=== PATIENT | male | born 1970 | race Caucasian/White ===

== ENCOUNTER 2020-08-08 10:08 | Outpatient (REF) | payer OTHER, SELFPAY ==
[2020-08-08 11:28] LABS: Alanine Aminotransferase 33 U/L (0-40); Albumin Level 4.8 g/dL (3.5-5.0); Alkaline Phosphatase 94 U/L (39-117); Anion Gap 12 (12-20); Aspartate Amino Transferase 27 U/L (5-37); Bilirubin Total 0.8 mg/dL (0.0-1.0); Blood Urea Nitrogen 17 mg/dL (9-16); Carbon Dioxide 28 mmol/L (22-29); Chloride 105 mmol/L (96-108); Cholesterol 227 mg/dL; Estimated Glomerular Filt Rate 52; Glucose Fasting 92 mg/dL (60-99); HDL Cholesterol 74 mg/dL; LDL Cholesterol Calculated 108 mg/dl; Potassium 4.5 mmol/l (3.3-5.1); Sodium 140 mmol/L (135-145); Total Protein 8.1 g/dL (6.5-8.0); Triglycerides 228 mg/dL
[2020-08-08 11:49] LABS: PSA,Total (Free>4and<10) 1.53 ng/mL (0.00-4.00); TSH reflex Free T4 0.97 mIU/mL (0.32-4.0); Vitamin D 25-OH Total 34.2 ng/mL (>30)
== END 2020-08-08 10:09 | disposition home or self-care (01) ==
LOC: HO.LAB 10:08
PROVIDERS: PCP Nurse Practitioner Family; Visit Provider Nurse Practitioner Family
DX: Z13.1 Encounter for screening for diabetes mellitus (principal); Z13.220 Encounter for screening for lipoid disorders; Z13.21 Encounter for screening for nutritional disorder; Z13.29 Encounter for screening for other suspected endocrine disorder; Z12.5 Encounter for screening for malignant neoplasm of prostate
CPT/HCPCS: 36415; 80053; 80061; 82306; 84153; 84443

== ENCOUNTER → 2020-11-05 16:02 | Outpatient (BNVA) | payer OTHER, SELFPAY | PROVIDERS: PCP Nurse Practitioner Family; Visit Provider Internal Medicine Gastroenterology | DX: Z76.89 Persons encountering health services in other specified circumstances (principal) ==

== ENCOUNTER 2022-02-15 10:03 | Outpatient (REF) | payer OTHER, SELFPAY ==
[2022-02-15 11:38] LABS: Appearance Urine CLEAR; Color Urine YELLOW; Glucose Urine UA NEG (NEG); Leukocyte Esterase Urine NEG (NEG); Nitrite Urine NEG (NEG); Urine Blood NEG (NEG); Urine Ketones NEG (NEG); Urine Protein NEG (NEG-TRACE)
[2022-02-15 12:04] LABS: TSH reflex Free T4 1.72 uIU/mL (0.32-4.0)
[2022-02-15 12:08] LABS: Alanine Aminotransferase 35 U/L (0-40); Albumin Level 4.9 g/dL (3.5-5.0); Alkaline Phosphatase 74 U/L (39-117); Anion Gap 14 (12-20); Aspartate Amino Transferase 29 U/L (5-37); Bilirubin Total 0.6 mg/dL (0.0-1.0); Blood Urea Nitrogen 17 mg/dL (9-16); Calcium 10.5 mg/dL (8.4-10.2); Carbon Dioxide 23 mmol/L (22-29); Chloride 107 mmol/L (96-108); Cholesterol 293 mg/dL; Estimated Glomerular Filt Rate 53; Glucose Fasting 100 mg/dL (60-99); HDL Cholesterol 68 mg/dL; LDL Cholesterol Calculated 152 mg/dl; Potassium 4.9 mmol/L (3.3-5.1); Sodium 139 mmol/L (135-145); Total Protein 8.3 g/dL (6.5-8.0); Triglycerides 367 mg/dL
== END 2022-02-15 10:04 | disposition home or self-care (01) ==
LOC: HO.HMGCLDS 10:03
PROVIDERS: PCP Nurse Practitioner Family; Visit Provider Nurse Practitioner Family
DX: Z00.00 Encounter for general adult medical examination without abnormal findings (principal)
CPT/HCPCS: 36415; 80053; 80061; 81003; 84443

== ENCOUNTER 2022-08-15 09:46 | Outpatient (REF) | payer OTHER, SELFPAY ==
[2022-08-15 11:14] LABS: MANUAL DIFF FLAG NO
[2022-08-15 11:24] LABS: Basophils Absolute Auto 0.1 X10*3/uL (0.0-0.2); Basophils Percent Auto 0.8 % (0-2); Eosinophils Absolute Auto 0.2 X10*3/uL (0.0-0.4); Hematocrit 47.5 % (42.0-52.0); Hemoglobin 15.9 g/dl (14.0-18.0); Imm Gran Abs Auto 0.08 X10*3/uL (0.00-0.03); Lymphocytes Absolute Auto 3.5 X10*3/uL (1.2-4.9); Mean Corpuscular HGB Conc 33.5 g/dl (31.0-36.0); Mean Corpuscular Hemoglobin 30.6 pg (27.0-33.0); Mean Corpuscular Volume 91.3 fL (80.0-98.0); Mean Platelet Volume 10.6 fL (9.4-12.4); Monocytes Absolute Auto 0.8 X10*3/uL (0.1-1.2); Monocytes Percent Auto 9.8 % (2-11); Neutrophils Absolute Auto 3.3 x10*3/uL (2.0-8.3); Neutrophils Percent Auto 42.4 % (45-73); Platelet Count 278 X10*3/uL (160-400); Red Cell Distribution Width 13.2 % (11.0-16.0); White Blood Count 7.8 X10*3/uL (4.8-10.8)
[2022-08-15 11:25] LABS: Appearance Urine Clear; Color Urine Yellow; Glucose Urine UA Negative (Negative); Leukocyte Esterase Urine Negative (Negative); Nitrite Urine Negative (Negative); Urine Blood Negative (Negative); Urine Ketones Negative (Negative); Urine Protein Negative (Neg-Trace)
[2022-08-15 11:50] LABS: Alanine Aminotransferase 52 U/L (0-40); Albumin Level 4.9 g/dL (3.5-5.0); Alkaline Phosphatase 94 U/L (39-117); Anion Gap 16 (12-20); Aspartate Amino Transferase 30 U/L (5-37); Bilirubin Total 0.6 mg/dL (0.0-1.0); Blood Urea Nitrogen 13 mg/dL (9-16); Calcium 9.7 mg/dL (8.4-10.2); Carbon Dioxide 23 mmol/L (22-29); Chloride 107 mmol/L (96-108); Cholesterol 192 mg/dL; Estimated Glomerular Filt Rate 52; Glucose Fasting 100 mg/dL (60-99); HDL Cholesterol 72 mg/dL; LDL Cholesterol Calculated 80 mg/dl; Potassium 4.1 mmol/L (3.3-5.1); Sodium 142 mmol/L (135-145); Total Protein 8.2 g/dL (6.5-8.0); Triglycerides 201 mg/dL
[2022-08-15 11:57] LABS: TSH reflex Free T4 2.28 uIU/mL (0.32-4.0)
[2022-08-16 10:46] LABS: Calcium (PTHI) 9.9 mg/dL (8.6-10.3); PTHI 40 pg/mL (16-77)
[2022-08-18 10:32] LABS: Calcium, Ionized 5.1 mg/dL (4.8-5.6)
== END 2022-08-15 09:47 | disposition home or self-care (01) ==
LOC: HO.HMGCLDS 09:46
PROVIDERS: PCP Nurse Practitioner Family; Visit Provider Nurse Practitioner Family
DX: E83.52 Hypercalcemia (principal); E78.5 Hyperlipidemia, unspecified; I10 Essential (primary) hypertension; R79.89 Other specified abnormal findings of blood chemistry; R74.8 Abnormal levels of other serum enzymes
CPT/HCPCS: 36415; 80053; 80061; 81003; 82330; 83970; 84443; 85025

== ENCOUNTER 2022-09-06 08:52 | Outpatient (REF) | payer OTHER, SELFPAY ==
--- NOTE | ~2022-09-06 | US_ITS ---
EXAMINATION: US ABDOMEN COMPLETE CLINICAL INFORMATION: Abnormal levels of other serum enzymes. COMPARISON: CT abdomen and pelvis without contrast 04/26/2019. Ultrasound retroperitoneal limited (renal only) 02/26/2019. TECHNIQUE: Real-time imaging of the abdominal viscera. Technically limited study secondary to bowel gas and body habitus. FINDINGS: PANCREAS: Normal. ABDOMINAL AORTA: The distal abdominal aorta is normal in caliber. The proximal and mid abdominal aorta are not well visualized. INFERIOR VENA CAVA: Not well visualized. LIVER: Liver echotexture is heterogeneous with overall increased echotexture and large focal hypoechoic areas, probably representing areas of focal fatty sparing. No intrahepatic biliary duct dilatation. The liver appears normal in size and contour. Increased. GALLBLADDER: The gallbladder is normal in size. No gallstones. Ring down artifact suggestive of adenomyosis of the gallbladder wall. Gallbladder wall thickness is normal. COMMON BILE DUCT: Normal in caliber measuring 0.4 cm in diameter. RIGHT KIDNEY: Normal. No hydronephrosis. No renal calculi or focal parenchymal lesions. The kidney measures 11.0 cm in maximum dimension. LEFT KIDNEY: Normal. No hydronephrosis. No renal calculi or focal parenchymal lesions. The kidney measures 11.1 cm in maximum dimension. SPLEEN: Normal. The spleen measures 10.2 cm in maximum dimension. FREE FLUID: None. US/US abdomen complete IMPRESSION: Echogenic liver with large hypoechoic areas probably representing areas of focal fatty sparing. Adenomyosis of the gallbladder wall. Limited visualization of the aorta and IVC.
== END 2022-09-06 08:53 | disposition home or self-care (01) ==
LOC: HO.HMGCX 08:52
PROVIDERS: PCP Nurse Practitioner Family; Visit Provider Nurse Practitioner Family
DX: R74.8 Abnormal levels of other serum enzymes (principal)
CPT/HCPCS: 76700

== ENCOUNTER 2022-10-10 11:00 | Outpatient (REF) | payer OTHER, SELFPAY ==
[2022-10-10 14:58] LABS: Alanine Aminotransferase 50 U/L (0-40); Albumin Level 4.8 g/dL (3.5-5.0); Alkaline Phosphatase 102 U/L (39-117); Anion Gap 14 (12-20); Aspartate Amino Transferase 29 U/L (5-37); Bilirubin Total 0.7 mg/dL (0.0-1.0); Blood Urea Nitrogen 13 mg/dL (9-16); Calcium 9.9 mg/dL (8.4-10.2); Carbon Dioxide 26 mmol/L (22-29); Chloride 105 mmol/L (96-108); Cholesterol 178 mg/dL; Estimated Glomerular Filt Rate 58; Glucose Random 88 mg/dL (60-115); HDL Cholesterol 74 mg/dL; LDL Cholesterol Calculated 63 mg/dl; Potassium 4.4 mmol/L (3.3-5.1); Sodium 141 mmol/L (135-145); Total Protein 8.1 g/dL (6.5-8.0); Triglycerides 205 mg/dL
[2022-10-11 05:21] LABS: HBS Num1 2.23 mIU/mL (0-7.99); HBc Num1 0.09 S/CO (0.00-0.79); HBsAGNum1 0.26 S/CO (0.00-0.99); Hepatitis B Core Antibody Nonreactive (Nonreactive); Hepatitis B Surface Antigen Negative (Negative); ~HepC Num1 0.13 S/CO (0.00-0.79); ~Hepatitis B Surface Antibody NONREACTIVE (Nonreactive); ~Hepatitis C Antibody Nonreactive (Nonreactive)
[2022-10-11 09:48] LABS: PTHI 35 pg/mL (16-77)
[2022-10-12 04:33] LABS: Hepatitis A Antibody IgM 0.23 Index (0-0.79); ~Hepatitis A Antibody IgM Nonreactive (Nonreactive)
[2022-10-12 14:33] LABS: Calcium, Ionized 5.1 mg/dL (4.8-5.6)
== END 2022-10-10 11:01 | disposition home or self-care (01) ==
LOC: HO.HMGCLDS 11:00
PROVIDERS: PCP Nurse Practitioner Family; Visit Provider Nurse Practitioner Family
DX: E83.52 Hypercalcemia (principal); R79.89 Other specified abnormal findings of blood chemistry; R74.8 Abnormal levels of other serum enzymes; E78.5 Hyperlipidemia, unspecified; Z12.5 Encounter for screening for malignant neoplasm of prostate
CPT/HCPCS: 36415; 80053; 80061; 82330; 83970; 86704; 86706; 86709; 86803; 87340

== ENCOUNTER 2022-10-21 10:53 | Outpatient (REF) | payer OTHER, SELFPAY ==
[2022-10-21 15:01] LABS: Prostate Specific Antigen Scr 1.94 ng/mL (<0.05-4.0)
== END 2022-10-21 10:54 | disposition home or self-care (01) ==
LOC: HO.HMGCLDS 10:53
PROVIDERS: PCP Nurse Practitioner Family; Visit Provider Nurse Practitioner Family
DX: Z12.5 Encounter for screening for malignant neoplasm of prostate (principal)
CPT/HCPCS: 36415; 84153

== ENCOUNTER 2023-02-09 10:02 | Outpatient (REF) | payer OTHER, SELFPAY ==
[2023-02-09 11:23] LABS: MANUAL DIFF FLAG NO
[2023-02-09 11:48] LABS: Basophils Absolute Auto 0.1 X10*3/uL (0.0-0.2); Basophils Percent Auto 0.7 % (0-2); Eosinophils Absolute Auto 0.1 X10*3/uL (0.0-0.4); Eosinophils Percent Auto 1.3 % (0-4); Hematocrit 51.4 % (42.0-52.0); Hemoglobin 16.9 g/dl (14.0-18.0); Imm Gran Abs Auto 0.04 X10*3/uL (0.00-0.03); Imm Gran Pct Auto 0.5 % (0.0-0.4); Lymphocytes Absolute Auto 2.8 X10*3/uL (1.2-4.9); Lymphocytes Percent Auto 36.4 % (20-40); Mean Corpuscular HGB Conc 32.9 g/dl (31.0-36.0); Mean Corpuscular Hemoglobin 30.1 pg (27.0-33.0); Mean Corpuscular Volume 91.5 fL (80.0-98.0); Mean Platelet Volume 10.4 fL (9.4-12.4); Monocytes Absolute Auto 0.6 X10*3/uL (0.1-1.2); Monocytes Percent Auto 7.9 % (2-11); Neutrophils Absolute Auto 4.1 x10*3/uL (2.0-8.3); Neutrophils Percent Auto 53.2 % (45-73); Platelet Count 272 X10*3/uL (160-400); Red Blood Count 5.62 X10*6/uL (4.60-5.80); Red Cell Distribution Width 12.4 % (11.0-16.0); White Blood Count 7.6 X10*3/uL (4.8-10.8)
[2023-02-09 11:55] LABS: Appearance Urine Clear; Color Urine Yellow; Glucose Urine UA Negative (Negative); Leukocyte Esterase Urine Negative (Negative); Nitrite Urine Negative (Negative); Specific Gravity - Urine 1.025 (1.005-1.025); Urine Blood Negative (Negative); Urine Ketones Negative (Negative); Urine Protein Trace mg/dL (Neg-Trace)
[2023-02-09 12:07] LABS: Alanine Aminotransferase 62 U/L (0-40); Albumin Level 4.8 g/dL (3.5-5.0); Alkaline Phosphatase 103 U/L (39-117); Anion Gap 13 (12-20); Aspartate Amino Transferase 33 U/L (5-37); Blood Urea Nitrogen 12 mg/dL (9-16); Carbon Dioxide 27 mmol/L (22-29); Chloride 106 mmol/L (96-108); Cholesterol 174 mg/dL; Estimated Glomerular Filt Rate 51; Glucose Fasting 107 mg/dL (60-99); HDL Cholesterol 61 mg/dL; LDL Cholesterol Calculated 62 mg/dl; Potassium 5.1 mmol/L (3.3-5.1); Sodium 141 mmol/L (135-145); Total Protein 8.1 g/dL (6.5-8.0); Triglycerides 258 mg/dL
[2023-02-09 12:26] LABS: TSH reflex Free T4 2.54 uIU/mL (0.32-4.0)
== END 2023-02-09 10:03 | disposition home or self-care (01) ==
LOC: HO.HMGCLDS 10:02
PROVIDERS: PCP Nurse Practitioner Family; Visit Provider Nurse Practitioner Family
DX: E78.5 Hyperlipidemia, unspecified (principal)
CPT/HCPCS: 36415; 80053; 80061; 81003; 84443; 85025

== ENCOUNTER 2023-06-08 10:26 | Outpatient (AMB) | payer OTHER, SELFPAY ==
--- NOTE | 2023-06-08 10:41 | MHC.OFFVIS ---
Intake Vital Signs 06/08/23 11:02 Height 5 ft 8 in Weight 188 lb BMI 28.6 BP 114/78 Blood Pressure Location Lt brachial Position Sitting Pulse 56 Intake Visit Reasons: pre colonoscopy screening Intake Note: Follow up for 2nd pre colonoscopy screening. Patient denies any other GI issues. 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 ?CHRONIC ILLNESSES:?Hypertension, migraine headaches, vitamin D and vitamin B12 deficiency ? LABS IN [facility]:?04/26/19 WBC 12.8, H&H of 15.6 and 46.3, platelet 196, BUN 28, creatinine 1.59, normal LFTs. Elevated anti parietal cell antibody to 34.7 in March 2018 (normal < 20) ?IMAGING STUDIES: 04/26/2019 CT scan showed: ? GASTROINTESTINAL TRACT: There is fatty infiltration in the wall of the ? terminal ileum questionable for changes related to enteritis. In ? particular, inflammatory enteritis. Small and large bowel is otherwise ? unremarkable. The appendix is unremarkable. ? ABDOMINAL WALL: No significant hernia is appreciated. ? LYMPH NODES: Normal. ? VASCULAR: Unremarkable. ? PELVIC VISCERA: Unremarkable. ? OSSEOUS STRUCTURES: Unremarkable. ? IMPRESSION: ? Mild fatty infiltration of the wall of the terminal ileum questionable ? for terminal ileitis. Particular, inflammatory ileitis should be ? considered. Bowel is otherwise unremarkable. The appendix is unremarkable. ? TODAY'S VISIT ? Denies abdominal pain. ? Has normal BM twice a day. ? Denies change in appetite or weight. Pt denies known FH of colon polyps or cancer. Had rotator cuff surgery and is supposed to have a 2nd surgery on the same shoulder. Denies problems with anesthesia Occasional ETOH and denies smoking. ?PAST GI HISTORY BY REVIEW OF MEDICAL RECORDS: ? Pt was last seen on 07/05/19: ? Assessments ? 1. Abnormal abdominal CT scan - R93.5 (Primary) ? 48-year-old male with Hypertension, migraine headaches, vitamin D and vitamin B12 deficiency seen for evaluation of ileitis on abdominal CT scan: ? GASTROINTESTINAL TRACT: There is fatty infiltration in the wall of the ? terminal ileum questionable for changes related to enteritis. In particular, inflammatory enteritis. Small and large bowel is otherwise unremarkable. The appendix is unremarkable. ? The patient denies any symptoms suggestive of Crohn's disease or family history of IBD. Colonoscopy in 10/2018 showed pinpoint areas of the exudate with surrounding erythema in the cecum/periappendiceal region - lymphoid aggregate and biopsy ? Further evaluation with the noninvasive testing with the CRP, sed rate and stool white cells was discussed with the patient. If these are suggestive of IBD, I will schedule colonoscopy with the intubation of the TI for further evaluation. ? Treatment ? 1. Abnormal abdominal CT scan ? LAB: CRP ? LAB: CBC w DIFF ? LAB: SED RATE (ESR) ? LAB: STOOL WBC ? Follow Up ? 3-4 Weeks (Reason: FU of abnormal abdomnal CT?scan [facility] Medical History (Updated 02/15/23 @ 17:44 by Carlos Isaasc, [facility]) Capsulitis of left shoulder Fatty liver High triglycerides Left shoulder pain Screening for colon cancer Surgical History Hx of colonoscopy (~10/2018) Family History Father Bladder cancer Mother Dementia Parkinsons Paternal Grandmother Skin cancer Social History Housing: House Alcohol intake: current Alcohol intake frequency: a few times a month Alcohol type: beer Patient Tobacco Use Status: Never used Tobacco e-Cigarette/Vaping Use: Never Used Second Hand Smoke Exposure: No service: No Current occupational status: employed Current occupation: [employer] Current occupational exposures/hazards: Yes Cognitive needs: No Hearing needs: No Vision needs: No Review of Systems Const All systems reviewed & are unremarkable except as noted in HPI and below Physical Exam Vital Signs: Last Vital Signs Pulse 56 06/08/23 11:02 BP 114/78 06/08/23 11:02 BMI result Body Mass Index 28.6 Const General: healthy appearing and no acute distress Nutritional Appearance: obese Orientation/consciousness: patient oriented x3 Limitations: no limitations HEENT Head: Yes normal to inspection Ears: hearing grossly normal bilaterally Eyes Sclerae: sclerae normal Pupils: Equal, round and reactive pupils present Neck Neck: Yes normal visual inspection Chest Chest palpation & inspection: normal inspection of the chest Resp Effort & Inspection: normal respiratory effort Auscultation: clear to auscultation bilaterally Cardio Palpation: normal PMI Rate: regular rate Rhythm: regular rhythm Heart sounds: S1 normal heart sound present, S2 normal heart sound present and no murmurs GI Palpation (GI): Soft to palpation, nontender and No hepatosplenomegaly present Auscultation: normal bowel sounds Rectal Exam - Male: Yes deferred Skin General skin exam: no rashes or lesions noted Neuro General: patient oriented x3, gait normal and moves all extremities Cranial nerves: Yes Equal, round and reactive pupils present Psych Appearance: grossly normal Mental Status: mental status grossly normal Assessment & Plan Assessment & Plan (1) Abnormal computed tomography of abdomen and pelvis: Code(s): R93.5 - Abnormal findings on diagnostic imaging of other abdominal regions, including retroperitoneum (2) Vitamin B12 deficiency: Code(s): E53.8 - Deficiency of other specified B group vitamins (3) Vitamin D deficiency: Code(s): E55.9 - Vitamin D deficiency, unspecified Plan 52-year-old male with Hypertension, migraine headaches, vitamin D and vitamin B12 deficiency followed in GI ileitis on abdominal CT scan: GASTROINTESTINAL TRACT: There is fatty infiltration in the wall of the terminal ileum questionable for changes related to enteritis. In particular, inflammatory enteritis. Small and large bowel is otherwise unremarkable. The appendix is unremarkable. The patient denies any symptoms suggestive of Crohn's disease or family history of IBD. Colonoscopy in 10/2018 showed pinpoint areas of the exudate with surrounding erythema in the cecum/nila-appendiceal region - lymphoid aggregate on biopsy A diminutive TA was removed. Evaluation with the noninvasive testing with the CRP, sed rate and stool white cells was normal. Pt was advised to monitor his symptoms and contact the GI clinic if he noted abdominal pain, diarrhea or rectal bleeding. Advised repeat colonoscopy in October 2023 for polyp surveillance - Dulcolax and Miralax split prep Same day EGD due to an elevated anti parietal cell antibody to 34.7 in March 2018 (normal < 20) to rule out atrophic gastritis (VItamin B12 was low normal at 226 in 02/2018) Medications: New bisacodyl (Dulcolax (bisacodyl)) Take 2 tablets at 12 pm daily starting 2 days before colonoscopy appointment 10 mg (2 x 5 mg) PO ONCE 2 days 4 tabs 0RF colon prep polyethylene glycol 3350 (Miralax) Mix Miralax with 64 oz(8 cups) of Crystal light. Take 2 tablets of Dulcolax qt 12 pm. Wait to have your 1st bowel movement, then begin drinking Miralax. Drink a glass of Miralax every 10-15 minutes until you are finished. You will drink at least another 4 cups of clear liquid of your choice over the next 2 hours. Please drink as many clear liquids as possible You may have clear liquids up to four hours before your procedure 17 grams PO DAILY 1 day 238 grams 0RF Coding Level of Care Code Est Pt Level 4 (83201) Diagnoses Abnormal computed tomography of abdomen and pelvis R93.5 Vitamin B12 deficiency E53.8 Vitamin D deficiency E55.9 Time Spent (min) 25
[2023-06-08 11:02] VITALS: BP 114/78; PULSE 56; BMI 28.6
== END 2023-06-08 11:59 | disposition home or self-care (01) ==
PROVIDERS: Visit Provider Internal Medicine Gastroenterology
DX: R93.5 Abnormal findings on diagnostic imaging of other abdominal regions, including retroperitoneum (principal); E53.8 Deficiency of other specified B group vitamins; E55.9 Vitamin D deficiency, unspecified
CPT/HCPCS: 99214

== ENCOUNTER → 2023-06-08 10:26 | Outpatient (BNVA) | payer OTHER, SELFPAY | PROVIDERS: Visit Provider Internal Medicine Gastroenterology | DX: R93.5 Abnormal findings on diagnostic imaging of other abdominal regions, including retroperitoneum (principal); E53.8 Deficiency of other specified B group vitamins; E55.9 Vitamin D deficiency, unspecified | CPT/HCPCS: 99212 ==

== ENCOUNTER 2023-08-16 08:48 | Outpatient (AMB) | payer OTHER, SELFPAY ==
[2023-08-16 09:05] VITALS: BP 120/88; PULSE 63; O2SAT 98; BMI 28.8
--- NOTE | 2023-08-16 09:05 | MHC.PC.OV ---
Vital Signs 08/16/23 09:05 Height 5 ft 8 in Weight 189 lb 4 oz BMI 28.8 BP 120/88 Blood Pressure Location Lt brachial Position Sitting Pulse 63 Pulse Source Pulse Oximeter Pulse Oximetry (%) 98 Oxygen Delivery Method Room Air Intake Visit Reasons: Annual PE Allergies No Known Allergies Allergy (Verified 08/16/23 10:07) Medication List - Last Reconciled 08/16/23 by FAREED Saldivar amlodipine 10 mg PO DAILY atorvastatin 20 mg PO BEDTIME 90 days bisacodyl (Dulcolax (bisacodyl)) 10 mg (2 x 5 mg) PO ONCE 2 days cholecalciferol (vitamin D3) 25 mcg PO DAILY 90 days fenofibrate 54 mg PO DAILY metoprolol tartrate 50 mg PO BID polyethylene glycol 3350 (Miralax) 17 grams PO DAILY 1 day Tobacco use date assessed: 08/16/23 Dental Screening Dental Screen Date: 08/16/23 Did you have a dental visit in the last 12 months?: Yes Did you have a dental problem in the last 6 months where you did not have access to dental care?: No Was dental information given to patient?: Patient has dentist HPI Annual PE HPI Details Pt is here for a PE. Will order labs. Colonoscopy is scheduled. PSA is up to date. Pt has a hx of vitamin B12 deficiency, will order labs. [facility] Medical History Screening for colon cancer Capsulitis of left shoulder Left shoulder pain Fatty liver High triglycerides Surgical History Hx of colonoscopy (~10/2018) Family History Father Bladder cancer Mother Dementia Parkinsons Paternal Grandmother Skin cancer Social History Housing: House Alcohol intake: current Alcohol intake frequency: a few times a month Alcohol type: beer Patient Tobacco Use Status: Never used Tobacco e-Cigarette/Vaping Use: Never Used Second Hand Smoke Exposure: No service: No Current occupational status: employed Current occupation: [employer] Current occupational exposures/hazards: Yes Cognitive needs: No Hearing needs: No Vision needs: No Questionnaire Thrive Questionnaire Date Thrive assessed: 02/09/23 ERON-7 AMB Questionnaire ERON-7 Date ERON - 7 assessed: 02/09/23 Source: Developed by Drs. Denver Godoy, Arlyn Olivia, Nilay Pillai and colleagues, with an educational luci from [employer]. Review of Systems Const Denies chills and Denies fever(s) Eyes Denies blurry vision ENT Denies vertigo, Denies dizziness and Denies sore throat Card Denies chest pain at rest, Denies chest pain with activity, Denies diaphoresis, Denies dyspnea and Denies dyspnea on exertion Resp Denies cough, Denies dyspnea, Denies dyspnea on exertion and Denies wheezing GI Denies abdominal pain, Denies melena, Denies hematochezia, Denies constipation, Denies diarrhea and Denies loose stools Denies hematuria Musc Denies numbness and Denies tingling Skin/Breast Denies lesions Neuro Denies vertigo, Denies dizziness, Denies numbness and Denies tingling Psych Denies anxiety, Denies depression, Denies homicidal ideation, Denies suicidal ideation and Denies other (substance abuse) Aller/Immun Denies wheezing Physical exam (Primary Care) Vital Signs: Last Vital Signs Pulse 63 08/16/23 09:05 BP 120/88 08/16/23 09:05 Pulse Ox 98 08/16/23 09:05 Oxygen Delivery Method Room Air 08/16/23 09:05 BMI result Body Mass Index 28.8 Tobacco/Smoking Status: Tobacco use Status Tobacco use date assessed 08/16/23 08/16/23 09:10 Patient Tobacco Use Status Never used Tobacco 08/16/23 09:10 e-Cigarette/Vaping Use Never Used 08/16/23 09:10 Thrive Assessment: Date of Thrive Assessment Date Thrive assessed 02/09/23 08/16/23 09:10 Const General: cooperative Nutritional Appearance: well nourished Orientation/consciousness: patient oriented x3 HENMT Head: Yes normal to inspection, Yes normocephalic and Yes atraumatic Ears: TM's normal bilaterally Eyes General: appearance normal, both eyes and all related structures Alignment and Position: alignment normal and position normal Neck Neck: Yes normal visual inspection and Yes no lymphadenopathy Thyroid: Thyroid normal Resp Effort & Inspection: normal respiratory effort Auscultation: clear to auscultation bilaterally Cardio Rate: regular rate Rhythm: regular rhythm Heart sounds: S1 normal heart sound present, S2 normal heart sound present and no murmurs GI Other: small umbilical hernia noted Palpation (GI): Soft to palpation and nontender Auscultation: normal bowel sounds Male General Exam: Yes normal external exam Penis: normal penis Scrotum: scrotum normal, testes descended bilaterally and no inguinal hernias Testes: no testicular mass Skin Rashes: no rashes Neuro General: patient oriented x3, moves all extremities, no focal motor deficits and deep tendon reflexes 2+ bilaterally Romberg Test: Negative Psych Appearance: grossly normal Mental Status: mental status grossly normal Speech and movement: Normal speech and movement present Affect: normal affect Attitude: cooperative Thought process: Normal thought process present Thought content: Normal thought content present Insight: Good insight present (Psych) Judgement: Good judgement present (Psych) Assessment and Plan Assessment & Plan (1) Physical exam: Code(s): Z00. - Encounter for general adult medical examination without abnormal findings Plan: Labs ordered (2) Vitamin B12 deficiency: Code(s): E53.8 - Deficiency of other specified B group vitamins Plan: Labs ordered Plan The patient agreed to the use of a director of graduate medical education for this encounter. Scribed for FAREED Gerber by Mary Jane Hensley director of graduate medical education, on 08/16/2023 at 09:30 EST Orders: Orders Complete Blood Count Auto Diff Today Z. - Encounter for general adult medical examination without abnormal findings UA CC w/rflx Micro + Cult Today Z00.00 - Encounter for general adult medical examination without abnormal findings Lipid Panel Today Z00.00 - Encounter for general adult medical examination without abnormal findings Vitamin B12 and Folate Today E53.8 - Deficiency of other specified B group vitamins AMB EKG-In Office Today Z. - Encounter for general adult medical examination without abnormal findings Comprehensive [place]. Panel Fast Today Z00.00 - Encounter for general adult medical examination without abnormal findings TSH reflex Free T4 Today Z00.00 - Encounter for general adult medical examination without abnormal findings Coding Level of Care Code Est Pt Prev Care 40-64y(80295) Diagnoses Physical exam Z. Vitamin B12 deficiency E53.8
== END 2023-08-16 09:59 | disposition home or self-care (01) ==
PROVIDERS: Visit Provider Nurse Practitioner Family
DX: Z00.00 Encounter for general adult medical examination without abnormal findings (principal); E53.8 Deficiency of other specified B group vitamins
CPT/HCPCS: 99396

== ENCOUNTER 2023-10-26 09:28 | Outpatient (AMB) | payer OTHER, SELFPAY ==
--- NOTE | 2023-10-26 10:03 | A.OFFVIS_ITS ---
Intake Vital Signs 10/26/23 10:09 Height 5 ft 8 in Weight 188 lb BMI 28.6 BP 112/74 Blood Pressure Location Lt brachial Position Sitting Pulse 56 Intake Visit Reasons: 4 month follow up Intake Note: Patient 4 month follow up Patient denies any GI issues. Direct Response Consultant Required: No Accompanied by: Self / Same As Patient Allergies No Known Allergies Allergy (Verified 10/26/23 10:02) Medication List - Last Reconciled 10/26/23 by Norma Mcintosh MD amlodipine 10 mg PO DAILY atorvastatin 20 mg PO BEDTIME 90 days bisacodyl (Dulcolax (bisacodyl)) 10 mg (2 x 5 mg) PO ONCE 2 days cholecalciferol (vitamin D3) 25 mcg PO DAILY 90 days fenofibrate 54 mg PO DAILY metoprolol tartrate 50 mg PO BID polyethylene glycol 3350 (Miralax) 17 grams PO DAILY 1 day HPI 4 month follow up HPI Details GI CLINIC VISIT FOR THIS 53-YEAR-OLD MALE FOR FOLLOW-UP OF RIGHT LOWER QUADRANT PAIN AND TERMINAL ILEITIS ON ABDOMINAL CT SCAN. ?CHRONIC ILLNESSES:?Hypertension, migraine headaches, vitamin D and vitamin B12 deficiency ? LABS IN [facility]:?04/26/19 WBC 12.8, H&H of 15.6 and 46.3, platelet 196, BUN 28, creatinine 1.59, normal LFTs. Elevated anti parietal cell antibody to 34.7 in March 2018 (normal < 20) ?IMAGING STUDIES: 04/26/2019 CT scan showed: ? GASTROINTESTINAL TRACT: There is fatty infiltration in the wall of the ? terminal ileum questionable for changes related to enteritis. In ? particular, inflammatory enteritis. Small and large bowel is otherwise ? unremarkable. The appendix is unremarkable. ? ABDOMINAL WALL: No significant hernia is appreciated. ? LYMPH NODES: Normal. ? VASCULAR: Unremarkable. ? PELVIC VISCERA: Unremarkable. ? OSSEOUS STRUCTURES: Unremarkable. ? IMPRESSION: ? Mild fatty infiltration of the wall of the terminal ileum questionable ? for terminal ileitis. Particular, inflammatory ileitis should be ? considered. Bowel is otherwise unremarkable. The appendix is unremarkable. ? TODAY'S VISIT He was unable to schedule a Colonoscopy due to left shoulder surgeries in Nov and Jul, 2023 for rotator cuff Still going for PT. He is able to lie on his left side without difficulty Out of work for 2 years due to his shoulder and has gained weight. 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 Denies abdominal pain. ? Has normal BM twice a day. ? Denies change in appetite or weight. Pt denies known FH of colon polyps or cancer. Had rotator cuff surgery and is supposed to have a 2nd surgery on the same shoulder. Denies problems with anesthesia Occasional ETOH and denies smoking. ?PAST GI HISTORY BY REVIEW OF MEDICAL RECORDS: ? Pt was last seen on 07/05/19: ? Assessments ? 1. Abnormal abdominal CT scan - R93.5 (Primary) ? 48-year-old male with Hypertension, migraine headaches, vitamin D and vitamin B12 deficiency seen for evaluation of ileitis on abdominal CT scan: ? GASTROINTESTINAL TRACT: There is fatty infiltration in the wall of the ? terminal ileum questionable for changes related to enteritis. In particular, inflammatory enteritis. Small and large bowel is otherwise unremarkable. The appendix is unremarkable. ? The patient denies any symptoms suggestive of Crohn's disease or family history of IBD. Colonoscopy in 10/2018 showed pinpoint areas of the exudate with surrounding erythema in the cecum/periappendiceal region - lymphoid aggregate and biopsy ? Further evaluation with the noninvasive testing with the CRP, sed rate and stool white cells was discussed with the patient. If these are suggestive of IBD, I will schedule colonoscopy with the intubation of the TI for further evaluation. ? Treatment ? 1. Abnormal abdominal CT scan ? LAB: CRP ? LAB: CBC w DIFF ? LAB: SED RATE (ESR) ? LAB: STOOL WBC ? Follow Up ? 3-4 Weeks (Reason: FU of abnormal abdomnal CT?scan [facility] Medical History Screening for colon cancer Capsulitis of left shoulder Left shoulder pain Fatty liver High triglycerides Surgical History Hx of colonoscopy (~10/2018) Family History Father Bladder cancer Mother Dementia Parkinsons Paternal Grandmother Skin cancer Social History Housing: House Alcohol intake: current Alcohol intake frequency: a few times a month Alcohol type: beer Patient Tobacco Use Status: Never used Tobacco e-Cigarette/Vaping Use: Never Used Second Hand Smoke Exposure: No service: No Current occupational status: employed Current occupation: [employer] Current occupational exposures/hazards: Yes Cognitive needs: No Hearing needs: No Vision needs: No Review of Systems Const All systems reviewed & are unremarkable except as noted in HPI and below Physical Exam Vital Signs: Last Vital Signs Pulse 56 10/26/23 10:09 BP 112/74 10/26/23 10:09 BMI result Body Mass Index 28.6 Const General: healthy appearing and no acute distress Nutritional Appearance: overweight Orientation/consciousness: patient oriented x3 Limitations: no limitations HEENT Head: Yes normal to inspection Ears: hearing grossly normal bilaterally Eyes Sclerae: sclerae normal Pupils: Equal, round and reactive pupils present Neck Neck: Yes normal visual inspection Chest Chest palpation & inspection: normal inspection of the chest Resp Effort & Inspection: normal respiratory effort Auscultation: clear to auscultation bilaterally Cardio Palpation: normal PMI Rate: regular rate Rhythm: regular rhythm Heart sounds: S1 normal heart sound present, S2 normal heart sound present and no murmurs GI Inspection: Yes obesity Palpation (GI): Soft to palpation, nontender and No hepatosplenomegaly present Auscultation: normal bowel sounds Rectal Exam - Male: Yes deferred Skin General skin exam: no rashes or lesions noted Neuro General: patient oriented x3, gait normal and moves all extremities Cranial nerves: Yes Equal, round and reactive pupils present Psych Appearance: grossly normal Mental Status: mental status grossly normal Assessment & Plan Assessment & Plan (1) Elevated liver enzymes: Code(s): R74.8 - Abnormal levels of other serum enzymes (2) Vitamin B12 deficiency: Code(s): E53.8 - Deficiency of other specified B group vitamins (3) Abnormal computed tomography of abdomen and pelvis: Code(s): R93.5 - Abnormal findings on diagnostic imaging of other abdominal regions, including retroperitoneum Plan 53-year-old male with Hypertension, migraine headaches, vitamin D and vitamin B12 deficiency followed in GI ileitis on abdominal CT scan: GASTROINTESTINAL TRACT: There is fatty infiltration in the wall of the terminal ileum questionable for changes related to enteritis. In particular, inflammatory enteritis. Small and large bowel is otherwise unremarkable. The appendix is unremarkable. The patient denies any symptoms suggestive of Crohn's disease or family history of IBD. Colonoscopy in 10/2018 showed pinpoint areas of the exudate with surrounding erythema in the cecum/nila-appendiceal region - lymphoid aggregate on biopsy A diminutive TA was removed. Evaluation with the noninvasive testing with the CRP, sed rate and stool white cells was normal. Pt was advised to monitor his symptoms and contact the GI clinic if he noted abdominal pain, diarrhea or rectal bleeding - he continues to remain asymptomatic 10/26/23 Pt advised to schedule a FU colonoscopy in 2023 for polyp surveillance - Dulcolax and Miralax split prep (unable to schedule this year due to shoulder surgeries Same day EGD due to an elevated anti parietal cell antibody to 34.7 in March 2018 (normal < 20) to rule out atrophic gastritis (VItamin B12 was low normal at 226 in 02/2018) FU in 6 months Orders: Orders Liver Panel Today R74.8 - Abnormal levels of other serum enzymes Ferritin Today R74.8 - Abnormal levels of other serum enzymes IRON PROFILE Today R74.8 - Abnormal levels of other serum enzymes KRISTY Reflex Titer and Pattern Today R74.8 - Abnormal levels of other serum enzymes Smooth Muscle Antibody Today R74.8 - Abnormal levels of other serum enzymes Protein Electrophoresis, Serum Today R74.8 - Abnormal levels of other serum enzymes Coding Level of Care Code Est Pt Level 4 (31280) Diagnoses Elevated liver enzymes R74.8 Vitamin B12 deficiency E53.8 Abnormal computed tomography of abdomen and pelvis R93.5 Time Spent (min) 20
[2023-10-26 10:09] VITALS: BP 112/74; PULSE 56; BMI 28.6
== END 2023-10-26 14:58 | disposition home or self-care (01) ==
PROVIDERS: PCP Nurse Practitioner Family; Visit Provider Internal Medicine Gastroenterology
DX: R74.8 Abnormal levels of other serum enzymes (principal); E53.8 Deficiency of other specified B group vitamins; R93.5 Abnormal findings on diagnostic imaging of other abdominal regions, including retroperitoneum
CPT/HCPCS: 99214

== ENCOUNTER → 2023-10-26 09:28 | Outpatient (BNVA) | payer OTHER, SELFPAY | PROVIDERS: PCP Nurse Practitioner Family; Visit Provider Internal Medicine Gastroenterology | DX: R74.8 Abnormal levels of other serum enzymes (principal); E53.8 Deficiency of other specified B group vitamins; R93.5 Abnormal findings on diagnostic imaging of other abdominal regions, including retroperitoneum | CPT/HCPCS: 99212 ==

== ENCOUNTER 2023-10-27 12:20 | Outpatient (REF) | payer OTHER, SELFPAY ==
--- NOTE | 2023-10-27 | EMG_ITS ---
Chief complaint: History of leftm rotator cuff surgery 2021 and 2022. Continued left anterior neck and shoulder pain. Complaining of numbness on left medial upper arm, down to left 3rd-5th digits. On exam, noted left scapular winging? Reason for referral: Evaluate for brachial plexopathy Referred by: Dr. Jairo Hassan Procedure done: Left upper extremity NCS/EMG Precautions and/or limitations: None The limb temperature was monitored continuously and remained between 32-36 degrees C during the performance of the NCS. Nerve Conduction Studies Anti Sensory Summary Table ?Stim Site NR Onset (ms) Norm Onset (ms) Peak (ms) Norm Peak (ms) O-P Amp (?V) Norm O-P Amp Site1 Site2 Delta-0 (ms) Dist (cm) Nuno (m/s) Norm Nuno (m/s) Left Lat Ante Brach Cutan Anti Sensory (Lat Forearm) Lat Biceps ? 0.5 0.6 16.7 Lat Biceps Lat Forearm 0.5 0.0 Left Med Ante Brach Cutan Anti Sensory (Med Forearm) Elbow NR Elbow Med Forearm 0.0 Left Median Anti Sensory (2nd Digit) Wrist ? 2.3 2.9 <3.6 36.5 >10 Wrist 2nd Digit 2.3 14.0 61 Left Radial Anti Sensory (Thumb) Forearm ? 2.0 2.4 <3.1 15.0 Forearm Thumb 2.0 0.0 Left Ulnar Anti Sensory (5th Digit) Wrist ? 2.5 3.3 <3.7 11.8 >15.0 Wrist 5th Digit 2.5 14.0 56 Motor Summary Table ?Stim Site NR Onset (ms) Norm Onset (ms) O-P Amp (mV) Norm O-P Amp iAmp (mV) Amp (1st) (%) Site1 Site2 Delta-0 (ms) Dist (cm) Nuno (m/s) Norm Nuno (m/s) Left Median Motor (Abd Poll Brev) Wrist ? 3.5 <3.9 5.1 >4.5 6.3 100.0 Elbow Wrist 4.2 22.0 52 >45 Elbow ? 7.7 4.7 5.7 92.2 Left Ulnar Motor (Abd Dig Minimi) Wrist ? 2.7 <3.0 9.6 >5 11.5 100.0 B Elbow Wrist 3.9 20.5 53 >45 B Elbow ? 6.6 9.1 11.0 94.8 A Elbow B Elbow 1.9 10.0 53 >45 A Elbow ? 8.5 8.7 10.6 90.6 EMG ?Side Muscle Nerve Root Ins Act Fibs Psw Amp Dur Poly Recrt Int Pat Comment Left 1stDorInt Ulnar C8-T1 Incr 1+ 1+ Nml Nml 0 Nml Complete Left FlexCarRad Median C6-7 Nml Nml Nml Nml Nml 0 Nml Complete Left Biceps Musculocut C5-6 Nml Nml Nml Nml Nml 0 Nml Complete Left Triceps Radial C6-7-8 Nml Nml Nml Nml Nml 0 Nml Complete Left Deltoid Axillary C5-6 Nml Nml Nml Nml Nml 0 Nml Complete Left BrachioRad Radial C5-6 Incr 1+ 1+ Nml Nml 0 Nml Complete Left ExtIndicis Radial (Post Int) C7-8 Incr 1+ 1+ Nml Nml 0 Nml Complete Paraspinal EMG ?Side Muscle Nerve Root Ins Act Fibs Psw Comment Left Cervical Upper Rami Nml Nml Nml Left Cervical Mid Rami Nml Nml Nml Left Cervical Lower Rami Nml Nml Nml FINDINGS: Left ulnar sensory nerve showed normal peak latency but small amplitude. Left medial antebrachial cutaneous nerve showed no response. All other nerves tested were within normal. Concentric needle EMG was performed in selected muscles of the left upper extremity and cervical paraspinals. Study revealed Signs of electric abnormalities as shown in the table below. Left FDI, extensor indicis and, brachioradialis muscles all showed increased insertional activity, PSWs and fibrillations. IMPRESSION: 1. This is an abnormal study. 2. 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 3. There is no electrodiagnostic evidence for median neuropathy, ulnar neuropathy, or cervical radiculopathy. Thank you for your kind referral. Ericka Jacobson MD, SALMA Board Certified, [place] Board [employer] and Rehabilitation (ABPMR) Board Certified, [place] Board of Electrodiagnostic Medicine (ABEM) [place] [id number] [facility]
== END 2023-10-27 12:21 | disposition home or self-care (01) ==
LOC: HO.NEURO 12:20
PROVIDERS: PCP Nurse Practitioner Family; Visit Provider Orthopaedic Surgery
DX: Z98.890 Other specified postprocedural states (principal)
CPT/HCPCS: 95886; 95910

== ENCOUNTER → 2023-10-27 12:25 | Outpatient (BNV) | payer OTHER, SELFPAY | PROVIDERS: PCP Nurse Practitioner Family; Visit Provider Physical Medicine & Rehabilitation | DX: G54.0 Brachial plexus disorders (principal) | CPT/HCPCS: 95886; 95910 ==

== ENCOUNTER 2024-03-01 12:09 | Day surgery (SDC) | payer OTHER, SELFPAY ==
--- NOTE | 2024-03-01 12:34 | HO.ANESPROP2 ---
[facility] Active Problems Active Problems: All Active Problems Elevated liver enzymes (Acute) Elevated serum creatinine (Acute) Dyslipidemia (Acute) Screening PSA (prostate specific antigen) (Acute) Physical exam (Acute) Vitamin D deficiency (Acute) Abnormal computed tomography of abdomen and pelvis (Acute) Hypercalcemia (Acute) Vitamin B12 deficiency (Acute) Hx of migraine headaches (Acute) Hypertension (Acute) High triglycerides (Acute) Past Medical History Medical History Screening for colon cancer Capsulitis of left shoulder Left shoulder pain Fatty liver High triglycerides Family History Family History Father Bladder cancer Mother Dementia Parkinsons Paternal Grandmother Skin cancer Family history of problems with anesthesia: No Surgical History Surgical History Hx of colonoscopy (~10/2018) History of Problems with Anesthesia: No Social History Social History Housing: House Alcohol intake: current Alcohol intake frequency: a few times a month Alcohol type: beer Patient Tobacco Use Status: Never used Tobacco e-Cigarette/Vaping Use: Never Used Second Hand Smoke Exposure: No Advance Directives: No Advance Directives Information Provided: Yes service: No Current occupational status: employed Current occupation: [employer] Current occupational exposures/hazards: Yes Cognitive needs: No Hearing needs: No Vision needs: No Meds Allergies Allergy/AdvReac Type Severity Reaction Status Date / Time No Known Allergies Allergy Verified 10/26/23 10:02 Exam Airway Mallampati Class: II (caps laterally) TM Dist: >3cm Neck ROM: Full Heart: rrr Lungs: cta Assessment and Plan Assessment Anesthesia Assessment: Anesthesia Plan Discussed and Chart Reviewed Final Anesthetic Review Family History of Problems with Anesthesia: No History of Problems with Anesthesia: No NPO: Yes ASA Class: II Final Preanesthetic Review: No Changes in Pt Med Stat, Meds/Allgs Chart Reviewed and Consent Obtained/Reviewed Patient Risk: Low Procedure Risk: Low Anesthetic Plan Anesthetic Plan: MAC: Disposition: Standard PACU
[2024-03-01 12:47] VITALS: BP 143/105; PULSE 88; RESP 18; TEMP 36.9; O2SAT 98; BMI 26.9
[2024-03-01] MEDS: Lactated Ringers 1,000 ML 999 ML IV (12:53)
--- NOTE | 2024-03-01 14:03 | MHC.SHP ---
Pre-Procedural Eval Section A - 24 Hr Update-Section A only Date of Service: 03/01/24 The patient is an INPATIENT: No The patient has been examined within 24 hours of the surgical procedure. The History & Physical has been completed within 30 days and I have reviewed it.: No Section B - Complete if H&P > 30 days Chief Complaint: Abnormal findings on diagnostic imaging of other a Relevant Family History (Specify if Yes): No Relevant Social History: None Present Medications: see Short Stay Collaborative assessment Medical History: Significant History (Capsulitis of left shoulder Left shoulder pain Fatty liver High triglycerides) History of Previous Operations: Relevant previous surgery/procedure and date(s) (History of colonoscopy) Allergies: Allergies Allergy/AdvReac Type Severity Reaction Status Date / Time No Known Allergies Allergy Verified 10/26/23 10:02 Review of Systems Sugical H&P ROS: Negative: Constitution, Cardiovascular, Respiratory and Gastrointestinal Exam Surgical H&P Exam: Normal: Heart, Normal: Lungs, Normal: Extremities and Normal: Abdomen Plan Diagnosis/Plan: Unchanged I have reviewed the history and physical and performed a pertinent physical examination on my patient. No changes have occurred unless specified. Time Spent With Patient Time: Total time managing care of this patient today ____ minutes.
--- NOTE | 2024-03-01 15:25 | P.OP_ITS ---
Operative Note Operative Note Date of Service: 03/01/24 Narrative: FLEXIBLE TRANSORAL UPPER GASTROINTESTINAL ENDOSCOPY WITH BIOPSIES AND COLONOSCOPY TILL CECUM WITH BIOPSIES AND SNARE POLYPECTOMY Pre-op diagnosis: Surveillance for colon polyps, vitamin B12 deficiency, eleva shwetha anti-parietal cell antibody Post-op diagnosis: Erosive esophagitis, hiatal hernia, esophageal nodule, Gastritis, Colon Polyps, Diverticulosis, hemorrhoids ? Endoscopist:? Norma Mcintosh MD Anesthesia:?MAC UPPER ENDOSCOPY Consent: Indications for the procedure and potential complications of bleeding, perforation, reaction to medications and missed diagnosis were discussed with the patient and informed consent was obtained. Instrument: Olympus GIF H 190 mid size upper endoscope Monitoring: Vital signs and clinical assessment, continuous EKG monitoring, Pulse oximetry, Carbon Dioxide monitoring and blood pressure monitoring were done throughout the procedure. Procedure: The patient was placed in the left lateral decubitis position and pre-procedure medications were administered and a bite block was placed. The endoscope was inserted into the mouth and advanced under direct vision to the third part of duodenum. A careful inspection was made as the upper endoscope was withdrawn including a retroflexed examination of the proximal stomach; Findings and interventions are described below. Findings: Larynx: Normal Esophagus: GE junction at 35 cms, large hiatal hernia 35 to 40 cms. LA grade B erosive esophagitis with a 1 cms chronic appearing ulcer at GE junction. A 1 cms benign appearing nodule on gastric side of GE junction. Stomach: Moderate diffuse gastric erythema - mapping biopsies were obtained from the gastric body and antrum. Grade 4 flap valve on retroflexed examination of the cardia. Duodenum: Normal bulb and descending duodenum Biopsies were obtained from descending duodenum to check for celiac sprue Intervention: Biopsies as noted above COLONOSCOPY PROCEDURE NOTE Instrument: Olympus PCF H 190 L variable stiffness pediatric colonoscope Monitoring: Vital signs and clinical assessment, intermittent blood pressure monitoring, continuous EKG monitoring, Pulse oximetry and Carbon Dioxide monitoring were done throughout the procedure. Please see anesthesia flowsheet. Colon withdrawl time was 22 minutes. Procedure: The patient was placed in the left lateral decubitis position and pre-procedure medications were administered. After a digital rectal examination of the ano-rectum, the video colonoscope was inserted into the rectum and advanced through the colon to the cecum. The colonoscope was slowly withdrawn in a retrograde panoramic fashion and the colon mucosa was carefully examined including a retroflexed view of the rectum. Findings and interventions are described below. Procedure Difficulty: without difficulty Findings: Terminal Ileum: Not evaluated Cecum: Normal Ascending Colon: Normal Transverse Colon: A 2.5 cms flat polyp at 85 cms. Polyp was raised with 3 cc of Eleview and removed with a hot snare. Polypectomy site was closed with 1 hemoclip and marked by Chapis Ink. A 7-8 mm sessile polyp at 85 cms - removed with a cold snare. A 1.5 to 1.8 cms sessile polyp at 80 cms -raised with 1 cc of Eleview and removed with a hot snare Descending Colon: Moderate diverticulosis Sigmoid Colon: A 10 - 12 mm sessile polyp - removed with hot snare. Moderate diverticulosis Rectum: Normal Ano-rectum: Moderate internal hemorrhoids Colon preparation: Good after some irrigation. [place] Bowel Preparation Scale Right colon; 2 Transverse colon: 2 Left colon; 2 (0 = Unprepared colon segment with mucosa not seen due to solid stool that cannot be cleared. 1 = Portion of mucosa of the colon segment seen, but other areas of the colon segment not well seen due to staining, residual stool and/or opaque liquid. 2 = Minor amount of residual staining, small fragments of stool and/or opaque liquid, but mucosa of colon segment seen well. 3 = Entire mucosa of colon segment seen well with no residual staining, small fragments of stool or opaque liquid) Impression and Post Procedure Diagnosis: Endoscopy Findings: ESOPHAGUS: Large hiatal hernia 35 to 40 cms. LA grade B erosive esophagitis with a 1 cms chronic appearing ulcer at GE junction. A 1 cms benign appearing nodule on gastric side of GE junction. STOMACH: Moderate diffuse gastric erythema - mapping biopsies were obtained f rom the gastric body and antrum. DUODENUM: Normal - biopsied to check for celiac sprue Colonoscopy Findings: One small and three medium sized polyps were removed Moderate diverticulosis seen in the left colon small hemorrhoids on retroflexed exam. Plan: Start Omeprazole 20 mg twice daily for GERD. Pt has a FU appointment on 03/14/[address] Mcintosh Repeat EGD in 4 to 6 months for FU of esophagitis. Repeat Colonoscopy in 3-5 years if polyps are adenomatous and due to a history of adenomatous colon polyps. Above findings were reviewed with the patient and relevant handouts were given and the discharge area. BIOPSIES SHOWED: A. Small bowel, biopsy: Duodenal mucosa with preserved villi and no specific change. B. Gastric antrum, biopsy: Gastric antral mucosa with minimal chronic inactive gastritis; negative for intestinal metaplasia and dysplasia (see comment). C. Stomach, lesser curvature, biopsy: Gastric body mucosa with minimal chronic inactive gastritis; negative for intestinal metaplasia and dysplasia (see comment). D. Stomach, greater curvature, biopsy: Gastric body mucosa with minimal chronic inactive gastritis; negative for intestinal metaplasia and dysplasia (see comment). E. Esophageal nodule, biopsy: Polypoid columnar mucosa with mild chronic inflammation and hyperplastic/regenerative changes compatible with inflammatory polyp; negative for intestinal metaplasia and dysplasia. F. Colon, transverse, polyps: Tubular adenomas, two; negative for high-grade dysplasia and carcinoma. G. Colon, sigmoid, polyp: Tubular adenoma; negative for high-grade dysplasia and carcinoma
[2024-03-01 16:18] VITALS: BP 109/78; PULSE 91; RESP 15; TEMP 36.1; O2SAT 96
[2024-03-01 16:33] VITALS: BP 122/85; PULSE 82; RESP 16; O2SAT 96
[2024-03-01 16:48] VITALS: BP 128/91; PULSE 92; RESP 16; O2SAT 99
[2024-03-01 17:03] VITALS: BP 138/99; PULSE 79; RESP 16; O2SAT 96
== END 2024-03-01 17:33 | disposition home or self-care (01) ==
PROVIDERS: PCP Nurse Practitioner Family; Visit Provider Internal Medicine Gastroenterology
PROC: (CPT 45385; principal; 2024-03-01 13:20)
DX: Z12.11 Encounter for screening for malignant neoplasm of colon (principal); Z86.010 Personal history of colon polyps; D12.3 Benign neoplasm of transverse colon; D12.5 Benign neoplasm of sigmoid colon; K57.30 Diverticulosis of large intestine without perforation or abscess without bleeding; K64.8 Other hemorrhoids; E53.8 Deficiency of other specified B group vitamins; E55.9 Vitamin D deficiency, unspecified; E56.8 Deficiency of other vitamins; R74.8 Abnormal levels of other serum enzymes; K20.80 Other esophagitis without bleeding; K22.9 Disease of esophagus, unspecified; K29.50 Unspecified chronic gastritis without bleeding; K44.9 Diaphragmatic hernia without obstruction or gangrene; K21.9 Gastro-esophageal reflux disease without esophagitis; K76.0 Fatty (change of) liver, not elsewhere classified; I10 Essential (primary) hypertension; G43.909 Migraine, unspecified, not intractable, without status migrainosus; Z79.899 Other long term (current) drug therapy
CPT/HCPCS: 45385; 45380; 45381; 43239; 88305; 88313; 88342; J2405; J2704; J3010

== ENCOUNTER → 2024-03-01 12:09 | Outpatient (BNV) | payer OTHER, SELFPAY | PROVIDERS: PCP Nurse Practitioner Family; Visit Provider Internal Medicine Gastroenterology | DX: Z12.11 Encounter for screening for malignant neoplasm of colon (principal); Z86.010 Personal history of colon polyps; D12.3 Benign neoplasm of transverse colon; D12.5 Benign neoplasm of sigmoid colon; K20.90 Esophagitis, unspecified without bleeding; K29.70 Gastritis, unspecified, without bleeding; K22.81 Esophageal polyp | CPT/HCPCS: 43239; 45381; 45385 ==

== ENCOUNTER 2024-03-14 09:39 | Outpatient (AMB) | payer OTHER, SELFPAY ==
--- NOTE | 2024-03-14 09:55 | MHC.OFFVIS ---
Vital Signs 03/14/24 09:57 Height 5 ft 8 in Weight 178 lb BMI 27.1 BP 113/66 Blood Pressure Location Lt brachial Position Sitting Pulse 56 Intake Visit Reasons: s/p Double; Dr. Mcintosh Intake Note: Patient follow up for Colonoscopy/EGD results Patient denies any GI issues. 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 Mcintosh: Details: GI CLINIC VISIT FOR THIS 53-YEAR-OLD MALE FOR FOLLOW-UP OF RIGHT LOWER QUADRANT PAIN AND TERMINAL ILEITIS ON ABDOMINAL CT SCAN. ?CHRONIC ILLNESSES:?Hypertension, migraine headaches, vitamin D and vitamin B12 deficiency ? [facility]?04/26/19 WBC 12.8, H&H of 15.6 and 46.3, platelet 196, BUN 28, creatinine 1.59, normal LFTs. Elevated anti parietal cell antibody to 34.7 in March 2018 (normal < 20) ?IMAGING STUDIES: 04/26/2019 CT scan showed: ? GASTROINTESTINAL TRACT: There is fatty infiltration in the wall of the ? terminal ileum questionable for changes related to enteritis. In ? particular, inflammatory enteritis. Small and large bowel is otherwise ? unremarkable. The appendix is unremarkable. ? ABDOMINAL WALL: No significant hernia is appreciated. ? LYMPH NODES: Normal. ? VASCULAR: Unremarkable. ? PELVIC VISCERA: Unremarkable. ? OSSEOUS STRUCTURES: Unremarkable. ? IMPRESSION: ? Mild fatty infiltration of the wall of the terminal ileum questionable ? for terminal ileitis. Particular, inflammatory ileitis should be ? considered. Bowel is otherwise unremarkable. The appendix is unremarkable. ? TODAY'S VISIT EGD and colonoscopy results reviewed with the patient Pt reports prescription for Omperazole was not covered by his insurance and taking an OTC medication New prescription was sent and GI RN working on [place] Option for Lap fundoplication was reviewed. Pt plans to continue treatment with PPI for now. PAST VISITS: He was unable to schedule a Colonoscopy due to left shoulder surgeries in Nov and Jul, 2023 for rotator cuff Still going for PT. He is able to lie on his left side without difficulty Out of work for 2 years due to his shoulder and has gained weight. 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 Denies abdominal pain. ? Has normal BM twice a day. ? Denies change in appetite or weight. Pt denies known FH of colon polyps or cancer. Had rotator cuff surgery and is supposed to have a 2nd surgery on the same shoulder. Denies problems with anesthesia Occasional ETOH and denies smoking. ?PAST GI HISTORY BY REVIEW OF MEDICAL RECORDS: ? Pt was last seen on 07/05/19: ? Assessments ? 1. Abnormal abdominal CT scan - R93.5 (Primary) ? 48-year-old male with Hypertension, migraine headaches, vitamin D and vitamin B12 deficiency seen for evaluation of ileitis on abdominal CT scan: ? GASTROINTESTINAL TRACT: There is fatty infiltration in the wall of the ? terminal ileum questionable for changes related to enteritis. In particular, inflammatory enteritis. Small and large bowel is otherwise unremarkable. The appendix is unremarkable. ? The patient denies any symptoms suggestive of Crohn's disease or family history of IBD. Colonoscopy in 10/2018 showed pinpoint areas of the exudate with surrounding erythema in the cecum/periappendiceal region - lymphoid aggregate and biopsy ? Further evaluation with the noninvasive testing with the CRP, sed rate and stool white cells was discussed with the patient. If these are suggestive of IBD, I will schedule colonoscopy with the intubation of the TI for further evaluation. ? Treatment ? 1. Abnormal abdominal CT scan ? LAB: CRP ? LAB: CBC w DIFF ? LAB: SED RATE (ESR) ? LAB: STOOL WBC ? Follow Up ? 3-4 Weeks (Reason: FU of abnormal abdomnal CT?scan) [facility] Medical History (Updated 03/01/24 @ 17:52 by Norma Mcintosh MD) Screening for colon cancer Capsulitis of left shoulder Left shoulder pain Fatty liver High triglycerides Surgical History History of esophagogastroduodenoscopy (EGD) Hx of colonoscopy (~10/2018) Family History Father Bladder cancer Mother Dementia Parkinsons Paternal Grandmother Skin cancer Social History Housing: House Alcohol intake: current Alcohol intake frequency: 0-2 drinks per day Alcohol type: beer Patient Tobacco Use Status: Former Tobacco user e-Cigarette/Vaping Use: Never Used Second Hand Smoke Exposure: No service: No Current occupational status: employed Current occupation: [employer] Current occupational exposures/hazards: Yes Cognitive needs: No Hearing needs: No Vision needs: No Review of Systems Const All systems reviewed & are unremarkable except as noted in HPI and below Physical Exam Vital Signs: Last Vital Signs Pulse 56 03/14/24 09:57 BP 113/66 03/14/24 09:57 BMI result Body Mass Index 27.1 Const General: healthy appearing and no acute distress Nutritional Appearance: overweight Orientation/consciousness: patient oriented x3 Limitations: no limitations HEENT Head: Yes normal to inspection Ears: hearing grossly normal bilaterally Eyes Sclerae: sclerae normal Pupils: Equal, round and reactive pupils present Neck Neck: Yes normal visual inspection Chest Chest palpation & inspection: normal inspection of the chest Resp Effort & Inspection: normal respiratory effort Auscultation: clear to auscultation bilaterally Cardio Palpation: normal PMI Rate: regular rate Rhythm: regular rhythm Heart sounds: S1 normal heart sound present, S2 normal heart sound present and no murmurs GI Inspection: Yes obesity Palpation (GI): Soft to palpation, nontender and No hepatosplenomegaly present Auscultation: normal bowel sounds Rectal Exam - Male: Yes deferred Skin General skin exam: no rashes or lesions noted Neuro General: patient oriented x3, gait normal and moves all extremities Cranial nerves: Yes Equal, round and reactive pupils present Psych Appearance: grossly normal Mental Status: mental status grossly normal Assessment & Plan Assessment & Plan (1) Vitamin B12 deficiency: Code(s): E53.8 - Deficiency of other specified B group vitamins Category: Medical (2) Abnormal computed tomography of abdomen and pelvis: Code(s): R93.5 - Abnormal findings on diagnostic imaging of other abdominal regions, including retroperitoneum Category: Medical (3) Elevated liver enzymes: Code(s): R74.8 - Abnormal levels of other serum enzymes Category: Medical (4) Erosive esophagitis: Code(s): K22.10 - Ulcer of esophagus without bleeding Category: Medical Plan 53-year-old male with Hypertension, migraine headaches, vitamin D and vitamin B12 deficiency followed in GI for ileitis on abdominal CT scan: GASTROINTESTINAL TRACT: There is fatty infiltration in the wall of the terminal ileum questionable for changes related to enteritis. In particular, inflammatory enteritis. Small and large bowel is otherwise unremarkable. The appendix is unremarkable. The patient denies any symptoms suggestive of Crohn's disease or family history of IBD. Colonoscopy in 10/2018 showed pinpoint areas of the exudate with surrounding erythema in the cecum/nila-appendiceal region - lymphoid aggregate on biopsy A diminutive TA was removed. Evaluation with the noninvasive testing with the CRP, sed rate and stool white cells was normal. Pt was advised to monitor his symptoms and contact the GI clinic if he noted abdominal pain, diarrhea or rectal bleeding - he continues to remain asymptomatic 10/26/23 Pt advised to schedule a FU colonoscopy in 2023 for polyp surveillance - Dulcolax and Miralax split prep (unable to schedule this year due to shoulder surgeries Same day EGD due to an elevated anti parietal cell antibody to 34.7 in March 2018 (normal < 20) to rule out atrophic gastritis (VItamin B12 was low normal at 226 in 02/2018) 03/01/24 EGD and colonoscopy were performed and results as noted. 03/29 Repeat EGD in 6 months (scheduled 09/13/24) and repeat colon advised in 2 years Option for Lap fundoplication was reviewed. Pt plans to continue treatment with PPI for now. FU in 6 month Medications: New omeprazole 20 mg PO BID 90 days 180 caps 1RF K22.10 - Ulcer of esophagus without bleeding Coding Level of Care Code Est Pt Level 4 (14171) Diagnoses Vitamin B12 deficiency E53.8 Abnormal computed tomography of abdomen and pelvis R93.5 Elevated liver enzymes R74.8 Erosive esophagitis K22.10 Time Spent (min) 21
[2024-03-14 09:57] VITALS: BP 113/66; PULSE 56; BMI 27.1
== END 2024-03-14 10:57 | disposition home or self-care (01) ==
PROVIDERS: PCP Nurse Practitioner Family; Visit Provider Internal Medicine Gastroenterology
DX: E53.8 Deficiency of other specified B group vitamins (principal); R93.5 Abnormal findings on diagnostic imaging of other abdominal regions, including retroperitoneum; R74.8 Abnormal levels of other serum enzymes; K22.10 Ulcer of esophagus without bleeding
CPT/HCPCS: 99214

== ENCOUNTER → 2024-03-14 09:39 | Outpatient (BNVA) | payer OTHER, SELFPAY | PROVIDERS: PCP Nurse Practitioner Family; Visit Provider Internal Medicine Gastroenterology | DX: R93.5 Abnormal findings on diagnostic imaging of other abdominal regions, including retroperitoneum (principal); R74.8 Abnormal levels of other serum enzymes; K22.10 Ulcer of esophagus without bleeding; E53.8 Deficiency of other specified B group vitamins | CPT/HCPCS: 99212 ==

== ENCOUNTER 2024-03-28 08:01 | Outpatient (REF) | payer OTHER, SELFPAY ==
[2024-03-28 10:28] LABS: Appearance Urine Clear; Color Urine Yellow; Glucose Urine UA Negative (Negative); Leukocyte Esterase Urine Negative (Negative); Nitrite Urine Negative (Negative); Urine Blood Negative (Negative); Urine Ketones Negative (Negative); Urine Protein Negative (Neg-Trace)
[2024-03-28 10:29] LABS: MANUAL DIFF FLAG NO
[2024-03-28 10:41] LABS: Basophils Percent Auto 0.4 % (0-2); Eosinophils Absolute Auto 0.1 X10*3/uL (0.0-0.4); Eosinophils Percent Auto 1.3 % (0-4); Hematocrit 50.8 % (42.0-52.0); Hemoglobin 17.2 g/dl (14.0-18.0); Imm Gran Abs Auto 0.04 X10*3/uL (0.00-0.03); Imm Gran Pct Auto 0.5 % (0.0-0.4); Lymphocytes Absolute Auto 3.9 X10*3/uL (1.2-4.9); Lymphocytes Percent Auto 47.6 % (20-40); Mean Corpuscular HGB Conc 33.9 g/dl (31.0-36.0); Mean Corpuscular Hemoglobin 31.4 pg (27.0-33.0); Mean Corpuscular Volume 92.7 fL (80.0-98.0); Mean Platelet Volume 10.6 fL (9.4-12.4); Monocytes Absolute Auto 0.7 X10*3/uL (0.1-1.2); Neutrophils Absolute Auto 3.4 x10*3/uL (2.0-8.3); Neutrophils Percent Auto 41.2 % (45-73); Platelet Count 264 X10*3/uL (160-400); Red Blood Count 5.48 X10*6/uL (4.60-5.80); Red Cell Distribution Width 13.2 % (11.0-16.0); White Blood Count 8.2 X10*3/uL (4.8-10.8)
[2024-03-28 11:04] LABS: Alanine Aminotransferase 59 U/L (0-40); Albumin Level 4.9 g/dL (3.5-5.0); Alkaline Phosphatase 86 U/L (39-117); Anion Gap 15 (12-20); Aspartate Amino Transferase 37 U/L (5-37); Bilirubin Total 0.8 mg/dL (0.0-1.0); Blood Urea Nitrogen 12 mg/dL (9-16); Calcium 10.2 mg/dL (8.4-10.2); Carbon Dioxide 26 mmol/L (22-29); Chloride 104 mmol/L (96-108); Cholesterol 165 mg/dL (<200); Estimated Glomerular Filt Rate 53; Glucose Fasting 103 mg/dL (60-99); HDL Cholesterol 79 mg/dL (>40); LDL Cholesterol Calculated 56 mg/dL (<100); Sodium 141 mmol/L (135-145); TSH reflex Free T4 3.19 uIU/mL (0.32-4.0); Total Protein 8.5 g/dL (6.5-8.0); Triglycerides 154 mg/dL (<150)
[2024-03-28 11:26] LABS: Folate 7.5 ng/mL (> or = 4.0); Vitamin B12 759 pg/mL (200-900)
== END 2024-03-28 08:02 | disposition home or self-care (01) ==
LOC: HO.HMGCLDS 08:01
PROVIDERS: PCP Nurse Practitioner Family; Visit Provider Nurse Practitioner Family
DX: Z00.00 Encounter for general adult medical examination without abnormal findings (principal); E53.8 Deficiency of other specified B group vitamins
CPT/HCPCS: 36415; 80053; 80061; 81003; 82607; 82746; 84443; 85025

== ENCOUNTER 2024-05-08 07:28 | Outpatient (REF) | payer OTHER, SELFPAY ==
--- NOTE | ~2024-05-08 | MR_ITS ---
EXAMINATION: MRI NECK WITHOUT AND WITH CONTRAST CLINICAL INFORMATION: Incidental finding perihilar. COMPARISON: MRI cervical spine 02/18/2024. TECHNIQUE: MRI of the neck was obtained using routine sequences without and with contrast. Intravenous contrast: Magnevist 8.5 mL. FINDINGS: The 14 mm x 8mm x 20 mm (AP X LAT X SI) well-circumscribed focus with uniform T2 hyperintensity, intermediate high T1-weighted signal intensity and no demonstrable enhancement is present along the right lateral margin of the thyroid cartilage extending to the superior margin of the right thyroid cartilage. The lesion does not extend to the midline. Chronic-appearing mild remodeling of the lateral aspect of the adjacent thyroid cartilage is noted. Region demonstrates a single partial effacement septum along the lateral aspect of the lesion. This finding is unchanged in size and configuration compared with 02/18/2024 and displaces the strap muscles laterally. This finding demonstrates borderline thin peripheral enhancement and no central enhancement or nodular enhancement. No cervical lymphadenopathy is identified. The thyroid is normal in appearance. Normal flow-related signal intensity is noted within the visualized components of the cervical carotid and vertebral artery systems. This examination is not tailored for assessment of cervical spondylosis. However, partial visualization is made of mild right foraminal stenosis at C5-C6 secondary to a right parasagittal and intraforaminal disc-osteophyte complex. Partial visualization is made of [id number] right foraminal stenosis at C6-C7 secondary to a right parasagittal and intraforaminal disc-osteophyte complex. MR/MR orbits face neck wo/w con IMPRESSION: 1. Single 14 mm x 8mm X 20 mm (AP X LAT X SI), benign-appearing cyst along the lateral aspect of the right thyroid cartilage and deep to the adjacent strap muscles unchanged compared with 02/18/2024. 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 Typically thyroglossal duct cysts demonstrate a midline component. However, approximately 30% of thyroglossal duct cyst do not have a midline component as is true for the lesion noted above. Chondrometaplasia of the thyroid cartilage could present with similar findings. No cervical lymphadenopathy. No suspicious nodular or solid enhancing lesions. 2. Partial visualization of mild-moderate right foraminal stenoses at C5-C6 and C6-C7.
[2024-05-08] MEDS: gadobutroL 10 ML VIAL IVPUSH (09:08)
== END 2024-05-08 07:29 | disposition home or self-care (01) ==
LOC: HO.MRI 07:28
PROVIDERS: PCP Nurse Practitioner Family; Visit Provider Nurse Practitioner Family
DX: L98.9 Disorder of the skin and subcutaneous tissue, unspecified (principal)
CPT/HCPCS: 70543; A9585

== ENCOUNTER 2024-06-27 14:54 | Outpatient (AMB) | payer OTHER, SELFPAY ==
[2024-06-27 14:54] VITALS: BP 122/80; PULSE 81; BMI 27.5
--- NOTE | 2024-06-27 14:54 | A.OFFVIS_ITS ---
Vital Signs 3 06/27/24 14:54 Height 5 ft 8 in Weight 180 lb 15.992 oz BMI 27.5 BP 122/80 Blood Pressure Location Rt brachial Position Sitting Pulse 81 Pulse Source Pulse Oximeter Intake Visit Reasons: Thyroglossal duct cyst Intake Note: New patient present today for Thyroglossal duct cyst. Actuarial Manager Required: No Accompanied by: Spouse Allergies No Known Allergies Allergy (Verified 06/27/24 14:58) Medication List - Last Reconciled 06/27/24 by Nona Phipps MD amlodipine 10 mg PO DAILY atorvastatin 20 mg PO BEDTIME 90 days cholecalciferol (vitamin D3) 25 mcg PO DAILY 90 days fenofibrate 54 mg PO DAILY metoprolol tartrate 50 mg PO BID omeprazole 40 mg PO DAILY 60 days HPI Comments Details: 53-year-old male coming in today for initial evaluation of thyroglossal duct cyst. Was found to have an incidental cystic structure measuring 1.4 X 0.8 x2 cm with T2 hyperintensity to the right side of the thyroid gland extending into the thyroid cartilage on MRI from May 29. MRI was done for evaluation of rotator cuff investigation. Normal TSH from March 29. Patient currently denies heat or cold intolerance, diarrhea or constipation, hair loss, palpitation, anxiety, weight changes, mood changes, low energy, changes in appearance of eyes or vision changes, tremors, increased diaphoresis or dry skin. ? Patient denies any difficulty swallowing, pain on swallowing or voice changes or difficulty breathing. Does hiccup after eating. Patient denies any history of childhood neck radiation. Denies having ever used lithium, amiodarone or biotin supplements. Patient denies any family history of thyroid cancer. Father: thyroid disease Family history Father: bladder cancer Paternal grandmother: skin cancer Review of systems Constitutional: no fevers, chills or weight loss HEENT: no changes in vision Cardiac: No chest pain, discomfort or palpitations. Pulmonary: No SOB GI:No abdominal pain, no nausea or vomiting, no anorexia, no blood in stool : no burning micturition, dysuria or increase in urinary frequency Neurologic: No dizziness, no weakness in extremities MSK: no back pain or joint stiffness Physical exam General: sitting comfortably in bed in no acute distress HEENT: normocephalic/atraumatic, moist oral mucosa Neck: supple, symmetrical, no thyromegaly , no dorsocervical or supraclavicular fat pads Cardiac: normal heart sounds Pulm: normal breath sounds B/L, no added breath sounds Abd: not distended, no tenderness Extremities: no edema, no signs of myxedema Neuro: AAO x3, Speech: normal, no facial droop, moving all 4 extremities Skin: no rash PFSH Medical History (Updated 06/13/24 @ 17:01 by Carlos Isaacs, [facility]) Screening for colon cancer Capsulitis of left shoulder Left shoulder pain Fatty liver High triglycerides Surgical History (Updated 06/27/24 @ 15:00 by PANDA Pickett) H/O right knee surgery History of hernia surgery History of shoulder surgery History of esophagogastroduodenoscopy (EGD) Hx of colonoscopy (~10/2018) Family History Father Bladder cancer Mother Dementia Parkinsons Paternal Grandmother Skin cancer Social History Housing: House Alcohol intake: current Alcohol intake frequency: 0-2 drinks per day Alcohol type: beer Patient Tobacco Use Status: Former Tobacco user e-Cigarette/Vaping Use: Never Used Second Hand Smoke Exposure: No service: No Current occupational status: employed Current occupation: [employer] Current occupational exposures/hazards: Yes Cognitive needs: No Hearing needs: No Vision needs: No Physical Exam Vital Signs: Last Vital Signs Pulse 81 06/27/24 14:54 BP 122/80 06/27/24 14:54 BMI result Body Mass Index 27.5 Results Reviewed Results Reviewed: Laboratory Tests 02/09/23 03/28/24 10:15 08:10 TSH 2.54 3.19 MRI NECK WITHOUT AND WITH CONTRAST May 29 CLINICAL INFORMATION: Incidental finding perihilar. COMPARISON: MRI cervical spine 02/18/2024. TECHNIQUE: MRI of the neck was obtained using routine sequences without and with contrast. Intravenous contrast: Magnevist 8.5 mL. FINDINGS: The 14 mm x 8mm x 20 mm (AP X LAT X SI) well-circumscribed focus with uniform T2 hyperintensity, intermediate high T1-weighted signal intensity and no demonstrable enhancement is present along the right lateral margin of the thyroid cartilage extending to the superior margin of the right thyroid cartilage. The lesion does not extend to the midline. Chronic-appearing mild remodeling of the lateral aspect of the adjacent thyroid cartilage is noted. Region demonstrates a single partial effacement septum along the lateral aspect of the lesion. This finding is unchanged in size and configuration compared with 02/18/2024 and displaces the strap muscles laterally. This finding demonstrates borderline thin peripheral enhancement and no central enhancement or nodular enhancement. No cervical lymphadenopathy is identified. The thyroid is normal in appearance. Normal flow-related signal intensity is noted within the visualized components of the cervical carotid and vertebral artery systems. This examination is not tailored for assessment of cervical spondylosis. However, partial visualization is made of mild right foraminal stenosis at C5-C6 secondary to a right parasagittal and intraforaminal disc-osteophyte complex. Partial visualization is made of [id number] right foraminal stenosis at C6-C7 secondary to a right parasagittal and intraforaminal disc-osteophyte complex. MR/MR orbits face neck wo/w con IMPRESSION: 1. Single 14 mm x 8mm X 20 mm (AP X LAT X SI), benign-appearing cyst along the lateral aspect of the right thyroid cartilage and deep to the adjacent strap muscles unchanged compared with 02/18/2024. 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 Typically thyroglossal duct cysts demonstrate a midline component. However, approximately 30% of thyroglossal duct cyst do not have a midline component as is true for the lesion noted above. Chondrometaplasia of the thyroid cartilage could present with similar findings. No cervical lymphadenopathy. No suspicious nodular or solid enhancing lesions. 2. Partial visualization of mild-moderate right foraminal stenoses at C5-C6 and C6-C7. 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 Patient has no compressive symptoms, no personal history of head or neck radiation, no family history of thyroid cancer. This has never been infected. I explained to the patient that thyroglossal duct cyst as found incidentally in only 0.1% of the cases. It is rare. If a thyroglossal duct cyst is not removed as many as 1/2 of them can become infected. In patients who are suitable candidates, surgical removal is indicated to prevent recurrent infections and to exclude cancer. Approximately 1-2% of the thyroglossal duct cyst ultimately found to contain cancer. I reviewed the images of his MRI and do not see any suspicious features of calcifications or irregular borders of the cyst to suspect malignancy. However in the majority of cases, these are biopsied to rule out cancer. I will obtain an ultrasound of his thyroid/neck to assess for any other thyroid nodules. We will also obtain a CT of the neck with IV contrast to better daily need the cystic structures with surrounding anatomy. Next steps are possibly referral to Endocrine surgery for considering Bg procedure, though I discussed with him that given that he does not have any bothersome symptoms or any history of infection, we could also monitor with imaging to see if there is any growth or enlargement. It is also preferred to do a fine-needle aspiration of the cyst to rule out cancer. Once I have the imaging, level also consider referring him for a biopsy of these are do it myself depending on the ultrasound of the thyroid and imaging findings. Patient is agreeable with the plan. Plan: -obtain ultrasound thyroid/neck -obtain CT scan of the neck with IV contrast -repeat TSH in order free T4 to be done prior to his next appointment in 8 weeks Plan I spent 45 minutes in reviewing the record, seeing the patient and documenting in the medical record. Orders: Orders 2 CT soft tissue neck w IV con Today Q89.2 - Congenital malformations of other endocrine glands Free T4 (Free Thyroxine) 6 Weeks Q89.2 - Congenital malformations of other endocrine glands US thyroid Today Q89.2 - Congenital malformations of other endocrine glands Thyroid Stimulating Hormone 6 Weeks Q89.2 - Congenital malformations of other endocrine glands Patient Instructions: get thyroid ultrasound Get CT scan of neck done Do blood work 3-4 days prior to your next appointment in about 8 weeks Coding Level of Care Code New Pt Level 4 (81157) Diagnoses Thyroglossal cyst Q89.2 Time Spent (min) 45
== END 2024-06-27 15:36 | disposition home or self-care (01) ==
PROVIDERS: PCP Nurse Practitioner Family; Visit Provider Student in an Organized Health Care Education/Training Program
DX: Q89.2 Congenital malformations of other endocrine glands (principal)
CPT/HCPCS: 99204

== ENCOUNTER → 2024-06-27 14:54 | Outpatient (BNVA) | payer OTHER, SELFPAY | PROVIDERS: PCP Nurse Practitioner Family; Visit Provider Student in an Organized Health Care Education/Training Program | DX: Q89.2 Congenital malformations of other endocrine glands (principal) | CPT/HCPCS: 99202 ==

== ENCOUNTER 2024-07-16 14:15 | Outpatient (REF) | payer OTHER, SELFPAY ==
--- NOTE | ~2024-07-16 | US_ITS ---
EXAMINATION: US THYROID CLINICAL INFORMATION: Congenital malformations of other endocrine glands. Assess full neck with thyroid and lymph nodes. Follow up of cystic structure from MRI. COMPARISON: MRI neck 05/08/2024. TECHNIQUE: Linear transducer grayscale and color Doppler examination with attention to the region of the thyroid. FINDINGS: SIZE: Measurements of the thyroid lobes and nodules are given in sagittal, anteroposterior and transverse dimensions respectively. Right Thyroid Lobe: 6.0 x 1.4 x 1.7 cm, volume 7.5 mL. Parenchyma: The gland echotexture is homogeneous. Thyroid vascularity is normal. Left Thyroid Lobe: 4.3 x 1.3 x 1.6 cm, volume 4.7 mL. Parenchyma: The gland echotexture is homogeneous. Thyroid vascularity is normal. Isthmus: 0.4 cm in maximum AP dimension. No suspicious thyroid nodule is seen. ADDITIONAL FINDINGS: There is a 3.1 x 1.3 x 2.2 cm cystic lesion just to the right of midline, adjacent to the hyoid bone. MRI of 05/08/2024 demonstrated a 1.4 x 0.8 x 2.0 cm cyst along the lateral aspect of the thyroid cartilage. NODES: No lymphadenopathy is seen in the tissue surrounding the thyroid gland. US/US thyroid IMPRESSION: 1. No suspicious thyroid nodules. 2. A 3.1 x 1.3 x 2.2 cm cystic lesion just to the right of midline, adjacent to the hyoid bone. MRI of 05/08/2024 demonstrated a 1.4 x 0.8 x 2.0 cm cyst along the lateral aspect of the thyroid cartilage. MRI is more sensitive for characterization. ACR TI-RADS RECOMMENDATION REFERENCE: Ultrasound-guided fine-needle aspiration, followup ultrasound, no further follow up. * TR1 (0 point) and TR2 (2 points): No FNA or follow up. * TR3 (3 points): FNA if more than or equal to 2.5 cm in maximum dimension, followup ultrasound in 1, 3 and 5 years if 1.5 to 2.4 cm in maximum dimension. * TR4 (4-6 points): FNA if more than or equal to 1.5 cm in maximum dimension, followup ultrasound in 1, 2, 3 and 5 years if 1 to 1.4 cm in maximum dimension. * TR5 (more than or equal to 7 points): FNA if more than or equal to 1 cm in maximum dimension, followup ultrasound every year for 5 years if 0.5 to 0.9 cm in maximum dimension. * TR3, TR4 or TR5 nodules that are below the size threshold for followup receive no follow up. Electronically signed by: Dariela Rice MD 07/30/2024 12:21 PM EDT RP
== END 2024-07-16 14:16 | disposition home or self-care (01) ==
LOC: HO.HMGCX 14:15
PROVIDERS: PCP Nurse Practitioner Family; Visit Provider Student in an Organized Health Care Education/Training Program
DX: Q89.2 Congenital malformations of other endocrine glands (principal)
CPT/HCPCS: 76536

== ENCOUNTER 2024-08-02 10:52 | Outpatient (REF) | payer OTHER, SELFPAY ==
[2024-08-02 11:57] LABS: Blood Urea Nitrogen 16 mg/dL (9-16); Estimated Glomerular Filt Rate 48
[2024-08-02 12:08] LABS: Thyroid Stimulating Hormone 0.87 uIU/mL (0.32-4.0)
== END 2024-08-02 10:53 | disposition home or self-care (01) ==
LOC: HO.LAB 10:52
PROVIDERS: PCP Nurse Practitioner Family; Visit Provider Student in an Organized Health Care Education/Training Program
DX: Q89.2 Congenital malformations of other endocrine glands (principal); L98.9 Disorder of the skin and subcutaneous tissue, unspecified
CPT/HCPCS: 36415; 82565; 84439; 84443; 84520

== ENCOUNTER 2024-08-15 10:34 | Outpatient (AMB) | payer OTHER, SELFPAY ==
--- NOTE | 2024-08-15 10:48 | A.OFFVIS_ITS ---
Vital Signs 08/15/24 10:49 Height 5 ft 8 in Weight 180 lb 12.465 oz BMI 27.5 BP 102/86 Blood Pressure Location Rt brachial Position Sitting Pulse 64 Pulse Source Pulse Oximeter Intake Visit Reasons: Thyroglossal duct cyst-conf Intake Note: Patient present today for Thyroglossal duct cyst follow up visit. Water Hauler Required: No Water Hauler Services: Water Hauler Offered & Declined Accompanied by: Self / Same As Patient Allergies No Known Allergies Allergy (Verified 08/15/24 10:54) HPI Comments Details: 53-year-old male coming in today for follow up of thyroglossal duct cyst. HPI from prior visit Was found to have an incidental cystic structure measuring 1.4 X 0.8 x2 cm with T2 hyperintensity to the right side of the thyroid gland extending into the thyroid cartilage on MRI from May 29. MRI was done for evaluation of rotator cuff investigation. Normal TSH from March and Jul 30. US THYROID Jul 2024 I reviewed the images myself which show normal thyroid tissue. No nodules noted in the thyroid. Cystic structure noted at the right neck level 6 measuring about 3 cm. He is pending Ct scan with IV contrast scheudled 09/10/24. Patient currently denies heat or cold intolerance, diarrhea or constipation, hair loss, palpitation, anxiety, weight changes, mood changes, low energy, changes in appearance of eyes or vision changes, tremors, increased diaphoresis or dry skin. ? Patient denies any difficulty swallowing, pain on swallowing or voice changes or difficulty breathing. Does hiccup after eating. Patient denies any history of childhood neck radiation. Denies having ever used lithium, amiodarone or biotin supplements. Patient denies any family history of thyroid cancer. Father: thyroid disease Family history Father: bladder cancer Paternal grandmother: skin cancer Review of systems Constitutional: no fevers, chills or weight loss HEENT: no changes in vision Cardiac: No chest pain, discomfort or palpitations. Pulmonary: No SOB GI:No abdominal pain, no nausea or vomiting, no anorexia, no blood in stool : no burning micturition, dysuria or increase in urinary frequency Neurologic: No dizziness, no weakness in extremities MSK: no back pain or joint stiffness Physical exam General: sitting comfortably in bed in no acute distress HEENT: normocephalic/atraumatic, moist oral mucosa Neck: supple, symmetrical, no thyromegaly , no dorsocervical or supraclavicular fat pads Cardiac: normal heart sounds Pulm: normal breath sounds B/L, no added breath sounds Abd: not distended, no tenderness Extremities: no edema, no signs of myxedema [facility] Medical History (Updated 06/13/24 @ 17:01 by Carlos Isaacs, [facility]) Screening for colon cancer Capsulitis of left shoulder Left shoulder pain Fatty liver High triglycerides Surgical History H/O right knee surgery History of hernia surgery History of shoulder surgery History of esophagogastroduodenoscopy (EGD) Hx of colonoscopy (~10/2018) Family History Father Bladder cancer Mother Dementia Parkinsons Paternal Grandmother Skin cancer Social History Housing: House Alcohol intake: current Alcohol intake frequency: 0-2 drinks per day Alcohol type: beer Patient Tobacco Use Status: Former Tobacco user e-Cigarette/Vaping Use: Never Used Second Hand Smoke Exposure: No service: No Current occupational status: employed Current occupation: [employer] Current occupational exposures/hazards: Yes Cognitive needs: No Hearing needs: No Vision needs: No Physical Exam Vital Signs: Last Vital Signs Pulse 64 08/15/24 10:49 BP 102/86 08/15/24 10:49 BMI result Body Mass Index 27.5 Results Reviewed Results Reviewed: Laboratory Tests 03/28/24 08/02/24 08:10 10:59 TSH 3.19 0.87 Free T4 1.10 MRI NECK WITHOUT AND WITH CONTRAST May 29 CLINICAL INFORMATION: Incidental finding perihilar. COMPARISON: MRI cervical spine 02/18/2024. TECHNIQUE: MRI of the neck was obtained using routine sequences without and with contrast. Intravenous contrast: Magnevist 8.5 mL. FINDINGS: The 14 mm x 8mm x 20 mm (AP X LAT X SI) well-circumscribed focus with uniform T2 hyperintensity, intermediate high T1-weighted signal intensity and no demonstrable enhancement is present along the right lateral margin of the thyroid cartilage extending to the superior margin of the right thyroid cartilage. The lesion does not extend to the midline. Chronic-appearing mild remodeling of the lateral aspect of the adjacent thyroid cartilage is noted. Region demonstrates a single partial effacement septum along the lateral aspect of the lesion. This finding is unchanged in size and configuration compared with 02/18/2024 and displaces the strap muscles laterally. This finding demonstrates borderline thin peripheral enhancement and no central enhancement or nodular enhancement. No cervical lymphadenopathy is identified. The thyroid is normal in appearance. Normal flow-related signal intensity is noted within the visualized components of the cervical carotid and vertebral artery systems. This examination is not tailored for assessment of cervical spondylosis. However, partial visualization is made of mild right foraminal stenosis at C5-C6 secondary to a right parasagittal and intraforaminal disc-osteophyte complex. Partial visualization is made of [id number] right foraminal stenosis at C6-C7 secondary to a right parasagittal and intraforaminal disc-osteophyte complex. MR/MR orbits face neck wo/w con IMPRESSION: 1. Single 14 mm x 8mm X 20 mm (AP X LAT X SI), benign-appearing cyst along the lateral aspect of the right thyroid cartilage and deep to the adjacent strap muscles unchanged compared with 02/18/2024. 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 Typically thyroglossal duct cysts demonstrate a midline component. However, approximately 30% of thyroglossal duct cyst do not have a midline component as is true for the lesion noted above. Chondrometaplasia of the thyroid cartilage could present with similar findings. No cervical lymphadenopathy. No suspicious nodular or solid enhancing lesions. 2. Partial visualization of mild-moderate right foraminal stenoses at C5-C6 and C6-C7. US THYROID Jul 2024 I reviewed the images myself which show normal thyroid tissue. No nodules noted in the thyroid. Cystic structure noted at the right neck level 6 measuring about 3 cm. CLINICAL INFORMATION: Congenital malformations of other endocrine glands. Assess full neck with thyroid and lymph nodes. Follow up of cystic structure from MRI. COMPARISON: MRI neck 05/08/2024. TECHNIQUE: Linear transducer grayscale and color Doppler examination with attention to the region of the thyroid. FINDINGS: SIZE: Measurements of the thyroid lobes and nodules are given in sagittal, anteroposterior and transverse dimensions respectively. Right Thyroid Lobe: 6.0 x 1.4 x 1.7 cm, volume 7.5 mL. Parenchyma: The gland echotexture is homogeneous. Thyroid vascularity is normal. Left Thyroid Lobe: 4.3 x 1.3 x 1.6 cm, volume 4.7 mL. Parenchyma: The gland echotexture is homogeneous. Thyroid vascularity is normal. Isthmus: 0.4 cm in maximum AP dimension. No suspicious thyroid nodule is seen. ADDITIONAL FINDINGS: There is a 3.1 x 1.3 x 2.2 cm cystic lesion just to the right of midline, adjacent to the hyoid bone. MRI of 05/08/2024 demonstrated a 1.4 x 0.8 x 2.0 cm cyst along the lateral aspect of the thyroid cartilage. NODES: No lymphadenopathy is seen in the tissue surrounding the thyroid gland. US/US thyroid IMPRESSION: 1. No suspicious thyroid nodules. 2. A 3.1 x 1.3 x 2.2 cm cystic lesion just to the right of midline, adjacent to the hyoid bone. MRI of 05/08/2024 demonstrated a 1.4 x 0.8 x 2.0 cm cyst along the lateral aspect of the thyroid cartilage. MRI is more sensitive for characterization. 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 Patient has no compressive symptoms, no personal history of head or neck radiation, no family history of thyroid cancer. This has never been infected. I explained to the patient that thyroglossal duct cyst as found incidentally in only 0.1% of the cases. It is rare. If a thyroglossal duct cyst is not removed as many as 1/2 of them can become infected. In patients who are suitable candidates, surgical removal is indicated to prevent recurrent infections and to exclude cancer. Approximately 1-2% of the thyroglossal duct cyst ultimately found to contain cancer. I reviewed the images of his MRI and do not see any suspicious features of calcifications or irregular borders of the cyst to suspect malignancy. However in the majority of cases, these are biopsied to rule out cancer. Ultrasound of the neck done July 2024 showed normal thyroid tissue. No nodules noted in the thyroid. Cystic structure noted at the right neck adjacent to the hyoid bone measuring about 3 cm. It is important to confirm presence of normal thyroid tissue to ensure that the cystic structure is not the only ectopic thyroid tissue present in the neck. Thyroid function tests were normal. He is also pending a CT scan of the neck with IV contrast to better demonstarate the surrounding anatomy of the cystic structure. I will refer him to [facility] to Endocrine surgery with Dr. Cipriano Delgadillo for considering Bg procedure, though I discussed with him that given that he does not have any bothersome symptoms or any history of infection, could also monitor with imaging to see if there is any growth or enlargement. Discussion with endocrine surgery would be important. It is also preferred to do a fine-needle aspiration of the cyst to rule out cancer in adults even though no suspicious features seen on US. I will schedule him for an FNA biopsy of the right cystic lesion. I explained to him risks of bleeding, bruising, small risk of infection, damage to surrounding structures, swelling of the neck, soreness of the throat and hoarseness of the voice. Patient is agreeable with the plan. Plan: -endocrine surgery referral to Dr. Cipriano Delgadillo placed -scheduled for FNA of the right cystic lesion and a follow up 1 week after to discuss results -follow up results of the CT scan with IV contrast of the neck Plan see above Orders: Orders US biopsy thyroid Today Q89.2 - Congenital malformations of other endocrine glands Referrals General Surgery Referral Q89.2 - Congenital malformations of other endocrine glands Patient Instructions: We have placed a referral for Dr. Cipriano Delgadillo for [facility] for surgical evaluation, if you dont hear from anyone in the next 2 weeks call their office I will also schedule you for a biopsy of the cyst in my biopsy clinic and a follow up 1-2 weeks after to discuss results Get CT scan done Coding Level of Care Code Est Pt Level 3 (15644) Diagnoses Thyroglossal cyst Q89.2
[2024-08-15 10:49] VITALS: BP 102/86; PULSE 64; BMI 27.5
== END 2024-08-15 11:31 | disposition home or self-care (01) ==
PROVIDERS: PCP Nurse Practitioner Family; Visit Provider Student in an Organized Health Care Education/Training Program
DX: Q89.2 Congenital malformations of other endocrine glands (principal)
CPT/HCPCS: 99213

== ENCOUNTER → 2024-08-15 10:34 | Outpatient (BNVA) | payer OTHER, SELFPAY | PROVIDERS: PCP Nurse Practitioner Family; Visit Provider Student in an Organized Health Care Education/Training Program | DX: Q89.2 Congenital malformations of other endocrine glands (principal) | CPT/HCPCS: 99212 ==

== ENCOUNTER 2024-09-05 08:57 | Outpatient (AMB) | payer OTHER, SELFPAY ==
[2024-09-05 09:01] VITALS: BP 138/92; PULSE 77; O2SAT 98; BMI 26.6
--- NOTE | 2024-09-05 09:01 | A.OFFPC_ITS ---
Vital Signs 09/05/24 09:01 Height 5 ft 8 in Weight 175 lb BMI 26.6 BP 138/92 H Blood Pressure Location Rt brachial Position Sitting Pulse 77 Pulse Source Pulse Oximeter Pulse Oximetry (%) 98 Oxygen Delivery Method Room Air Intake Visit Reasons: Annual PE Intake Note: Pt is here today for his annual pe Allergies No Known Allergies Allergy (Verified 09/05/24 09:06) Medication List - Last Reconciled 09/05/24 by Erna Ellison NP amlodipine 10 mg PO DAILY atorvastatin 20 mg PO BEDTIME 90 days cholecalciferol (vitamin D3) 25 mcg PO DAILY 90 days fenofibrate 54 mg PO DAILY metoprolol tartrate 50 mg PO BID omeprazole 40 mg PO DAILY 60 days Tobacco use date assessed: 09/05/24 Dental Screening Dental Screen Date: 09/05/24 Did you have a dental visit in the last 12 months?: Yes Did you have a dental problem in the last 6 months where you did not have access to dental care?: No Was dental information given to patient?: Patient has dentist HPI HPI Comments History of Present Illness Details 54 y/o male patient who presents to the clinic today for PE. Patient of Carlos Isaacs. H/o HTN, Vitamin Def, Dsylipedimia and headaches. States that he had Colonoscopy done 2022 @ [facility] [place] [facility] (no report available for review). His compliant with his medications. No concerns today. Routine Labs ordered and medications reviewed. [facility] Medical History (Updated 09/05/24 @ 09:34 by Erna Ellison NP) Screening for colon cancer Capsulitis of left shoulder Left shoulder pain Fatty liver High triglycerides Surgical History H/O right knee surgery History of hernia surgery History of shoulder surgery History of esophagogastroduodenoscopy (EGD) Hx of colonoscopy (~10/2018) Family History Father Bladder cancer Mother Dementia Parkinsons Paternal Grandmother Skin cancer Social History Housing: House Alcohol intake: current Alcohol intake frequency: 0-2 drinks per day Alcohol type: beer Patient Tobacco Use Status: Former Tobacco user e-Cigarette/Vaping Use: Never Used Second Hand Smoke Exposure: No service: No Current occupational status: employed Current occupation: [employer] Current occupational exposures/hazards: Yes Cognitive needs: No Hearing needs: No Vision needs: No Questionnaire PHQ-9 Over the last 2 weeks, how often have you been bothered by any of the following problems? 1. Little interest or pleasure in doing things: not at all 2. Feeling down, depressed, or hopeless: not at all 3. Trouble falling or staying asleep, or sleeping too much: not at all 4. Feeling tired or having little energy: not at all 5. Poor appetite or overeating: not at all 6. Feeling bad about yourself - or that you are a failure or have let yourself or your family down: not at all 7. Trouble concentrating on things, such as reading the newspaper or watching television: not at all 8. Moving or speaking so slowly that other people could have noticed. Or the opposite - being so fidgety or restless that you have been moving around a lot more than usual: not at all 9. Thoughts that you would be better off or of hurting yourself in some way: not at all Total score: 0 Depression Screening Interpretation: Negative Depression Screening Done: Yes 20045 - PHQ-9 Billing: Yes Source: Developed by Drs. Denver Godoy, Arlyn Olivia, Nilay Pillai and colleagues, with an educational luci from [employer]. Thrive Questionnaire Date Thrive assessed: 09/05/24 I am a: Patient What is your living situation today?: I have a steady place to live Within the past 12 months, did the food you bought not last and you didn't have the money to get more?: Never true Within the past 12 months, did you worry whether your food would run out before you got money to buy more?: Never true Do you have trouble paying for medicines?: No Do you have trouble getting transportation to medical appointments?: No Do you have trouble paying your heating and electricity bill?: No Do you have trouble taking care of your child, family member or friend?: No Do you have trouble with day-to-day activities such as bathing, preparing meals, shopping, managing finances, etc.?: No Are you currently unemployed and looking for a job?: Yes Are you interested in more education?: No Please select the resources that you would like help with: None Currently or been in a relationship where the following occur: No concerns reported THRIVE Score: 0 AUDIT C Alcohol Use Questionnaire (AUDIT-C) 1. How often do you have a drink containing alcohol?: 2-4 times a month 2. How many drinks containing alcohol do you have on a typical day when you are drinking?: 1 or 2 3. How often do you have six or more drinks on one occasion?: Never Total Score: 2 Score Reviewed/Action Taken: Yes ERON-7 AMB Questionnaire ERON-7 Date ERON - 7 assessed: 09/05/24 Feeling nervous, anxious, or on edge: 0 = Not at all Not being able to stop or control worryin = Not at all Worrying too much about different things: 0 = Not at all Trouble relaxin = Not at all Being so restless that it is hard to sit still: 0 = Not at all Becoming easily annoyed or irritable: 0 = Not at all Feeling afraid as if something awful might happen: 0 = Not at all Total ERON-7 score (0-4 normal; 5-9 mild; 10-14 moderate; 15-21 severe): 0 Source: Developed by Drs. Denver Godoy, Arlyn Olivia, Nilay Pillai and colleagues, with an educational luci from [employer]. ERON-7 Assessment Billing ERON-7 Assessment Tool: ERON-7 Assessment 66788 Review of Systems Const All systems reviewed & are unremarkable except as noted in HPI and below Physical exam (Primary Care) Vital Signs: Last Vital Signs Pulse 77 09/05/24 09:01 BP 138/92 H 09/05/24 09:01 Pulse Ox 98 09/05/24 09:01 Oxygen Delivery Method Room Air 09/05/24 09:01 BMI result Body Mass Index 26.6 Tobacco/Smoking Status: Tobacco use Status Tobacco use date assessed 09/05/24 09/05/24 09:08 Patient Tobacco Use Status Former Tobacco user 09/05/24 09:05 e-Cigarette/Vaping Use Never Used 09/05/24 09:05 PHQ-9: PHQ-9 Score PHQ-9: Total score 0 09/05/24 09:11 Depression Screening Interpretation: Negative Thrive Assessment: Date of Thrive Assessment Date Thrive assessed 09/05/24 09/05/24 09:08 Currently or been in a relationship where the following occur: No concerns reported Const General: cooperative, comfortable and no acute distress Orientation/consciousness: patient oriented x3 HENMT Head: Yes normocephalic Ears: external ears normal and TM's normal bilaterally General nose exam: Normal nasal mucous membranes and turbinates present Face and sinus: Yes sinuses nontender Mouth: moist mucous membranes Throat: Yes posterior oropharynx normal and Yes uvula midline Eyes Pupils: Equal, round and reactive pupils present EOM: EOMs intact bilaterally Neck Neck: Yes full ROM and Yes no lymphadenopathy Resp Effort & Inspection: normal respiratory effort and able to speak in complete sentences Auscultation: clear to auscultation bilaterally, no crackles, no rales, no rhonchi and no wheezes Cardio Heart sounds: S1 normal heart sound present and S2 normal heart sound present GI Inspection: Yes normal to inspection Palpation (GI): Soft to palpation, not firm, nontender, no guarding and No hepatosplenomegaly present Auscultation: normal bowel sounds Rectal Exam - Male: Yes deferred General: Yes no CVA tenderness Back/Spine/Pelvis Back: no CVA tenderness Skin General skin exam: no rashes or lesions noted Neuro General: patient oriented x3, gait normal and moves all extremities Cranial nerves: Yes Equal, round and reactive pupils present Extrem General: Yes full ROM Psych Speech and movement: Normal speech and movement present Coding Level of Care Code Est Pt Level 4 (21127) Diagnoses Encounter for routine adult health examination without abnormal findings Z00. Dyslipidemia E78.5 Vitamin B12 deficiency E53.8 Primary hypertension I10 Hypertension type: primary hypertension Additional Codes ERON-7 Assessment Billing - ERON-7 Assessment Tool: ERON-7 Assessment 35492 ([id number]) Time Spent (min) 30 Assessment & Plan Assessment & Plan (1) Encounter for routine adult health examination without abnormal findings: Code(s): Z00.00 - Encounter for general adult medical examination without abnormal findings Plan: Exam WNL (2) Dyslipidemia: Code(s): E78.5 - Hyperlipidemia, unspecified Category: Medical Plan: Ordered Labs (3) Vitamin B12 deficiency: Code(s): E53.8 - Deficiency of other specified B group vitamins Category: Medical Plan: Ordered Labs (4) Hypertension: Code(s): I10 - Essential (primary) hypertension Category: Medical Qualifiers: Hypertension type: primary hypertension Qualified Code(s): I10 - E ssential (primary) hypertension Plan: Continue on current regiment. Orders: Orders Complete Blood Count Auto Diff Today Z00.00 - Encounter for general adult medical examination without abnormal findings Comprehensive Met. Panel Today Z00.00 - Encounter for general adult medical examination without abnormal findings TSH reflex Free T4 Today Z00.00 - Encounter for general adult medical examination without abnormal findings Vitamin B12 and Folate Today E53.8 - Deficiency of other specified B group vitamins Vitamin D 25-OH (D2 and D3) Today Z00.00 - Encounter for general adult medical examination without abnormal findings Lipid Panel Today Z00.00 - Encounter for general adult medical examination without abnormal findings
== END 2024-09-05 09:52 | disposition home or self-care (01) ==
LOC: HO.HMCC 08:58
PROVIDERS: PCP Nurse Practitioner Family; Visit Provider Nurse Practitioner Family
DX: Z00.00 Encounter for general adult medical examination without abnormal findings (principal); E78.5 Hyperlipidemia, unspecified; E53.8 Deficiency of other specified B group vitamins; I10 Essential (primary) hypertension

== ENCOUNTER 2024-09-05 08:57 | Outpatient (REF) | payer OTHER, SELFPAY ==
[2024-09-05 13:45] LABS: Basophils Percent Auto 0.3 % (0-2); Eosinophils Absolute Auto 0.1 X10*3/uL (0.0-0.4); Hematocrit 51.3 % (42.0-52.0); Hemoglobin 17.1 g/dl (14.0-18.0); Imm Gran Abs Auto 0.02 X10*3/uL (0.00-0.03); Imm Gran Pct Auto 0.3 % (0.0-0.4); Lymphocytes Absolute Auto 2.5 X10*3/uL (1.2-4.9); Lymphocytes Percent Auto 40.1 % (20-40); MANUAL DIFF FLAG NO; Mean Corpuscular HGB Conc 33.3 g/dl (31.0-36.0); Mean Corpuscular Hemoglobin 30.3 pg (27.0-33.0); Mean Platelet Volume 10.8 fL (9.4-12.4); Monocytes Absolute Auto 0.6 X10*3/uL (0.1-1.2); Neutrophils Absolute Auto 3.1 x10*3/uL (2.0-8.3); Neutrophils Percent Auto 49.3 % (45-73); Platelet Count 234 X10*3/uL (160-400); Red Blood Count 5.64 X10*6/uL (4.60-5.80); White Blood Count 6.2 X10*3/uL (4.8-10.8)
[2024-09-05 14:27] LABS: Alanine Aminotransferase 36 U/L (0-40); Albumin Level 4.9 g/dL (3.5-5.0); Alkaline Phosphatase 88 U/L (39-117); Anion Gap 14 (12-20); Aspartate Amino Transferase 25 U/L (5-37); Bilirubin Total 0.7 mg/dL (0.0-1.0); Blood Urea Nitrogen 18 mg/dL (9-16); Calcium 10.9 mg/dL (8.4-10.2); Carbon Dioxide 24 mmol/L (22-29); Chloride 107 mmol/L (96-108); Cholesterol 151 mg/dL (<200); Estimated Glomerular Filt Rate 55; Glucose Random 105 mg/dL (60-115); HDL Cholesterol 78 mg/dL (>40); LDL Cholesterol Calculated 54 mg/dL (<100); Potassium 4.3 mmol/L (3.3-5.1); Sodium 141 mmol/L (135-145); Total Protein 8.5 g/dL (6.5-8.0); Triglycerides 98 mg/dL (<150)
[2024-09-05 14:32] LABS: Folate 6.5 ng/mL (> or = 4.0); Vitamin B12 462 pg/mL (200-900)
[2024-09-05 14:45] LABS: TSH reflex Free T4 1.86 uIU/mL (0.32-4.0)
[2024-09-12 14:48] LABS: Vitamin D 25-OH, D2 <4 ng/mL; Vitamin D 25-OH, D3 37 ng/mL; Vitamin D 25-OH, Total 37 ng/mL (30-100)
== END 2024-09-05 08:58 | disposition home or self-care (01) ==
LOC: HO.HMGCLDS 08:57
PROVIDERS: PCP Nurse Practitioner Family; Visit Provider Nurse Practitioner Family
DX: Z00.00 Encounter for general adult medical examination without abnormal findings (principal); E53.8 Deficiency of other specified B group vitamins; E78.5 Hyperlipidemia, unspecified; I10 Essential (primary) hypertension
CPT/HCPCS: 36415; 80053; 80061; 82306; 82607; 82746; 84443; 85025; 96127; 99212

== ENCOUNTER 2024-09-10 09:20 | Outpatient (REF) | payer OTHER, SELFPAY ==
[2024-09-10] MEDS: iohexoL 350 MG/ML 75 ML INFUS..BTL 60 ML IV (10:07)
== END 2024-09-10 09:21 | disposition home or self-care (01) ==
LOC: HO.CT 09:20
PROVIDERS: PCP Nurse Practitioner Family; Visit Provider Student in an Organized Health Care Education/Training Program
DX: Q89.2 Congenital malformations of other endocrine glands (principal)
CPT/HCPCS: 70491; Q9967

== ENCOUNTER → 2024-09-10 09:23 | Outpatient (BNV) | payer OTHER, SELFPAY | PROVIDERS: PCP Nurse Practitioner Family; Visit Provider Radiology Diagnostic Radiology | DX: Q89.2 Congenital malformations of other endocrine glands (principal) | CPT/HCPCS: 70491 ==

== ENCOUNTER 2024-09-13 07:17 | Day surgery (SDC) | payer OTHER, SELFPAY ==
[2024-09-11 12:58] VITALS: BMI 27.1
--- NOTE | 2024-09-13 07:29 | MHC.SHP ---
Pre-Procedural Eval Section A - 24 Hr Update-Section A only Date of Service: 09/13/24 The patient is an INPATIENT: No The patient has been examined within 24 hours of the surgical procedure. The History & Physical has been completed within 30 days and I have reviewed it.: No Section B - Complete if H&P > 30 days Chief Complaint: Follow-up of erosive esophagitis Relevant Family History (Specify if Yes): No Relevant Social History: Tobacco Use (Former smoker) Present Medications: see Short Stay Collaborative assessment Medical History: Significant History (Capsulitis of left shoulder Left shoulder pain Fatty liver High triglycerides) History of Previous Operations: Relevant previous surgery/procedure and date(s) (History of EGD and colonoscopy) Allergies: Allergies Allergy/AdvReac Type Severity Reaction Status Date / Time No Known Allergies Allergy Verified 09/13/24 07:26 Review of Systems Sugical H&P ROS: Negative: Constitution, Cardiovascular, Respiratory and Gastrointestinal Exam Surgical H&P Exam: Normal: Heart, Normal: Lungs, Normal: Extremities and Normal: Abdomen Plan Diagnosis/Plan: Unchanged I have reviewed the history and physical and performed a pertinent physical examination on my patient. No changes have occurred unless specified. Time Spent With Patient Time: Total time managing care of this patient today ____ minutes.
[2024-09-13 07:40] VITALS: BP 136/95; PULSE 56; RESP 16; TEMP 36.4; O2SAT 96; BMI 26.5
[2024-09-13] MEDS: Lactated Ringers 1,000 ML 100 ML IVCONT (07:56)
--- NOTE | 2024-09-13 08:35 | HO.ANESPROP2 ---
Documented by User: Kalyn Liz NP 09/12/24 09:42 HPI - Anesthesia Eval Consult details Narrative: 54yo M for Upper Endoscopy PMFSH Active Problems Active Problems: All Active Problems Thyroglossal cyst (Acute) Cervical radiculopathy at C6 (Acute) Lesion of neck (Acute) Erosive esophagitis (Acute) Elevated liver enzymes (Acute) Elevated serum creatinine (Acute) Dyslipidemia (Acute) Screening PSA (prostate specific antigen) (Acute) Physical exam (Acute) Vitamin D deficiency (Acute) Abnormal computed tomography of abdomen and pelvis (Acute) Hypercalcemia (Acute) Vitamin B12 deficiency (Acute) Hx of migraine headaches (Acute) Hypertension (Acute) High triglycerides (Acute) Past Medical History Medical History (Updated 09/13/24 @ 07:25 by Ayesha Barker, RN) Screening for colon cancer Capsulitis of left shoulder Left shoulder pain Fatty liver High triglycerides Family History Family History Father Bladder cancer Mother Dementia Parkinsons Paternal Grandmother Skin cancer Family history of problems with anesthesia: No Surgical History Surgical History (Updated 09/13/24 @ 07:25 by Ayesha Barker RN) H/O right knee surgery History of hernia surgery History of shoulder surgery History of esophagogastroduodenoscopy (EGD) Hx of colonoscopy (~10/2018) History of Problems with Anesthesia: No Social History Social History Housing: House Are you a primary critical care physician assistant to a significant other at home: No Do you presently have visiting nurse or other home services: No Alcohol intake: current Alcohol intake frequency: holidays/special occasions only Alcohol type: beer Patient Tobacco Use Status: Never used Tobacco e-Cigarette/Vaping Use: Never Used Second Hand Smoke Exposure: No Use of substances other than those prescribed or required for medical reasons: Yes Substance Use Type Other:: THC edibles Substance Use Frequency: Occasionally Have you been hit, kicked, punched, or otherwise hurt by someone within the past year? If so, by whom?: No Are you DNR?: No Advance Directives: No Advance Directives Information Provided: No Advance Directives on File: No Recently lost weight without trying: No How much weight loss: Not applicable Eating poorly because of decreased appetite: No Nutrition screen score: 0 Nutrition Risks: No Nutritional Risk Poor oral hygiene: No service: No Current occupational status: employed Current occupation: [employer] Current occupational exposures/hazards: Yes Cognitive needs: No Hearing needs: No Vision needs: No Meds Allergies Allergy/AdvReac Type Severity Reaction Status Date / Time No Known Allergies Allergy Verified 09/13/24 07:26 Exam Height,Weight and Vital Signs: Height 5 ft 8 in Weight 80.739 kg Assessment and Plan Assessment Anesthesia Assessment: Chart Reviewed Final Anesthetic Review Family History of Problems with Anesthesia: No History of Problems with Anesthesia: No Documented by User: Lizbeth Tomlin MD 09/12/24 16:42 [facility] Past Medical History Medical History (Updated 09/13/24 @ 07:25 by Ayesha Barker, RN) Screening for colon cancer Capsulitis of left shoulder Left shoulder pain Fatty liver High triglycerides Family History Family History Father Bladder cancer Mother Dementia Parkinsons Paternal Grandmother Skin cancer Family history of problems with anesthesia: No Surgical History Surgical History (Updated 09/13/24 @ 07:25 by Ayesha Barker, RN) H/O right knee surgery History of hernia surgery History of shoulder surgery History of esophagogastroduodenoscopy (EGD) Hx of colonoscopy (~10/2018) History of Problems with Anesthesia: No Social History Social History Housing: House Are you a primary critical care physician assistant to a significant other at home: No Do you presently have visiting nurse or other home services: No Alcohol intake: current Alcohol intake frequency: holidays/special occasions only Alcohol type: beer Patient Tobacco Use Status: Never used Tobacco e-Cigarette/Vaping Use: Never Used Second Hand Smoke Exposure: No Use of substances other than those prescribed or required for medical reasons: Yes Substance Use Type Other:: THC edibles Substance Use Frequency: Occasionally Have you been hit, kicked, punched, or otherwise hurt by someone within the past year? If so, by whom?: No Are you DNR?: No Advance Directives: No Advance Directives Information Provided: No Advance Directives on File: No Recently lost weight without trying: No How much weight loss: Not applicable Eating poorly because of decreased appetite: No Nutrition screen score: 0 Nutrition Risks: No Nutritional Risk Poor oral hygiene: No service: No Current occupational status: employed Current occupation: [employer] Current occupational exposures/hazards: Yes Cognitive needs: No Hearing needs: No Vision needs: No Meds Allergies Allergy/AdvReac Type Severity Reaction Status Date / Time No Known Allergies Allergy Verified 09/13/24 07:26 Assessment and Plan Final Anesthetic Review Family History of Problems with Anesthesia: No History of Problems with Anesthesia: No Documented by User: Jessica Iverson DO 09/13/24 08:37 [facility] Past Medical History Medical History (Updated 09/13/24 @ 07:25 by Ayesha Barker, RN) Screening for colon cancer Capsulitis of left shoulder Left shoulder pain Fatty liver High triglycerides Family History Family History Father Bladder cancer Mother Dementia Parkinsons Paternal Grandmother Skin cancer Family history of problems with anesthesia: No Surgical History Surgical History (Updated 09/13/24 @ 07:25 by Ayesha Barker RN) H/O right knee surgery History of hernia surgery History of shoulder surgery History of esophagogastroduodenoscopy (EGD) Hx of colonoscopy (~10/2018) History of Problems with Anesthesia: No Social History Social History Housing: House Are you a primary critical care physician assistant to a significant other at home: No Do you presently have visiting nurse or other home services: No Alcohol intake: current Alcohol intake frequency: holidays/special occasions only Alcohol type: beer Patient Tobacco Use Status: Never used Tobacco e-Cigarette/Vaping Use: Never Used Second Hand Smoke Exposure: No Use of substances other than those prescribed or required for medical reasons: Yes Substance Use Type Other:: THC edibles Substance Use Frequency: Occasionally Have you been hit, kicked, punched, or otherwise hurt by someone within the past year? If so, by whom?: No Are you DNR?: No Advance Directives: No Advance Directives Information Provided: No Advance Directives on File: No Recently lost weight without trying: No How much weight loss: Not applicable Eating poorly because of decreased appetite: No Nutrition screen score: 0 Nutrition Risks: No Nutritional Risk Poor oral hygiene: No service: No Current occupational status: employed Current occupation: [employer] Current occupational exposures/hazards: Yes Cognitive needs: No Hearing needs: No Vision needs: No Meds Allergies Allergy/AdvReac Type Severity Reaction Status Date / Time No Known Allergies Allergy Verified 09/13/24 07:26 Exam Exam Date and Time: 09/13/24 0835 Height,Weight and Vital Signs: Height 5 ft 8 in Weight 80.739 kg Vital Signs Temperature 97.6 F 09/13/24 07:40 Pulse Rate 56 09/13/24 07:40 Respiratory Rate 16 09/13/24 07:40 Blood Pressure 136/95 H 09/13/24 07:40 Pulse Oximetry 96 09/13/24 07:40 Oxygen Delivery Method Room Air 09/13/24 07:40 Temperature 97.6 F 09/13/24 07:40 Pulse Rate 56 09/13/24 07:40 Respiratory Rate 16 09/13/24 07:40 Blood Pressure 136/95 H 09/13/24 07:40 Pulse Oximetry 96 09/13/24 07:40 Oxygen Delivery Method Room Air 09/13/24 07:40 Height 5 ft 8 in Weight 79.107 kg Airway Mallampati Class: II TM Dist: >3cm Neck ROM: Full Loose/Missing/Broken Teeth: Yes (multiple missing teeth) Heart: S1S2 Lungs: CTAB Assessment and Plan Assessment Anesthesia Assessment: Anesthesia Plan Discussed and Chart Reviewed Final Anesthetic Review Family History of Problems with Anesthesia: No History of Problems with Anesthesia: No NPO: Yes ASA Class: II Final Preanesthetic Review: No Changes in Pt Med Stat, Meds/Allgs Chart Reviewed, Consent Obtained/Reviewed and Anes Risks/Benef Reviewed Patient Risk: Low Procedure Risk: Low Anesthetic Plan Anesthetic Plan: MAC: and Agree w/ Assess. and Plan Disposition: Standard PACU
--- NOTE | 2024-09-13 08:57 | W.PM.OPN ---
Operative Note Operative Note Date of Service: 09/13/24 Narrative: FLEXIBLE TRANSORAL UPPER GASTROINTESTINAL ENDOSCOPY WITH BIOPSIES Pre-op diagnosis: GERD, follow-up of erosive esophagitis Post-op diagnosis: GERD, hiatal hernia, Endoscopist:? Norma Mcintosh MD Anesthesia:?MAC UPPER ENDOSCOPY Consent: Indications for the procedure and potential complications of bleeding, perforation, reaction to medications and missed diagnosis were discussed with the patient and informed consent was obtained. Instrument: Olympus GIF H 190 mid size upper endoscope Monitoring: Vital signs and clinical assessment, continuous EKG monitoring, Pulse oximetry, Carbon Dioxide monitoring and blood pressure monitoring were done throughout the procedure. Procedure: The patient was placed in the left lateral decubitis position and pre-procedure medications were administered and a bite block was placed. The endoscope was inserted into the mouth and advanced under direct vision to the third part of duodenum. A careful inspection was made as the upper endoscope was withdrawn including a retroflexed examination of the proximal stomach; Findings and interventions are described below. Findings: Larynx: Normal Esophagus: GE junction at 35 cms, hiatal hernia 35 to 38 cms. Erosive esophagitis and ulcer seen at previous EGD healed completely Two 1 cms tongues of suspected Mitchell's - biopsies were obtained. Stomach: Moderate diffuse gastric erythema - mapping biopsies obtained from the gastric body and antrum during previous EGD were negative for H Pylori and intestinal metaplasia. Grade 3 flap valve on retroflexed examination of the cardia. Duodenum: Normal bulb and descending duodenum Intervention: Biopsies as noted above Impression and Post Procedure Diagnosis: Endoscopy Findings: ESOPHAGUS: Hiatal hernia, Erosive esophagitis and ulcer seen at previous EGD healed completely Two 1 cms tongues of suspected Mitchell's - biopsies were obtained. STOMACH: Moderate diffuse gastritis Plan: Pt has a FU appointment on 09/19/[address] Mcintosh. Above findings were reviewed with the patient and relevant handouts were given and the discharge area. BIOPSIES SHOWED: Esophagogastric junction, biopsy: Squamous mucosa with spongiosis, intraepithelial neutrophils, and focal intraepithelial eosinophils (up to 2 per high-power field) and columnar mucosa with moderate chronic active inflammation, consistent with reflux esophagitis; no intestinal metaplasia seen on initial levels; negative for dysplasia
[2024-09-13 09:00] VITALS: BP 87/55; PULSE 66; RESP 14; TEMP 36.6; O2SAT 94
[2024-09-13 09:15] VITALS: BP 113/63; PULSE 64; RESP 16; O2SAT 98
[2024-09-13 09:30] VITALS: BP 133/67; PULSE 53; RESP 16; TEMP 36.6; O2SAT 98
== END 2024-09-13 09:50 | disposition home or self-care (01) ==
PROVIDERS: PCP Nurse Practitioner Family; Visit Provider Internal Medicine Gastroenterology
PROC: 0DJ08ZZ Inspection of Upper Intestinal Tract, Via Natural or Artificial Opening Endoscopic (ICD-10-PCS; CPT 43235; principal; 2024-09-13 08:30)
DX: K22.10 Ulcer of esophagus without bleeding (principal); K21.9 Gastro-esophageal reflux disease without esophagitis; K44.9 Diaphragmatic hernia without obstruction or gangrene; K76.0 Fatty (change of) liver, not elsewhere classified; I10 Essential (primary) hypertension; E78.1 Pure hyperglyceridemia; M77.8 Other enthesopathies, not elsewhere classified; Z79.899 Other long term (current) drug therapy; Z98.890 Other specified postprocedural states; Z87.891 Personal history of nicotine dependence
CPT/HCPCS: 43239; 88305; 88313; J2003; J2704

== ENCOUNTER → 2024-09-13 07:17 | Outpatient (BNV) | payer OTHER, SELFPAY | PROVIDERS: PCP Nurse Practitioner Family; Visit Provider Internal Medicine Gastroenterology | DX: K21.9 Gastro-esophageal reflux disease without esophagitis (principal) | CPT/HCPCS: 43239 ==

== ENCOUNTER 2024-09-19 09:48 | Outpatient (AMB) | payer OTHER, SELFPAY ==
--- NOTE | 2024-09-19 09:51 | MHC.OFFVIS ---
Vital Signs 09/19/24 09:56 Height 5 ft 8 in Weight 174 lb BMI 26.5 BP 116/69 Blood Pressure Location Lt brachial Position Sitting Pulse 64 Intake Visit Reasons: S/P EGD; Dr. Mcintosh Intake Note: Patient follow up for EGD results. Patient denies any GI issues for today. 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 Mcintosh: Details: GI CLINIC VISIT FOR THIS 54-YEAR-OLD MALE FOR FOLLOW-UP OF RIGHT LOWER QUADRANT PAIN AND TERMINAL ILEITIS ON ABDOMINAL CT SCAN. CHRONIC ILLNESSES:?Hypertension, migraine headaches, vitamin D and vitamin B12 deficiency ? TODAY'S VISIT EGD esults reviewed with the patient PAST VISITS: Pt reports prescription for Omperazole was not covered by his insurance and taking an OTC medication New prescription was sent and GI RN working on [place] Option for Lap fundoplication was reviewed. Pt plans to continue treatment with PPI for now. He was unable to schedule a Colonoscopy due to left shoulder surgeries in Nov and Jul, 2023 for rotator cuff Still going for PT. He is able to lie on his left side without difficulty Out of work for 2 years due to his shoulder and has gained weight. 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 Denies abdominal pain. ? Has normal BM twice a day. ? Denies change in appetite or weight. Pt denies known FH of colon polyps or cancer. Had rotator cuff surgery and is supposed to have a 2nd surgery on the same shoulder. Denies problems with anesthesia Occasional ETOH and denies smoking. [facility]:?04/26/19 WBC 12.8, H&H of 15.6 and 46.3, platelet 196, BUN 28, creatinine 1.59, normal LFTs. Elevated anti parietal cell antibody to 34.7 in March 2018 (normal < 20) ?IMAGING STUDIES: 04/26/2019 CT scan showed: ? GASTROINTESTINAL TRACT: There is fatty infiltration in the wall of the ? terminal ileum questionable for changes related to enteritis. In ? particular, inflammatory enteritis. Small and large bowel is otherwise ? unremarkable. The appendix is unremarkable. ? ABDOMINAL WALL: No significant hernia is appreciated. ? LYMPH NODES: Normal. ? VASCULAR: Unremarkable. ? PELVIC VISCERA: Unremarkable. ? OSSEOUS STRUCTURES: Unremarkable. ? IMPRESSION: ? Mild fatty infiltration of the wall of the terminal ileum questionable ? for terminal ileitis. Particular, inflammatory ileitis should be ? considered. Bowel is otherwise unremarkable. The appendix is unremarkable. 09/13/24 EGD SHOWED: ESOPHAGUS: Hiatal hernia, Erosive esophagitis and ulcer seen at previous EGD healed completely Two 1 cms tongues of suspected Mitchell's - biopsies were obtained. STOMACH: Moderate diffuse gastritis Plan: Above findings were reviewed with the patient and relevant handouts were given and the discharge area. BIOPSIES SHOWED: Esophagogastric junction, biopsy: Squamous mucosa with spongiosis, intraepithelial neutrophils, and focal intraepithelial eosinophils (up to 2 per high-power field) and columnar mucosa with moderate chronic active inflammation, consistent with reflux esophagitis; no intestinal metaplasia seen on initial levels; negative for dysplasia ?PAST GI HISTORY BY REVIEW OF MEDICAL RECORDS: ? Pt was last seen on 07/05/19: ? Assessments ? 1. Abnormal abdominal CT scan - R93.5 (Primary) ? 48-year-old male with Hypertension, migraine headaches, vitamin D and vitamin B12 deficiency seen for evaluation of ileitis on abdominal CT scan: ? GASTROINTESTINAL TRACT: There is fatty infiltration in the wall of the ? terminal ileum questionable for changes related to enteritis. In particular, inflammatory enteritis. Small and large bowel is otherwise unremarkable. The appendix is unremarkable. ? The patient denies any symptoms suggestive of Crohn's disease or family history of IBD. Colonoscopy in 10/2018 showed pinpoint areas of the exudate with surrounding erythema in the cecum/periappendiceal region - lymphoid aggregate and biopsy ? Further evaluation with the noninvasive testing with the CRP, sed rate and stool white cells was discussed with the patient. If these are suggestive of IBD, I will schedule colonoscopy with the intubation of the TI for further evaluation. ? Treatment ? 1. Abnormal abdominal CT scan ? LAB: CRP ? LAB: CBC w DIFF ? LAB: SED RATE (ESR) ? LAB: STOOL WBC ? Follow Up ? 3-4 Weeks (Reason: FU of abnormal abdomnal CT?scan) PFSH Medical History (Updated 09/18/24 @ 10:10 by Carlos Isaacs, [facility]) Screening for colon cancer Capsulitis of left shoulder Left shoulder pain Fatty liver High triglycerides Surgical History (Updated 09/18/24 @ 14:12 by Nara Carter) H/O right knee surgery History of hernia surgery History of shoulder surgery History of esophagogastroduodenoscopy (EGD) Hx of colonoscopy (~10/2018) Family History Father Bladder cancer Mother Dementia Parkinsons Paternal Grandmother Skin cancer Social History Housing: House Are you a primary critical care specialist to a significant other at home: No Do you presently have visiting nurse or other home services: No Alcohol intake: current Alcohol intake frequency: holidays/special occasions only Alcohol type: beer Patient Tobacco Use Status: Never used Tobacco e-Cigarette/Vaping Use: Never Used Second Hand Smoke Exposure: No service: No Current occupational status: employed Current occupation: [employer] Current occupational exposures/hazards: Yes Cognitive needs: No Hearing needs: No Vision needs: No Review of Systems Const All systems reviewed & are unremarkable except as noted in HPI and below Physical Exam Const General: healthy appearing and no acute distress Nutritional Appearance: overweight Orientation/consciousness: patient oriented x3 Limitations: no limitations HEENT Head: Yes normal to inspection Ears: hearing grossly normal bilaterally Eyes Sclerae: sclerae normal Pupils: Equal, round and reactive pupils present Neck Neck: Yes normal visual inspection Chest Chest palpation & inspection: normal inspection of the chest Resp Effort & Inspection: normal respiratory effort Auscultation: clear to auscultation bilaterally Cardio Palpation: normal PMI Rate: regular rate Rhythm: regular rhythm Heart sounds: S1 normal heart sound present, S2 normal heart sound present and no murmurs GI Inspection: Yes obesity Palpation (GI): Soft to palpation, nontender and No hepatosplenomegaly present Auscultation: normal bowel sounds Rectal Exam - Male: Yes deferred Skin General skin exam: no rashes or lesions noted Neuro General: patient oriented x3, gait normal and moves all extremities Cranial nerves: Yes Equal, round and reactive pupils present Psych Appearance: grossly normal Mental Status: mental status grossly normal Assessment & Plan Assessment & Plan (1) Vitamin B12 deficiency: Code(s): E53.8 - Deficiency of other specified B group vitamins Category: Medical (2) Abnormal computed tomography of abdomen and pelvis: Code(s): R93.5 - Abnormal findings on diagnostic imaging of other abdominal regions, including retroperitoneum Category: Medical (3) Elevated liver enzymes: Code(s): R74.8 - Abnormal levels of other serum enzymes Category: Medical (4) Erosive esophagitis: Code(s): K22.10 - Ulcer of esophagus without bleeding Category: Medical (5) Gastritis: Code(s): K29.70 - Gastritis, unspecified, without bleeding Category: Medical Plan -year-old male with Hypertension, migraine headaches, vitamin D and vitamin B12 deficiency followed in GI for ileitis on abdominal CT scan: GASTROINTESTINAL TRACT: There is fatty infiltration in the wall of the terminal ileum questionable for changes related to enteritis. In particular, inflammatory enteritis. Small and large bowel is otherwise unremarkable. The appendix is unremarkable. The patient denies any symptoms suggestive of Crohn's disease or family history of IBD. Colonoscopy in 10/2018 showed pinpoint areas of the exudate with surrounding erythema in the cecum/nila-appendiceal region - lymphoid aggregate on biopsy A diminutive TA was removed. Evaluation with the noninvasive testing with the CRP, sed rate and stool white cells was normal. Pt was advised to monitor his symptoms and contact the GI clinic if he noted abdominal pain, diarrhea or rectal bleeding - he continues to remain asymptomatic 10/26/23 Pt advised to schedule a FU colonoscopy in 2023 for polyp surveillance - Dulcolax and Miralax split prep (unable to schedule this year due to shoulder surgeries Same day EGD due to an elevated anti parietal cell antibody to 34.7 in March 2018 (normal < 20) to rule out atrophic gastritis (VItamin B12 was low normal at 226 in 02/2018) 03/01/24 EGD and colonoscopy were performed and results as noted. 03/29 Repeat EGD in 6 months (scheduled 09/13/24) and repeat colon advised in 2 years Option for Lap fundoplication was reviewed. Pt plans to continue treatment with PPI for now. 09/19/24 EGD results reviewed - no Barretts detected on esophageal biopsies. Advised to schedule a 1 year follow-up colonoscopy for colon polyps surveillance FU in 6 months Medications: New polyethylene glycol 3350 (Miralax) Mix Miralax with 64 oz(8 cups) of Crystal light. Take 2 tablets of Dulcolax qt 12 pm. Wait to have your 1st bowel movement, then begin drinking Miralax. Drink a glass of Miralax every 10-15 minutes until you are finished. You will drink at least another 4 cups of clear liquid of your choice over the next 2 hours. Please drink as many clear liquids as possible You may have clear liquids up to four hours before your procedure 17 grams PO DAILY 1 day 238 grams 0RF bisacodyl (Dulcolax (bisacodyl)) Take 4 tablets at 12 pm the day before colonoscopy appointment 20 mg (4 x 5 mg) PO ONCE 1 day 4 tabs 0RF colon prep Coding Level of Care Code Est Pt Level 4 (16532) Diagnoses Vitamin B12 deficiency E53.8 Abnormal computed tomography of abdomen and pelvis R93.5 Elevated liver enzymes R74.8 Erosive esophagitis K22.10 Gastritis K29.70 Time Spent (min) 22
[2024-09-19 09:56] VITALS: BP 116/69; PULSE 64; BMI 26.5
== END 2024-09-19 11:50 | disposition home or self-care (01) ==
PROVIDERS: PCP Nurse Practitioner Family; Visit Provider Internal Medicine Gastroenterology
DX: E53.8 Deficiency of other specified B group vitamins (principal); R93.5 Abnormal findings on diagnostic imaging of other abdominal regions, including retroperitoneum; R74.8 Abnormal levels of other serum enzymes; K22.10 Ulcer of esophagus without bleeding; K29.70 Gastritis, unspecified, without bleeding
CPT/HCPCS: 99214

== ENCOUNTER → 2024-09-19 09:48 | Outpatient (BNVA) | payer OTHER, SELFPAY | PROVIDERS: PCP Nurse Practitioner Family; Visit Provider Internal Medicine Gastroenterology | DX: E53.8 Deficiency of other specified B group vitamins (principal); R93.5 Abnormal findings on diagnostic imaging of other abdominal regions, including retroperitoneum; R74.8 Abnormal levels of other serum enzymes; K22.10 Ulcer of esophagus without bleeding; K29.70 Gastritis, unspecified, without bleeding | CPT/HCPCS: 99212 ==

== ENCOUNTER 2024-10-25 08:02 | Outpatient (AMB) | payer OTHER, SELFPAY ==
[2024-10-25 08:06] VITALS: BP 112/70; PULSE 68; TEMP 36.6; O2SAT 98
--- NOTE | 2024-10-25 08:06 | AM.OFFWIN_ITS ---
Intake Vital Signs 10/25/24 08:06 Weight 177 lb BP 112/70 Blood Pressure Location Rt brachial Position Sitting Pulse 68 Pulse Source Pulse Oximeter Temp 97.9 F Temp Source Oral Pulse Oximetry (%) 98 Oxygen Delivery Method Room Air Intake Visit Reasons: EP ear ache Intake Note: Patient here for bilat ear pain that started monday. Patient Tobacco Use Status: Never used Tobacco Allergies No Known Allergies Allergy (Verified 10/25/24 08:15) Do you need a note to return to daycare/school/sports/work: No HPI HPI Comments History of Present Illness Details Patient is a 54yo M who presents with Bilateral ear pain Ongoing since Monday No hx ear issues and denies similar symptoms in past Feels full and popping No congestion, fever, CP, cough or SOB Mild sore throat without difficulty swallowing Tried OTC cold and flu without relief Sensitive hearing R eae ringing; constant He said standing too quickly, + dizziness. No headaches or syncope PFSH Medical History (Updated 10/25/24 @ 08:28 by Rachel Almonte PA-C) Screening for colon cancer Capsulitis of left shoulder Left shoulder pain Fatty liver High triglycerides Surgical History H/O right knee surgery History of hernia surgery History of shoulder surgery History of esophagogastroduodenoscopy (EGD) Hx of colonoscopy (~10/2018) Family History Father Bladder cancer Mother Dementia Parkinsons Paternal Grandmother Skin cancer Social History Housing: House Are you a primary inspector health care facilities to a significant other at home: No Do you presently have visiting nurse or other home services: No Alcohol intake: current Alcohol intake frequency: holidays/special occasions only Alcohol type: beer Patient Tobacco Use Status: Never used Tobacco e-Cigarette/Vaping Use: Never Used Second Hand Smoke Exposure: No service: No Current occupational status: employed Current occupation: [employer] Current occupational exposures/hazards: Yes Cognitive needs: No Hearing needs: No Vision needs: No Review of Systems Const Denies chills, Denies fatigue, Denies fever(s), Denies frequent falls and Denies headache(s) Eyes Denies change in vision ENT Reports dizziness (only intermittent when standing to quickly), Reports otalgia (lateral), Denies headache(s), Reports tinnitus (R side), Denies sinus pain, Denies sinus pressure, Reports sore throat and Denies throat swelling Card Denies chest pain, Denies syncope and Denies dyspnea Resp Denies chest congestion, Denies cough and Denies dyspnea Neuro Reports dizziness (only intermittent when standing to quickly), Denies syncope, Denies frequent falls and Denies headache(s) Endo Denies fatigue Aller/Immun Denies throat swelling Physical Exam Vital Signs: Last Vital Signs Temp 97.9 F 10/25/24 08:06 Pulse 68 10/25/24 08:06 BP 112/70 10/25/24 08:06 Pulse Ox 98 10/25/24 08:06 Oxygen Delivery Method Room Air 10/25/24 08:06 General: Non-toxic, NAD. Speaking full sentences. Skin: Warm dry throughout Eye: EOMI HENT: Airway patent. Uvula midline. No pharyngeal erythema or edema. No NEEDLE VALVE OPERATOR. Bilateral canals clear. No canal edema, discharge or FB. L TM + slight erythema without bulging or perforation. Large effusion behind R TM with some erythema without bulging. No hemotympanum noted. Respiratory: No respiratory distress or stridor Cardiac: RRR. No murmur MSK: Full ROM extremities. Neurology: Alert. No aphasia or facial droop. Gait without abnormality Psych: Good mood and affect Assessment & Plan Assessment & Plan (1) Otitis media: Code(s): H66.90 - Otitis media, unspecified, unspecified ear Qualifiers: Otitis media type: serous Chronicity: acute Laterality: right Recurrence: non-recurrent Qualified Code(s): H65.01 - Acute serous otitis media, right ear Plan: Patient seen and evaluated. + ROM No perforation Amoxicillin and flonase F.U with PCP Patient gave verbal understanding and had no additional questions or concerns at time of discharge All questions answered Medications: New fluticasone propionate 50 mcg/actuation (Flonase Allergy Relief) administer into each nostril 1 spray intranasal DAILY 16 grams 0RF amoxicillin 875 mg PO BID 14 tabs 0RF Coding Level of Care Code Est Pt Level 3 (86622) Diagnoses Non-recurrent acute serous otitis media of right ear H65.01 Otitis media type: serous Chronicity: acute Laterality: right Recurrence: non-recurrent
== END 2024-10-25 08:35 | disposition home or self-care (01) ==
PROVIDERS: PCP Nurse Practitioner Family; Visit Provider Physician Assistant
DX: H65.01 Acute serous otitis media, right ear (principal)

== ENCOUNTER → 2024-10-25 08:02 | Outpatient (BNVA) | payer OTHER, SELFPAY | PROVIDERS: PCP Nurse Practitioner Family; Visit Provider Physician Assistant | DX: H65.01 Acute serous otitis media, right ear (principal) | CPT/HCPCS: 99212 ==

== ENCOUNTER 2024-10-28 10:35 | Outpatient (AMB) | payer OTHER, SELFPAY ==
--- NOTE | 2024-10-28 10:40 | MHC.OFFWIV ---
Intake Vital Signs 10/28/24 10:42 Weight 178 lb BP 116/78 Blood Pressure Location Rt brachial Position Sitting Pulse 66 Pulse Source Pulse Oximeter Temp 97.4 F Temp Source Oral Pulse Oximetry (%) 98 Oxygen Delivery Method Room Air Intake Visit Reasons: EP ear ache Intake Note: Patient here for bilat ear pain and was put on antibiotics on monday and has not noticed improvement. Patient Tobacco Use Status: Never used Tobacco Allergies No Known Allergies Allergy (Verified 10/28/24 10:43) Do you need a note to return to daycare/school/sports/work: No HPI EP ear ache HPI Details This note is constructed using voice recognition software. While every effort has been made to ensure accuracy, sergeant missile crewman errors may have been included. The patient is a 54 year old male who presents to the clinic today with ringing in his ears for the past few days. He was last seen in clinic 10/28/2024 for otitis media, treated on 2 antibiotics. He denies any pain, fever, chills, or any new symptoms. He presents today because the ringing in the ears has not stopped. He was using headphones to try to distract himself, however it is not working. He is also using Flonase nasal spray 1 spray each nostril once per day. [facility] Medical History (Updated 10/25/24 @ 08:28 by Rachel Almonte PA-C) Screening for colon cancer Capsulitis of left shoulder Left shoulder pain Fatty liver High triglycerides Surgical History H/O right knee surgery History of hernia surgery History of shoulder surgery History of esophagogastroduodenoscopy (EGD) Hx of colonoscopy (~10/2018) Family History Father Bladder cancer Mother Dementia Parkinsons Paternal Grandmother Skin cancer Social History Housing: House Are you a primary home health care case manager to a significant other at home: No Do you presently have visiting nurse or other home services: No Alcohol intake: current Alcohol intake frequency: holidays/special occasions only Alcohol type: beer Patient Tobacco Use Status: Never used Tobacco e-Cigarette/Vaping Use: Never Used Second Hand Smoke Exposure: No service: No Current occupational status: employed Current occupation: [employer] Current occupational exposures/hazards: Yes Cognitive needs: No Hearing needs: No Vision needs: No Review of Systems Const All systems reviewed & are unremarkable except as noted in HPI and below Physical Exam Vital Signs: Last Vital Signs Temp 97.4 F 10/28/24 10:42 Pulse 66 10/28/24 10:42 BP 116/78 10/28/24 10:42 Pulse Ox 98 10/28/24 10:42 Oxygen Delivery Method Room Air 10/28/24 10:42 Const General: cooperative, healthy appearing, comfortable, no acute distress and well developed Orientation/consciousness: patient oriented x3 Limitations: no limitations HEENT Head: Yes normal to inspection Ears: hearing grossly normal bilaterally General nose exam: Normal external nose present Face and sinus: Yes normal facial exam Eyes General: appearance normal, both eyes and all related structures Neck Neck: Yes normal visual inspection and Yes full ROM Resp Effort & Inspection: normal respiratory effort and able to speak in complete sentences Auscultation: clear to auscultation bilaterally Cardio Rate: regular rate Rhythm: regular rhythm Heart sounds: normal S1 and S2 Skin General skin exam: no rashes or lesions noted Neuro General: patient oriented x3 Assessment & Plan Assessment & Plan (1) Tinnitus: Code(s): H93.19 - Tinnitus, unspecified ear Qualifiers: Laterality: unspecified laterality Qualified Code(s): H93.19 - Tinnitus, unspecified ear Plan: Likely related to recent otitis media, advised ongoing use of Flonase nasal spray, consider decongestants such as Sudafed for no more than 2 days. Advised follow up as needed with ongoing symptoms or failure to resolve, as he could likely benefit from a hearing test with prolonged symptoms. Plan See above for full details and plan. Coding Level of Care Code Est Pt Level 3 (41364) Diagnoses Tinnitus, unspecified laterality H93.19 Laterality: unspecified laterality
[2024-10-28 10:42] VITALS: BP 116/78; PULSE 66; TEMP 36.3; O2SAT 98
== END 2024-10-28 11:19 | disposition home or self-care (01) ==
PROVIDERS: PCP Nurse Practitioner Family; Visit Provider Registered Nurse
DX: H93.19 Tinnitus, unspecified ear (principal)

== ENCOUNTER → 2024-10-28 10:35 | Outpatient (BNVA) | payer OTHER, SELFPAY | PROVIDERS: PCP Nurse Practitioner Family; Visit Provider Registered Nurse | DX: H93.13 Tinnitus, bilateral (principal) | CPT/HCPCS: 99212 ==

== ENCOUNTER 2025-01-06 08:02 | Outpatient (REF) | payer OTHER, SELFPAY ==
--- OUTSIDE RECORDS SUMMARY | 2025-01-06 09:08 | XMS_ITS | Continuity of Care Document ---
Author Organization [place] - [facility], [facility] Negro PT Address [address] [place] [address] Care Team Providers Care Hydrochloric Acid Operator Name Role Phone NARCISO SRIDEVI Primary Care Provider LAVERNE FLORES Manager Clinical Pharmacy Unavailable Assessment Encounter Date Assessment Date Assessment LastModified by Organization Details LastModified Time 12/25/2024 12/25/2024 Assessment: Good steady progress and improved strength. Still weak with shld protraction and prone row. Plan: Cont with PT as per POC. Cont strengthening Pec/Pec minor antagonists and working on functional movement patterns. [email or web address] Not available 12/25/2024 09:50:13 Plan of Treatment Reminders Order Date Submit Date Provider Last Modified By Organization Details Last Modified Time Details Appointments PT FOLLOW-U P 2024 09:30A M Damian Scafuri, CIGAR ROLLER Not available Not available Not available PT FOLLOW-U P 2024 09:30A M Damian Scafuri, CIGAR ROLLER Not available Not available Not available PT FOLLOW-U P 2024 09:30A M Damian Scafuri, CIGAR ROLLER Not available Not available Not available PT FOLLOW-U P 2024 10:30A M Damian Scafuri, CIGAR ROLLER Not available Not available Not available PT FOLLOW-U P 2024 09:15A M Damian Scafuri, CIGAR ROLLER Not available Not available Not available RECHECK [...] Recorded Time Pain of left shoulder joint [id number] 09 Active 2023 iWly Thornton PA-C [address], [place], [address], [facility] 13:58:40 Problem Notes None recorded. Procedures Surgical History Date Name Laterality Status Provider Name and Address Organization Details Recorded Time 4 90557 Therapeutic Exercise (1:1) completed Damian Scafuri, CIGAR ROLLER [address], [place], [address], [facility] 07/11/2024 14:51:56 4 17492: Hot or Cold Pack completed Damian Scafuri, CIGAR ROLLER [address], [place], [address], [facility] 07/11/2024 14:51:56 4 24976: Manual therapy completed Damian Scafuri, CIGAR ROLLER [address], [place], [address], [facility] 07/11/2024 14:51:56 4 26040 Therapeutic Exercise (1:1) completed Damian Scafuri, CIGAR ROLLER [address], [place], [address], [facility] 2024 14:42:28 4 90237: Hot or Cold Pack completed Damian Scafuri, CIGAR ROLLER [address], [place], [address], [facility] 2024 14:42:28 4 00097: Manual therapy completed Damian Scafuri, CIGAR ROLLER [address], [place], [address], [facility] 2024 14:42:28 4 05198 Therapeutic Exercise (1:1) completed Vin Mastorakis, DPT [address], [place], [address], [facility] 07/04/2024 14:45:43 4 39242: Hot or Cold Pack completed Vin Rueda, DPT [address], [place], [address], [facility] 07/04/2024 14:45:43 4 25404: Manual therapy completed Vin Rueda, DPT [address], [place], [address], [facility] 07/04/2024 14:45:43 4 13898 Therapeutic Exercise (1:1) completed Vin Rueda, DPT [address], [place], [address], [facility] 07/03/2024 10:47:53 4 80701: Hot or Cold Pack completed Vin Rueda, DPT [address], [place], [address], [facility] - [facility] 07/03/2024 10:47:53 4 73245: Manual therapy completed Vin Rueda, DPT [address], [place], [address], [facility] 07/03/2024 10:47:53 4 48995 Therapeutic Exercise (1:1) completed Damianbritany Gaminofuri, CIGAR ROLLER [address], [place], [address], [facility] 06/28/2024 16:44:18 4 66118: Hot or Cold Pack completed Damian Scafuri, CIGAR ROLLER [address], [place], [address], [facility] 06/28/2024 16:44:18 4 76660: Manual therapy completed Damian Gaminofuri, CIGAR ROLLER [address], [place], [address], [facility] 06/28/2024 16:44:18 4 56331 Therapeutic Exercise (1:1) completed Damian Scafuri, CIGAR ROLLER [address], [place], [address], [facility] 06/26/2024 16:33:53 4 23682: Hot or Cold Pack completed Damian Scafuri, CIGAR ROLLER [address], [place], [address], [facility] 06/26/2024 16:29:10 4 06925: Manual therapy completed Damian Scafuri, CIGAR ROLLER [address], [place], [address], [facility] 06/26/2024 16:29:10 4 62254 Therapeutic Exercise (1:1) completed Damian Scafuri, CIGAR ROLLER [address], [place], [address], [facility] 06/19/2024 08:44:31 4 55199: Hot or Cold Pack completed Damian Scafuri, CIGAR ROLLER [address], [place], [address], [facility] 06/19/2024 08:43:33 4 55629: Manual therapy completed Damian Scafuri, CIGAR ROLLER [address], [place], [address], [facility] 06/19/2024 08:43:33 4 23755 Therapeutic Exercise (1:1) completed Vin Rueda DPT [address], [place], [address], [facility] 06/13/2024 10:36:52 4 45311: Hot or Cold Pack completed RADHA GraceT [address], [place], [address], [facility] 06/13/2024 10:37:07 4 92296: Manual therapy completed Vin Rueda DPT [address], [place], [address], [facility] 06/13/2024 10:37:13 4 53126 Therapeutic Exercise (1:1) completed Vin Rueda DPT [address], [place], [address], [facility] 06/10/2024 13:43:08 4 20498: Low complexity PT Eval completed Vin Rueda DPT [address], [place], [address], [facility] 06/10/2024 13:43:11 Imaging Results None recorded. [...] Response Allergies/Hayfever N Coronary Artery Disease N Breathing or lung disorders N Anxiety/Depression N Emphysema N Nerve Disorders N Thyroid Problems N COPD N Pacemaker N Kidney/Bladder Problems N Anemia N Vascular Disease N Heart Trouble N Heart Attack ([place]) N Gastrointestinal Disease N Cholesterol Y Diabetes N Autoimmune disease N Bleeding Disorder N Orthotics N Seizures/Epilepsy N Arthritis N Blood Clot N AIDS/HIV N Congestive Heart Failure (CHF) N Acid Reflux (GERD) N Cancer N Stroke N Asthma N Circulation Problems N Peripheral Vascular Disease N Sleep Apnea N Hepatitis N Heart Disease N Rheumatoid Arthritis N Pulmonary Embolism N Arrhythmia N Headaches N Fibromyalgia N Hypertension Y Osteoporosis N Past Encounters Encounter ID Performer Location Encounter Start Date Encounter Closed Date Diagnosis/Indication Diagnosis SNOMED-CT Code Diagnosis ICD10 Code Diagnosis Note [id number] Vin Rueda DPT [facility] [address] [place] [address] 11/28/2024 09:22:03 11/28/2024 10:10:10 Anterior to posterior tear of superior glenoid labrum of left shoulder [id number] [id number] S43.432D [id number] Vin Rueda DPT [facility] [address] [place] [address] 12/05/2024 08:21:32 12/05/2024 09:03:34 Anterior to posterior tear of superior glenoid labrum of left shoulder [id number] 0960044 S43.432D [id number] Vin Rueda DPT [facility] [address] [place] [address] 12/11/2024 09:28:53 12/11/2024 10:46:17 Anterior to posterior tear of superior glenoid labrum of left shoulder [id number] [id number] S43.432D [id number] Jerrell Watts PT [facility] [address] [place] [address] 12/13/2024 07:29:49 12/13/2024 10:46:19 Anterior to posterior tear of superior glenoid labrum of left shoulder [id number] 1944966 S43.432D [id number] Vin Rueda DPT [facility] [address] [place] [address] 12/17/2024 09:22:22 12/17/2024 11:49:45 Anterior to posterior tear of superior glenoid labrum of left shoulder [id number] [id number] S43.432D [id number] Jerrell Watts PT [facility] [address] [place] [address] 12/20/2024 08:06:20 12/20/2024 09:21:32 Anterior to posterior tear of superior glenoid labrum of left shoulder [id number] 8465102 S43.432D [id number] [facility] [address] [place] [address] 12/25/2024 06:45:05 12/25/2024 08:13:49 Anterior to posterior tear of superior glenoid labrum of left shoulder 4730801167 7818484 S43.432D Health Concerns Section Related Observation LastModified by Organization Detai ls LastModified Time None Recorded Concern Status LastModified by Organization Details LastModified Time None Recorded Payers Encounter Date Sequence Insurance Name Policy Number Policy Barton Covered Member ID Batron Member ID Guarantor Name 12/25/2024 [employer] Mike Notes Date Note Type Note Provider Name and Address Organization Details Recorded Time 12/25/2024 text/html Pt reports feeling good. Arm continues to move better. Damian Hughes, CIGAR ROLLER [address], [place], [address], [facility] 12/25/2024 09:52:17
--- OUTSIDE RECORDS SUMMARY | 2025-01-06 09:08 | XMS_ITS | Clinical Summary ---
Author Organization [facility] ity Address [address] [place] [address] Care Team Providers Care Piston Maker Name Role Phone Unavailable Primary Care Provider [...]
--- OUTSIDE RECORDS SUMMARY | 2025-01-06 09:09 | XMS_ITS | Continuity of Care Document ---
Author Organization [place] - [facility], [facility] Negro [facility] Address [address] [place] [address] Care Team Providers Care Extension Service Specialist In Charge Name Role Phone JACKIROSEMARY SRIDEVI Primary Care Provider LAVERNE FLORES Service Tech/Welder Unavailable Assessment Encounter Date Assessment Date Assessment LastModified by Organization Details LastModified Time 12/17/2024 12/17/2024 Assessment: Excellent recent progress. Near full A flexion AG today, challenged with Wall slide lift off. Plan: Cont with PT as per POC. Cont strengthening Pec/Pec minor antagonists and working on functional movement patterns. [email or web address] Not available 12/17/2024 11:58:22 Plan of Treatment Reminders Order Date Submit Date Provider Last Modified By Organization Details Last Modified Time Details Appointments PT FOLLOW-U P 2024 09:30A M Damian Scafuri, FIRE PATROL Not available Not available Not available PT FOLLOW-U P 2024 09:30A M Damian Scafuri, FIRE PATROL Not available Not available Not available PT FOLLOW-U P 2024 09:30A M Damian Scafuri, FIRE PATROL Not available Not available Not available PT FOLLOW-U P 2024 10:30A M Damian Scafuri, FIRE PATROL Not available Not available Not available PT FOLLOW-U P 2024 09:15A M Damian Scafuri, FIRE PATROL Not available Not available Not available RECHECK [...] Recorded Time Pain of left shoulder joint [id number] 09 Active 2023 Wily Thornton PA-C [address], [place], [address], [facility] 13:58:40 Problem Notes None recorded. Procedures Surgical History Date Name Laterality Status Provider Name and Address Organization Details Recorded Time 4 55449 Therapeutic Exercise (1:1) completed Damian Scafuri, FIRE PATROL [address], [place], [address], [facility] 07/11/2024 14:51:56 4 58055: Hot or Cold Pack completed Damian Scafuri, FIRE PATROL [address], [place], [address], [facility] 07/11/2024 14:51:56 4 50254: Manual therapy completed Damian Scafuri, FIRE PATROL [address], [place], [address], [facility] 07/11/2024 14:51:56 4 20237 Therapeutic Exercise (1:1) completed Damian Scafuri, FIRE PATROL [address], [place], [address], [facility] 2024 14:42:28 4 60726: Hot or Cold Pack completed Damian Scafuri, FIRE PATROL [address], [place], [address], [facility] 2024 14:42:28 4 33715: Manual therapy completed Damian Scafuri, FIRE PATROL [address], [place], [address], [facility] 2024 14:42:28 4 64425 Therapeutic Exercise (1:1) completed Vin Mastorakis, DPT [address], [place], [address], [facility] 07/04/2024 14:45:43 4 11641: Hot or Cold Pack completed Vin Rueda, DPT [address], [place], [address], [facility] 07/04/2024 14:45:43 4 75934: Manual therapy completed Vin Rueda, DPT [address], [place], [address], [facility] 07/04/2024 14:45:43 4 42876 Therapeutic Exercise (1:1) completed Vin Rueda, DPT [address], [place], [address], [facility] 07/03/2024 10:47:53 4 52577: Hot or Cold Pack completed Vin Rueda, DPT [address], [place], [address], [facility] 07/03/2024 10:47:53 4 14509: Manual therapy completed Vin Rueda, DPT [address], [place], [address], [facility] 07/03/2024 10:47:53 4 87056 Therapeutic Exercise (1:1) completed Damianbritany Gaminofuri, FIRE PATROL [address], [place], [address], [facility] 06/28/2024 16:44:18 4 98979: Hot or Cold Pack completed Damian Scafuri, FIRE PATROL [address], [place], [address], [facility] 06/28/2024 16:44:18 4 33055: Manual therapy completed Damian Gaminofuri, FIRE PATROL [address], [place], [address], [facility] 06/28/2024 16:44:18 4 25608 Therapeutic Exercise (1:1) completed Damian Scafuri, FIRE PATROL [address], [place], [address], [facility] 06/26/2024 16:33:53 4 01666: Hot or Cold Pack completed Damian Scafuri, FIRE PATROL [address], [place], [address], [facility] 06/26/2024 16:29:10 4 41370: Manual therapy completed Damian Scafuri, FIRE PATROL [address], [place], [address], [facility] 06/26/2024 16:29:10 4 63354 Therapeutic Exercise (1:1) completed Damian Scafuri, FIRE PATROL [address], [place], [address], [facility] 06/19/2024 08:44:31 4 09469: Hot or Cold Pack completed Damian Scafuri, FIRE PATROL [address], [place], [address], [facility] 06/19/2024 08:43:33 4 52451: Manual therapy completed Damian Scafuri, FIRE PATROL [address], [place], [address], [facility] 06/19/2024 08:43:33 4 95235 Therapeutic Exercise (1:1) completed Vin Rueda DPT [address], [place], [address], [facility] 06/13/2024 10:36:52 4 34221: Hot or Cold Pack completed RADHA GraceT [address], [place], [address], [facility] 06/13/2024 10:37:07 4 63557: Manual therapy completed Vin Rueda DPT [address], [place], [address], [facility] 06/13/2024 10:37:13 4 78144 Therapeutic Exercise (1:1) completed Vin Rueda DPT [address], [place], [address], [facility] 06/10/2024 13:43:08 4 04267: Low complexity PT Eval completed Vin Rueda DPT [address], [place], [address], [facility] 06/10/2024 13:43:11 Imaging Results None recorded. [...] Disease N Heart Trouble N Heart Attack ([place]) N Gastrointestinal Disease N Cholesterol Y Diabetes [...] SNOMED-CT Code Diagnosis ICD10 Code Diagnosis Note [id number] Vin Rueda DPT [facility] [address] [place] [address] 11/28/2024 09:22:03 11/28/2024 10:10:10 Anterior to posterior tear of superior glenoid labrum of left shoulder [id number] S43.432D [id number] iVn Rueda DPT [facility] [address] [place] [address] 12/05/2024 08:21:32 12/05/2024 09:03:34 Anterior to posterior tear of superior glenoid labrum of left shoulder [id number] 3312026 S43.432D [id number] Vin Rueda DPT [facility] [address] [place] [address] 12/11/2024 09:28:53 12/11/2024 10:46:17 Anterior to posterior tear of superior glenoid labrum of left shoulder 3511337560 2336970 S43.432D [id number] Jerrell Watts, PT [facility] [address] [place] [address] 12/13/2024 07:29:49 12/13/2024 10:46:19 Anterior to posterior tear of superior glenoid labrum of left shoulder 5013711327 8589177 S43.432D [id number] Vin Rueda DPT [facility] [address] [place] [address] 12/17/2024 09:22:22 12/17/2024 11:49:45 Anterior to posterior tear of superior glenoid labrum of left shoulder 0570303089 9087179 S43.432D Health Concerns Section Related Observation LastModified by Organization Detai ls LastModified Time None Recorded Concern Status LastModified by Organization Details LastModified Time None Recorded Payers None recorded. Notes Date Note Type Note Provider Name and Address Organization Details Recorded Time 12/17/2024 text/html Pt reports feeling good. Arm is moving much better. Damian Hughes, FIRE PATROL [address], [place], [address], [facility] 12/17/2024 11:59:34
--- OUTSIDE RECORDS SUMMARY | 2025-01-06 09:09 | XMS_ITS | Data Portability ---
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 Near full A flexion AG today, challenged with Wall slide lift off. Plan: Cont with PT as per POC. Cont strengthening Pec/Pec minor antagonists and working on functional movement patterns. Not available 12/17/2024 11:58:22 12/20/2024 12/20/2024 Assessment: Excellent recent progress. Near full A flexion AG today. Palpable SA contraction noted. Still weak in all shoulder planes. Plan: Cont with PT as per POC. Cont strengthening Pec/Pec minor antagonists and working on functional movement patterns. Not available 12/20/2024 09:17:31 12/25/2024 12/25/2024 Assessment: Good steady progress and improved strength. Still weak with shld protraction and prone row. Plan: Cont with PT as per POC. Cont strengthening Pec/Pec minor antagonists and working on functional movement patterns. Not available 12/25/2024 09:50:13 12/31/2024 12/31/2024 Assessment: Good steady progress and improved strength. Still weak with shld protraction and prone row. Plan: Cont with PT as per POC. Cont strengthening Pec/Pec minor antagonists and working on functional movement patterns. Not available 12/31/2024 13:50:25 Plan of Treatment Reminders Order Date Submit Date Provider Last Modified By Organization Details Last Modified Time Details Appointments PT FOLLOW-U P 2024 09:30A M Damian Gregoriori, CONSERVATION OFFICER Not available Not available Not available PT FOLLOW-U P 2024 09:30A M Damian Scafuri, CONSERVATION OFFICER Not available Not available Not available PT FOLLOW-U P 2024 09:30A M Damian Scafuri, CONSERVATION OFFICER Not available Not available Not available PT FOLLOW-U P 2024 10:30A M Damian Scafuri, CONSERVATION OFFICER Not available Not available Not available PT FOLLOW-U P 2024 09:15A M Damianbritany Gaminofuri, CONSERVATION OFFICER Not available Not available Not available RECHECK [...] Recorded Time Pain of left shoulder joint [id number] 09 Active 2023 Wily Thornton PA-C [address], [place], [address], [facility] 4 13:58:40 Problem Notes None recorded. Procedures Surgical History Date Name Laterality Status Provider Name and Address Organization Details Recorded Time 4 16633 Therapeutic Exercise (1:1) completed Damian Hughes, CONSERVATION OFFICER [address], [place], [address], [facility] 07/11/2024 14:51:56 4 00697: Hot or Cold Pack completed Damian Hughes, CONSERVATION OFFICER [address], [place], [address], [facility] 07/11/2024 14:51:56 4 44730: Manual therapy completed Damian Hughes, CONSERVATION OFFICER [address], [place], [address], [facility] 07/11/2024 14:51:56 4 27763 Therapeutic Exercise (1:1) completed Damian Hughes, CONSERVATION OFFICER [address], [place], [address], [facility] 2024 14:42:28 4 65520: Hot or Cold Pack completed Damina Hughes, CONSERVATION OFFICER [address], [place], [address], [facility] 2024 14:42:28 4 90729: Manual therapy completed Damian Hughes, CONSERVATION OFFICER [address], [place], [address], [facility] 2024 14:42:28 4 24417 Therapeutic Exercise (1:1) completed Vin Rueda, DPT [address], [place], [address], [facility] 07/04/2024 14:45:43 4 29333: Hot or Cold Pack completed Vin Rueda DPT [address], [place], [address], [facility] 07/04/2024 14:45:43 4 15127: Manual therapy completed Vin Rueda DPT [address], [place], [address], [facility] 07/04/2024 14:45:43 4 89019 Therapeutic Exercise (1:1) completed Vin Rueda, DPT [address], [place], [address], [facility] 07/03/2024 10:47:53 4 72473: Hot or Cold Pack completed Vin Rueda, DPT [address], [place], [address], [facility] 07/03/2024 10:47:53 4 01020: Manual therapy completed RADHA GraceT [address], [place], [address], [facility] 07/03/2024 10:47:53 4 34376 Therapeutic Exercise (1:1) completed Damian Scafuri, CONSERVATION OFFICER [address], [place], [address], [facility] 06/28/2024 16:44:18 4 76395: Hot or Cold Pack completed Damian Scafuri, CONSERVATION OFFICER [address], [place], [address], [facility] 06/28/2024 16:44:18 4 24123: Manual therapy completed Damian Scafuri, CONSERVATION OFFICER [address], [place], [address], [facility] 06/28/2024 16:44:18 4 58586 Therapeutic Exercise (1:1) completed Damian Scafuri, CONSERVATION OFFICER [address], [place], [address], [facility] 06/26/2024 16:33:53 4 44970: Hot or Cold Pack completed Damian Scafuri, CONSERVATION OFFICER [address], [place], [address], [facility] 06/26/2024 16:29:10 4 16947: Manual therapy completed Damian Scafuri, CONSERVATION OFFICER [address], [place], [address], [facility] 06/26/2024 16:29:10 4 09993 Therapeutic Exercise (1:1) completed Damian Scafuri, CONSERVATION OFFICER [address], [place], [address], [facility] 06/19/2024 08:44:31 4 76646: Hot or Cold Pack completed Damian Scafuri, CONSERVATION OFFICER [address], [place], [address], [facility] 06/19/2024 08:43:33 4 82186: Manual therapy completed Damian Stevensonfuri, CONSERVATION OFFICER [address], [place], [address], [facility] 06/19/2024 08:43:33 4 52742 Therapeutic Exercise (1:1) completed Vin Rueda, DPT [address], [place], [address], [facility] 06/13/2024 10:36:52 4 91267: Hot or Cold Pack completed Vin Rueda, DPT [address], [place], [address], [facility] 06/13/2024 10:37:07 4 88886: Manual therapy completed Vin Rueda, DPT [address], [place], [address], [facility] 06/13/2024 10:37:13 4 99018 Therapeutic Exercise (1:1) completed Vin Rueda, DPT [address], [place], [address], [facility] 06/10/2024 13:43:08 4 52805: Low complexity PT Eval completed Vin Rueda, DPT [address], [place], [address], [facility] 06/10/2024 [...] Updated DateTime 12/30/2024 172.72 cm 28.6 kg/m2 46778.37 g [facility] [place] [facility] 12/30/2024 13:38:48 Social History None recorded. Functional Status None recorded. Mental Status None recorded. Family History Nothing Reported. Medical History Condition Response Allergies/Hayfever N Coronary Artery Disease N Anxiety/Depression N Breathing or lung disorders N Emphysema N Nerve Disorders N Thyroid Problems N COPD N Pacemaker N Anemia N Kidney/Bladder Problems N Vascular Disease N Heart Trouble N Heart Attack (OK) N Gastrointestinal Disease N Cholesterol Y Diabetes [...] SNOMED-CT Code Diagnosis ICD10 Code Diagnosis Note [id number] MD Marky Weeks 2nd floor [address] [place] [address] 02/05/2024 15:00:53 02/19/2024 09:26:41 Pain of left shoulder joint 8036080699 6296542 M25.441 [id number] MD Marky Weeks 2nd floor [address] [place] [address] 03/25/2024 10:58:57 04/08/2024 08:16:28 Anterior to posterior tear of superior glenoid labrum of left shoulder 2935415250 7877180 S43.432D Instabilit y of left shoulder joint 243704381 S43.432A [id number] MD Marky Weeks 2nd floor [address] [place] [address] 05/16/2024 12:26:54 06/03/2024 15:50:56 Posterior dislocation of shoulder joint 570398321 S43.025D [id number] Lizy Garza MD [facility] [address] [place] [address] 06/07/2024 12:43:50 07/05/2024 17:10:52 Follow-up orthopedic assessment [id number] Z47.89 [id number] Vin Rueda DPT [facility] [address] [place] [address] 06/10/2024 10:43:28 06/10/2024 11:55:20 Anterior to posterior tear of superior glenoid labrum of left shoulder 7436238913 6785685 S43.432D [id number] Vin Rueda DPT [facility] [address] [place] [address] 06/12/2024 10:45:23 06/12/2024 11:35:00 Anterior to posterior tear of superior glenoid labrum of left shoulder 1369686438 6532354 S43.432D [id number] [facility] [address] [place] [address] 06/19/2024 07:58:33 06/19/2024 08:51:00 Anterior to posterior tear of superior glenoid labrum of left shoulder 2004779809 5806315 S43.432D [id number] Vin Rueda DPT [facility] [address] [place] [address] 06/26/2024 15:24:10 06/26/2024 17:11:45 Anterior to posterior tear of superior glenoid labrum of left shoulder 2057468591 6571443 S43.432D [id number] Jerrell Watts PT [facility] [address] [place] [address] 06/28/2024 15:24:38 06/28/2024 16:09:18 Anterior to posterior tear of superior glenoid labrum of left shoulder 6816368009 0496591 S43.432D [id number] Vin Rueda DPT [facility] [address] [place] [address] 07/02/2024 11:43:41 07/02/2024 12:31:21 Anterior to posterior tear of superior glenoid labrum of left shoulder 2572258137 0972809 S43.432D [id number] Vin Rueda DPT [facility] [address] [place] [address] 07/04/2024 11:29:37 07/04/2024 14:04:20 Anterior to posterior tear of superior glenoid labrum of left shoulder 4370085092 2563103 S43.432D [id number] Vin Rueda DPT [facility] [address] [place] [address] 2024 13:28:08 07/10/2024 08:36:19 Anterior to posterior tear of superior glenoid labrum of left shoulder 2819309236 7955292 S43.432D [id number] Vin Rueda DPT [facility] [address] [place] [address] 07/11/2024 13:16:18 07/11/2024 15:06:41 Anterior to posterior tear of superior glenoid labrum of left shoulder 1388293483 0055663 S43.432D [id number] Vin Rueda DPT [facility] [address] [place] [address] 07/16/2024 11:40:31 07/16/2024 12:42:19 Anterior to posterior tear of superior glenoid labrum of left shoulder 5986234603 0622742 S43.432D [id number] Vin Rueda DPT [facility] [address] [place] [address] 07/18/2024 15:19:40 07/18/2024 17:24:20 Anterior to posterior tear of superior glenoid labrum of left shoulder 9802783548 2253722 S43.432D [id number] Vin Mastorakis , DPT [facility] [address] [place] [address] 07/22/2024 09:56:45 07/22/2024 10:24:11 Anterior to posterior tear of superior glenoid labrum of left shoulder 6565123622 9262534 S43.432D [id number] Wily Thornton PA-C [facility] [address] [place] [address] 07/23/2024 14:47:16 08/01/2024 15:40:16 Pain of left shoulder joint 7413165455 9637061 M25.933 [id number] Jerrell Watts, PT [facility] [address] [place] [address] 07/26/2024 09:41:43 07/26/2024 10:37:37 Anterior to posterior tear of superior glenoid labrum of left shoulder 5707139834 0893969 S43.432D [id number] Vin Rueda , DPT [facility] [address] [place] [address] 07/29/2024 10:14:52 07/29/2024 11:17:42 Anterior to posterior tear of superior glenoid labrum of left shoulder 6887833354 3259204 S43.432D [id number] Vin Rueda , DPT [facility] [address] [place] [address] 07/31/2024 10:15:37 07/31/2024 11:03:28 Anterior to posterior tear of superior glenoid labrum of left shoulder 3827433829 4055269 S43.432D [id number] Vin Rueda , DPT [facility] [address] [place] [address] 08/06/2024 15:18:30 08/06/2024 16:03:32 Anterior to posterior tear of superior glenoid labrum of left shoulder 9083557143 6773092 S43.432D [id number] Jerrell Watts, PT [facility] [address] [place] [address] 08/09/2024 13:13:56 08/09/2024 14:47:03 Anterior to posterior tear of superior glenoid labrum of left shoulder 0954873782 4181828 S43.432D [id number] Vin Rueda DPT [facility] [address] [place] [address] 08/13/2024 10:20:30 08/13/2024 11:13:34 Anterior to posterior tear of superior glenoid labrum of left shoulder 7430178530 9456812 S43.432D [id number] Jerrell Watts, PT [facility] [address] [place] [address] 08/16/2024 14:22:43 08/16/2024 16:05:41 Anterior to posterior tear of superior glenoid labrum of left shoulder 7420519365 2178927 S43.432D [id number] Vin Rueda DPT [facility] [address] [place] [address] 08/20/2024 11:25:47 08/20/2024 12:17:50 Anterior to posterior tear of superior glenoid labrum of left shoulder 5544471130 0220399 S43.432D [id number] [facility] [address] [place] [address] 08/22/2024 11:28:21 08/22/2024 14:18:13 Anterior to posterior tear of superior glenoid labrum of left shoulder 2042455186 7973196 S43.432D [id number] MD Marky Weeks [address] [place] [address] 08/27/2024 16:29:07 09/17/2024 15:56:24 Follow-up orthopedic assessment 473407301 Z47.89 [id number] [facility] [address] [place] [address] 08/28/2024 10:37:07 08/28/2024 12:14:05 Anterior to posterior tear of superior glenoid labrum of left shoulder 1436154971 0120163 S43.432D [id number] Jerrell Watts, PT [facility] [address] [place] [address] 08/30/2024 13:40:25 08/30/2024 15:42:16 Anterior to posterior tear of superior glenoid labrum of left shoulder 5531457352 4775161 S43.432D [id number] Vin Rueda , DPT [facility] [address] [place] [address] 09/04/2024 12:13:25 09/04/2024 13:33:51 Anterior to posterior tear of superior glenoid labrum of left shoulder 0794737622 4716855 S43.432D [id number] Jerrell Stefanie, PT [facility] [address] [place] [address] 09/06/2024 13:25:48 09/06/2024 15:12:55 Anterior to posterior tear of superior glenoid labrum of left shoulder 9707021480 8931640 S43.432D [id number] Vin Rueda , DPT [facility] [address] [place] [address] 09/09/2024 09:37:19 09/09/2024 10:54:58 Anterior to posterior tear of superior glenoid labrum of left shoulder 1813927316 9414698 S43.432D [id number] Lizy Garza MD [facility] [address] [place] [address] 09/30/2024 14:33:00 10/29/2024 09:59:27 Left cervical root neuropathy 3755037301 7701226 M54.12 Pain of le ft shoulder joint 9872003911 2609338 M25.184 [id number] Vin Rueda DPT [facility] [address] [place] [address] 09/11/2024 10:05:30 09/11/2024 11:24:15 Anterior to posterior tear of superior glenoid labrum of left shoulder 3005399398 2468162 S43.432D [id number] Vin Rueda DPYoni [facility] [address] [place] [address] 09/17/2024 11:09:15 09/17/2024 12:23:02 Anterior to posterior tear of superior glenoid labrum of left shoulder 4248382929 1631348 S43.432D [id number] RADHA GraceT [facility] [address] [place] [address] 09/19/2024 14:19:28 09/19/2024 15:35:53 Anterior to posterior tear of superior glenoid labrum of left shoulder 1488872248 9012714 S43.432D [id number] Vin Rueda DPT [facility] [address] [place] [address] 10/08/2024 14:36:31 10/08/2024 16:37:45 Anterior to posterior tear of superior glenoid labrum of left shoulder 6970452091 0728704 S43.432D Elsa Asher DPT [facility] [address] [place] [address] 10/15/2024 09:23:11 10/15/2024 09:46:05 Anterior to posterior tear of superior glenoid labrum of left shoulder 0924613493 1989955 S43.432D [id number] Elsa Asher DPT [facility] [address] [place] [address] 10/17/2024 16:22:48 10/17/2024 17:09:16 Anterior to posterior tear of superior glenoid labrum of left shoulder 1277663309 4472703 S43.432D Vin Rueda DPT [facility] [address] [place] [address] 10/22/2024 08:54:05 10/22/2024 09:27:49 Anterior to posterior tear of superior glenoid labrum of left shoulder 2711039991 3868783 S43.432D [id number] MD DORIAN Weeks - [facility] [address] [facility] [address] [place] [address] 11/15/2024 14:09:09 11/27/2024 09:25:57 Follow-up orthopedic assessment 628951162 Z47.89 [id number] Elsa Asher, DPT [facility] [address] [place] [address] 11/11/2024 13:13:51 11/12/2024 07:01:13 Anterior to posterior tear of superior glenoid labrum of left shoulder 2536314958 7081422 S43.432D [id number] Vin Rueda , DPT [facility] [address] [place] [address] 11/14/2024 15:26:00 11/14/2024 16:21:32 Anterior to posterior tear of superior glenoid labrum of left shoulder 4233201361 7636226 S43.432D [id number] Vin Rueda , RADHAT [facility] [address] [place] [address] 11/28/2024 09:22:03 11/28/2024 10:10:10 Anterior to posterior tear of superior glenoid labrum of left shoulder 6321944242 6592030 S43.432D [id number] Vin Rueda , DPT [facility] [address] [place] [address] 12/05/2024 08:21:32 12/05/2024 09:03:34 Anterior to posterior tear of superior glenoid labrum of left shoulder 3766405783 1321490 S43.432D [id number] Vin Rueda DPT [facility] - [facility] [address] [place] [address] 12/11/2024 09:28:53 12/11/2024 10:46:17 Anterior to posterior tear of superior glenoid labrum of left shoulder 6164633860 6147392 S43.432D [id number] Jerrell Wtats, PT [facility] - [facility] [address] [place] [address] 12/13/2024 07:29:49 12/13/2024 10:46:19 Anterior to posterior tear of superior glenoid labrum of left shoulder 8370197534 0299201 S43.432D [id number] Vin Mastorakis , DPT [facility] [address] [place] [address] 12/17/2024 09:22:22 12/17/2024 11:49:45 Anterior to posterior tear of superior glenoid labrum of left shoulder 9735129057 0625927 S43.432D [id number] MD [facility]ORIAN Weeks - [facility] [address] [facility] [address] [place] [address] 12/30/2024 13:35:12 12/30/2024 14:14:36 Follow-up orthopedic assessment 602300602 Z47.89 [id number] Jerrell Watts, PT [facility] [address] [place] [address] 12/20/2024 08:06:20 12/20/2024 09:21:32 Anterior to posterior tear of superior glenoid labrum of left shoulder 6596811404 6590549 S43.432D [id number] Vin Rueda , DPT [facility] [address] [place] [address] 12/25/2024 06:45:05 12/25/2024 08:13:49 Anterior to posterior tear of superior glenoid labrum of left shoulder 8077881669 5684283 S43.432D [id number] Vin Rueda , DPT [facility] [address] [place] [address] 12/31/2024 09:44:29 12/31/2024 11:55:51 Anterior to posterior tear of superior glenoid labrum of left shoulder 0289897329 4060870 S43.432D Health Concerns Section Related Observation LastModified by Organization Detai ls LastModified Time None Recorded Concern Status LastModified by Organization Details LastModified Time None Recorded Advance Directives Directive None Recorded Payers Encounter Date Sequence Insurance Name Policy Number Policy Barton Covered Member ID Barton Member ID Guarantor Name 12/25/2024 [employer] Christopher Mike 12/30/2024 [employer] Christopher Mike 12/31/2024 [employer] Christopher Mike Notes Date Note Type Note Provider Name and Address Organization Details Recorded Time 12/17/2024 text/html Pt reports feeli ng good. Arm is moving much better. Damian Hughes, CONSERVATION OFFICER [address], [place], [address], [facility] 12/17/2024 11:59:34 12/20/2024 text/html Pt reports feeli ng good. Arm continues to move better. Damian Hughes, CONSERVATION OFFICER [address], [place], [address], [facility] 12/20/2024 09:18:09 12/25/2024 text/html Pt reports feeli ng good. Arm continues to move better. Damian Hughes, CONSERVATION OFFICER [address], [place], [address], [facility] 12/25/2024 09:52:17 12/30/2024 text/html Surgery: Left shoulder posterior labral [...] and well perfused. Imaging: Deferred Impression: 54-year-old [id number] gentleman, now approximately 8 months out from [...] him back in 8 weeks for recheck. [facility] speech recognition commercial specialist software was used to create portions of this document. An attempt at proofreading has been made to minimize errors. Please call for corrections. Lizy Garza MD [address], [place], [address], [facility] 12/30/2024 14:14:34 12/31/2024 text/html Pt reports feeli ng good. Arm continues to move better. Damian Hughes PTA [address], [place], [address], [facility] 12/31/2024 13:54:22
[2025-01-06 11:54] LABS: Influenza A PCR NEGATIVE (Negative); Influenza B PCR NEGATIVE (Negative); Resp Syncy Virus RNA Qual PCR NEGATIVE (Negative); SARS COV2 PCR INHOUSE POSITIVE (Negative)
== END 2025-01-06 08:03 | disposition home or self-care (01) ==
LOC: HO.LAB 08:02
PROVIDERS: PCP Nurse Practitioner Family; Visit Provider Nurse Practitioner Family
DX: J06.9 Acute upper respiratory infection, unspecified (principal)
CPT/HCPCS: 0241U; 87880; 99212

== ENCOUNTER 2025-01-06 08:02 | Outpatient (AMB) | payer OTHER, SELFPAY ==
--- OUTSIDE RECORDS SUMMARY | 2025-01-06 08:08 | XMS_ITS | Continuity of Care Document ---
Author Organization [place] - 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 Improved ROM and improved Mid Trap, Rhomboid, Post Delt contraction. S.A. remains weak and difficulty palpating contraction. Plan: Cont with PT as per POC. Cont strengthening Pec/Pec minor antagonists and working on functional movement patterns. [email or web address] Not available 12/11/2024 11:02:35 Plan of Treatment Reminders Order Date Submit Date Provider Last Modified By Organization Details Last Modified Time Details Appointments PT FOLLOW-U P 2024 09:30A M Damian Scafuri, TEASEL GIG OPERATOR Not available Not available Not available PT FOLLOW-U P 2024 09:30A M Damian Scafuri, TEASEL GIG OPERATOR Not available Not available Not available PT FOLLOW-U P 2024 09:30A M Damian Scafuri, TEASEL GIG OPERATOR Not available Not available Not available PT FOLLOW-U P 2024 10:30A M Damian Scafuri, TEASEL GIG OPERATOR Not available Not available Not available PT FOLLOW-U P 2024 09:15A M Damian Scafuri, TEASEL GIG OPERATOR Not available Not available Not available RECHECK 15 2024 02:00P M Lizy Garza MD Not available Not available Not available Lab None recorded . Referral None recorded . Procedures None recorded . Surgeries None recorded . Imaging None recorded . Medication Orders None recorded . Patient TargetsNo targets recorded. Patient InstructionsNo instructions recorded. Reason for Referral None Reported. Problems Name Problem SNOMED Code Status Onset Date Resolution Date Notes Provider Name and Address Organization Details Recorded Time Pain of left shoulder joint [id number] 09 Active 2023 Wily Thornton PA-C [address], [place], [address], [facility] 4 13:58:40 Problem Notes None recorded. Procedures Surgical History Date Name Laterality Status Provider Name and Address Organization Details Recorded Time 4 45512 Therapeutic Exercise (1:1) completed Damian Scafuri, TEASEL GIG OPERATOR [address], [place], [address], [facility] 07/11/2024 14:51:56 4 42721: Hot or Cold Pack completed Damian Scafuri, TEASEL GIG OPERATOR [address], [place], [address], [facility] 07/11/2024 14:51:56 4 97440: Manual therapy completed Damian Scafuri, TEASEL GIG OPERATOR [address], [place], [address], [facility] 07/11/2024 14:51:56 4 60045 Therapeutic Exercise (1:1) completed Damian Scafuri, TEASEL GIG OPERATOR [address], [place], [address], [facility] 2024 14:42:28 4 58667: Hot or Cold Pack completed Damian Scafuri, TEASEL GIG OPERATOR [address], [place], [address], [facility] 2024 14:42:28 4 98167: Manual therapy completed Damian Scafuri, TEASEL GIG OPERATOR [address], [place], [address], [facility] 2024 14:42:28 4 23701 Therapeutic Exercise (1:1) completed Vin Bullocks, DPT [address], [place], [address], [facility] 07/04/2024 14:45:43 4 47633: Hot or Cold Pack completed Vin Rueda, DPT [address], [place], [address], [facility] 07/04/2024 14:45:43 4 25685: Manual therapy completed Vin Rueda, DPT [address], [place], [address], [facility] 07/04/2024 14:45:43 4 29714 Therapeutic Exercise (1:1) completed Vin Rueda, DPT [address], [place], [address], [facility] 07/03/2024 10:47:53 4 84997: Hot or Cold Pack completed Vin Rueda, DPT [address], [place], [address], [facility] 07/03/2024 10:47:53 4 53196: Manual therapy completed Vin Rueda, DPT [address], [place], [address], [facility] 07/03/2024 10:47:53 4 16002 Therapeutic Exercise (1:1) completed Damian Gregoriori, TEASEL GIG OPERATOR [address], [place], [address], [facility] 06/28/2024 16:44:18 4 99969: Hot or Cold Pack completed Damian Gregoriori, TEASEL GIG OPERATOR [address], [place], [address], [facility] 06/28/2024 16:44:18 4 87372: Manual therapy completed Damian Scafuri, TEASEL GIG OPERATOR [address], [place], [address], [facility] 06/28/2024 16:44:18 4 37289 Therapeutic Exercise (1:1) completed Damian Scafuri, TEASEL GIG OPERATOR [address], [place], [address], [facility] 06/26/2024 16:33:53 4 14125: Hot or Cold Pack completed Damian Scafuri, TEASEL GIG OPERATOR [address], [place], [address], [facility] 06/26/2024 16:29:10 4 19012: Manual therapy completed Damian Scafuri, TEASEL GIG OPERATOR [address], [place], [address], [facility] 06/26/2024 16:29:10 4 44392 Therapeutic Exercise (1:1) completed Damian Scafuri, TEASEL GIG OPERATOR [address], [place], [address], [facility] 06/19/2024 08:44:31 4 53251: Hot or Cold Pack completed Damian Scafuri, TEASEL GIG OPERATOR [address], [place], [address], [facility] 06/19/2024 08:43:33 4 78398: Manual therapy completed Damian Scafuri, TEASEL GIG OPERATOR [address], [place], [address], [facility] 06/19/2024 08:43:33 4 87953 Therapeutic Exercise (1:1) completed Vin Rueda DPT [address], [place], [address], [facility] 06/13/2024 10:36:52 4 21342: Hot or Cold Pack completed Vin Rueda DPT [address], [place], [address], [facility] 06/13/2024 10:37:07 4 22092: Manual therapy completed Vin Rueda DPT [address], [place], [address], [facility] 06/13/2024 10:37:13 4 73316 Therapeutic Exercise (1:1) completed Vin Rueda DPT [address], [place], [address], [facility] 06/10/2024 13:43:08 4 63089: Low complexity PT Eval completed Vin Rueda DPT [address], [place], [address], [facility] 06/10/2024 13:43:11 Imaging Results None recorded. Procedure Notes None recorded. Medical Equipment None Reported. Allergies No known drug allergies Medications Name Sig Start Date Stop Date Status Note LastModified by Organization Details LastModified Time amoxicillin 500 mg capsule TAKE 1 CAPSULE BY MOUTH 4 TIMES DAILY UNTIL GONE. 02/04 completed Not Available Not Available Not Available atorvastati n 20 mg tablet TAKE 1 TABLET BY MOUTH AT BEDTIME FOR 90 DAYS active Not Available Not Available No t Available aspirin 325 mg tablet Take 1 tablet every day by oral route for 14 days. 09/24 completed Not Available Not Available Not Available ibuprofen 800 mg tablet TAKE 1 TABLET BY MOUTH 3 TIMES A DAY WITH FOOD 02/04 completed Not Available Not Available Not Available acetaminoph en 300 mg-codeine 30 mg tablet TAKE ONE TABLET BY MOUTH EVERY 4-6 HOURS NEEDED FOR PAIN 02/04 completed Not Available Not Available Not Available omeprazole 40 mg capsule,del ayed release TAKE 1 CAPSULE BY MOUTH EVERY DAY active Not Available Not Available No t Available acetaminoph en 500 mg tablet TAKE 2 TABLETS BY MOUTH 3 TIMES A DAY active Not Available Not Available No t Available amoxicillin 500 mg tablet TAKE ONE TABLET BY MOUTH THREE TIMES A DAY UNTIL GONE 02/04 completed Not Available Not Available Not Available oxycodone-a cetaminophe n 5 mg-325 mg tablet TAKE 1 TO 2 TABLETS BY MOUTH EVERY 6 HOURS NEEDED FOR PAIN 02/04 completed Not Available Not Available Not Available amoxicillin 875 mg tablet 12/30 completed Not Available Not Available Not Available aspirin 325 mg tablet,mayra yed release TAKE 1 TABLET BY MOUTH EVERY DAY FOR 14 DAYS 09/24 completed Not Available Not Available Not Available amlodipine 10 mg tablet TAKE 1 TABLET BY MOUTH EVERY DAY active Not Available Not Available No t Available metoprolol tartrate 50 mg tablet TAKE 1 TABLET BY MOUTH TWICE A DAY active Not Available Not Available No t Available docusate sodium 100 mg capsule TAKE 1 CAPSULE BY MOUTH EVERY DAY NEEDED 09/24 completed Not Available Not Available Not Available naproxen 500 mg tablet TAKE 1 TABLET BY MOUTH TWICE A DAY FOR 5 DAYS 09/24 completed Not Available Not Available Not Available oxycodone 5 mg tablet TAKE 1 TABLET BY MOUTH EVERY 4 HOURS NEEDED 09/24 completed Not Available Not Available Not Available Laxative (bisacodyl) 5 mg tablet,mayra yed release TAKE 4 TABLETS BY MOUTH ONCE AT 12 PM DAY BEFORE COLONOSCO PY active Not Available Not Available No t Available Vitamin D3 25 mcg (1,000 unit) capsule TAKE 1 CAPSULE BY MOUTH EVERY DAY active Not Available Not Available No t Available omeprazole 20 mg tablet,mayra yed release Take 20 mg twice a day by oral route. 05/16 completed Not Available Not Available Not Available fenofibrate 54 mg tablet TAKE 1 TABLET BY MOUTH DAILY active Not Available Not Available No t Available Gavilax 17 gram/dose oral powder PLEASE SEE ATTACHED FOR DETAILED DIRECTION S 12/30 completed Not Available Not Available Not Available Vitals None Recorded Social History None recorded. Functional Status None recorded. Mental Status None recorded. Family History Nothing Reported. Medical History Condition Response Coronary Artery Disease N Anxiety/Depression N Emphysema N COPD N Pacemaker N Vascular Disease N Heart Trouble N Gastrointestinal Disease N Autoimmune disease N Orthotics N Arthritis N Blood Clot N Acid Reflux (GERD) N Cancer N Stroke N Circulation Problems N Rheumatoid Arthritis N Arrhythmia N Headaches N Fibromyalgia N Allergies/Hayfever N Breathing or lung disorders N Nerve Disorders N Thyroid Problems N Kidney/Bladder Problems N Anemia N Heart Attack ([place]) N Cholesterol Y Diabetes N Bleeding Disorder N Seizures/Epilepsy N AIDS/HIV N Congestive Heart Failure (CHF) N Asthma N Peripheral Vascular Disease N Sleep Apnea N Hepatitis N Heart Disease N Pulmonary Embolism N Hypertension Y Osteoporosis N Past Encounters Encounter ID Performer Location Encounter Start Date Encounter Closed Date Diagnosis/Indication Diagnosis SNOMED-CT Code Diagnosis ICD10 Code Diagnosis Note [id number] MD [facility] [address] [place] [address] 11/15/2024 14:09:09 11/27/2024 09:25:57 Follow-up orthopedic assessment [id number] Z47.89 [id number] Elsa Asher DPT [facility] [address] [place] [address] 11/11/2024 13:13:51 11/12/2024 07:01:13 Anterior to posterior tear of superior glenoid labrum of left shoulder [id number] 8000841 S43.432D [id number] Vin Rueda DPT [facility] [address] [place] [address] 11/14/2024 15:26:00 11/14/2024 16:21:32 Anterior to posterior tear of superior glenoid labrum of left shoulder [id number] S43.432D [id number] Vin Rueda DPT [facility] [address] [place] [address] 11/28/2024 09:22:03 11/28/2024 10:10:10 Anterior to posterior tear of superior glenoid labrum of left shoulder [id number] S43.432D [id number] Vin Rueda DPT [facility] [address] [place] [address] 12/05/2024 08:21:32 12/05/2024 09:03:34 Anterior to posterior tear of superior glenoid labrum of left shoulder [id number] S43.432D [id number] Vin Rueda DPT [facility] [address] [place] [address] 12/11/2024 09:28:53 12/11/2024 10:46:17 Anterior to posterior tear of superior glenoid labrum of left shoulder [id number] [id number] S43.432D Health Concerns Section Related Observation LastModified by Organization Detai ls LastModified Time None Recorded Concern Status LastModified by Organization Details LastModified Time None Recorded Payers Encounter Date Sequence Insurance Name Policy Number Policy Barton Covered Member ID Barton Member ID Guarantor Name 12/11/2024 [employer] Mike Notes Date Note Type Note Provider Name and Address Organization Details Recorded Time 12/11/2024 text/html Pt reports feeli ng good after LV. Continues to make improvements with AROM Damian Hughes, TEASEL GIG OPERATOR [address], [place], [address], [facility] 12/11/2024 11:02:56
--- OUTSIDE RECORDS SUMMARY | 2025-01-06 08:09 | XMS_ITS | Clinical Summary ---
Author Organization [facility] ity Address [address] [place] [address] Care Team Providers Care French Lecturer Name Role Phone Unavailable Primary Care Provider Unavailabl e Social History Tobacco Use Types Packs/Day Years Used Date Smoking Tobacco: Never Assessed Sex and Gender Information Value Date Recorded Sex Assigned at Not on file Legal Sex Male 4:07 PM EST Gender Identity Not on file Sexual Orientation Not on file Plan of Treatment Health Maintenance Due Date Last Done Comments DTaP,Tdap,and Td Vaccines (1 - Tdap) 1987 Hepatitis B Vaccines (1 of 3 - 19+ 3-dose series) 1987 Pneumococcal Vaccine: 50+ Ye ars (1 of 1 - PCV) 2018 Zoster Vaccines (1 of 2) 2018 Cholesterol Screening (Lipid Panel) 12/05/2023 Colorectal Cancer Screening: Colonoscopy 12/05/2023 Depression Screening 12/05/2023 HIV Screening 12/05/2023 Hepatitis C Screening 12/05/2023 Social Influencers of Health Screening 12/05/2023 COVID-19 Vaccine ( - 2023-2 5 season) 2024 Influenza Vaccine (#1) 2024 HIB Vaccines Aged Out No longer eligi ble based on patient's age to complete this topic HPV Vaccines Aged Out No longer eligi ble based on patient's age to complete this topic Hepatitis A Vaccines Aged Out No long er eligible based on patient's age to complete this topic IPV Vaccines Aged Out No longer eligi ble based on patient's age to complete this topic MMR Vaccines Aged Out No longer eligi ble based on patient's age to complete this topic Meningococcal ACWY Vaccine Aged Out N o longer eligible based on patient's age to complete this topic Meningococcal B Vacine Aged Out No lo nger eligible based on patient's age to complete this topic Pneumococcal Vaccine: Pediat rics (0 to 5 Years) and At-Risk Patients (6 to 64 Years) Aged Out No longer eligible b ased on patient's age to complete this topic RSV Immunization Patients Un yana 20 months Aged Out No longer eligible b ased on patient's age to complete this topic Varicella Vaccines Aged Out No longer eligible based on patient's age to complete this topic
--- OUTSIDE RECORDS SUMMARY | 2025-01-06 08:09 | XMS_ITS | Continuity of Care Document ---
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 Near full A flexion AG today. Palpable SA contraction noted. Still weak in all shoulder planes. Plan: Cont with PT as per POC. Cont strengthening Pec/Pec minor antagonists and working on functional movement patterns. [email or web address] Not available 12/20/2024 09:17:31 Plan of Treatment Reminders Order Date Submit Date Provider Last Modified By Organization Details Last Modified Time Details Appointments PT FOLLOW-U P 2024 09:30A M Damian Scafuri, MEDICATION CARE MANAGER Not available Not available Not available PT FOLLOW-U P 2024 09:30A M Damian Scafuri, MEDICATION CARE MANAGER Not available Not available Not available PT FOLLOW-U P 2024 09:30A M Damian Scafuri, MEDICATION CARE MANAGER Not available Not available Not available PT FOLLOW-U P 2024 10:30A M Damian Scafuri, MEDICATION CARE MANAGER Not available Not available Not available PT FOLLOW-U P 2024 09:15A M Damian Scafuri, MEDICATION CARE MANAGER Not available Not available Not available RECHECK [...] Recorded Time Pain of left shoulder joint [id number] 09 Active 2023 Wily Thornton PA-C [address], [place], [address], [facility] 4 13:58:40 Problem Notes None recorded. Procedures Surgical History Date Name Laterality Status Provider Name and Address Organization Details Recorded Time 4 77284 Therapeutic Exercise (1:1) completed Damian Scafuri, MEDICATION CARE MANAGER [address], [place], [address], [facility] 07/11/2024 14:51:56 4 27308: Hot or Cold Pack completed Damian Scafuri, MEDICATION CARE MANAGER [address], [place], [address], [facility] 07/11/2024 14:51:56 4 76068: Manual therapy completed Damian Scafuri, MEDICATION CARE MANAGER [address], [place], [address], [facility] 07/11/2024 14:51:56 4 91263 Therapeutic Exercise (1:1) completed Damian Scafuri, MEDICATION CARE MANAGER [address], [place], [address], [facility] 2024 14:42:28 4 33098: Hot or Cold Pack completed Damian Scafuri, MEDICATION CARE MANAGER [address], [place], [address], [facility] 2024 14:42:28 4 03504: Manual therapy completed Damian Scafuri, MEDICATION CARE MANAGER [address], [place], [address], [facility] 2024 14:42:28 4 12963 Therapeutic Exercise (1:1) completed Vin Cantukis, DPT [address], [place], [address], [facility] 07/04/2024 14:45:43 4 25742: Hot or Cold Pack completed Vin Rueda, DPT [address], [place], [address], [facility] 07/04/2024 14:45:43 4 78400: Manual therapy completed Vin Rueda, DPT [address], [place], [address], [facility] 07/04/2024 14:45:43 4 82467 Therapeutic Exercise (1:1) completed Vin Rueda, DPT [address], [place], [address], [facility] 07/03/2024 10:47:53 4 32356: Hot or Cold Pack completed Vin Rueda, DPT [address], [place], [address], [facility] 07/03/2024 10:47:53 4 02534: Manual therapy completed Vin Rueda, DPT [address], [place], [address], [facility] 07/03/2024 10:47:53 4 42764 Therapeutic Exercise (1:1) completed Damian Scafuri, MEDICATION CARE MANAGER [address], [place], [address], [facility] 06/28/2024 16:44:18 4 96010: Hot or Cold Pack completed Damian Scafuri, MEDICATION CARE MANAGER [address], [place], [address], [facility] 06/28/2024 16:44:18 4 23966: Manual therapy completed Damian Scafuri, MEDICATION CARE MANAGER [address], [place], [address], [facility] 06/28/2024 16:44:18 4 78811 Therapeutic Exercise (1:1) completed Damian Gaminofuri, MEDICATION CARE MANAGER [address], [place], [address], [facility] 06/26/2024 16:33:53 4 41676: Hot or Cold Pack completed Damian Scafuri, MEDICATION CARE MANAGER [address], [place], [address], [facility] 06/26/2024 16:29:10 4 84401: Manual therapy completed Damianbritany Gaminofuri, MEDICATION CARE MANAGER [address], [place], [address], [facility] 06/26/2024 16:29:10 4 16475 Therapeutic Exercise (1:1) completed Damian Stevensonfuri, MEDICATION CARE MANAGER [address], [place], [address], [facility] 06/19/2024 08:44:31 4 66195: Hot or Cold Pack completed Damianbritany Gaminofuri, MEDICATION CARE MANAGER [address], [place], [address], [facility] 06/19/2024 08:43:33 4 23512: Manual therapy completed Damian Stevensonfuri, MEDICATION CARE MANAGER [address], [place], [address], [facility] 06/19/2024 08:43:33 4 47688 Therapeutic Exercise (1:1) completed Vin Rueda DPT [address], [place], [address], [facility] 06/13/2024 10:36:52 4 93330: Hot or Cold Pack completed Vin Rueda DPT [address], [place], [address], [facility] 06/13/2024 10:37:07 4 79382: Manual therapy completed Vin Rueda DPT [address], [place], [address], [facility] 06/13/2024 10:37:13 4 57860 Therapeutic Exercise (1:1) completed Vin Rueda DPT [address], [place], [address], [facility] 06/10/2024 13:43:08 4 02933: Low complexity PT Eval completed Vin Rueda DPT [address], [place], [address], [facility] 06/10/2024 13:43:11 Imaging Results None recorded. Procedure [...] Kidney/Bladder Problems N Anemia N Heart Attack (CO) N Cholesterol Y Diabetes N Bleeding Disorder N Seizures/Epilepsy N AIDS/HIV N Congestive Heart Failure (CHF) N Asthma N Peripheral Vascular Disease N Sleep Apnea N Hepatitis N Heart Disease N Pulmonary Embolism N Hypertension Y Osteoporosis N Past Encounters Encounter ID Performer Location Encounter Start Date Encounter Closed Date Diagnosis/Indication Diagnosis SNOMED-CT Code Diagnosis ICD10 Code Diagnosis Note [id number] Vin Rueda DPT [facility] [address] [place] [address] 11/28/2024 09:22:03 11/28/2024 10:10:10 Anterior to posterior tear of superior glenoid labrum of left shoulder [id number] S43.432D [id number] Vin Rueda DPT [facility] [address] [place] [address] 12/05/2024 08:21:32 12/05/2024 09:03:34 Anterior to posterior tear of superior glenoid labrum of left shoulder [id number] S43.432D [id number] Vin Rueda DPT [facility] [address] [place] [address] 12/11/2024 09:28:53 12/11/2024 10:46:17 Anterior to posterior tear of superior glenoid labrum of left shoulder [id number] S43.432D [id number] Jerrell Watts PT [facility] [address] [place] [address] 12/13/2024 07:29:49 12/13/2024 10:46:19 Anterior to posterior tear of superior glenoid labrum of left shoulder [id number] S43.432D [id number] Vin Rueda DPT [facility] [address] [place] [address] 12/17/2024 09:22:22 12/17/2024 11:49:45 Anterior to posterior tear of superior glenoid labrum of left shoulder [id number] S43.432D [id number] Jerrell Watts PT [facility] [address] [place] [address] 12/20/2024 08:06:20 12/20/2024 09:21:32 Anterior to posterior tear of superior glenoid labrum of left shoulder [id number] S43.432D Health Concerns Section Related Observation LastModified by Organization Detai ls LastModified Time None Recorded Concern Status LastModified by Organization Details LastModified Time None Recorded Payers None recorded. Notes Date Note Type Note Provider Name and Address Organization Details Recorded Time 12/20/2024 text/html Pt reports feeling good. Arm continues to move better. Damian Hughes, MEDICATION CARE MANAGER [address], [place], [address], [facility] 12/20/2024 09:18:09
--- OUTSIDE RECORDS SUMMARY | 2025-01-06 08:10 | XMS_ITS | Continuity of Care Document ---
Author Organization [facility], DORIAN Negro 2nd floor Address [address] [place] [address] Care Team Providers Care Senior Consulting Manager Name Role Phone SRIDEVI STUART Primary Care Provider [phone] LAVERNE FLORES Warehouse Picker Unavailable Assessment No assessment recorded. Plan of Treatment Reminders Order Date Submit Date Provider Last Modified By Organization Details Last Modified Time Details Appointments PT FOLLOW-U P 2024 09:30A M Damian Scafuri, POLISHING WHEEL SETTER Not available Not available Not available PT FOLLOW-U P 2024 09:30A M Damian Scafuri, POLISHING WHEEL SETTER Not available Not available Not available PT FOLLOW-U P 2024 09:30A M Damian Scafuri, POLISHING WHEEL SETTER Not available Not available Not available PT FOLLOW-U P 2024 10:30A M Damian Scafuri, POLISHING WHEEL SETTER Not available Not available Not available PT FOLLOW-U P 2024 09:15A M Damian Scafuri, POLISHING WHEEL SETTER Not available Not available Not available RECHECK [...] Recorded Time Pain of left shoulder joint [id number] 09 Active 2023 Wily Thornton PA-C [address], [place], [address], [facility] 13:58:40 Problem Notes None recorded. Procedures Surgical History Date Name Laterality Status Provider Name and Address Organization Details Recorded Time 4 70560 Therapeutic Exercise (1:1) completed Damian Scafuri, POLISHING WHEEL SETTER [address], [place], [address], [facility] 07/11/2024 14:51:56 4 77993: Hot or Cold Pack completed Damian Scafuri, POLISHING WHEEL SETTER [address], [place], [address], [facility] 07/11/2024 14:51:56 4 21221: Manual therapy completed Damian Gaminofuri, POLISHING WHEEL SETTER [address], [place], [address], [facility] 07/11/2024 14:51:56 4 36738 Therapeutic Exercise (1:1) completed Damian Scafuri, POLISHING WHEEL SETTER [address], [place], [address], [facility] 2024 14:42:28 4 44802: Hot or Cold Pack completed Damian Scafuri, POLISHING WHEEL SETTER [address], [place], [address], [facility] 2024 14:42:28 4 84502: Manual therapy completed Damian Scafuri, POLISHING WHEEL SETTER [address], [place], [address], [facility] 2024 14:42:28 4 80982 Therapeutic Exercise (1:1) completed Vin Rueda DPT [address], [place], [address], [facility] 07/04/2024 14:45:43 4 55349: Hot or Cold Pack completed Vin Rueda DPT [address], [place], [address], [facility] 07/04/2024 14:45:43 4 69209: Manual therapy completed RADHA GraceT [address], [place], [address], [facility] 07/04/2024 14:45:43 4 27308 Therapeutic Exercise (1:1) completed Vin Rueda DPT [address], [place], [address], [facility] 07/03/2024 10:47:53 4 89781: Hot or Cold Pack completed Vin Rueda DPT [address], [place], [address], [facility] 07/03/2024 10:47:53 4 46418: Manual therapy completed RADHA GraceT [address], [place], [address], [facility] 07/03/2024 10:47:53 4 75743 Therapeutic Exercise (1:1) completed Damian Hughes, POLISHING WHEEL SETTER [address], [place], [address], [facility] 06/28/2024 16:44:18 4 28865: Hot or Cold Pack completed Damian Hughes, POLISHING WHEEL SETTER [address], [place], [address], [facility] 06/28/2024 16:44:18 4 65006: Manual therapy completed Damian Hughes, POLISHING WHEEL SETTER [address], [place], [address], [facility] 06/28/2024 16:44:18 4 84553 Therapeutic Exercise (1:1) completed Damian Hughes, POLISHING WHEEL SETTER [address], [place], [address], [facility] 06/26/2024 16:33:53 4 40690: Hot or Cold Pack completed Damian Scafuri, POLISHING WHEEL SETTER [address], [place], [address], [facility] 06/26/2024 16:29:10 4 08011: Manual therapy completed Damian Scafuri, POLISHING WHEEL SETTER [address], [place], [address], [facility] 06/26/2024 16:29:10 4 38561 Therapeutic Exercise (1:1) completed Damian Scafuri, POLISHING WHEEL SETTER [address], [place], [address], [facility] 06/19/2024 08:44:31 4 62554: Hot or Cold Pack completed Damian Scafuri, POLISHING WHEEL SETTER [address], [place], [address], [facility] 06/19/2024 08:43:33 4 89681: Manual therapy completed Damian Scafuri, POLISHING WHEEL SETTER [address], [place], [address], [facility] 06/19/2024 08:43:33 4 21681 Therapeutic Exercise (1:1) completed Vin Rueda, DPT [address], [place], [address], [facility] 06/13/2024 10:36:52 4 41854: Hot or Cold Pack completed Vin Aras, DPT [address], [place], [address], [facility] 06/13/2024 10:37:07 4 40422: Manual therapy completed Vin Rueda, DPT [address], [place], [address], [facility] 06/13/2024 10:37:13 4 99803 Therapeutic Exercise (1:1) completed RADHA GraceT [address], [place], [address], [facility] 06/10/2024 13:43:08 4 81638: Low complexity PT Eval completed Vin Rueda DPT [address], [place], [address], [facility] 06/10/2024 13:43:11 Imaging Results None recorded. Procedure [...] Not Available Not Available Not Available Vitals Date Recorded Body height Body mass index (BMI) Body weight Provider Name and Address Organization Details Last Updated DateTime 12/30/2024 172.72 cm 28.6 kg/m2 58106.37 g GUERA VILLEGAS [place] [facility] 12/30/2024 13:38:48 Social History None recorded. Functional Status None recorded. Mental Status None recorded. Family History Nothing Reported. Medical History Condition Response Allergies/Hayfever N Coronary Artery Disease N Anxiety/Depression N Breathing or lung disorders N Emphysema N Nerve Disorders N Thyroid Problems N COPD N Pacemaker N Anemia N Kidney/Bladder Problems N Vascular Disease N Heart Trouble N Heart Attack (SD) N Gastrointestinal Disease N Cholesterol Y Diabetes N Autoimmune disease N Bleeding Disorder N Orthotics N Arthritis N Seizures/Epilepsy N Blood Clot N AIDS/HIV N Congestive Heart Failure (CHF) N Acid Reflux (GERD) N Cancer N Stroke N Asthma N Circulation Problems N Peripheral Vascular Disease N Sleep Apnea N Hepatitis N Heart Disease N Rheumatoid Arthritis N Arrhythmia N Pulmonary Embolism N Headaches N Fibromyalgia N Hypertension Y Osteoporosis N Past Encounters Encounter ID Performer Location Encounter Start Date Encounter Closed Date Diagnosis/Indication Diagnosis SNOMED-CT Code Diagnosis ICD10 Code Diagnosis Note [id number] Vin Rueda DPT [facility] [address] [place] [address] 12/05/2024 08:21:32 12/05/2024 09:03:34 Anterior to posterior tear of superior glenoid labrum of left shoulder [id number] S43.432D [id number] Vin Rueda DPT [facility] [address] [place] [address] 12/11/2024 09:28:53 12/11/2024 10:46:17 Anterior to posterior tear of superior glenoid labrum of left shoulder 3350904010 [id number] S43.432D [id number] Jerrell Watts PT [facility] [address] [place] [address] 12/13/2024 07:29:49 12/13/2024 10:46:19 Anterior to posterior tear of superior glenoid labrum of left shoulder [id number] S43.432D [id number] Vin Rueda DPT [facility] [address] [place] [address] 12/17/2024 09:22:22 12/17/2024 11:49:45 Anterior to posterior tear of superior glenoid labrum of left shoulder 8625849725 [id number] S43.432D [id number] MD [facility] Weeks 2nd floor [address] [place] [address] 12/30/2024 13:35:12 12/30/2024 14:14:36 Follow-up orthopedic assessment [id number] Z47.89 [id number] Jerrell Watts PT [facility] [address] [place] [address] 12/20/2024 08:06:20 12/20/2024 09:21:32 Anterior to posterior tear of superior glenoid labrum of left shoulder [id number] S43.432D [id number] Vin Rueda , [facility] [address] [place] [address] 12/25/2024 06:45:05 12/25/2024 08:13:49 Anterior to posterior tear of superior glenoid labrum of left shoulder [id number] S43.432D Health Concerns Section Related Observation LastModified by Organization Detai ls LastModified Time None Recorded Concern Status LastModified by Organization Details LastModified Time None Recorded Payers Encounter Date Sequence Insurance Name Policy Number Policy Barton Covered Member ID Barton Member ID Guarantor Name 12/30/2024 [employer] Nii Mike Notes Date Note Type Note Provider Name and Address Organization Details Recorded Time 12/30/2024 text/html Surgery: Left shoulder posterior labral repair, arthroscopic biceps tenodesis, extensive debridement, 05/23/2024 Interval History: Nii returns today in follow-up now 6 months out from surgery as above. He has been participating in physical therapy since 2.5 weeks postop. He struggled initially to regain range of motion in the shoulder. Benefited from a cortisone injection at 3 months postop, which allowed him to regain full passive range of motion. Still struggling with active range of motion, thought to be related to scapular mechanics. This improved dramatically with targeted therapy for scapular balance and mobility. Previous anterior shoulder pain has improved with this as well as with pec minor massage/stretching. At this point notes full range of motion. Really not having any pain at this point. Past family, medical, social history and review of systems have been reviewed and updated on the medical history sheet saved to the patient's chart. A 12-point review of systems is negative x12 except as noted above and/or on the medical history sheet. Examination: Pleasant 53-year-old gentleman in no acute distress. On exam of the Left upper extremity, arthroscopic portal incisions are healing nicely. No evidence for Tommy deformity. Tender to palpation over the coracoid and pec minor insertion. Active assist forward elevation 170, but active forward elevation limited to 90 with significant scapular protraction. No paola winging, however. Passive external rotation 75 with mild pain at end-range. Internal rotation L3. No evidence for trapezial atrophy, good strength with shoulder shrug. Sensation intact in axillary and LABC distributions. Fires EPL, FPL and intrinsics. Hand is warm and well perfused. Imaging: Deferred Impression: 54-year-old odijv-bluo-lzimmqcu gentleman, now approximately 8 months out from surgery as above. Dyskinetic scapular range of motion without definite paola winging had been playing a role in ongoing pain and functional limitations but is now largely resolved with further efforts in PT. Plan: Will have the patient finish out his current PT. I would still like to have him go forward with the EMG we had ordered previously, particularly in light of previously abnormal EMG. His previous job now no longer exists, but I encouraged him to start looking for new work. At this point would say he is limited to a 5-lb lifting restriction. After he completes his current PT regimen, would likely benefit from work hardening to continue to build up strength and endurance in this arm before return to full duties. I will see him back in 8 weeks for recheck. [facility] speech recognition forms builder software was used to create portions of this document. An attempt at proofreading has been made to minimize errors. Please call for corrections. Lizy Garza MD [address] [place] [address] [address], [place], [address], [facility] 12/30/2024 14:14:34
[2025-01-06 08:11] VITALS: BP 126/90; PULSE 82; TEMP 37.3; O2SAT 98
--- NOTE | 2025-01-06 08:11 | MHC.OFFWIV ---
Intake Vital Signs 01/06/25 08:11 Weight 174 lb 8 oz BP 126/90 H Blood Pressure Location Rt brachial Position Sitting Pulse 82 Pulse Source Pulse Oximeter Temp 99.1 F Temp Source Oral Pulse Oximetry (%) 98 Oxygen Delivery Method Room Air Intake Visit Reasons: EP sore throat, ear ache, coughing Intake Note: Patient here for cough, sore throat, bilat ear pain that started last week. Patient Tobacco Use Status: Never used Tobacco Allergies No Known Allergies Allergy (Verified 01/06/25 08:17) Do you need a note to return to daycare/school/sports/work: No HPI HPI Comments History of Present Illness Details 54 y/o male patient who presents to the walk in clinic with c/o URI symptoms that started last week. Reports Coughing, Sore-throat and B/L ear pressure and pain since last Monday. [facility] Medical History (Updated 01/06/25 @ 08:32 by Erna Ellison NP) Acute respiratory disease Screening for colon cancer Capsulitis of left shoulder Left shoulder pain Fatty liver High triglycerides Surgical History H/O right knee surgery History of hernia surgery History of shoulder surgery History of esophagogastroduodenoscopy (EGD) Hx of colonoscopy (~10/2018) Family History Father Bladder cancer Mother Dementia Parkinsons Paternal Grandmother Skin cancer Social History Housing: House Are you a primary tire care manager to a significant other at home: No Do you presently have visiting nurse or other home services: No Alcohol intake: current Alcohol intake frequency: holidays/special occasions only Alcohol type: beer Patient Tobacco Use Status: Never used Tobacco e-Cigarette/Vaping Use: Never Used Second Hand Smoke Exposure: No service: No Current occupational status: employed Current occupation: [employer] Current occupational exposures/hazards: Yes Cognitive needs: No Hearing needs: No Vision needs: No Review of Systems Const All systems reviewed & are unremarkable except as noted in HPI and below Physical Exam Vital Signs: Last Vital Signs Temp 99.1 F 01/06/25 08:11 Pulse 82 01/06/25 08:11 BP 126/90 H 01/06/25 08:11 Pulse Ox 98 03/03/25 08:11 Oxygen Delivery Method Room Air 01/06/25 08:11 Const General: cooperative and no acute distress Orientation/consciousness: patient oriented x3 HEENT Head: Yes normocephalic Ears: external ears normal and TM abnormal with fluid behind the TM bilateral General nose exam: Normal external nose present and Nasal discharge present Face and sinus: Yes sinuses nontender Mouth: moist mucous membranes Throat: Yes uvula midline and Yes postnasal drainage Resp Effort & Inspection: normal respiratory effort and able to speak in complete sentences Auscultation: clear to auscultation bilaterally, no crackles, no rales, no rhonchi and no wheezes Cardio Heart sounds: S1 normal heart sound present and S2 normal heart sound present Neuro General: patient oriented x3 Assessment & Plan Assessment & Plan (1) Acute respiratory disease: Code(s): J06.9 - Acute upper respiratory infection, unspecified Plan: OTC cold/flu remedies. Acetaminophen for pain and fever relief Rest and hydrate well Orders: Orders SARS-CoV2/FLU/RSV Today J06.9 - Acute upper respiratory infection, unspecified Coding Level of Care Code Est Pt Level 4 (41359) Diagnoses Acute respiratory disease J06.9 Time Spent (min) 20
== END 2025-01-06 09:36 | disposition home or self-care (01) ==
PROVIDERS: PCP Nurse Practitioner Family; Visit Provider Nurse Practitioner Family
DX: J06.9 Acute upper respiratory infection, unspecified (principal); Z13.9 Encounter for screening, unspecified

== ENCOUNTER 2025-02-10 09:30 | Day surgery (SDC) | payer OTHER, SELFPAY ==
[2025-02-06 08:55] VITALS: BMI 26.5
--- NOTE | 2025-02-07 09:56 | HO.ANESPROP2 ---
Documented by User: Kalyn Liz NP 02/07/25 09:56 HPI - Anesthesia Eval Consult details Narrative: 54yo M for Colonoscopy PMFSH Active Problems Active Problems: All Active Problems Acute respiratory disease (Acute) Otitis media (Acute) Gastritis (Acute) Thyroglossal cyst (Acute) Cervical radiculopathy at C6 (Acute) Lesion of neck (Acute) Erosive esophagitis (Acute) Elevated liver enzymes (Acute) Elevated serum creatinine (Acute) Dyslipidemia (Acute) Screening PSA (prostate specific antigen) (Acute) Physical exam (Acute) Vitamin D deficiency (Acute) Abnormal computed tomography of abdomen and pelvis (Acute) Hypercalcemia (Acute) Vitamin B12 deficiency (Acute) Hx of migraine headaches (Acute) Hypertension (Acute) High triglycerides (Acute) Past Medical History Medical History Migraines HTN (hypertension) Erosive esophagitis Cervical radiculopathy Fatty liver High triglycerides Family History Family History Father Bladder cancer Mother Dementia Parkinsons Paternal Grandmother Skin cancer Family history of problems with anesthesia: No Surgical History Surgical History H/O right knee surgery History of hernia surgery History of shoulder surgery History of esophagogastroduodenoscopy (EGD) Hx of colonoscopy (~10/2018) History of Problems with Anesthesia: No Social History Social History Housing: House Are you a primary patient care associate to a significant other at home: No Do you presently have visiting nurse or other home services: No Alcohol intake: current Alcohol intake frequency: does not drink Alcohol type: beer Patient Tobacco Use Status: Never used Tobacco e-Cigarette/Vaping Use: Never Used Second Hand Smoke Exposure: No Use of substances other than those prescribed or required for medical reasons: Yes Substance Use Type Other:: edible chocolates Substance Use Frequency: Occasionally Have you been hit, kicked, punched, or otherwise hurt by someone within the past year? If so, by whom?: No Are you DNR?: No Advance Directives: No Advance Directives Information Provided: Yes Advance Directives on File: No Poor oral hygiene: No service: No Current occupational status: employed Current occupation: [employer] Current occupational exposures/hazards: Yes Cognitive needs: No Hearing needs: No Vision needs: No Meds Allergies Allergy/AdvReac Type Severity Reaction Status Date / Time No Known Allergies Allergy Verified 01/06/25 08:17 Exam Height,Weight and Vital Signs: Height 5 ft 8 in Weight 78.925 kg Assessment and Plan Assessment Anesthesia Assessment: Chart Reviewed Final Anesthetic Review Family History of Problems with Anesthesia: No History of Problems with Anesthesia: No Documented by User: Julia Collier MD 02/10/25 11:40 PMFSH Past Medical History Medical History Migraines HTN (hypertension) Erosive esophagitis Cervical radiculopathy Fatty liver High triglycerides Family History Family History Father Bladder cancer Mother Dementia Parkinsons Paternal Grandmother Skin cancer Surgical History Surgical History H/O right knee surgery History of hernia surgery History of shoulder surgery History of esophagogastroduodenoscopy (EGD) Hx of colonoscopy (~10/2018) Social History Social History Housing: House Are you a primary patient care associate to a significant other at home: No Do you presently have visiting nurse or other home services: No Alcohol intake: current Alcohol intake frequency: does not drink Alcohol type: beer Patient Tobacco Use Status: Never used Tobacco e-Cigarette/Vaping Use: Never Used Second Hand Smoke Exposure: No Use of substances other than those prescribed or required for medical reasons: Yes Substance Use Type Other:: edible chocolates Substance Use Frequency: Occasionally Have you been hit, kicked, punched, or otherwise hurt by someone within the past year? If so, by whom?: No Are you DNR?: No Advance Directives: No Advance Directives Information Provided: Yes Advance Directives on File: No Poor oral hygiene: No service: No Current occupational status: employed Current occupation: [employer] Current occupational exposures/hazards: Yes Cognitive needs: No Hearing needs: No Vision needs: No Meds Allergies Allergy/AdvReac Type Severity Reaction Status Date / Time No Known Allergies Allergy Verified 01/06/25 08:17 Exam Airway Mallampati Class: III TM Dist: >3cm Neck ROM: Full Loose/Missing/Broken Teeth: No Heart: RRR Lungs: CTA Assessment and Plan Assessment Anesthesia Assessment: Anesthesia Plan Discussed Final Anesthetic Review NPO: Yes ASA Class: II Final Preanesthetic Review: Meds/Allgs Chart Reviewed, Consent Obtained/Reviewed and Anes Risks/Benef Reviewed Patient Risk: Low Procedure Risk: Low Anesthetic Plan Anesthetic Plan: MAC: Disposition: Standard PACU
--- NOTE | 2025-02-10 09:32 | MHC.SHP ---
Pre-Procedural Eval Section A - 24 Hr Update-Section A only Date of Service: 02/10/25 The patient is an INPATIENT: No The patient has been examined within 24 hours of the surgical procedure. The History & Physical has been completed within 30 days and I have reviewed it.: No Section B - Complete if H&P > 30 days Chief Complaint: Surveillance for colon polyps Relevant Family History (Specify if Yes): No Relevant Social History: None Present Medications: see Short Stay Collaborative assessment Medical History: Significant History (Capsulitis of left shoulder Left shoulder pain Fatty liver High triglycerides) History of Previous Operations: Relevant previous surgery/procedure and date(s) (H/O right knee surgery History of hernia surgery History of shoulder surgery History of esophagogastroduodenoscopy (EGD) Hx of colonoscopy (~10/2018)) Allergies: Allergies Allergy/AdvReac Type Severity Reaction Status Date / Time No Known Allergies Allergy Verified 01/06/25 08:17 Review of Systems Sugical H&P ROS: Negative: Constitution, Cardiovascular, Respiratory and Gastrointestinal Exam Surgical H&P Exam: Normal: Heart, Normal: Lungs, Normal: Extremities and Normal: Abdomen Plan Diagnosis/Plan: Unchanged I have reviewed the history and physical and performed a pertinent physical examination on my patient. No changes have occurred unless specified. Time Spent With Patient Time: Total time managing care of this patient today ____ minutes.
[2025-02-10 09:52] VITALS: BMI 25.7
[2025-02-10 09:58] VITALS: BP 133/93; PULSE 71; RESP 16; TEMP 36.6; O2SAT 98
[2025-02-10] MEDS: Lactated Ringers 1,000 ML 100 ML IVCONT (10:04)
--- NOTE | 2025-02-10 12:22 | HO.OPN-COLON ---
Colonoscopy Operative Note Operative Note Date of Service: 02/10/25 Narrative: COLONOSCOPY TILL CECUM WITH BIOPSIES AND SNARE POLYPECTOMY Pre-op diagnosis: Surveillance for colon polyps. Post-op diagnosis:? Colon polyps, Diverticulosis, hemorrhoids Endoscopist:? Norma Mcintosh MD Anesthesia:?MAC Consent: Indications for the procedure and potential complications of bleeding, perforation, reaction to medications and missed diagnosis were discussed with the patient and informed consent was obtained. Instrument: Olympus PCF H 190 L variable stiffness pediatric colonoscope Monitoring: Vital signs and clinical assessment, intermittent blood pressure monitoring, continuous EKG monitoring, Pulse oximetry and Carbon Dioxide monitoring were done throughout the procedure. Please see anesthesia flowsheet. Colon withdrawl time was 22 minutes. Procedure: The patient was placed in the left lateral decubitis position and pre-procedure medications were administered. After a digital rectal examination of the ano-rectum, the video colonoscope was inserted into the rectum and advanced through the colon to the cecum. The colonoscope was slowly withdrawn in a retrograde panoramic fashion and the colon mucosa was carefully examined including a retroflexed view of the rectum. Findings and interventions are described below. Procedure Difficulty: without difficulty Findings: Terminal Ileum: Distal 5 cms was examined - a few 3-4 mm ulcers just proximal to the ICV - biopsies were obtained Cecum: Normal Ascending Colon: Normal Transverse Colon: Polypectomy site visualized at 85 cms. Two 4-5 mm polyps versus edematous folds noted at polypectomy site. Biopsies obtained and area was treated with cautery using the snare tip. Descending Colon: Moderate diverticulosis Sigmoid Colon: A 10-12 mm sessile polyp - removed with a hot snare. Moderate diverticulosis Rectum: A 3-4 mm sessile polyp - removed with a cold biopsy. Ano-rectum: Moderate internal hemorrhoids Colon preparation: Good in the right and transverse colon and fair in the left colon despite copious irrigation. [place] Bowel Preparation Scale Right colon; 2 Transverse colon: 2 Left colon; 1 (0 = Unprepared colon segment with mucosa not seen due to solid stool that cannot be cleared. 1 = Portion of mucosa of the colon segment seen, but other areas of the colon segment not well seen due to staining, residual stool and/or opaque liquid. 2 = Minor amount of residual staining, small fragments of stool and/or opaque liquid, but mucosa of colon segment seen well. 3 = Entire mucosa of colon segment seen well with no residual staining, small fragments of stool or opaque liquid) Impression and Post Procedure Diagnosis: Colonoscopy Findings: Two small to medium sized polyps were removed Polypectomy site visualized at 85 cms. Two 4-5 mm polyps versus edematous folds noted at the polypectomy site. Biopsies obtained and area was treated with cautery using the snare tip. Moderate diverticulosis seen in the left colon Moderate hemorrhoids on retroflexed exam. Plan: I will send a letter with biopsy results. Repeat Colonoscopy in 3 years if polyps are adenomatous and due to history of adenomatous colon polyps. Above findings were reviewed with the patient and relevant handouts were given and the discharge area.
[2025-02-10 12:25] VITALS: BP 98/71; PULSE 76; RESP 18; TEMP 36.6; O2SAT 96
[2025-02-10 12:40] VITALS: BP 121/67; PULSE 76; RESP 16; O2SAT 97
[2025-02-10 12:57] VITALS: BP 119/92; PULSE 76; RESP 16; TEMP 36.6; O2SAT 98
== END 2025-02-10 13:36 | disposition home or self-care (01) ==
PROVIDERS: PCP Nurse Practitioner Family; Visit Provider Internal Medicine Gastroenterology
PROC: 0DJD8ZZ Inspection of Lower Intestinal Tract, Via Natural or Artificial Opening Endoscopic (ICD-10-PCS; CPT 45378; principal; 2025-02-10 11:00)
DX: Z12.11 Encounter for screening for malignant neoplasm of colon (principal); K52.9 Noninfective gastroenteritis and colitis, unspecified; D12.5 Benign neoplasm of sigmoid colon; K62.1 Rectal polyp; K51.40 Inflammatory polyps of colon without complications; K63.89 Other specified diseases of intestine; K57.30 Diverticulosis of large intestine without perforation or abscess without bleeding; K64.8 Other hemorrhoids; Z86.0101 Personal history of adenomatous and serrated colon polyps; I10 Essential (primary) hypertension; E78.5 Hyperlipidemia, unspecified; E53.8 Deficiency of other specified B group vitamins; J06.9 Acute upper respiratory infection, unspecified; K22.10 Ulcer of esophagus without bleeding; K29.70 Gastritis, unspecified, without bleeding; K76.0 Fatty (change of) liver, not elsewhere classified; Z79.02 Long term (current) use of antithrombotics/antiplatelets; Z79.899 Other long term (current) drug therapy
CPT/HCPCS: 45388; 45385; 45380; 88305; J2003; J2704

== ENCOUNTER → 2025-02-10 09:30 | Outpatient (BNV) | payer OTHER, SELFPAY | PROVIDERS: PCP Nurse Practitioner Family; Visit Provider Internal Medicine Gastroenterology | DX: Z12.11 Encounter for screening for malignant neoplasm of colon (principal); Z86.0100 Personal history of colon polyps, unspecified; D12.5 Benign neoplasm of sigmoid colon; K62.1 Rectal polyp; K63.5 Polyp of colon; K57.90 Diverticulosis of intestine, part unspecified, without perforation or abscess without bleeding; K64.8 Other hemorrhoids | CPT/HCPCS: 45380; 45385 ==

== ENCOUNTER 2025-03-17 08:11 | Outpatient (AMB) | payer OTHER, SELFPAY ==
--- NOTE | 2025-03-17 08:24 | AM.OFFWIN_ITS ---
Intake Vital Signs 3 03/17/25 08:25 Weight 171 lb BP 120/90 H Blood Pressure Location Rt brachial Position Sitting Pulse 66 Pulse Source Pulse Oximeter Pulse Oximetry (%) 93 Oxygen Delivery Method Room Air Intake Visit Reasons: EP-lt arm & lt side of hip melissa poison Intake Note: Patient here for left arm and left hip poison melissa that started yesterday. Patient Tobacco Use Status: Never used Tobacco Allergies No Known Allergies Allergy (Verified 03/17/25 08:25) Do you need a note to return to daycare/school/sports/work: No HPI HPI Comments 2 History of Present Illness0 Details 54 y/o Male patient who presents to the walk in clinic with c/o very Itchy Rash ?Poison Melissa located on Left upper Arm and Left Flank for 1 week. Reports that he usually works in the [employer] with [employer], not sure if he was in-contact with Poison Melissa plant. Describes the rash very itchy and Red, but denies Burning or pain with Rash. Denies fevers or chills. [facility] Medical History (Updated 03/17/25 @ 08:55 by Erna Ellison NP) Rash and nonspecific skin eruption Migraines HTN (hypertension) Erosive esophagitis Cervical radiculopathy Fatty liver High triglycerides Surgical History (Updated 03/01/25 @ 09:58 by Carlos Isaacs [facility]) H/O right knee surgery History of hernia surgery History of shoulder surgery History of esophagogastroduodenoscopy (EGD) Hx of colonoscopy (~10/2018) Family History Father Bladder cancer Mother Dementia Parkinsons Paternal Grandmother Skin cancer Social History Housing: House Are you a primary health care administrator to a significant other at home: No Do you presently have visiting nurse or other home services: No Alcohol intake: current Alcohol intake frequency: does not drink Alcohol type: beer Patient Tobacco Use Status: Never used Tobacco e-Cigarette/Vaping Use: Never Used Second Hand Smoke Exposure: No service: No Current occupational status: employed Current occupation: [employer] Current occupational exposures/hazards: Yes Cognitive needs: No Hearing needs: No Vision needs: No Review of Systems Const All systems reviewed & are unremarkable except as noted in HPI and below Physical Exam Vital Signs: Last Vital Signs Pulse 66 03/17/25 08:25 BP 120/90 H 03/17/25 08:25 Pulse Ox 93 03/17/25 08:25 Oxygen Delivery Method Room Air 03/17/25 08:25 Const General: no acute distress Nutritional Appearance: well nourished Orientation/consciousness: patient oriented x3 Skin General skin exam: crusts and erythema Rashes: rashes noted Full body images: 2 1. Macular papular Erythematous weeping Rash 2. Macular papular Erythematous weeping Rash Neuro General: patient oriented x3, gait normal and moves all extremities Psych Speech and movement: Normal speech and movement present Assessment & Plan Assessment & Plan (1) Rash and nonspecific skin eruption: Code(s): R21 - Rash and other nonspecific skin eruption Plan: DDx's: Eczema vs Dermatitis vs Psoriasis vs Shingles. Ordered Steroid cream and Oral Prednisone. Keep Area clean and dry. Medications: New 2 triamcinolone acetonide 0.1% 1 appl topical DAILY 60 mL 1RF R21 - Rash and other nonspecific skin eruption prednisone 50 mg PO DAILY 5 tabs 0RF 5 days R21 - Rash and other nonspecific skin eruption Coding Level of Care Code Est Pt Level 4 (74764) Diagnoses Rash and nonspecific skin eruption R21 Time Spent (min) 20
[2025-03-17 08:25] VITALS: BP 120/90; PULSE 66; O2SAT 93
== END 2025-03-17 08:58 | disposition home or self-care (01) ==
PROVIDERS: PCP Nurse Practitioner Family; Visit Provider Nurse Practitioner Family
DX: R21 Rash and other nonspecific skin eruption (principal)

== ENCOUNTER → 2025-03-17 08:11 | Outpatient (BNVA) | payer OTHER, SELFPAY | PROVIDERS: PCP Nurse Practitioner Family; Visit Provider Nurse Practitioner Family | DX: R21 Rash and other nonspecific skin eruption (principal) | CPT/HCPCS: 99212 ==

== ENCOUNTER 2025-07-01 08:30 | Outpatient (AMB) | payer OTHER, SELFPAY ==
--- NOTE | 2025-07-01 08:42 | A.OFFVIS_ITS ---
Vital Signs 07/01/25 08:45 Height 5 ft 8 in Weight 173 lb BMI 26.3 BP 124/64 Blood Pressure Location Lt brachial Position Sitting Pulse 76 Intake Visit Reasons: abd pain in hernia site Intake Note: Patient is seen in office for pain in hernia repair site, post RIH repair 2017. Pt c/o:pain after helping his niece move one month ago, no bump RIH repair: 07/30/18 & 05/30/19 [employer] Required: No Allergies No Known Allergies Allergy (Verified 07/01/25 08:47) Medication List - Last Reconciled 07/01/25 by Charles Epps RN amlodipine 10 mg PO DAILY atorvastatin 20 mg PO BEDTIME 90 days cholecalciferol (vitamin D3) 25 mcg PO DAILY 90 days fenofibrate 54 mg PO DAILY fluticasone propionate 50 mcg/actuation (Flonase Allergy Relief) 1 spray intranasal DAILY metoprolol tartrate 50 mg PO BID omeprazole 40 mg PO DAILY HPI Comments Details: 54-year-old male patient with a previous history of a right inguinal hernia status post repair on 07/17/2018 using a PHS mesh returning several months later with increased pain in the right groin. He subsequently underwent wound exploration and neurolysis on 04/30/2019. He was fine until approximately 1 month ago after lifting some boxes for his niece at which he developed pain in the right groin. The pain was felt to be similar to his previous episode in 201 9. The pain has persisted over the past month without significant improvement or worsening. He denies any palpable lump but does note some swelling in the right groin. This has improved by applying ice. He denies any symptoms in the left groin. [facility] Medical History Rash and nonspecific skin eruption Migraines HTN (hypertension) Erosive esophagitis Cervical radiculopathy Fatty liver High triglycerides Surgical History H/O right knee surgery History of hernia surgery History of shoulder surgery History of esophagogastroduodenoscopy (EGD) Hx of colonoscopy (~10/2018) Family History Father Bladder cancer Mother Dementia Parkinsons Paternal Grandmother Skin cancer Social History Housing: House Are you a primary career technical supervisor to a significant other at home: No Do you presently have visiting nurse or other home services: No Alcohol intake: current Alcohol intake frequency: does not drink Alcohol type: beer Patient Tobacco Use Status: Never used Tobacco e-Cigarette/Vaping Use: Never Used Second Hand Smoke Exposure: No service: No Current occupational status: employed Current occupation: [employer] Current occupational exposures/hazards: Yes Cognitive needs: No Hearing needs: No Vision needs: No Review of Systems Const All systems reviewed & are unremarkable except as noted in HPI and below Physical Exam Vital Signs: Last Vital Signs Pulse 76 07/01/25 08:45 BP 124/64 07/01/25 08:45 BMI result Body Mass Index 26.3 Const General: no acute distress Nutritional Appearance: well nourished Orientation/consciousness: patient oriented x3 Resp Effort & Inspection: normal respiratory effort GI Other: Soft and nondistended, small umbilical hernia noted. Tender in the right groin with no palpable lump noted with Valsalva maneuvers. Tenderness is at approximately the area of the internal ring. No symptoms noted in the left groin. Neuro General: patient oriented x3 Extrem Other: No edema Assessment & Plan Assessment & Plan (1) Strain of right inguinal muscle: Code(s): S39.013A - Strain of muscle, fascia and tendon of pelvis, initial encounter Category: Medical Qualifiers: Encounter type: initial encounter Qualified Code(s): S39.013A - Strain of muscle, fascia and tendon of pelvis, initial encounter Plan 54-year-old male patient with a prior history of right inguinal hernia repair presenting now with complaints of pain in the right groin after doing some lifting. Exam reveals no definite hernia recurrence although the site is tender to palpation. This is felt to be possibly due to a muscle strain due to the lifting although an occult hernias possible. Recommended evaluation with a CT of the pelvis. I will call him with the results once this is completed. Orders: Orders CT pelvis wo IV con Today S39.013A - Strain of muscle, fascia and tendon of pelvis, initial encounter Coding Level of Care Code New Pt Level 4 (16560) Diagnoses Strain of right inguinal muscle, initial encounter S39.013A Encounter type: initial encounter
--- OUTSIDE RECORDS SUMMARY | 2025-07-01 08:42 | XMS_ITS | Clinical Summary ---
[facility] Address [address] [place] [address] Care Team Providers Care Jd Edwards Name Role Phone Unavailable Primary Care Provider [...] Panel) 12/05/2023 Colorectal Cancer Screening: Colonoscopy 12/05/2023 HIV Screening 12/05/2023 Hepatitis C Screening 12/05/2023 Social Influencers of Health Screening 12/05/2023 COVID-19 Vaccine (1 - 2023-2 5 season) 2024 Depression Screening 11/06/2024 Influenza Vaccine (#1) 2025 HIB Vaccines Aged Out No longer eligi [...] age to complete this topic Meningococcal B Vaccine Aged Out No l onger eligible based on patient's age to complete this topic RSV Immunization Patients Un yana 20 months Aged Out No longer eligible b ased on patient's age to complete this topic Varicella Vaccines Aged Out No longer eligible based on patient's age to complete this topic
[2025-07-01 08:45] VITALS: BP 124/64; PULSE 76; BMI 26.3
== END 2025-07-01 08:58 | disposition home or self-care (01) ==
LOC: HO.HGS 08:31
PROVIDERS: PCP Nurse Practitioner Family; Visit Provider Surgery
DX: S39.013A Strain of muscle, fascia and tendon of pelvis, initial encounter (principal)
CPT/HCPCS: 99204

== ENCOUNTER → 2025-07-01 08:30 | Outpatient (BNVA) | payer OTHER, SELFPAY | PROVIDERS: PCP Nurse Practitioner Family; Visit Provider Surgery | DX: S39.013A Strain of muscle, fascia and tendon of pelvis, initial encounter (principal); X50.0XXA Overexertion from strenuous movement or load, initial encounter; X50.9XXA Other and unspecified overexertion or strenuous movements or postures, initial encounter; Y93.9 Activity, unspecified; Y92.9 Unspecified place or not applicable; Y99.9 Unspecified external cause status | CPT/HCPCS: 99202 ==

== ENCOUNTER 2025-09-05 13:00 | Outpatient (REF) | payer OTHER, SELFPAY ==
--- NOTE | ~2025-09-05 | US_ITS ---
CLINICAL HISTORY: R10.30 - Lower abdominal pain, rt s p hernia repair 2019 --- Additional Notes or Special Instructions: Previous right inguinal hernia repair in 2019 now with pain in the right groin, question recurrent hernia US pelvis limited Comparison: None provided Findings: Targeted sonographic evaluation was done of the right inguinal region (patient area of concern). There is no sonographic evidence for a recurrent right inguinal hernia at rest and with Valsalva. No concerning mass or fluid collection. No free fluid. IMPRESSION: No sonographic evidence for a recurrent right inguinal hernia. This document has been electronically signed by: Rupinder Madrigal MD on 09/05/2025 20:02:21
--- OUTSIDE RECORDS SUMMARY | 2025-09-05 14:08 | XMS_ITS | Data Portability ---
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 Not available 12/31/2024 13:50:25 01/23/2025 01/23/2025 Assessment: Pt returned after missing 2 weeks due to Covid, but maintained full ROM and improved strength. Improved palpable S.A. contraction today. Plan: Issue HEP for DC. Pt expresses that he feels much better and will be ready for work at any point going forward. Not available 01/23/2025 10:12:34 Plan of Treatment Reminders Order Date Submit Date Provider Last Modified By Organization Details Last Modified Time Details Appointments None record ed. Lab None record ed. Referral None record ed. Procedures None record ed. Surgeries None record ed. Imaging None record ed. Medication Orders None record ed. Patient TargetsNo targets recorded. Patient InstructionsNo instructions recorded. Reason for Referral None Reported. Problems Name Problem SNOMED Code Status Onset Date Resolution Date Notes Provider Name and Address Organization Details Recorded Time Pain of left shoulder joint [id number] 09 Active 2023 Wily Thornton PA-C [address], [place], [address], [facility] 4 13:58:40 Problem Notes None recorded. Procedures Surgical History Date Name Laterality Status Provider Name and Address Organization Details Recorded Time 5 02013 Therapeutic Exercise (1:1) completed Damian Scafuri, HOT MILL [employer] [address], [place], [address], [facility] 01/23/2025 10:09:04 5 33716: Hot or Cold Pack completed Damian Scafuri, HOT MILL SHEARER [address], [place], [address], [facility] 01/23/2025 10:09:04 5 29196: Manual therapy completed Damian Scafuri, HOT MILL SHE[employer]ER [address], [place], [address], [facility] 01/23/2025 10:09:04 5 77468 Therapeutic Exercise (1:1) completed Damian Scafuri, HOT MILL SHE[employer]ER [address], [place], [address], [facility] 12/31/2024 13:50:25 5 56123: Hot or Cold Pack completed Damian Scafuri, HOT MILL SHEARER [address], [place], [address], [facility] 12/31/2024 13:50:25 5 17099: Manual therapy completed Damian Scafuri, HOT MILL SHE[employer]ER [address], [place], [address], [facility] 12/31/2024 13:50:25 5 42876 Therapeutic Exercise (1:1) completed Damian Scafuri, HOT MILL SHE[employer]ER [address], [place], [address], [facility] 12/25/2024 09:47:58 5 22950: Hot or Cold Pack completed Damian Scafuri, HOT MILL SHEARER [address], [place], [address], [facility] 12/25/2024 09:47:58 5 47092: Manual therapy completed Damian Scafuri, HOT MILL SHEARER [address], [place], [address], [facility] 12/25/2024 09:47:58 5 44039 Therapeutic Exercise (1:1) completed Damian Scafuri, HOT MILL SHEARER [address], [place], [address], [facility] 12/20/2024 09:16:04 5 39941: Hot or Cold Pack completed Damian Scafuri, HOT MILL SHEARER [address], [place], [address], [facility] 12/20/2024 09:16:04 5 41437: Manual therapy completed Damian Scafuri, HOT MILL SHE[employer]ER [address], [place], [address], [facility] 12/20/2024 09:16:04 5 39911 Therapeutic Exercise (1:1) completed Damian Scafuri, HOT MILL SHEARER [address], [place], [address], [facility] 12/17/2024 11:55:46 5 41464: Hot or Cold Pack completed Damian Scafuri, HOT MILL SHEARER [address], [place], [address], [facility] 12/17/2024 11:55:46 5 95830: Manual therapy completed Damian Scafuri, HOT MILL SHEARER [address], [place], [address], [facility] 12/17/2024 11:55:46 5 01340 Therapeutic Exercise (1:1) completed Damian Scafuri, HOT MILL SHEARER [address], [place], [address], [facility] 12/13/2024 10:43:59 5 84211: Hot or Cold Pack completed Damian Scafuri, HOT MILL SHEARER [address], [place], [address], [facility] 12/13/2024 10:43:59 5 28971: Manual therapy completed Damian Scafuri, HOT MILL SHEARER [address], [place], [address], [facility] 12/13/2024 10:43:59 5 67437 Therapeutic Exercise (1:1) completed Damian Scafuri, HOT MILL SHEARER [address], [place], [address], [facility] 12/11/2024 10:59:43 5 24748: Hot or Cold Pack completed Damian Scafuri, HOT MILL SHEARER [address], [place], [address], [facility] 12/11/2024 11:00:32 5 43964: Manual therapy completed Damian Scafuri, HOT MILL SHEARER [address], [place], [address], [facility] 12/11/2024 10:59:43 5 12512 Therapeutic Exercise (1:1) completed Damian Scafuri, HOT MILL SHEARER [address], [place], [address], [facility] 12/05/2024 10:54:20 5 75220: Hot or Cold Pack completed Damian Scafuri, HOT MILL SHEARER [address], [place], [address], [facility] 12/05/2024 10:54:20 5 77200: Manual therapy completed Damian Scafuri, HOT MILL SHEARER [address], [place], [address], [facility] 12/05/2024 10:54:20 5 23691 Therapeutic Exercise (1:1) completed Damian Scafuri, HOT MILL SHEARER [address], [place], [address], [facility] 11/28/2024 11:17:56 5 29558: Hot or Cold Pack completed Damian Scafuri, HOT MILL SHEARER [address], [place], [address], [facility] 11/28/2024 11:17:23 5 92601: Manual therapy completed Damian Scafuri, HOT MILL SHEARER [address], [place], [address], [facility] 11/28/2024 11:17:47 5 99582 Therapeutic Exercise (1:1) completed Damian Scafuri, HOT MILL SHEARER [address], [place], [address], [facility] 11/14/2024 17:12:21 5 87495: Hot or Cold Pack completed Damian Scafuri, HOT MILL SHEARER [address], [place], [address], [facility] 11/14/2024 17:12:21 5 35741: Manual therapy completed Damian Scafuri, HOT MILL SHEARER [address], [place], [address], [facility] 11/14/2024 17:12:21 5 92691 Therapeutic Exercise (1:1) completed Damian Scafuri, HOT MILL SHEARER [address], [place], [address], [facility] 11/11/2024 16:40:15 5 83480: Hot or Cold Pack completed Damian Scafuri, HOT MILL SHEARER [address], [place], [address], [facility] 11/11/2024 16:39:30 5 10406: Manual therapy completed Damian Scafuri, HOT MILL SHEARER [address], [place], [address], [facility] 11/11/2024 16:39:31 4 62035 Therapeutic Exercise (1:1) completed Vin Bullocks, DPT [address], [place], [address], [facility] 10/23/2024 10:46:21 4 59578: Hot or Cold Pack completed Vin Rueda, DPT [address], [place], [address], [facility] 10/23/2024 10:46:21 4 25933: Manual therapy completed Vin Rueda, DPT [address], [place], [address], [facility] 10/23/2024 10:46:21 4 52946 Therapeutic Exercise (1:1) completed Damian Scafuri, HOT MILL SHEARER [address], [place], [address], [facility] 10/17/2024 17:59:14 4 65487: Hot or Cold Pack completed Damian Scafuri, HOT MILL SHEARER [address], [place], [address], [facility] 10/17/2024 17:59:13 4 86837: Manual therapy completed Damian Scafuri, HOT MILL SHEARER [address], [place], [address], [facility] 10/17/2024 17:59:14 4 71944 Therapeutic Exercise (1:1) completed Damian Scafuri, HOT MILL SHEARER [address], [place], [address], [facility] 10/15/2024 11:02:53 4 78946: Hot or Cold Pack completed Damian Scafuri, HOT MILL SHEARER [address], [place], [address], [facility] 10/15/2024 10:59:59 4 57366: Manual therapy completed Damian Scafuri, HOT MILL SHEARER [address], [place], [address], [facility] 10/15/2024 11:03:45 4 23376 Therapeutic Exercise (1:1) completed Damian Scafuri, HOT MILL SHEARER [address], [place], [address], [facility] 10/08/2024 20:10:57 4 41605: Hot or Cold Pack completed Damian Scafuri, HOT MILL SHEARER [address], [place], [address], [facility] 10/08/2024 20:10:57 4 95877: Manual therapy completed Damian Scafuri, HOT MILL SHEARER [address], [place], [address], [facility] 10/08/2024 20:10:57 4 45083 Therapeutic Exercise (1:1) completed Damian Scafuri, HOT MILL SHEARER [address], [place], [address], [facility] 09/19/2024 15:17:31 4 43110: Hot or Cold Pack completed Damian Scafuri, HOT MILL SHEARER [address], [place], [address], [facility] 09/19/2024 15:16:31 4 58895: Manual therapy completed Damian Scafuri, HOT MILL SHEARER [address], [place], [address], [facility] 09/19/2024 15:16:31 4 34863 Therapeutic Exercise (1:1) completed Damian Hughes, HOT MILL SHEARER [address], [place], [address], [facility] 09/17/2024 13:47:38 4 28234: Hot or Cold Pack completed Damian Hughes, HOT MILL SHEARER [address], [place], [address], [facility] 09/17/2024 13:47:38 4 67776: Manual therapy completed Damian Hughes, HOT MILL SHEARER [address], [place], [address], [facility] 09/17/2024 13:47:38 4 14689 Therapeutic Exercise (1:1) completed Vin Rueda, DPT [address], [place], [address], [facility] 09/11/2024 13:09:20 4 52920: Hot or Cold Pack completed Vin Rueda, DPT [address], [place], [address], [facility] 09/11/2024 13:09:20 4 57764: Manual therapy completed Vin Rueda, DPT [address], [place], [address], [facility] 09/11/2024 13:09:20 4 40459 Therapeutic Exercise (1:1) completed Vin Rueda, DPT [address], [place], [address], [facility] 09/09/2024 10:46:11 4 50187: Hot or Cold Pack completed Vin Rueda, DPT [address], [place], [address], [facility] 09/09/2024 10:46:11 4 92230: Manual therapy completed Vin Rueda, DPT [address], [place], [address], [facility] 09/09/2024 10:46:11 4 78271 Therapeutic Exercise (1:1) completed Damian Scafuri, HOT MILL SHEARER [address], [place], [address], [facility] 09/06/2024 13:57:27 4 40734: Hot or Cold Pack completed Damian Scafuri, HOT MILL SHEARER [address], [place], [address], [facility] 09/06/2024 13:57:27 4 41983: Manual therapy completed Damian Scafuri, HOT MILL SHEARER [address], [place], [address], [facility] 09/06/2024 13:57:27 26627 Therapeutic Exercise (1:1) completed Damian Scafuri, HOT MILL SHEARER [address], [place], [address], [facility] 09/04/2024 15:08:23 46456: Hot or Cold Pack completed Damian Scafuri, HOT MILL SHEARER [address], [place], [address], [facility] 09/04/2024 15:08:23 4 76595: Manual therapy completed Damian Scafuri, HOT MILL SHEARER [address], [place], [address], [facility] 09/04/2024 15:08:23 43248 Therapeutic Exercise (1:1) completed Damian Scafuri, HOT MILL SHEARER [address], [place], [address], [facility] 09/01/2024 14:27:54 10/25/202 4 73444: Hot or Cold Pack completed Damian Gaminofuri, HOT MILL SHEARER [address], [place], [address], [facility] 09/01/2024 14:27:54 4 54969: Manual therapy completed Damian Gaminofuri, HOT MILL SHEARER [address], [place], [address], [facility] 09/01/2024 14:27:54 66901 Therapeutic Exercise (1:1) completed Vin Rueda, DPT [address], [place], [address], [facility] 08/29/2024 11:07:01 4 49493: Hot or Cold Pack completed Vin Rueda DPT [address], [place], [address], [facility] 08/29/2024 11:07:01 4 18365: Manual therapy completed Vin Rueda DPT [address], [place], [address], [facility] 08/29/2024 11:07:02 4 Sports Shoulder completed Lizy Garza MD [address], [place], [address], [facility] 08/27/2024 17:49:39 92246 Therapeutic Exercise (1:1) completed Damian Gaminofuri, HOT MILL SHEARER [address], [place], [address], [facility] 08/22/2024 13:54:23 4 59159: Hot or Cold Pack completed Damian Gaminofuri, HOT MILL SHEARER [address], [place], [address], [facility] 08/22/2024 13:54:23 4 71916: Manual therapy completed Damian Gaminofuri, HOT MILL SHEARER [address], [place], [address], [facility] 08/22/2024 13:54:23 4 42980 Therapeutic Exercise (1:1) completed Damianbritany Gaminofuri, HOT MILL SHEARER [address], [place], [address], [facility] 08/20/2024 14:41:52 4 84362: Hot or Cold Pack completed Damian Scafuri, HOT MILL SHEARER [address], [place], [address], [facility] 08/20/2024 14:41:52 4 06939: Manual therapy completed Damianbritany Gaminofuri, HOT MILL SHEARER [address], [place], [address], [facility] 08/20/2024 14:41:53 88091 Therapeutic Exercise (1:1) completed Damian Gaminofuri, HOT MILL SHEARER [address], [place], [address], [facility] 08/19/2024 10:12:24 4 29899: Hot or Cold Pack completed Damianbritany Gaminofuri, HOT MILL SHEARER [address], [place], [address], [facility] 08/19/2024 10:11:38 4 95819: Manual therapy completed Damian Gaminofuri, HOT MILL SHEARER [address], [place], [address], [facility] 08/19/2024 10:11:38 4 49076 Therapeutic Exercise (1:1) completed Vin Rueda DPT [address], [place], [address], [facility] 08/14/2024 12:49:16 4 02305: Hot or Cold Pack completed Vin Rueda DPT [address], [place], [address], [facility] 08/14/2024 12:49:16 4 61831: Manual therapy completed Vin Rueda, DPT [address], [place], [address], [facility] 08/14/2024 12:49:16 4 85853 Therapeutic Exercise (1:1) completed Damian Scafuri, HOT MILL SHEARER [address], [place], [address], [facility] 08/09/2024 14:15:59 4 01339: Hot or Cold Pack completed Damianbritany Gaminofuri, HOT MILL SHEARER [address], [place], [address], [facility] 08/09/2024 14:15:59 4 74712: Manual therapy completed Damian Gaminofuri, HOT MILL SHEARER [address], [place], [address], [facility] 08/09/2024 14:15:59 63102 Therapeutic Exercise (1:1) completed Damian Scafuri, HOT MILL SHEARER [address], [place], [address], [facility] 08/06/2024 17:06:12 4 77285: Hot or Cold Pack completed Damian Scafuri, HOT MILL SHEARER [address], [place], [address], [facility] 08/06/2024 17:06:12 4 25643: Manual therapy completed Damian Scafuri, HOT MILL SHEARER [address], [place], [address], [facility] 08/06/2024 17:06:12 33252 Therapeutic Exercise (1:1) completed Vin Rueda, DPT [address], [place], [address], [facility] 07/31/2024 12:53:55 4 69961: Hot or Cold Pack completed Vin Rueda, DPT [address], [place], [address], [facility] 07/31/2024 12:53:55 45016: Manual therapy completed Vin Rueda, DPT [address], [place], [address], [facility] 07/31/2024 12:53:55 98753 Therapeutic Exercise (1:1) completed Vin Cantukibrady, DPT [address], [place], [address], [facility] 07/31/2024 06:56:58 4 91900: Hot or Cold Pack completed Vin Rueda, DPT [address], [place], [address], [facility] 07/31/2024 06:56:58 4 91847: Manual therapy completed Vin Rueda, DPT [address], [place], [address], [facility] 07/31/2024 06:56:58 4 67956 Therapeutic Exercise (1:1) completed Damian Hughes, HOT MILL SHEARER [address], [place], [address], [facility] 07/26/2024 11:52:28 4 47598: Hot or Cold Pack completed Damian Stevensonfuri, HOT MILL SHEARER [address], [place], [address], [facility] 07/26/2024 11:51:55 4 81869: Manual therapy completed Damian Gaminofuri, HOT MILL SHEARER [address], [place], [address], [facility] 07/26/2024 11:51:55 4 93991 Therapeutic Exercise (1:1) completed Damian Scafuri, HOT MILL SHEARER [address], [place], [address], [facility] 07/22/2024 11:25:42 4 69837: Hot or Cold Pack completed Damian Scafuri, HOT MILL SHEARER [address], [place], [address], [facility] 07/22/2024 11:25:42 4 70533: Manual therapy completed Damian Scafuri, HOT MILL SHEARER [address], [place], [address], [facility] 07/22/2024 11:25:42 4 63244 Therapeutic Exercise (1:1) completed Vin Rueda, DPT [address], [place], [address], [facility] 07/22/2024 07:24:50 4 56811: Hot or Cold Pack completed Vin Rueda, DPT [address], [place], [address], [facility] 07/22/2024 07:24:50 4 78076: Manual therapy completed Vin Rueda, DPT [address], [place], [address], [facility] 07/22/2024 07:24:50 4 31342 Therapeutic Exercise (1:1) completed Damian Scafuri, HOT MILL SHEARER [address], [place], [address], [facility] 07/16/2024 12:43:18 4 86082: Hot or Cold Pack completed Damian Scafuri, HOT MILL SHEARER [address], [place], [address], [facility] 07/16/2024 12:43:18 4 44426: Manual therapy completed Damian Scafuri, HOT MILL SHEARER [address], [place], [address], [facility] 07/16/2024 12:43:18 4 71973 Therapeutic Exercise (1:1) completed Damian Scafuri, HOT MILL SHEARER [address], [place], [address], [facility] 07/11/2024 14:51:56 4 93604: Hot or Cold Pack completed Damian Scafuri, HOT MILL SHEARER [address], [place], [address], [facility] 07/11/2024 14:51:56 4 16333: Manual therapy completed Damian Scafuri, HOT MILL SHEARER [address], [place], [address], [facility] 07/11/2024 14:51:56 4 39615 Therapeutic Exercise (1:1) completed Damian Scafuri, HOT MILL SHEARER [address], [place], [address], [facility] 2024 14:42:28 4 25131: Hot or Cold Pack completed Damian Scafuri, HOT MILL SHEARER [address], [place], [address], [facility] 2024 14:42:28 4 72359: Manual therapy completed Damian Scafuri, HOT MILL SHEARER [address], [place], [address], [facility] 2024 14:42:28 4 10352 Therapeutic Exercise (1:1) completed Vin Rueda DPT [address], [place], [address], [facility] 07/04/2024 14:45:43 4 96416: Hot or Cold Pack completed Vin Rueda DPT [address], [place], [address], [facility] 07/04/2024 14:45:43 13989: Manual therapy completed RADHA GraceT [address], [place], [address], [facility] 07/04/2024 14:45:43 4 79491 Therapeutic Exercise (1:1) completed RADHA GraceT [address], [place], [address], [facility] 07/03/2024 10:47:53 4 19277: Hot or Cold Pack completed Vin Rueda DPT [address], [place], [address], [facility] 07/03/2024 10:47:53 4 49458: Manual therapy completed RADHA GraceT [address], [place], [address], [facility] 07/03/2024 10:47:53 4 [id number] Therapeutic Exercise (1:1) completed Damian Hughes, HOT MILL SHEARER [address], [place], [address], [facility] 06/28/2024 16:44:18 4 94069: Hot or Cold Pack completed Damian Hughes, HOT MILL SHE[employer]ER [address], [place], [address], [facility] 06/28/2024 16:44:18 4 77351: Manual therapy completed Damian Hughes, HOT MILL SHEARER [address], [place], [address], [facility] 06/28/2024 16:44:18 4 19022 Therapeutic Exercise (1:1) completed Damian Hughes, HOT MILL SHEARER [address], [place], [address], [facility] 06/26/2024 16:33:53 4 06325: Hot or Cold Pack completed Damian Scafuri, HOT MILL SHEARER [address], [place], [address], [facility] 06/26/2024 16:29:10 4 39938: Manual therapy completed Damian Scafuri, HOT MILL SHEARER [address], [place], [address], [facility] 06/26/2024 16:29:10 4 52424 Therapeutic Exercise (1:1) completed Damian Scafuri, HOT MILL SHEARER [address], [place], [address], [facility] 06/19/2024 08:44:31 4 60460: Hot or Cold Pack completed Damian Scafuri, HOT MILL SHEARER [address], [place], [address], [facility] 06/19/2024 08:43:33 4 14401: Manual therapy completed Damian Scafuri, HOT MILL SHEARER [address], [place], [address], [facility] 06/19/2024 08:43:33 4 08932 Therapeutic Exercise (1:1) completed Vin Rueda, DPT [address], [place], [address], [facility] 06/13/2024 10:36:52 4 51079: Hot or Cold Pack completed Vin Mastediths, DPT [address], [place], [address], [facility] 06/13/2024 10:37:07 4 23015: Manual therapy completed Vin Bullocks, DPT [address], [place], [address], [facility] 06/13/2024 10:37:13 4 06947 Therapeutic Exercise (1:1) completed Vin Rueda, DPT [address], [place], [address], [facility] 06/10/2024 13:43:08 4 17875: Low complexity PT Eval completed Vin Rueda DPT [address], [place], [address], [facility] 06/10/2024 13:43:11 4 operation on shoulder joint completed GUERA NELLY [facility] 12/30/2024 13:39:42 Imaging Results None recorded. Procedure Notes None [...] TAKE 1 TABLET BY MOUTH EVERY DAY AT BEDTIME FOR 90 DAYS active Not [...] TABLETS BY MOUTH 3 TIMES A DAY 02/28 completed Not Available Not Available Not Available amoxicillin 500 mg tablet TAKE ONE [...] unit) capsule TAKE 1 CAPSULE BY MOUTH DAILY FOR 90 DAYS active Not Available Not [...] Updated DateTime 12/30/2024 172.72 cm 28.6 kg/m2 59002.37 g GUERA VILLEGAS [facility] 12/30/2024 13:38:48 Date Recorded Body height Body mass index (BMI) Body weight Provider Name and Address Organization Details Last Updated DateTime 02/28/2025 172.72 cm 28.6 kg/m2 39300.37 g GUERA VILLEGAS [facility] 02/28/2025 13:38:24 Social History None recorded. Functional Status None recorded. Mental Status None recorded. Family History Nothing Reported. Medical History Condition Response Allergies/Hayfever N Coronary Artery Disease N Breathing or lung disorders N Anxiety/Depression N Emphysema N Nerve Disorders N Thyroid Problems N COPD N Pacemaker N Kidney/Bladder Problems N Anemia N Vascular Disease N Heart Trouble N Heart Attack (NE) N Gastrointestinal Disease N Cholesterol Y Diabetes [...] Diagnosis SNOMED-CT Code Diagnosis ICD10 Code Diagnosis IMO Codes Diagnosis Note [id number] MD [facility] 2[address] floor [address] [place] [address] 02/05/2024 15:00:53 02/19/2024 09:26:41 Pain of left shoulder joint 5184736028 [id number] M25.078 [id number] MD [facility] 2[address] floor [address] [place] [address] 03/25/2024 10:58:57 04/08/2024 08:16:28 Anterior to posterior tear of superior glenoid labrum of left shoulder 8081302894 6456374 S43.432D Instabilit y of left shoulder joint 831889136 S43.432A [id number] MD [facility] [address] [place] [address] 05/16/2024 12:26:54 06/03/2024 15:50:56 Posterior dislocation of shoulder joint 892311248 S43.025D [id number] MD [facility] [address] [place] [address] 06/07/2024 12:43:50 07/05/2024 17:10:52 Follow-up orthopedic assessment [id number] Z47.89 [id number] Vin Rueda , RADHAT [facility] [address] [place] [address] 06/10/2024 10:43:28 06/10/2024 11:55:20 Anterior to posterior tear of superior glenoid labrum of left shoulder 2553728891 [id number] S43.432D [id number] Vin Rueda , RADHAT [facility] [address] [place] [address] 06/12/2024 10:45:23 06/12/2024 11:35:00 Anterior to posterior tear of superior glenoid labrum of left shoulder 1120982870 [id number] S43.432D [id number] Damian Hughes, HOT MILL SHEARER [facility] [address] [place] [address] 06/19/2024 07:58:33 06/19/2024 08:51:00 Anterior to posterior tear of superior glenoid labrum of left shoulder 6291840573 [id number] S43.432D [id number] Damian Hughes, HOT MILL SHEARER [facility] [address] [place] [address] 06/26/2024 15:24:10 06/26/2024 17:11:45 Anterior to posterior tear of superior glenoid labrum of left shoulder 6875161090 2296989 S43.432D [id number] Damian Hughes H[employer] M[employer] SHE[employer]ER [facility] [address] [place] [address] 06/28/2024 15:24:38 06/28/2024 16:09:18 Anterior to posterior tear of superior glenoid labrum of left shoulder 3827943896 3135328 S43.432D [id number] Vin Rueda DPT [facility] [address] [place] [address] 07/02/2024 11:43:41 07/02/2024 12:31:21 Anterior to posterior tear of superior glenoid labrum of left shoulder 1485384235 1597020 S43.432D [id number] RADHA GraceT [facility] [address] [place] [address] 07/04/2024 11:29:37 07/04/2024 14:04:20 Anterior to posterior tear of superior glenoid labrum of left shoulder 9573771767 [id number] S43.432D [id number] Damian Hughes H[employer] M[employer] SHE[employer] [facility] [address] [place] [address] 2024 13:28:08 07/10/2024 08:36:19 Anterior to posterior tear of superior glenoid labrum of left shoulder 8312436283 0477009 S43.432D [id number] Damian Hughes, HOT MILL SHEARER [facility] [address] [place] [address] 07/11/2024 13:16:18 07/11/2024 15:06:41 Anterior to posterior tear of superior glenoid labrum of left shoulder 1375912126 4978534 S43.432D [id number] Damian Hughes, HOT MILL SHEARER [facility] [address] [place] [address] 07/16/2024 11:40:31 07/16/2024 12:42:19 Anterior to posterior tear of superior glenoid labrum of left shoulder 5063836601 2666777 S43.432D [id number] Vin Rueda , DPSean [facility] [address] [place] [address] 07/18/2024 15:19:40 07/18/2024 17:24:20 Anterior to posterior tear of superior glenoid labrum of left shoulder 9127661323 8905876 S43.432D [id number] Damian Hughes, HOT MILL SHEARER [facility] [address] [place] [address] 07/22/2024 09:56:45 07/22/2024 10:24:11 Anterior to posterior tear of superior glenoid labrum of left shoulder 4471675035 8225376 S43.432D [id number] Wily Thornton PA-C [facility] [address] [place] [address] 07/23/2024 14:47:16 08/01/2024 15:40:16 Pain of left shoulder joint 2730217969 [id number] M25.405 [id number] Damian Hughes, HOT MILL SHEARER [facility] [address] [place] [address] 07/26/2024 09:41:43 07/26/2024 10:37:37 Anterior to posterior tear of superior glenoid labrum of left shoulder 4121639394 2347398 S43.432D [id number] Vin Rueda , RADHAT [facility] [address] [place] [address] 07/29/2024 10:14:52 07/29/2024 11:17:42 Anterior to posterior tear of superior glenoid labrum of left shoulder 0508874096 [id number] S43.432D [id number] Vin Rueda , RADHAT [facility] [address] [place] [address] 07/31/2024 10:15:37 07/31/2024 11:03:28 Anterior to posterior tear of superior glenoid labrum of left shoulder 7307233199 [id number] S43.432D [id number] Damian Hughes H[employer] M[employer] SHE[employer] [facility] [address] [place] [address] 08/06/2024 15:18:30 08/06/2024 16:03:32 Anterior to posterior tear of superior glenoid labrum of left shoulder 6231578859 4807582 S43.432D [id number] Damian Hughes H[employer] M[employer] SHE[employer] [facility] [address] [place] [address] 08/09/2024 13:13:56 08/09/2024 14:47:03 Anterior to posterior tear of superior glenoid labrum of left shoulder 8528076828 4622017 S43.432D [id number] Vin Rueda DPT [facility] [address] [place] [address] 08/13/2024 10:20:30 08/13/2024 11:13:34 Anterior to posterior tear of superior glenoid labrum of left shoulder 9618121278 6576632 S43.432D [id number] Damian Hughes HOT MILL SHE[employer] [facility] [address] [place] [address] 08/16/2024 14:22:43 08/16/2024 16:05:41 Anterior to posterior tear of superior glenoid labrum of left shoulder 7388451147 4788462 S43.432D [id number] Damian Scafuri, HOT MILL SHEARER [facility] [address] [place] [address] 08/20/2024 11:25:47 08/20/2024 12:17:50 Anterior to posterior tear of superior glenoid labrum of left shoulder 9781514518 6638402 S43.432D [id number] Damian Hughes, HOT MILL SHEARER [facility] [address] [place] [address] 08/22/2024 11:28:21 08/22/2024 14:18:13 Anterior to posterior tear of superior glenoid labrum of left shoulder 5112528709 4552244 S43.432D [id number] Lizy Garza MD [facility] [address] [place] [address] 08/27/2024 16:29:07 09/17/2024 15:56:24 Follow-up orthopedic assessment [id number] Z47.89 [id number] Vin Rueda , DPSean [facility] [address] [place] [address] 08/28/2024 10:37:07 08/28/2024 12:14:05 Anterior to posterior tear of superior glenoid labrum of left shoulder 4193698800 1386752 S43.432D [id number] Damian Hughes, HOT MILL SHEARER [facility] [address] [place] [address] 08/30/2024 13:40:25 08/30/2024 15:42:16 Anterior to posterior tear of superior glenoid labrum of left shoulder 4047447000 8013877 S43.432D [id number] Damian Gregoriori, H[employer] MILL SHEARER [facility] [address] [place] [address] 09/04/2024 12:13:25 09/04/2024 13:33:51 Anterior to posterior tear of superior glenoid labrum of left shoulder 1132245562 [id number] S43.432D [id number] Damian Gregoriori, HOT MILL SHEARER [facility] [address] [place] [address] 09/06/2024 13:25:48 09/06/2024 15:12:55 Anterior to posterior tear of superior glenoid labrum of left shoulder 4240936330 8982978 S43.432D [id number] Vin Rueda DPT [facility] [address] [place] [address] 09/09/2024 09:37:19 09/09/2024 10:54:58 Anterior to posterior tear of superior glenoid labrum of left shoulder 9554286767 4956653 S43.432D [id number] MD [facility] [address] floor [address] [place] [address] 09/30/2024 14:33:00 10/29/2024 09:59:27 Left cervical root neuropathy 8188556240 6998196 M54.12 [id number] Pain of le ft shoulder joint 9562917194 0106026 M25.512 [id number] [id number] Vin Rueda DPT [facility] [address] [place] [address] 09/11/2024 10:05:30 09/11/2024 11:24:15 Anterior to posterior tear of superior glenoid labrum of left shoulder [id number] [id number] S43.432D [id number] Damian Hughes H[employer] SHE[employer] [facility] [address] [place] [address] 09/17/2024 11:09:15 09/17/2024 12:23:02 Anterior to posterior tear of superior glenoid labrum of left shoulder 8838466378 [id number] S43.432D [id number] Damian Hughes H[employer] M[employer] SHE[employer] [facility] [address] [place] [address] 09/19/2024 14:19:28 09/19/2024 15:35:53 Anterior to posterior tear of superior glenoid labrum of left shoulder 1819330845 [id number] S43.432D [id number] Damian Hughes H[employer] M[employer] SHE[employer]ER [facility] [address] [place] [address] 10/08/2024 14:36:31 10/08/2024 16:37:45 Anterior to posterior tear of superior glenoid labrum of left shoulder 5700371288 9866836 S43.432D [id number] Damian Gaminosavannah, HOT MILL SHEARER [facility] [address] [place] [address] 10/15/2024 09:23:11 10/15/2024 09:46:05 Anterior to posterior tear of superior glenoid labrum of left shoulder 9276698563 [id number] S43.432D [id number] Damian rGegoriodavid, HOT MILL SHEARER [facility] [address] [place] [address] 10/17/2024 16:22:48 10/17/2024 17:09:16 Anterior to posterior tear of superior glenoid labrum of left shoulder 9057212358 2558913 S43.432D Vin Rueda , DPT [facility] [address] [place] [address] 10/22/2024 08:54:05 10/22/2024 09:27:49 Anterior to posterior tear of superior glenoid labrum of left shoulder 0303920721 [id number] S43.432D [id number] Lizy Garza MD [facility] - [facility] [address] [place] [address] 11/15/2024 14:09:09 11/27/2024 09:25:57 Follow-up orthopedic assessment [id number] Z47.89 [id number] Damian Gaminosavannah, HOT MILL SHEARER [facility] [address] [place] [address] 11/11/2024 13:13:51 11/12/2024 07:01:13 Anterior to posterior tear of superior glenoid labrum of left shoulder 5050131385 [id number] S43.432D [id number] Damian Gaminosavannah, HOT MILL SHEARER [facility] [address] [place] [address] 11/14/2024 15:26:00 11/14/2024 16:21:32 Anterior to posterior tear of superior glenoid labrum of left shoulder 2748604449 [id number] S43.432D [id number] Damian Saul, HOT MILL SHEARER [facility] [address] [place] [address] 11/28/2024 09:22:03 11/28/2024 10:10:10 Anterior to posterior tear of superior glenoid labrum of left shoulder 4305950145 6305593 S43.432D [id number] Damian Hughes, HOT MILL SHEARER [facility] [address] [place] [address] 12/05/2024 08:21:32 12/05/2024 09:03:34 Anterior to posterior tear of superior glenoid labrum of left shoulder 9376223600 4525592 S43.432D [id number] Damian Hughes, HOT MILL SHEARER [facility] [address] [place] [address] 12/11/2024 09:28:53 12/11/2024 10:46:17 Anterior to posterior tear of superior glenoid labrum of left shoulder 0309362149 5623501 S43.432D [id number] Damian Hughes, HOT MILL SHEARER [facility] [address] [place] [address] 12/13/2024 07:29:49 12/13/2024 10:46:19 Anterior to posterior tear of superior glenoid labrum of left shoulder 0528261764 [id number] S43.432D [id number] Damian Hughes, HOT MILL SHEARER [facility] [address] [place] [address] 12/17/2024 09:22:22 12/17/2024 11:49:45 Anterior to posterior tear of superior glenoid labrum of left shoulder 4909212767 [id number] S43.432D [id number] Lizy Garza MD [facility] [address] [facility] [address] [place] [address] 12/30/2024 13:35:12 01/14/2025 06:44:47 Follow-up orthopedic assessment [id number] Z47.89 [id number] Damian Hughes, HOT MILL SHEARER [facility] [address] [place] [address] 12/20/2024 08:06:20 12/20/2024 09:21:32 Anterior to posterior tear of superior glenoid labrum of left shoulder 0049531001 7175385 S43.432D [id number] Damian Hughes, HOT MILL SHEARER [facility] [address] [place] [address] 12/25/2024 06:45:05 12/25/2024 08:13:49 Anterior to posterior tear of superior glenoid labrum of left shoulder 6640100044 [id number] S43.432D [id number] Damian Hughes, HOT MILL SHEARER [facility] [address] [place] [address] 12/31/2024 09:44:29 12/31/2024 11:55:51 Anterior to posterior tear of superior glenoid labrum of left shoulder 7032890940 [id number] S43.432D [id number] Damian Hughes, HOT MILL SHEARER [facility] [address] [place] [address] 01/23/2025 08:51:44 01/23/2025 09:38:17 Anterior to posterior tear of superior glenoid labrum of left shoulder 7043738894 [id number] S43.432D [id number] MD [facility] [address] [place] [address] 02/28/2025 13:31:14 03/10/2025 14:33:45 Follow-up orthopedic assessment [id number] Z47.89 [id number] Health Concerns Section Related Observation LastModified by Organization Detai ls LastModified Time None Recorded Concern Status LastModified by Organization Details LastModified Time None Recorded Advance Directives Directive None Recorded Payers Insurance Date Sequence Insurance Name Policy Number Policy Barton Covered Member ID Barton Member ID Guarantor Name 02/05/2024 [employer] Nii Mike 03/22/2024 1 *SELF PAY* patti Mike Notes Date Note Type Note Provider Name and Address Organization Details Recorded Time 12/25/2024 text/html Pt reports feeling good. Arm continues to move better. Damian Hughes, HOT MILL SHEARER [address], [place], [address], [place] - [facility] 12/25/2024 09:52:17 12/30/2024 text/html Surgery: Left shoulder [...] and well perfused. Imaging: Deferred Impression: 54-year-old [id number] gentleman, now approximately 8 months out from [...] him back in 8 weeks for recheck. [facility] [place] [facility] speech recognition basket person software was used to create portions of this document. An attempt at proofreading has been made to minimize errors. Please call for corrections. Lizy Garza MD [address], [place], [address], [facility] 12/30/2024 14:14:34 12/31/2024 text/html Pt reports feeling good. Arm continues to move better. Damian Hughes, HOT MILL SHEARER [address], [place], [address], [facility] 12/31/2024 13:54:22 01/23/2025 text/html Pt reports feeling good. No pain. Has applied for multiple jobs and is waiting to hear back. Damian Hughes, HOT MILL SHEARER [address], [place], [address], [facility] 01/23/2025 10:14:05 02/28/2025 text/html Surgery: Left shoulder posterior labral repair, arthroscopic biceps tenodesis, extensive debridement, 05/23/2024 Interval History: Nii returns today in follow-up now 9 months out from surgery as above. He has been participating in physical therapy since 2.5 weeks postop. He struggled initially to regain range of motion in the shoulder, due to a combination of a little bit of capsulitis but more so scapular dyskinesis. He worked hard at this with his therapist and has gone on to regain full range of motion and normalized shoulder mechanics. He is having no pain at this point. Happy with his motion and strength. 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 Past family, medical, social history and review [...] arthroscopic portal incisions are healing nicely. No point tenderness with palpation. Active and passive forward elevation 175, ER 75, IR L1. 5/5 with scaption, IR and ER without pain. No evidence for trapezial atrophy, good strength with shoulder shrug. Sensation intact in axillary and LABC distributions. Fires EPL, FPL and intrinsics. Hand is warm and well perfused. Imaging: Deferred Impression: 54-year-old [id number] gentleman, now approximately 9 months out from surgery as above. Posterior labral repair seems to be nicely healed. Dyskinetic scapular range of motion without definite paola winging had been playing a role in ongoing pain and functional limitations but is now largely resolved with further efforts in PT. Plan: Will allow the patient to return to full duties at work. I have encouraged the patient to continue with a slow and steady progression of strengthening activities, working up to higher reps before increasing the amount of weight or resistance. With day-to-day activities, may gradually increase what he is doing. Discussed the importance of listening to his body, stopping if there is pain. Also discussed the importance of good mechanics, including keeping weight close to the body, avoiding lifting an awkward positions with weight away from the body, and using slow controlled movements always. For occasional aches and pains, she can take tcnd-nia-kbjcivm medication such as Tylenol or anti-inflammatories as needed; risks and benefits of medication discussed. Should call with more persistent pain. We will leave follow up open ended at this point. However should symptoms worsen or fail to improve to the patient's satisfaction, he is encouraged to give the office a call to be seen back for further evaluation and management. [employer] speech recognition basket person software was used to create portions of this document. An attempt at proofreading has been made to minimize errors. Please call for corrections. Lizy Garza MD [address] [place], [place] [address] [facility], [place], [address], [facility] - [facility] 02/28/2025 14:13:55
--- OUTSIDE RECORDS SUMMARY | 2025-09-05 14:08 | XMS_ITS | Clinical Summary ---
Author Organization [facility] it Address [address] [place] [address] Care Team Providers Care Results Engineer Name Role Phone Unavailable Primary Care Provider Unavailabl e Social History Tobacco Use Types Packs/Day Years Used Date Smoking Tobacco: Never Assessed Sex and Gender Information Value Date Recorded Sex Assigned at Not on file Legal Sex Male 4:07 PM EST Gender Identity Not on file Sexual Orientation Not on file Plan of Treatment Health Maintenance Due Date Last Done Comments Colorectal Cancer Screening: Colonoscopy 1968 DTaP,Tdap,and Td Vaccines (1 - Tdap) 1987 Hepatitis B Vaccines (1 of 3 - 19+ 3-dose series) 1987 Pneumococcal Vaccine: 50+ Ye ars (1 of 1 - PCV) 2018 Zoster Vaccines (1 of 2) 2018 Cholesterol Screening (Lipid Panel) 12/05/2023 HIV Screening 12/05/2023 Hepatitis C Screening 12/05/2023 Social Influencers of Health Screening 12/05/2023 Depression Screening 11/06/2024 COVID-19 Vaccine ( - 2023-2 5 season) 2025 Influenza Vaccine (#1) 2025 RSV Immunization Adult Patie nts (1 - 1-dose 75+ series) 2043 HIB Vaccines Aged Out No longer eligi [...]
== END 2025-09-05 13:01 | disposition home or self-care (01) ==
LOC: HO.HMGCX 13:00
PROVIDERS: Absent Provider Nurse Practitioner Family; PCP Nurse Practitioner Family; Visit Provider Surgery
DX: R10.30 Lower abdominal pain, unspecified (principal)
CPT/HCPCS: 76857

== ENCOUNTER 2025-09-29 13:52 | Outpatient (AMB) | payer OTHER, SELFPAY ==
--- NOTE | 2025-09-29 14:15 | A.OFFVIS_ITS ---
Vital Signs 09/29/25 14:18 Height 5 ft 8 in Weight 171 lb 15.369 oz BMI 26.1 Respiration 16 Pulse 78 Intake Visit Reasons: s/p US 09/05 Intake Note: Patient is seen in office for ultrasound results, following for right groin pain, post hernia repair. Pt c/o: no changes since last visit us:09/05/25 Flight Hostess Required: No Accompanied by: Self / Same As Patient Allergies No Known Allergies Allergy (Verified 09/29/25 14:20) Medication List - Last Reconciled 09/29/25 by Carlos Albarran MD amlodipine 10 mg PO DAILY atorvastatin 20 mg PO BEDTIME 90 days cholecalciferol (vitamin D3) 25 mcg PO DAILY 90 days fenofibrate 54 mg PO DAILY fluticasone propionate 50 mcg/actuation (Flonase Allergy Relief) 1 spray intranasal DAILY metoprolol tartrate 50 mg PO BID omeprazole 40 mg PO DAILY HPI Comments Details: 55-year-old male patient with a previous history of a right inguinal hernia status post repair on 07/17/2018 using a PHS mesh returning several months later with increased pain in the right groin. He subsequently underwent wound exploration and neurolysis on 04/30/2019. He was fine until approximately 4 month ago after lifting some boxes for his niece at which he developed pain in the right groin. The pain was felt to be similar to his previous episode in 2019. The pain has persisted without significant improvement or worsening. He denies any palpable lump but does note some swelling in the right groin. This has improved by applying ice. He denies any symptoms in the left groin. He was previously evaluated on 07/01/2025 and no definite recurrent hernia identified. An ultrasound of the right groin was subsequently obtained. This was performed on 09/05/2025. The ultrasound revealed no sonographic evidence of recurrent right inguinal hernia. Since his last visit he continues to have pain both with standing sitting. There is also pain with light pressure along the incision. [facility] Medical History Rash and nonspecific skin eruption Migraines HTN (hypertension) Erosive esophagitis Cervical radiculopathy Fatty liver High triglycerides Surgical History H/O right knee surgery History of hernia surgery History of shoulder surgery History of esophagogastroduodenoscopy (EGD) Hx of colonoscopy (~10/2018) Family History Father Bladder cancer Mother Dementia Parkinsons Paternal Grandmother Skin cancer Social History Housing: House Are you a primary home care attendant to a significant other at home: No Do you presently have visiting nurse or other home services: No Alcohol intake: current Alcohol intake frequency: does not drink Alcohol type: beer Patient Tobacco Use Status: Never used Tobacco e-Cigarette/Vaping Use: Never Used Second Hand Smoke Exposure: No service: No Current occupational status: employed Current occupation: [employer] Current occupational exposures/hazards: Yes Cognitive needs: No Hearing needs: No Vision needs: No Review of Systems Const All systems reviewed & are unremarkable except as noted in HPI and below Physical Exam Vital Signs: Last Vital Signs Pulse 78 09/29/25 14:18 Resp 16 09/29/25 14:18 BMI result Body Mass Index 26.1 Const General: no acute distress Nutritional Appearance: well nourished Orientation/consciousness: patient oriented x3 Resp Effort & Inspection: normal respiratory effort GI Other: Soft and nondistended, small umbilical hernia noted. Tender in the right groin with no palpable lump noted with Valsalva maneuvers. Tenderness is at approximately the area of the internal ring. No symptoms noted in the left groin. Neuro General: patient oriented x3 Extrem Other: No edema Assessment & Plan Assessment & Plan (1) Inguinal pain: Code(s): R10.30 - Lower abdominal pain, unspecified Category: Medical Qualifiers: Laterality: right Qualified Code(s): R10.31 - Right lower quadrant pain Plan 55-year-old male patient status post repair of a right inguinal hernia with mesh now presenting with a 4 month history of new onset right groin pain which has persisted for the past 4 months. The pain began after lifting heavy objects. Examination reveals no evidence of a recurrent hernia. This was confirmed also by an ultrasound of the right groin which was negative for a recurrent right inguinal hernia. Examination today continues to show tenderness to even light palpation of the right groin. I recommended further evaluation by pain management and a referral has been sent today. He should return as needed. Orders: Referrals Pain Management Referral R10.30 - Lower abdominal pain, unspecified Coding Level of Care Code Est Pt Level 3 (05036) Diagnoses Right inguinal pain R10.31 Laterality: right
[2025-09-29 14:18] VITALS: PULSE 78; RESP 16; BMI 26.1
--- OUTSIDE RECORDS SUMMARY | 2025-09-29 18:48 | XMS_ITS | Clinical Summary ---
Author Organization [facility] it Address [address] [place] [address] Care Team Providers Care Comber Setter Name Role Phone Unavailable Primary Care Provider [...] Depression Screening 11/06/2024 COVID-19 Vaccine ( - 2024-2 6 season) 2025 Influenza Vaccine (#1) 2025 RSV [...]
--- OUTSIDE RECORDS SUMMARY | 2025-09-29 18:48 | XMS_ITS | Data Portability ---
Author Organization [facility] Drew Bhandari [facility], [facility] Address [address] [place] [address] Care Team Providers Care Cleaning Crew Member Name Role Phone SRIDEVI STUART Primary Care Provider LAVERNE FLORES Loan Analyst Unavailable Assessment Encounter Date Assessment Date Assessment [...] Recorded Time Pain of left shoulder joint [id number] 09 Active 2023 Wily Thornton PA-C [address], [place], [address], [facility] 4 13:58:40 Problem Notes None recorded. Procedures Surgical History Date Name Laterality Status Provider Name and Address Organization Details Recorded Time 5 31040 Therapeutic Exercise (1:1) completed Damian Scafuri, MISSILE MECHANIC [address], [place], [address], [facility] 01/23/2025 10:09:04 5 63785: Hot or Cold Pack completed Damian Scafuri, MISSILE MECHANIC [address], [place], [address], [facility] 01/23/2025 10:09:04 5 84027: Manual therapy completed Damian Scafuri, MISSILE MECHANIC [address], [place], [address], [facility] 01/23/2025 10:09:04 5 90347 Therapeutic Exercise (1:1) completed Damian Scafuri, MISSILE MECHANIC [address], [place], [address], [facility] 12/31/2024 13:50:25 5 30811: Hot or Cold Pack completed Damian Scafuri, MISSILE MECHANIC [address], [place], [address], [facility] 12/31/2024 13:50:25 5 15040: Manual therapy completed Damian Scafuri, MISSILE MECHANIC [address], [place], [address], [facility] 12/31/2024 13:50:25 5 86138 Therapeutic Exercise (1:1) completed Damian Scafuri, MISSILE MECHANIC [address], [place], [address], [facility] 12/25/2024 09:47:58 5 22595: Hot or Cold Pack completed Damian Scafuri, MISSILE MECHANIC [address], [place], [address], [facility] 12/25/2024 09:47:58 5 76902: Manual therapy completed Damian Scafuri, MISSILE MECHANIC [address], [place], [address], [facility] 12/25/2024 09:47:58 5 21014 Therapeutic Exercise (1:1) completed Damian Scafuri, MISSILE MECHANIC [address], [place], [address], [facility] 12/20/2024 09:16:04 5 33142: Hot or Cold Pack completed Damian Scafuri, MISSILE MECHANIC [address], [place], [address], [facility] 12/20/2024 09:16:04 5 58620: Manual therapy completed Damian Scafuri, MISSILE MECHANIC [address], [place], [address], [facility] 12/20/2024 09:16:04 5 74270 Therapeutic Exercise (1:1) completed Damian Scafuri, MISSILE MECHANIC [address], [place], [address], [facility] 12/17/2024 11:55:46 5 40205: Hot or Cold Pack completed Damian Scafuri, MISSILE MECHANIC [address], [place], [address], [facility] 12/17/2024 11:55:46 5 44964: Manual therapy completed Damian Scafuri, MISSILE MECHANIC [address], [place], [address], [facility] 12/17/2024 11:55:46 5 14630 Therapeutic Exercise (1:1) completed Damian Scafuri, MISSILE MECHANIC [address], [place], [address], [facility] 12/13/2024 10:43:59 5 28190: Hot or Cold Pack completed Damian Scafuri, MISSILE MECHANIC [address], [place], [address], [facility] 12/13/2024 10:43:59 5 82656: Manual therapy completed Damian Scafuri, MISSILE MECHANIC [address], [place], [address], [facility] 12/13/2024 10:43:59 5 85773 Therapeutic Exercise (1:1) completed Damian Scafuri, MISSILE MECHANIC [address], [place], [address], [facility] 12/11/2024 10:59:43 5 36909: Hot or Cold Pack completed Damian Scafuri, MISSILE MECHANIC [address], [place], [address], [facility] 12/11/2024 11:00:32 5 52733: Manual therapy completed Damian Scafuri, MISSILE MECHANIC [address], [place], [address], [facility] 12/11/2024 10:59:43 5 90160 Therapeutic Exercise (1:1) completed Damian Scafuri, MISSILE MECHANIC [address], [place], [address], [facility] 12/05/2024 10:54:20 5 84214: Hot or Cold Pack completed Damian Scafuri, MISSILE MECHANIC [address], [place], [address], [facility] 12/05/2024 10:54:20 5 83018: Manual therapy completed Damian Scafuri, MISSILE MECHANIC [address], [place], [address], [facility] 12/05/2024 10:54:20 5 13850 Therapeutic Exercise (1:1) completed Damian Scafuri, MISSILE MECHANIC [address], [place], [address], [facility] 11/28/2024 11:17:56 5 04371: Hot or Cold Pack completed Damian Scafuri, MISSILE MECHANIC [address], [place], [address], [facility] 11/28/2024 11:17:23 5 34732: Manual therapy completed Damian Scafuri, MISSILE MECHANIC [address], [place], [address], [facility] 11/28/2024 11:17:47 5 11052 Therapeutic Exercise (1:1) completed Damian Scafuri, MISSILE MECHANIC [address], [place], [address], [facility] 11/14/2024 17:12:21 5 44779: Hot or Cold Pack completed Damian Scafuri, MISSILE MECHANIC [address], [place], [address], [facility] 11/14/2024 17:12:21 5 25582: Manual therapy completed Damian Scafuri, MISSILE MECHANIC [address], [place], [address], [facility] 11/14/2024 17:12:21 5 02108 Therapeutic Exercise (1:1) completed Damian Scafuri, MISSILE MECHANIC [address], [place], [address], [facility] 11/11/2024 16:40:15 5 86684: Hot or Cold Pack completed Damian Scafuri, MISSILE MECHANIC [address], [place], [address], [facility] 11/11/2024 16:39:30 5 18082: Manual therapy completed Damian Scafuri, MISSILE MECHANIC [address], [place], [address], [facility] 11/11/2024 16:39:31 4 26638 Therapeutic Exercise (1:1) completed Vin Bullocks, DPT [address], [place], [address], [facility] 10/23/2024 10:46:21 4 47187: Hot or Cold Pack completed Vin Rueda, DPT [address], [place], [address], [facility] 10/23/2024 10:46:21 4 47106: Manual therapy completed Vin Rueda, DPT [address], [place], [address], [facility] 10/23/2024 10:46:21 4 59459 Therapeutic Exercise (1:1) completed Damian Scafuri, MISSILE MECHANIC [address], [place], [address], [facility] 10/17/2024 17:59:14 4 55311: Hot or Cold Pack completed Damian Scafuri, MISSILE MECHANIC [address], [place], [address], [facility] 10/17/2024 17:59:13 4 55272: Manual therapy completed Damian Scafuri, MISSILE MECHANIC [address], [place], [address], [facility] 10/17/2024 17:59:14 4 40740 Therapeutic Exercise (1:1) completed Damian Scafuri, MISSILE MECHANIC [address], [place], [address], [facility] 10/15/2024 11:02:53 4 71038: Hot or Cold Pack completed Damian Scafuri, MISSILE MECHANIC [address], [place], [address], [facility] 10/15/2024 10:59:59 4 46622: Manual therapy completed Damian Scafuri, MISSILE MECHANIC [address], [place], [address], [facility] 10/15/2024 11:03:45 4 80085 Therapeutic Exercise (1:1) completed Damian Scafuri, MISSILE MECHANIC [address], [place], [address], [facility] 10/08/2024 20:10:57 4 24543: Hot or Cold Pack completed Damian Scafuri, MISSILE MECHANIC [address], [place], [address], [facility] 10/08/2024 20:10:57 4 23352: Manual therapy completed Damian Scafuri, MISSILE MECHANIC [address], [place], [address], [facility] 10/08/2024 20:10:57 4 25986 Therapeutic Exercise (1:1) completed Damian Scafuri, MISSILE MECHANIC [address], [place], [address], [facility] 09/19/2024 15:17:31 4 74247: Hot or Cold Pack completed Damian Scafuri, MISSILE MECHANIC [address], [place], [address], [facility] 09/19/2024 15:16:31 4 93118: Manual therapy completed Damian Scafuri, MISSILE MECHANIC [address], [place], [address], [facility] 09/19/2024 15:16:31 4 76616 Therapeutic Exercise (1:1) completed Damian Hughes, MISSILE MECHANIC [address], [place], [address], [facility] 09/17/2024 13:47:38 4 12988: Hot or Cold Pack completed Damian Hughes, MISSILE MECHANIC [address], [place], [address], [facility] 09/17/2024 13:47:38 4 38312: Manual therapy completed Damian Hughes, MISSILE MECHANIC [address], [place], [address], [facility] 09/17/2024 13:47:38 4 75174 Therapeutic Exercise (1:1) completed Vin Rueda, DPT [address], [place], [address], [facility] 09/11/2024 13:09:20 4 46254: Hot or Cold Pack completed Vin Rueda, DPT [address], [place], [address], [facility] 09/11/2024 13:09:20 4 96986: Manual therapy completed Vin Rueda, DPT [address], [place], [address], [facility] 09/11/2024 13:09:20 4 93266 Therapeutic Exercise (1:1) completed Vin Rueda, DPT [address], [place], [address], [facility] 09/09/2024 10:46:11 4 23981: Hot or Cold Pack completed Vin Rueda, DPT [address], [place], [address], [facility] 09/09/2024 10:46:11 4 65302: Manual therapy completed Vin Rueda, DPT [address], [place], [address], [facility] 09/09/2024 10:46:11 4 11806 Therapeutic Exercise (1:1) completed Damian Scafuri, MISSILE MECHANIC [address], [place], [address], [facility] 09/06/2024 13:57:27 4 13316: Hot or Cold Pack completed Damian Scafuri, MISSILE MECHANIC [address], [place], [address], [facility] 09/06/2024 13:57:27 4 74286: Manual therapy completed Damian Scafuri, MISSILE MECHANIC [address], [place], [address], [facility] 09/06/2024 13:57:27 40783 Therapeutic Exercise (1:1) completed Damian Scafuri, MISSILE MECHANIC [address], [place], [address], [facility] 09/04/2024 15:08:23 39617: Hot or Cold Pack completed Damian Scafuri, MISSILE MECHANIC [address], [place], [address], [facility] 09/04/2024 15:08:23 4 81858: Manual therapy completed Damian Scafuri, MISSILE MECHANIC [address], [place], [address], [facility] 09/04/2024 15:08:23 70105 Therapeutic Exercise (1:1) completed Damian Scafuri, MISSILE MECHANIC [address], [place], [address], [facility] 09/01/2024 14:27:54 10/25/202 4 76538: Hot or Cold Pack completed Damian Gaminofuri, MISSILE MECHANIC [address], [place], [address], [facility] 09/01/2024 14:27:54 4 64230: Manual therapy completed Damian Gaminofuri, MISSILE MECHANIC [address], [place], [address], [facility] 09/01/2024 14:27:54 64159 Therapeutic Exercise (1:1) completed Vin Rueda, DPT [address], [place], [address], [facility] 08/29/2024 11:07:01 4 01746: Hot or Cold Pack completed Vin Rueda DPT [address], [place], [address], [facility] 08/29/2024 11:07:01 4 38731: Manual therapy completed Vin Rueda DPT [address], [place], [address], [facility] 08/29/2024 11:07:02 4 Sports Shoulder completed Lizy Garza MD [address], [place], [address], [facility] 08/27/2024 17:49:39 73648 Therapeutic Exercise (1:1) completed Damian Gaminofuri, MISSILE MECHANIC [address], [place], [address], [facility] 08/22/2024 13:54:23 4 89542: Hot or Cold Pack completed Damian Gaminofuri, MISSILE MECHANIC [address], [place], [address], [facility] 08/22/2024 13:54:23 4 02419: Manual therapy completed Damian Gaminofuri, MISSILE MECHANIC [address], [place], [address], [facility] 08/22/2024 13:54:23 4 33434 Therapeutic Exercise (1:1) completed Damianbritany Gaminofuri, MISSILE MECHANIC [address], [place], [address], [facility] 08/20/2024 14:41:52 4 09684: Hot or Cold Pack completed Damian Scafuri, MISSILE MECHANIC [address], [place], [address], [facility] 08/20/2024 14:41:52 4 26687: Manual therapy completed Damianbritany Gaminofuri, MISSILE MECHANIC [address], [place], [address], [facility] 08/20/2024 14:41:53 31063 Therapeutic Exercise (1:1) completed Damian Gaminofuri, MISSILE MECHANIC [address], [place], [address], [facility] 08/19/2024 10:12:24 4 53645: Hot or Cold Pack completed Damianbritany Gaminofuri, MISSILE MECHANIC [address], [place], [address], [facility] 08/19/2024 10:11:38 4 17124: Manual therapy completed Damian Gaminofuri, MISSILE MECHANIC [address], [place], [address], [facility] 08/19/2024 10:11:38 4 15694 Therapeutic Exercise (1:1) completed Vin Rueda DPT [address], [place], [address], [facility] 08/14/2024 12:49:16 4 83771: Hot or Cold Pack completed Vin Rueda DPT [address], [place], [address], [facility] 08/14/2024 12:49:16 4 89069: Manual therapy completed Vin Rueda, DPT [address], [place], [address], [facility] 08/14/2024 12:49:16 4 40047 Therapeutic Exercise (1:1) completed Damian Scafuri, MISSILE MECHANIC [address], [place], [address], [facility] 08/09/2024 14:15:59 4 21667: Hot or Cold Pack completed Damianbritany Gaminofuri, MISSILE MECHANIC [address], [place], [address], [facility] 08/09/2024 14:15:59 4 03573: Manual therapy completed Damian Gaminofuri, MISSILE MECHANIC [address], [place], [address], [facility] 08/09/2024 14:15:59 71174 Therapeutic Exercise (1:1) completed Damian Scafuri, MISSILE MECHANIC [address], [place], [address], [facility] 08/06/2024 17:06:12 4 65883: Hot or Cold Pack completed Damian Scafuri, MISSILE MECHANIC [address], [place], [address], [facility] 08/06/2024 17:06:12 4 88988: Manual therapy completed Damian Scafuri, MISSILE MECHANIC [address], [place], [address], [facility] 08/06/2024 17:06:12 83362 Therapeutic Exercise (1:1) completed Vin Rueda, DPT [address], [place], [address], [facility] 07/31/2024 12:53:55 4 43071: Hot or Cold Pack completed Vin Rueda, DPT [address], [place], [address], [facility] 07/31/2024 12:53:55 29874: Manual therapy completed Vin Rueda, DPT [address], [place], [address], [facility] 07/31/2024 12:53:55 76756 Therapeutic Exercise (1:1) completed Vin Cantukibrady, DPT [address], [place], [address], [facility] 07/31/2024 06:56:58 4 77412: Hot or Cold Pack completed Vin Rueda, DPT [address], [place], [address], [facility] 07/31/2024 06:56:58 4 04344: Manual therapy completed Vin Rueda, DPT [address], [place], [address], [facility] 07/31/2024 06:56:58 4 50452 Therapeutic Exercise (1:1) completed Damian Hughes, MISSILE MECHANIC [address], [place], [address], [facility] 07/26/2024 11:52:28 4 79362: Hot or Cold Pack completed Damian Stevensonfuri, MISSILE MECHANIC [address], [place], [address], [facility] 07/26/2024 11:51:55 4 72574: Manual therapy completed Damian Gaminofuri, MISSILE MECHANIC [address], [place], [address], [facility] 07/26/2024 11:51:55 4 18283 Therapeutic Exercise (1:1) completed Damian Scafuri, MISSILE MECHANIC [address], [place], [address], [facility] 07/22/2024 11:25:42 4 52777: Hot or Cold Pack completed Damian Scafuri, MISSILE MECHANIC [address], [place], [address], [facility] 07/22/2024 11:25:42 4 62951: Manual therapy completed Damian Scafuri, MISSILE MECHANIC [address], [place], [address], [facility] 07/22/2024 11:25:42 4 41066 Therapeutic Exercise (1:1) completed Vin Rueda, DPT [address], [place], [address], [facility] 07/22/2024 07:24:50 4 52050: Hot or Cold Pack completed Vin Rueda, DPT [address], [place], [address], [facility] 07/22/2024 07:24:50 4 89735: Manual therapy completed Vin Rueda, DPT [address], [place], [address], [facility] 07/22/2024 07:24:50 4 46798 Therapeutic Exercise (1:1) completed Damian Scafuri, MISSILE MECHANIC [address], [place], [address], [facility] 07/16/2024 12:43:18 4 12227: Hot or Cold Pack completed Damian Scafuri, MISSILE MECHANIC [address], [place], [address], [facility] 07/16/2024 12:43:18 4 24315: Manual therapy completed Damian Scafuri, MISSILE MECHANIC [address], [place], [address], [facility] 07/16/2024 12:43:18 4 41072 Therapeutic Exercise (1:1) completed Damian Scafuri, MISSILE MECHANIC [address], [place], [address], [facility] 07/11/2024 14:51:56 4 98194: Hot or Cold Pack completed Damian Scafuri, MISSILE MECHANIC [address], [place], [address], [facility] 07/11/2024 14:51:56 4 89862: Manual therapy completed Damian Scafuri, MISSILE MECHANIC [address], [place], [address], [facility] 07/11/2024 14:51:56 4 08799 Therapeutic Exercise (1:1) completed Damian Scafuri, MISSILE MECHANIC [address], [place], [address], [facility] 2024 14:42:28 4 07814: Hot or Cold Pack completed Damian Scafuri, MISSILE MECHANIC [address], [place], [address], [facility] 2024 14:42:28 4 40893: Manual therapy completed Damian Scafuri, MISSILE MECHANIC [address], [place], [address], [facility] 2024 14:42:28 4 22069 Therapeutic Exercise (1:1) completed Vin Rueda DPT [address], [place], [address], [facility] [facility] 07/04/2024 14:45:43 4 45169: Hot or Cold Pack completed Vin Rueda DPT [address], [place], [address], [facility] 07/04/2024 14:45:43 70889: Manual therapy completed RADHA GraceT [address], [place], [address], [facility] 07/04/2024 14:45:43 4 25355 Therapeutic Exercise (1:1) completed RADHA GraceT [address], [place], [address], [facility] 07/03/2024 10:47:53 4 77656: Hot or Cold Pack completed Vin Rueda DPT [address], [place], [address], [facility] 07/03/2024 10:47:53 4 05906: Manual therapy completed RADHA GraceT [address], [place], [address], [facility] 07/03/2024 10:47:53 4 55172 Therapeutic Exercise (1:1) completed Damian Hughes, MISSILE MECHANIC [address], [place], [address], [facility] 06/28/2024 16:44:18 4 93091: Hot or Cold Pack completed Damian Hughes, MISSILE MECHANIC [address], [place], [address], [facility] 06/28/2024 16:44:18 4 87132: Manual therapy completed Damian Hughes, MISSILE MECHANIC [address], [place], [address], [facility] 06/28/2024 16:44:18 4 60401 Therapeutic Exercise (1:1) completed Damian Hughes, MISSILE MECHANIC [address], [place], [address], [facility] 06/26/2024 16:33:53 4 07006: Hot or Cold Pack completed Damian Scafuri, MISSILE MECHANIC [address], [place], [address], [facility] 06/26/2024 16:29:10 4 12782: Manual therapy completed Damian Scafuri, MISSILE MECHANIC [address], [place], [address], [facility] 06/26/2024 16:29:10 4 70566 Therapeutic Exercise (1:1) completed Damian Scafuri, MISSILE MECHANIC [address], [place], [address], [facility] 06/19/2024 08:44:31 4 79400: Hot or Cold Pack completed Damian Scafuri, MISSILE MECHANIC [address], [place], [address], [facility] 06/19/2024 08:43:33 4 62471: Manual therapy completed Damian Scafuri, MISSILE MECHANIC [address], [place], [address], [facility] 06/19/2024 08:43:33 4 71388 Therapeutic Exercise (1:1) completed Vin Rueda, DPT [address], [place], [address], [facility] 06/13/2024 10:36:52 4 46946: Hot or Cold Pack completed Vin Mastediths, DPT [address], [place], [address], [facility] 06/13/2024 10:37:07 4 95987: Manual therapy completed Vin Bullocks, DPT [address], [place], [address], [facility] 06/13/2024 10:37:13 4 15327 Therapeutic Exercise (1:1) completed Vin Rueda, DPT [address], [place], [address], [facility] 06/10/2024 13:43:08 4 18368: Low complexity PT Eval completed Vin Rueda DPT [address], [place], [address], [facility] 06/10/2024 13:43:11 4 operation on shoulder joint completed GUERA NELLY [facility] 12/30/2024 [...] Updated DateTime 12/30/2024 172.72 cm 28.6 kg/m2 59662.37 g GUERA VILLEGAS [facility] 12/30/2024 13:38:48 Date Recorded Body height Body mass index (BMI) Body weight Provider Name and Address Organization Details Last Updated DateTime 02/28/2025 172.72 cm 28.6 kg/m2 16964.37 g GUERA VILLEGAS [facility] 02/28/2025 [...] Kidney/Bladder Problems N Anemia N Heart Attack ([place]) N Cholesterol Y Diabetes N Bleeding Disorder N Seizures/Epilepsy N AIDS/HIV N Congestive Heart Failure (CHF) N Asthma N Peripheral Vascular Disease N Sleep Apnea N Hepatitis N Heart Disease N Pulmonary Embolism N Hypertension Y Osteoporosis N Past Encounters Encounter ID Performer Location Encounter Start Date Encounter Closed Date Diagnosis/Indication Diagnosis SNOMED-CT Code Diagnosis ICD10 Code Diagnosis IMO Codes Diagnosis Note [id number] MD [facility]fin Weeks 2nd floor [address] [place] [address] 02/05/2024 15:00:53 02/19/2024 09:26:41 Pain of left shoulder joint [id number] 4492432 M25.787 [id number] MD [facility] 2nd floor [address] [place] [address] 03/25/2024 10:58:57 04/08/2024 08:16:28 Anterior to posterior tear of superior glenoid labrum of left shoulder 4903644561 8917020 S43.432D Instabilit y of left shoulder joint 232788682 S43.432A [id number] MD [facility] We[facility] 2nd [facility] [address] [place] [address] 05/16/2024 12:26:54 06/03/2024 15:50:56 Posterior dislocation of shoulder joint 996526456 S43.025D [id number] MD [facility] [address] [place] [address] 06/07/2024 12:43:50 07/05/2024 17:10:52 Follow-up orthopedic assessment [id number] Z47.89 [id number] Vin Rueda , RADHAT [facility] [address] [place] [address] 06/10/2024 10:43:28 06/10/2024 11:55:20 Anterior to posterior tear of superior glenoid labrum of left shoulder 1468745144 3442998 S43.432D [id number] Vin Rueda , RADHAT [facility] [address] [place] [address] 06/12/2024 10:45:23 06/12/2024 11:35:00 Anterior to posterior tear of superior glenoid labrum of left shoulder 6504938664 1567565 S43.432D [id number] Damian Hughes, MISSILE MECHANIC [facility] [address] [place] [address] 06/19/2024 07:58:33 06/19/2024 08:51:00 Anterior to posterior tear of superior glenoid labrum of left shoulder 5877121625 1405622 S43.432D [id number] Damian Hughes, MISSILE MECHANIC [facility] [address] [place] [address] 06/26/2024 15:24:10 06/26/2024 17:11:45 Anterior to posterior tear of superior glenoid labrum of left shoulder 8843736974 7351130 S43.432D [id number] Damian Hughes MISSILE MECHANIC [facility] [address] [place] [address] 06/28/2024 15:24:38 06/28/2024 16:09:18 Anterior to posterior tear of superior glenoid labrum of left shoulder 2794981441 0511106 S43.432D [id number] Vin Rueda DPT [facility] [address] [place] [address] 07/02/2024 11:43:41 07/02/2024 12:31:21 Anterior to posterior tear of superior glenoid labrum of left shoulder 2441852560 7259437 S43.432D [id number] RADHA GraceT [facility] [address] [place] [address] 07/04/2024 11:29:37 07/04/2024 14:04:20 Anterior to posterior tear of superior glenoid labrum of left shoulder 4604807097 2576552 S43.432D [id number] Damian Hughes MISSILE MECHANIC [facility] [address] [place] [address] 2024 13:28:08 07/10/2024 08:36:19 Anterior to posterior tear of superior glenoid labrum of left shoulder 0524968246 4139708 S43.432D [id number] Damian Hughes, MISSILE MECHANIC [facility] [address] [place] [address] 07/11/2024 13:16:18 07/11/2024 15:06:41 Anterior to posterior tear of superior glenoid labrum of left shoulder 7026841732 5601194 S43.432D [id number] Damian Hughes, MISSILE MECHANIC [facility] [address] [place] [address] 07/16/2024 11:40:31 07/16/2024 12:42:19 Anterior to posterior tear of superior glenoid labrum of left shoulder 7486684743 [id number] S43.432D [id number] Vin Rueda , DPSean [facility] [address] [place] [address] 07/18/2024 15:19:40 07/18/2024 17:24:20 Anterior to posterior tear of superior glenoid labrum of left shoulder 6452785178 9596595 S43.432D [id number] Damian Hughes, MISSILE MECHANIC [facility] [address] [place] [address] 07/22/2024 09:56:45 07/22/2024 10:24:11 Anterior to posterior tear of superior glenoid labrum of left shoulder 8317925514 6913073 S43.432D [id number] Wily Thornton PA-C [facility] [address] [place] [address] 07/23/2024 14:47:16 08/01/2024 15:40:16 Pain of left shoulder joint 9079531942 9543939 M25.165 [id number] Damian Hughes, MISSILE MECHANIC [facility] [address] [place] [address] 07/26/2024 09:41:43 07/26/2024 10:37:37 Anterior to posterior tear of superior glenoid labrum of left shoulder 0600702750 9751524 S43.432D [id number] Vin Rueda , RADHAT [facility] [address] [place] [address] 07/29/2024 10:14:52 07/29/2024 11:17:42 Anterior to posterior tear of superior glenoid labrum of left shoulder 7199089068 8344606 S43.432D [id number] Vin Rueda , RADHAT [facility] [address] [place] [address] 07/31/2024 10:15:37 07/31/2024 11:03:28 Anterior to posterior tear of superior glenoid labrum of left shoulder 8434189380 3665596 S43.432D [id number] Damian Hughes MISSILE MECHANIC [facility] [address] [place] [address] 08/06/2024 15:18:30 08/06/2024 16:03:32 Anterior to posterior tear of superior glenoid labrum of left shoulder 7946456931 7136696 S43.432D [id number] Damian Hughes MISSILE MECHANIC [facility] [address] [place] [address] 08/09/2024 13:13:56 08/09/2024 14:47:03 Anterior to posterior tear of superior glenoid labrum of left shoulder 8506245487 7729448 S43.432D [id number] Vin Rueda DPT [facility] [address] [place] [address] 08/13/2024 10:20:30 08/13/2024 11:13:34 Anterior to posterior tear of superior glenoid labrum of left shoulder 1221495126 8856163 S43.432D [id number] Damian Hughes MISSILE MECHANIC [facility] [address] [place] [address] 08/16/2024 14:22:43 08/16/2024 16:05:41 Anterior to posterior tear of superior glenoid labrum of left shoulder 3929718374 1479996 S43.432D [id number] Damian Scafuri, MISSILE MECHANIC [facility] [address] [place] [address] 08/20/2024 11:25:47 08/20/2024 12:17:50 Anterior to posterior tear of superior glenoid labrum of left shoulder 3589446326 6256801 S43.432D [id number] Damian Hughes, MISSILE MECHANIC [facility] [address] [place] [address] 08/22/2024 11:28:21 08/22/2024 14:18:13 Anterior to posterior tear of superior glenoid labrum of left shoulder 1531129242 9079165 S43.432D [id number] Lizy Garza MD [facility] [address] [place] [address] 08/27/2024 16:29:07 09/17/2024 15:56:24 Follow-up orthopedic assessment [id number] Z47.89 [id number] Vin Rueda , DPSean [facility] [address] [place] [address] 08/28/2024 10:37:07 08/28/2024 12:14:05 Anterior to posterior tear of superior glenoid labrum of left shoulder 3168425002 6910260 S43.432D [id number] Damian Hughes, MISSILE MECHANIC [facility] [address] [place] [address] 08/30/2024 13:40:25 08/30/2024 15:42:16 Anterior to posterior tear of superior glenoid labrum of left shoulder 7087570815 [id number] S43.432D [id number] Damian Gregoriori, MISSILE MECHANIC [facility] [address] [place] [address] 09/04/2024 12:13:25 09/04/2024 13:33:51 Anterior to posterior tear of superior glenoid labrum of left shoulder 6678515849 4301400 S43.432D [id number] Damian Gregoriori, MISSILE MECHANIC [facility] [address] [place] [address] 09/06/2024 13:25:48 09/06/2024 15:12:55 Anterior to posterior tear of superior glenoid labrum of left shoulder 1018924645 9390807 S43.432D [id number] Vin Rueda DPT [facility] [address] [place] [address] 09/09/2024 09:37:19 09/09/2024 10:54:58 Anterior to posterior tear of superior glenoid labrum of left shoulder 4054747682 8184698 S43.432D [id number] MD [facility] 2nd floor [address] [place] [address] 09/30/2024 14:33:00 10/29/2024 09:59:27 Left cervical root neuropathy 4849687044 7341068 M54.12 [id number] Pain of le ft shoulder joint 2196111243 7701464 M25.512 [id number] Vin Rueda DPT [facility] [address] [place] [address] 09/11/2024 10:05:30 09/11/2024 11:24:15 Anterior to posterior tear of superior glenoid labrum of left shoulder 0905287077 2599113 S43.432D [id number] Damian Hughes MISSILE MECHANIC [facility] [address] [place] [address] 09/17/2024 11:09:15 09/17/2024 12:23:02 Anterior to posterior tear of superior glenoid labrum of left shoulder 6268160566 9784401 S43.432D [id number] Damian Hughes MISSILE MECHANIC [facility] [address] [place] [address] 09/19/2024 14:19:28 09/19/2024 15:35:53 Anterior to posterior tear of superior glenoid labrum of left shoulder 5189213972 2512974 S43.432D [id number] Damian Hughes MISSILE MECHANIC [facility] [address] [place] [address] 10/08/2024 14:36:31 10/08/2024 16:37:45 Anterior to posterior tear of superior glenoid labrum of left shoulder 4726632686 3126399 S43.432D [id number] Damian Gaminosavannah, MISSILE MECHANIC [facility] [address] [place] [address] 10/15/2024 09:23:11 10/15/2024 09:46:05 Anterior to posterior tear of superior glenoid labrum of left shoulder 6444412601 7284181 S43.432D [id number] Damian Gregoriodavid, MISSILE MECHANIC [facility] [address] [place] [address] 10/17/2024 16:22:48 10/17/2024 17:09:16 Anterior to posterior tear of superior glenoid labrum of left shoulder 2533278778 8504666 S43.432D Vin Rueda , DPT [facility] [address] [place] [address] 10/22/2024 08:54:05 10/22/2024 09:27:49 Anterior to posterior tear of superior glenoid labrum of left shoulder 4865228059 9368841 S43.432D [id number] Lizy Garza MD [facility] - [facility] [address] [facility] [address] [place] [address] 11/15/2024 14:09:09 11/27/2024 09:25:57 Follow-up orthopedic assessment [id number] Z47.89 [id number] Damian Gaminosavannah, MISSILE MECHANIC [facility] [address] [place] [address] 11/11/2024 13:13:51 11/12/2024 07:01:13 Anterior to posterior tear of superior glenoid labrum of left shoulder 8794265541 [id number] S43.432D [id number] Damian Gaminosavannah, MISSILE MECHANIC [facility] [address] [place] [address] 11/14/2024 15:26:00 11/14/2024 16:21:32 Anterior to posterior tear of superior glenoid labrum of left shoulder 0128719593 6156048 S43.432D [id number] Damian Saul, MISSILE MECHANIC [facility] [address] [place] [address] 11/28/2024 09:22:03 11/28/2024 10:10:10 Anterior to posterior tear of superior glenoid labrum of left shoulder 3418390343 3092775 S43.432D [id number] Damian Hughes, MISSILE MECHANIC [facility] [address] [place] [address] 12/05/2024 08:21:32 12/05/2024 09:03:34 Anterior to posterior tear of superior glenoid labrum of left shoulder 8692242886 9301172 S43.432D [id number] Damian Hughes, MISSILE MECHANIC [facility] [address] [place] [address] 12/11/2024 09:28:53 12/11/2024 10:46:17 Anterior to posterior tear of superior glenoid labrum of left shoulder 1193575721 9023823 S43.432D [id number] Damian Hughes, MISSILE MECHANIC [facility] [address] [place] [address] 12/13/2024 07:29:49 12/13/2024 10:46:19 Anterior to posterior tear of superior glenoid labrum of left shoulder 6846639734 3921522 S43.432D [id number] Damian Hughes, MISSILE MECHANIC [facility] [address] [place] [address] 12/17/2024 09:22:22 12/17/2024 11:49:45 Anterior to posterior tear of superior glenoid labrum of left shoulder 0398314173 8477834 S43.432D [id number] Lizy Garza MD [facility] [address] [facility] [address] [place] [address] 12/30/2024 13:35:12 01/14/2025 06:44:47 Follow-up orthopedic assessment [id number] Z47.89 [id number] Damian Hughes, MISSILE MECHANIC [facility] [address] [place] [address] 12/20/2024 08:06:20 12/20/2024 09:21:32 Anterior to posterior tear of superior glenoid labrum of left shoulder 1151543666 [id number] S43.432D [id number] Damian Hughes, MISSILE MECHANIC [facility] [address] [place] [address] 12/25/2024 06:45:05 12/25/2024 08:13:49 Anterior to posterior tear of superior glenoid labrum of left shoulder 7895502557 [id number] S43.432D [id number] Damian Hughes, MISSILE MECHANIC [facility] [address] [place] [address] 12/31/2024 09:44:29 12/31/2024 11:55:51 Anterior to posterior tear of superior glenoid labrum of left shoulder 5265215553 7223820 S43.432D [id number] Damian Hughes, MISSILE MECHANIC [facility] [address] [place] [address] 01/23/2025 08:51:44 01/23/2025 09:38:17 Anterior to posterior tear of superior glenoid labrum of left shoulder 5958977755 [id number] S43.432D [id number] MD [facility] [address] [facility] [address] [place] [address] 02/28/2025 13:31:14 03/10/2025 14:33:45 Follow-up orthopedic assessment [id number] Z47.89 [id number] Health Concerns Section Related Observation LastModified by Organization Detai ls LastModified Time None Recorded Concern Status LastModified by Organization Details LastModified Time None Recorded Advance Directives Directive None Recorded Payers Insurance Date Sequence Insurance Name Policy Number Policy Barton Covered Member ID Barton Member ID Guarantor Name 02/05/2024 [employer] [facility] [facility] [employer] Mike 03/22/2024 1 *SELF PAY* patti Mike Notes Date Note Type Note Provider Name and Address Organization Details Recorded Time 12/25/2024 text/html Pt reports feeling good. Arm continues to move better. Damian Hughes, MISSILE MECHANIC [address], [place], [address], [place] - [facility] 12/25/2024 09:52:17 12/30/2024 text/html [...] and well perfused. Imaging: Deferred Impression: 54-year-old [id number] gentleman, now approximately 8 months out from [...] him back in 8 weeks for recheck. [facility] speech recognition sow manager software was used to create portions of this document. An attempt at proofreading has been made to minimize errors. Please call for corrections. Lizy Garza MD [address], [place], [address], [facility] 12/30/2024 14:14:34 12/31/2024 text/html Pt reports feeling good. Arm continues to move better. Damian Hughes, MISSILE MECHANIC [address], [place], [address], [facility] 12/31/2024 13:54:22 01/23/2025 text/html Pt reports feeling good. No pain. Has applied for multiple jobs and is waiting to hear back. Damian Hughes, MISSILE MECHANIC [address], [place], [address], [facility] 01/23/2025 10:14:05 02/28/2025 text/html [...] and well perfused. Imaging: Deferred Impression: 54-year-old omzdf-odfq-[id number] gentleman, now approximately 9 months out from [...] occasional aches and pains, she can take veib-pdd-sczltes medication such as Tylenol or anti-inflammatories as needed; risks and benefits of medication discussed. Should call with more persistent pain. We will leave follow up open ended at this point. However should symptoms worsen or fail to improve to the patient's satisfaction, he is encouraged to give the office a call to be seen back for further evaluation and management. [employer] speech recognition sow manager software was used to create portions of this document. An attempt at proofreading has been made to minimize errors. Please call for corrections. Lizy Garza MD [address] [place], [place] [address] [address] [facility], [place], [address], [facility] - [facility] 02/28/2025 14:13:55
== END 2025-09-29 14:51 | disposition home or self-care (01) ==
LOC: HO.HGS 13:53
PROVIDERS: PCP Nurse Practitioner Family; Visit Provider Surgery
DX: R10.31 Right lower quadrant pain (principal)
CPT/HCPCS: 99213

== ENCOUNTER → 2025-09-29 13:52 | Outpatient (BNVA) | payer OTHER, SELFPAY | PROVIDERS: PCP Nurse Practitioner Family; Visit Provider Surgery | DX: R10.31 Right lower quadrant pain (principal); Z98.890 Other specified postprocedural states | CPT/HCPCS: 99212 ==

== ENCOUNTER 2025-10-24 07:27 | Outpatient (REF) | payer OTHER, SELFPAY ==
--- OUTSIDE RECORDS SUMMARY | 2025-10-24 07:30 | XMS_ITS | Clinical Summary ---
Author Organization [facility] it Address [address] [place] [address] Care Team Providers [facility] Hand Name Role Phone Unavailable Primary Care Provider [...]
--- OUTSIDE RECORDS SUMMARY | 2025-10-24 07:30 | XMS_ITS | Data Portability ---
Author Organization [facility] Drew Bhandari Casean [facility] Address [address] [place] [address] Care Team Providers Care Packaging Engineer Name Role Phone SRIDEVI STUART Primary Care Provider [phone] LAVERNE FLORES Plumbing Service Technician Unavailable Assessment Encounter Date Assessment Date Assessment [...] Recorded Time Pain of left shoulder joint [id number] 09 Active 2023 Wily Thornton PA-C [address], [place], [address], [facility] 4 13:58:40 Problem Notes None recorded. Procedures Surgical History Date Name Laterality Status Provider Name and Address Organization Details Recorded Time 5 20689 Therapeutic Exercise (1:1) completed Damian Scafuri, HEALTH UNDERWRITER [address], [place], [address], [facility] 01/23/2025 10:09:04 5 24713: Hot or Cold Pack completed Damian Scafuri, HEALTH UNDERWRITER [address], [place], [address], [facility] 01/23/2025 10:09:04 5 03346: Manual therapy completed Damian Scafuri, HEALTH UNDERWRITER [address], [place], [address], [facility] 01/23/2025 10:09:04 5 71179 Therapeutic Exercise (1:1) completed Damian Scafuri, HEALTH UNDERWRITER [address], [place], [address], [facility] 12/31/2024 13:50:25 5 99159: Hot or Cold Pack completed Damian Scafuri, HEALTH UNDERWRITER [address], [place], [address], [facility] 12/31/2024 13:50:25 5 74468: Manual therapy completed Damian Scafuri, HEALTH UNDERWRITER [address], [place], [address], [facility] 12/31/2024 13:50:25 5 24160 Therapeutic Exercise (1:1) completed Damian Scafuri, HEALTH UNDERWRITER [address], [place], [address], [facility] 12/25/2024 09:47:58 5 15433: Hot or Cold Pack completed Damian Scafuri, HEALTH UNDERWRITER [address], [place], [address], [facility] 12/25/2024 09:47:58 5 80121: Manual therapy completed Damian Scafuri, HEALTH UNDERWRITER [address], [place], [address], [facility] 12/25/2024 09:47:58 5 91259 Therapeutic Exercise (1:1) completed Damian Scafuri, HEALTH UNDERWRITER [address], [place], [address], [facility] 12/20/2024 09:16:04 5 94509: Hot or Cold Pack completed Damian Scafuri, HEALTH UNDERWRITER [address], [place], [address], [facility] 12/20/2024 09:16:04 5 39647: Manual therapy completed Damian Scafuri, HEALTH UNDERWRITER [address], [place], [address], [facility] 12/20/2024 09:16:04 5 68515 Therapeutic Exercise (1:1) completed Damian Scafuri, HEALTH UNDERWRITER [address], [place], [address], [facility] 12/17/2024 11:55:46 5 22042: Hot or Cold Pack completed Damian Scafuri, HEALTH UNDERWRITER [address], [place], [address], [facility] 12/17/2024 11:55:46 5 23446: Manual therapy completed Damian Scafuri, HEALTH UNDERWRITER [address], [place], [address], [facility] 12/17/2024 11:55:46 5 68725 Therapeutic Exercise (1:1) completed Damian Scafuri, HEALTH UNDERWRITER [address], [place], [address], [facility] 12/13/2024 10:43:59 5 74612: Hot or Cold Pack completed Damian Scafuri, HEALTH UNDERWRITER [address], [place], [address], [facility] 12/13/2024 10:43:59 5 53890: Manual therapy completed Damian Scafuri, HEALTH UNDERWRITER [address], [place], [address], [facility] 12/13/2024 10:43:59 5 65976 Therapeutic Exercise (1:1) completed Damian Scafuri, HEALTH UNDERWRITER [address], [place], [address], [facility] 12/11/2024 10:59:43 5 97520: Hot or Cold Pack completed Damian Scafuri, HEALTH UNDERWRITER [address], [place], [address], [facility] 12/11/2024 11:00:32 5 40465: Manual therapy completed Damian Scafuri, HEALTH UNDERWRITER [address], [place], [address], [facility] 12/11/2024 10:59:43 5 94937 Therapeutic Exercise (1:1) completed Damian Scafuri, HEALTH UNDERWRITER [address], [place], [address], [facility] 12/05/2024 10:54:20 5 14309: Hot or Cold Pack completed Damian Scafuri, HEALTH UNDERWRITER [address], [place], [address], [facility] 12/05/2024 10:54:20 5 65107: Manual therapy completed Damian Scafuri, HEALTH UNDERWRITER [address], [place], [address], [facility] 12/05/2024 10:54:20 5 46374 Therapeutic Exercise (1:1) completed Damian Scafuri, HEALTH UNDERWRITER [address], [place], [address], [facility] 11/28/2024 11:17:56 5 97994: Hot or Cold Pack completed Damian Scafuri, HEALTH UNDERWRITER [address], [place], [address], [facility] 11/28/2024 11:17:23 5 92298: Manual therapy completed Damian Scafuri, HEALTH UNDERWRITER [address], [place], [address], [facility] 11/28/2024 11:17:47 5 13253 Therapeutic Exercise (1:1) completed Damian Scafuri, HEALTH UNDERWRITER [address], [place], [address], [facility] 11/14/2024 17:12:21 5 07223: Hot or Cold Pack completed Damian Scafuri, HEALTH UNDERWRITER [address], [place], [address], [facility] 11/14/2024 17:12:21 5 31167: Manual therapy completed Damian Scafuri, HEALTH UNDERWRITER [address], [place], [address], [facility] 11/14/2024 17:12:21 5 39007 Therapeutic Exercise (1:1) completed Damian Scafuri, HEALTH UNDERWRITER [address], [place], [address], [facility] 11/11/2024 16:40:15 5 51422: Hot or Cold Pack completed Damian Scafuri, HEALTH UNDERWRITER [address], [place], [address], [facility] [place] 11/11/2024 16:39:30 5 82728: Manual therapy completed Damian Scafuri, HEALTH UNDERWRITER [address], [place], [address], [facility] 11/11/2024 16:39:31 4 23041 Therapeutic Exercise (1:1) completed Vin Bullocks, DPT [address], [place], [address], [facility] 10/23/2024 10:46:21 4 51283: Hot or Cold Pack completed Vin Rueda, DPT [address], [place], [address], [facility] [place] [facility] 10/23/2024 10:46:21 4 42003: Manual therapy completed Vin Rueda, DPT [address], [place], [address], [facility] 10/23/2024 10:46:21 4 19689 Therapeutic Exercise (1:1) completed Damian Scafuri, HEALTH UNDERWRITER [address], [place], [address], [facility] 10/17/2024 17:59:14 4 60592: Hot or Cold Pack completed Damian Scafuri, HEALTH UNDERWRITER [address], [place], [address], [facility] 10/17/2024 17:59:13 4 93882: Manual therapy completed Damian Scafuri, HEALTH UNDERWRITER [address], [place], [address], [facility] 10/17/2024 17:59:14 4 43582 Therapeutic Exercise (1:1) completed Damian Scafuri, HEALTH UNDERWRITER [address], [place], [address], [facility] 10/15/2024 11:02:53 4 09879: Hot or Cold Pack completed Damian Scafuri, HEALTH UNDERWRITER [address], [place], [address], [facility] 10/15/2024 10:59:59 4 65311: Manual therapy completed Damian Scafuri, HEALTH UNDERWRITER [address], [place], [address], [facility] 10/15/2024 11:03:45 4 52858 Therapeutic Exercise (1:1) completed Damian Scafuri, HEALTH UNDERWRITER [address], [place], [address], [facility] 10/08/2024 20:10:57 4 47257: Hot or Cold Pack completed Damian Scafuri, HEALTH UNDERWRITER [address], [place], [address], [facility] 10/08/2024 20:10:57 4 27113: Manual therapy completed Damian Scafuri, HEALTH UNDERWRITER [address], [place], [address], [facility] 10/08/2024 20:10:57 4 11235 Therapeutic Exercise (1:1) completed Damian Scafuri, HEALTH UNDERWRITER [address], [place], [address], [facility] 09/19/2024 15:17:31 4 61892: Hot or Cold Pack completed Damian Scafuri, HEALTH UNDERWRITER [address], [place], [address], [facility] 09/19/2024 15:16:31 4 03539: Manual therapy completed Damian Scafuri, HEALTH UNDERWRITER [address], [place], [address], [facility] 09/19/2024 15:16:31 4 22505 Therapeutic Exercise (1:1) completed Damian Hughes, HEALTH UNDERWRITER [address], [place], [address], [facility] 09/17/2024 13:47:38 4 60180: Hot or Cold Pack completed Damian Hughes, HEALTH UNDERWRITER [address], [place], [address], [facility] 09/17/2024 13:47:38 4 25388: Manual therapy completed Damian Hughes, HEALTH UNDERWRITER [address], [place], [address], [facility] 09/17/2024 13:47:38 4 21532 Therapeutic Exercise (1:1) completed Vin Rueda, DPT [address], [place], [address], [facility] 09/11/2024 13:09:20 4 25114: Hot or Cold Pack completed Vin Rueda, DPT [address], [place], [address], [facility] 09/11/2024 13:09:20 4 87354: Manual therapy completed Vin Rueda, DPT [address], [place], [address], [facility] 09/11/2024 13:09:20 4 96974 Therapeutic Exercise (1:1) completed Vin Rueda, DPT [address], [place], [address], [facility] 09/09/2024 10:46:11 4 26005: Hot or Cold Pack completed Vin Rueda, DPT [address], [place], [address], [facility] 09/09/2024 10:46:11 4 19875: Manual therapy completed Vin Rueda, DPT [address], [place], [address], [facility] 09/09/2024 10:46:11 4 01377 Therapeutic Exercise (1:1) completed Damian Scafuri, HEALTH UNDERWRITER [address], [place], [address], [facility] 09/06/2024 13:57:27 4 36112: Hot or Cold Pack completed Damian Scafuri, HEALTH UNDERWRITER [address], [place], [address], [facility] 09/06/2024 13:57:27 4 48373: Manual therapy completed Damian Scafuri, HEALTH UNDERWRITER [address], [place], [address], [facility] 09/06/2024 13:57:27 53526 Therapeutic Exercise (1:1) completed Damian Scafuri, HEALTH UNDERWRITER [address], [place], [address], [facility] 09/04/2024 15:08:23 84305: Hot or Cold Pack completed Damian Scafuri, HEALTH UNDERWRITER [address], [place], [address], [facility] 09/04/2024 15:08:23 4 87551: Manual therapy completed Damian Scafuri, HEALTH UNDERWRITER [address], [place], [address], [facility] 09/04/2024 15:08:23 08587 Therapeutic Exercise (1:1) completed Damian Scafuri, HEALTH UNDERWRITER [address], [place], [address], [facility] 09/01/2024 14:27:54 10/25/202 4 42763: Hot or Cold Pack completed Damian Gaminofuri, HEALTH UNDERWRITER [address], [place], [address], [facility] 09/01/2024 14:27:54 4 25288: Manual therapy completed Damian Gaminofuri, HEALTH UNDERWRITER [address], [place], [address], [facility] 09/01/2024 14:27:54 16456 Therapeutic Exercise (1:1) completed Vin Rueda, DPT [address], [place], [address], [facility] 08/29/2024 11:07:01 4 48685: Hot or Cold Pack completed Vin Rueda DPT [address], [place], [address], [facility] 08/29/2024 11:07:01 4 33684: Manual therapy completed Vin Rueda DPT [address], [place], [address], [facility] 08/29/2024 11:07:02 4 Sports Shoulder completed Lizy Garza MD [address], [place], [address], [facility] 08/27/2024 17:49:39 24593 Therapeutic Exercise (1:1) completed Damian Gaminofuri, HEALTH UNDERWRITER [address], [place], [address], [facility] 08/22/2024 13:54:23 4 26336: Hot or Cold Pack completed Damian Gaminofuri, HEALTH UNDERWRITER [address], [place], [address], [facility] 08/22/2024 13:54:23 4 92211: Manual therapy completed Damian Gaminofuri, HEALTH UNDERWRITER [address], [place], [address], [facility] 08/22/2024 13:54:23 4 11879 Therapeutic Exercise (1:1) completed Damianbritany Gaminofuri, HEALTH UNDERWRITER [address], [place], [address], [facility] 08/20/2024 14:41:52 4 55947: Hot or Cold Pack completed Damian Scafuri, HEALTH UNDERWRITER [address], [place], [address], [facility] 08/20/2024 14:41:52 4 34705: Manual therapy completed Damianbritany Gaminofuri, HEALTH UNDERWRITER [address], [place], [address], [facility] 08/20/2024 14:41:53 36943 Therapeutic Exercise (1:1) completed Damian Gaminofuri, HEALTH UNDERWRITER [address], [place], [address], [facility] 08/19/2024 10:12:24 4 60753: Hot or Cold Pack completed Damianbritany Gaminofuri, HEALTH UNDERWRITER [address], [place], [address], [facility] 08/19/2024 10:11:38 4 66322: Manual therapy completed Damian Gaminofuri, HEALTH UNDERWRITER [address], [place], [address], [facility] 08/19/2024 10:11:38 4 63251 Therapeutic Exercise (1:1) completed Vin Rueda DPT [address], [place], [address], [facility] 08/14/2024 12:49:16 4 30277: Hot or Cold Pack completed Vin Rueda DPT [address], [place], [address], [facility] 08/14/2024 12:49:16 4 67870: Manual therapy completed Vin Rueda, DPT [address], [place], [address], [facility] 08/14/2024 12:49:16 4 64456 Therapeutic Exercise (1:1) completed Damian Scafuri, HEALTH UNDERWRITER [address], [place], [address], [facility] 08/09/2024 14:15:59 4 67813: Hot or Cold Pack completed Damianbritany Gaminofuri, HEALTH UNDERWRITER [address], [place], [address], [facility] 08/09/2024 14:15:59 4 61264: Manual therapy completed Damian Gaminofuri, HEALTH UNDERWRITER [address], [place], [address], [facility] 08/09/2024 14:15:59 36321 Therapeutic Exercise (1:1) completed Damian Scafuri, HEALTH UNDERWRITER [address], [place], [address], [facility] 08/06/2024 17:06:12 4 14379: Hot or Cold Pack completed Damian Scafuri, HEALTH UNDERWRITER [address], [place], [address], [facility] 08/06/2024 17:06:12 4 97571: Manual therapy completed Damian Scafuri, HEALTH UNDERWRITER [address], [place], [address], [facility] 08/06/2024 17:06:12 43188 Therapeutic Exercise (1:1) completed Vin Rueda, DPT [address], [place], [address], [facility] 07/31/2024 12:53:55 4 06982: Hot or Cold Pack completed Vin Rueda, DPT [address], [place], [address], [facility] 07/31/2024 12:53:55 66021: Manual therapy completed Vin Rueda, DPT [address], [place], [address], [facility] 07/31/2024 12:53:55 20287 Therapeutic Exercise (1:1) completed Vin Cantukibrady, DPT [address], [place], [address], [facility] 07/31/2024 06:56:58 4 09412: Hot or Cold Pack completed Vin Rueda, DPT [address], [place], [address], [facility] 07/31/2024 06:56:58 4 04081: Manual therapy completed Vin Rueda, DPT [address], [place], [address], [facility] 07/31/2024 06:56:58 4 91980 Therapeutic Exercise (1:1) completed Damian Hughes, HEALTH UNDERWRITER [address], [place], [address], [facility] 07/26/2024 11:52:28 4 42877: Hot or Cold Pack completed Damian Stevensonfuri, HEALTH UNDERWRITER [address], [place], [address], [facility] 07/26/2024 11:51:55 4 42024: Manual therapy completed Damian Gaminofuri, HEALTH UNDERWRITER [address], [place], [address], [facility] 07/26/2024 11:51:55 4 17699 Therapeutic Exercise (1:1) completed Damian Scafuri, HEALTH UNDERWRITER [address], [place], [address], [facility] 07/22/2024 11:25:42 4 67333: Hot or Cold Pack completed Damian Scafuri, HEALTH UNDERWRITER [address], [place], [address], [facility] 07/22/2024 11:25:42 4 66580: Manual therapy completed Damian Scafuri, HEALTH UNDERWRITER [address], [place], [address], [facility] 07/22/2024 11:25:42 4 34916 Therapeutic Exercise (1:1) completed Vin Rueda, DPT [address], [place], [address], [facility] 07/22/2024 07:24:50 4 35421: Hot or Cold Pack completed Vin Rueda, DPT [address], [place], [address], [facility] 07/22/2024 07:24:50 4 94261: Manual therapy completed Vin Rueda, DPT [address], [place], [address], [facility] 07/22/2024 07:24:50 4 25923 Therapeutic Exercise (1:1) completed Damian Scafuri, HEALTH UNDERWRITER [address], [place], [address], [facility] 07/16/2024 12:43:18 4 50783: Hot or Cold Pack completed Damian Scafuri, HEALTH UNDERWRITER [address], [place], [address], [facility] 07/16/2024 12:43:18 4 64408: Manual therapy completed Damian Scafuri, HEALTH UNDERWRITER [address], [place], [address], [facility] 07/16/2024 12:43:18 4 38924 Therapeutic Exercise (1:1) completed Damian Scafuri, HEALTH UNDERWRITER [address], [place], [address], [facility] 07/11/2024 14:51:56 4 25201: Hot or Cold Pack completed Damian Scafuri, HEALTH UNDERWRITER [address], [place], [address], [facility] 07/11/2024 14:51:56 4 38596: Manual therapy completed Damian Scafuri, HEALTH UNDERWRITER [address], [place], [address], [facility] 07/11/2024 14:51:56 4 62804 Therapeutic Exercise (1:1) completed Damian Scafuri, HEALTH UNDERWRITER [address], [place], [address], [facility] 2024 14:42:28 4 35235: Hot or Cold Pack completed Damian Scafuri, HEALTH UNDERWRITER [address], [place], [address], [facility] 2024 14:42:28 4 63960: Manual therapy completed Damian Scafuri, HEALTH UNDERWRITER [address], [place], [address], [facility] 2024 14:42:28 4 58244 Therapeutic Exercise (1:1) completed Vin Rueda DPT [address], [place], [address], [facility] 07/04/2024 14:45:43 4 64021: Hot or Cold Pack completed Vin Rueda DPT [address], [place], [address], [facility] 07/04/2024 14:45:43 58736: Manual therapy completed RADHA GraceT [address], [place], [address], [facility] 07/04/2024 14:45:43 4 20614 Therapeutic Exercise (1:1) completed RADHA GraceT [address], [place], [address], [facility] 07/03/2024 10:47:53 4 69688: Hot or Cold Pack completed Vin Rueda DPT [address], [place], [address], [facility] 07/03/2024 10:47:53 4 34994: Manual therapy completed RADHA GraceT [address], [place], [address], [facility] 07/03/2024 10:47:53 4 87950 Therapeutic Exercise (1:1) completed Damian Hughes, HEALTH UNDERWRITER [address], [place], [address], [facility] 06/28/2024 16:44:18 4 69825: Hot or Cold Pack completed Damian Hughes, HEALTH UNDERWRITER [address], [place], [address], [facility] 06/28/2024 16:44:18 4 19637: Manual therapy completed Damian Hughes, HEALTH UNDERWRITER [address], [place], [address], [facility] 06/28/2024 16:44:18 4 59453 Therapeutic Exercise (1:1) completed Damian Hughes, HEALTH UNDERWRITER [address], [place], [address], [facility] 06/26/2024 16:33:53 4 06488: Hot or Cold Pack completed Damian Scafuri, HEALTH UNDERWRITER [address], [place], [address], [facility] 06/26/2024 16:29:10 4 62190: Manual therapy completed Damian Scafuri, HEALTH UNDERWRITER [address], [place], [address], [facility] 06/26/2024 16:29:10 4 06799 Therapeutic Exercise (1:1) completed Damian Scafuri, HEALTH UNDERWRITER [address], [place], [address], [facility] 06/19/2024 08:44:31 4 66343: Hot or Cold Pack completed Damian Scafuri, HEALTH UNDERWRITER [address], [place], [address], [facility] 06/19/2024 08:43:33 4 53728: Manual therapy completed Damian Scafuri, HEALTH UNDERWRITER [address], [place], [address], [facility] 06/19/2024 08:43:33 4 59986 Therapeutic Exercise (1:1) completed Vin Rueda, DPT [address], [place], [address], [facility] 06/13/2024 10:36:52 4 89739: Hot or Cold Pack completed Vin Mastediths, DPT [address], [place], [address], [facility] 06/13/2024 10:37:07 4 97051: Manual therapy completed Vin Bullocks, DPT [address], [place], [address], [facility] 06/13/2024 10:37:13 4 89523 Therapeutic Exercise (1:1) completed Vin Rueda, DPT [address], [place], [address], [facility] 06/10/2024 13:43:08 4 81963: Low complexity PT Eval completed Vin Rueda DPT [address], [place], [address], [facility] 06/10/2024 13:43:11 4 operation on shoulder joint completed GUERA NELLY [facility] 12/30/2024 13:39:42 Imaging Results None recorded. [...] Updated DateTime 12/30/2024 172.72 cm 28.6 kg/m2 76003.37 g GUERA VILLEGAS [facility] 12/30/2024 13:38:48 Date Recorded Body height Body mass index (BMI) Body weight Provider Name and Address Organization Details Last Updated DateTime 02/28/2025 172.72 cm 28.6 kg/m2 78117.37 g GUERA VILLEGAS [facility] 02/28/2025 13:38:24 Social History None recorded. Functional Status None recorded. Mental Status None recorded. Family History Nothing Reported. Medical History Condition Response Allergies/Hayfever N Coronary Artery Disease N Anxiety/Depression N Breathing or lung disorders N Emphysema N Nerve Disorders N Thyroid Problems N COPD N Pacemaker N Anemia N Kidney/Bladder Problems N Vascular Disease N Heart Trouble N Heart Attack ([place]) N Gastrointestinal Disease N Cholesterol Y Diabetes [...] ICD10 Code Diagnosis IMO Codes Diagnosis Note [id number] MD [facility]fin We[facility] 2nd floor [address] [place] [address] 02/05/2024 15:00:53 02/19/2024 09:26:41 Pain of left shoulder joint 9868563238 7245631 M25.810 [id number] MD [facility] 2nd floor [address] [place] [address] 03/25/2024 10:58:57 04/08/2024 08:16:28 Anterior to posterior tear of superior glenoid labrum of left shoulder 4393025587 1980526 S43.432D Instabilit y of left shoulder joint 082410736 S43.432A [id number] MD [facility] We[facility] 2nd [facility] [address] [place] [address] 05/16/2024 12:26:54 06/03/2024 15:50:56 Posterior dislocation of shoulder joint 626890498 S43.025D [id number] MD [facility] [address] [place] [address] 06/07/2024 12:43:50 07/05/2024 17:10:52 Follow-up orthopedic assessment [id number] Z47.89 [id number] Vin Rueda , RADHAT [facility] [address] [place] [address] 06/10/2024 10:43:28 06/10/2024 11:55:20 Anterior to posterior tear of superior glenoid labrum of left shoulder 6669282946 6164541 S43.432D [id number] Vin Reuda , RADHAT [facility] [address] [place] [address] 06/12/2024 10:45:23 06/12/2024 11:35:00 Anterior to posterior tear of superior glenoid labrum of left shoulder 0211951469 7450306 S43.432D [id number] Damian Hughes, HEALTH UNDERWRITER [facility] [address] [place] [address] 06/19/2024 07:58:33 06/19/2024 08:51:00 Anterior to posterior tear of superior glenoid labrum of left shoulder 8085488198 1407140 S43.432D [id number] Damian Hughes, HEALTH UNDERWRITER [facility] [address] [place] [address] 06/26/2024 15:24:10 06/26/2024 17:11:45 Anterior to posterior tear of superior glenoid labrum of left shoulder 6823443322 1372991 S43.432D [id number] Damian Hughes HEALTH UNDERWRITER [facility] [address] [place] [address] 06/28/2024 15:24:38 06/28/2024 16:09:18 Anterior to posterior tear of superior glenoid labrum of left shoulder 1915768469 6099743 S43.432D [id number] Vin Rueda DPT [facility] [address] [place] [address] 07/02/2024 11:43:41 07/02/2024 12:31:21 Anterior to posterior tear of superior glenoid labrum of left shoulder 0316349594 0809918 S43.432D [id number] RADHA GraceT [facility] [address] [place] [address] 07/04/2024 11:29:37 07/04/2024 14:04:20 Anterior to posterior tear of superior glenoid labrum of left shoulder 9165148655 2827532 S43.432D [id number] Damian Hughes HEALTH UNDERWRITER [facility] [address] [place] [address] 2024 13:28:08 07/10/2024 08:36:19 Anterior to posterior tear of superior glenoid labrum of left shoulder 9599862600 4746507 S43.432D [id number] Damian Hughes, HEALTH UNDERWRITER [facility] [address] [place] [address] 07/11/2024 13:16:18 07/11/2024 15:06:41 Anterior to posterior tear of superior glenoid labrum of left shoulder 0138564537 8603404 S43.432D [id number] Damian Hughes, HEALTH UNDERWRITER [facility] [address] [place] [address] 07/16/2024 11:40:31 07/16/2024 12:42:19 Anterior to posterior tear of superior glenoid labrum of left shoulder 2571465473 3552869 S43.432D [id number] Vin Rueda , DPSean [facility] [address] [place] [address] 07/18/2024 15:19:40 07/18/2024 17:24:20 Anterior to posterior tear of superior glenoid labrum of left shoulder 1674953743 5970989 S43.432D [id number] Damian Hughes, HEALTH UNDERWRITER [facility] [address] [place] [address] 07/22/2024 09:56:45 07/22/2024 10:24:11 Anterior to posterior tear of superior glenoid labrum of left shoulder 1275213338 5370318 S43.432D [id number] Wily Thornton PA-C [facility] [address] [place] [address] 07/23/2024 14:47:16 08/01/2024 15:40:16 Pain of left shoulder joint 6426459304 5042759 M25.881 [id number] Damian Hughes, HEALTH UNDERWRITER [facility] [address] [place] [address] 07/26/2024 09:41:43 07/26/2024 10:37:37 Anterior to posterior tear of superior glenoid labrum of left shoulder 1773239523 2618418 S43.432D [id number] Vin Rueda , RADHAT [facility] [address] [place] [address] 07/29/2024 10:14:52 07/29/2024 11:17:42 Anterior to posterior tear of superior glenoid labrum of left shoulder 0940571256 5233560 S43.432D [id number] Vin Rueda , RADHAT [facility] [address] [place] [address] 07/31/2024 10:15:37 07/31/2024 11:03:28 Anterior to posterior tear of superior glenoid labrum of left shoulder 8407050335 5767695 S43.432D [id number] Damian Hughes HEALTH UNDERWRITER [facility] [address] [place] [address] 08/06/2024 15:18:30 08/06/2024 16:03:32 Anterior to posterior tear of superior glenoid labrum of left shoulder 9948457908 1739171 S43.432D [id number] Damian Hughes HEALTH UNDERWRITER [facility] [address] [place] [address] 08/09/2024 13:13:56 08/09/2024 14:47:03 Anterior to posterior tear of superior glenoid labrum of left shoulder 1162340798 3362661 S43.432D [id number] Vin Rueda DPT [facility] [address] [place] [address] 08/13/2024 10:20:30 08/13/2024 11:13:34 Anterior to posterior tear of superior glenoid labrum of left shoulder 1115285765 7683894 S43.432D [id number] Damian Hughes HEALTH UNDERWRITER [facility] [address] [place] [address] 08/16/2024 14:22:43 08/16/2024 16:05:41 Anterior to posterior tear of superior glenoid labrum of left shoulder 0285011552 9259385 S43.432D [id number] Damian Scafuri, HEALTH UNDERWRITER [facility] [address] [place] [address] 08/20/2024 11:25:47 08/20/2024 12:17:50 Anterior to posterior tear of superior glenoid labrum of left shoulder 8703391132 7995730 S43.432D [id number] Damian Hughes, HEALTH UNDERWRITER [facility] [address] [place] [address] 08/22/2024 11:28:21 08/22/2024 14:18:13 Anterior to posterior tear of superior glenoid labrum of left shoulder 6105592012 3862725 S43.432D [id number] Lizy Garza MD [facility] [address] [place] [address] 08/27/2024 16:29:07 09/17/2024 15:56:24 Follow-up orthopedic assessment [id number] Z47.89 [id number] Vin Rueda , DPSean [facility] [address] [place] [address] 08/28/2024 10:37:07 08/28/2024 12:14:05 Anterior to posterior tear of superior glenoid labrum of left shoulder 1483171392 5017750 S43.432D [id number] Damian Hughes, HEALTH UNDERWRITER [facility] [address] [place] [address] 08/30/2024 13:40:25 08/30/2024 15:42:16 Anterior to posterior tear of superior glenoid labrum of left shoulder 7557045469 5907390 S43.432D [id number] Damian Gregoriori, HEALTH UNDERWRITER [facility] [address] [place] [address] 09/04/2024 12:13:25 09/04/2024 13:33:51 Anterior to posterior tear of superior glenoid labrum of left shoulder 9774776476 3799107 S43.432D [id number] Damian Gregoriori, HEALTH UNDERWRITER [facility] [address] [place] [address] 09/06/2024 13:25:48 09/06/2024 15:12:55 Anterior to posterior tear of superior glenoid labrum of left shoulder 2878318718 3238897 S43.432D [id number] Vin Rueda DPT [facility] [address] [place] [address] 09/09/2024 09:37:19 09/09/2024 10:54:58 Anterior to posterior tear of superior glenoid labrum of left shoulder 1234191980 9810644 S43.432D [id number] MD [facility] 2nd floor [address] [place] [address] 09/30/2024 14:33:00 10/29/2024 09:59:27 Left cervical root neuropathy 4076121069 0272211 M54.12 [id number] Pain of le ft shoulder joint 0140110259 6799047 M25.512 [id number] Vin Rueda DPT [facility] [address] [place] [address] 09/11/2024 10:05:30 09/11/2024 11:24:15 Anterior to posterior tear of superior glenoid labrum of left shoulder 0050926334 2908370 S43.432D [id number] Damian Hughes HEALTH UNDERWRITER [facility] [address] [place] [address] 09/17/2024 11:09:15 09/17/2024 12:23:02 Anterior to posterior tear of superior glenoid labrum of left shoulder 9053720564 7577284 S43.432D [id number] Damian Hughes HEALTH UNDERWRITER [facility] [address] [place] [address] 09/19/2024 14:19:28 09/19/2024 15:35:53 Anterior to posterior tear of superior glenoid labrum of left shoulder 2496122492 6815766 S43.432D [id number] Damian Hughes HEALTH UNDERWRITER [facility] [address] [place] [address] 10/08/2024 14:36:31 10/08/2024 16:37:45 Anterior to posterior tear of superior glenoid labrum of left shoulder 1832753807 3175253 S43.432D [id number] Damian Gaminosavannah, HEALTH UNDERWRITER [facility] [address] [place] [address] 10/15/2024 09:23:11 10/15/2024 09:46:05 Anterior to posterior tear of superior glenoid labrum of left shoulder 4610264066 0053466 S43.432D [id number] Damian Gregoriodavid, HEALTH UNDERWRITER [facility] [address] [place] [address] 10/17/2024 16:22:48 10/17/2024 17:09:16 Anterior to posterior tear of superior glenoid labrum of left shoulder 9654111061 5435162 S43.432D Vin Rueda , DPT [facility] [address] [place] [address] 10/22/2024 08:54:05 10/22/2024 09:27:49 Anterior to posterior tear of superior glenoid labrum of left shoulder 5221464830 7463510 S43.432D [id number] Lizy Garza MD [facility] - [facility] [address] [facility] [address] [place] [address] 11/15/2024 14:09:09 11/27/2024 09:25:57 Follow-up orthopedic assessment [id number] Z47.89 [id number] Damian Gaminosavannah, HEALTH UNDERWRITER [facility] [address] [place] [address] 11/11/2024 13:13:51 11/12/2024 07:01:13 Anterior to posterior tear of superior glenoid labrum of left shoulder 1616732152 [id number] S43.432D [id number] Damian Gaminosavannah, HEALTH UNDERWRITER [facility] [address] [place] [address] 11/14/2024 15:26:00 11/14/2024 16:21:32 Anterior to posterior tear of superior glenoid labrum of left shoulder 9165842613 8643241 S43.432D [id number] Damian Saul, HEALTH UNDERWRITER [facility] [address] [place] [address] 11/28/2024 09:22:03 11/28/2024 10:10:10 Anterior to posterior tear of superior glenoid labrum of left shoulder 9202985917 8277947 S43.432D [id number] Damian Hughes, HEALTH UNDERWRITER [facility] [address] [place] [address] 12/05/2024 08:21:32 12/05/2024 09:03:34 Anterior to posterior tear of superior glenoid labrum of left shoulder 4759628492 9201276 S43.432D [id number] Damian Hughes, HEALTH UNDERWRITER [facility] [address] [place] [address] 12/11/2024 09:28:53 12/11/2024 10:46:17 Anterior to posterior tear of superior glenoid labrum of left shoulder 9007025269 5724192 S43.432D [id number] Damian Hughes, HEALTH UNDERWRITER [facility] [address] [place] [address] 12/13/2024 07:29:49 12/13/2024 10:46:19 Anterior to posterior tear of superior glenoid labrum of left shoulder 4450312760 2349284 S43.432D [id number] Damian Hughes, HEALTH UNDERWRITER [facility] [address] [place] [address] 12/17/2024 09:22:22 12/17/2024 11:49:45 Anterior to posterior tear of superior glenoid labrum of left shoulder 7886414831 [id number] S43.432D [id number] Lizy Garza MD [facility] [address] [place] [address] 12/30/2024 13:35:12 01/14/2025 06:44:47 Follow-up orthopedic assessment [id number] Z47.89 [id number] Damian Hughes, HEALTH UNDERWRITER [facility] [address] [place] [address] 12/20/2024 08:06:20 12/20/2024 09:21:32 Anterior to posterior tear of superior glenoid labrum of left shoulder 0231163152 2349767 S43.432D [id number] Damian Hughes, HEALTH UNDERWRITER [facility] [address] [place] [address] 12/25/2024 06:45:05 12/25/2024 08:13:49 Anterior to posterior tear of superior glenoid labrum of left shoulder 2047439714 4608773 S43.432D [id number] Damian Hughes, HEALTH UNDERWRITER [facility] [address] [place] [address] 12/31/2024 09:44:29 12/31/2024 11:55:51 Anterior to posterior tear of superior glenoid labrum of left shoulder 3631706803 2296155 S43.432D [id number] Damian Hughes, HEALTH UNDERWRITER [facility] [address] [place] [address] 01/23/2025 08:51:44 01/23/2025 09:38:17 Anterior to posterior tear of superior glenoid labrum of left shoulder 6651309547 5113218 S43.432D [id number] MD [facility] [address] floor [address] [place] [address] 02/28/2025 13:31:14 03/10/2025 14:33:45 Follow-up orthopedic assessment [id number] Z47.89 [id number] Health Concerns Section Related Observation LastModified by Organization Detai ls LastModified Time None Recorded Concern Status LastModified by Organization Details LastModified Time None Recorded Advance Directives Directive None Recorded Payers Insurance Date Sequence Insurance Name Policy Number Policy Barton Covered Member ID Barton Member ID Guarantor Name 02/05/2024 [employer]IM [email or web address] N[employer] Mike 03/22/2024 1 *SELF PAY* patti Mike Notes Date Note Type Note Provider Name and Address Organization Details Recorded Time 12/25/2024 text/html Pt reports feeling good. Arm continues to move better. Damian Hughes, HEALTH UNDERWRITER [address], [place], [address], [place] - [facility] 12/25/2024 09:52:17 12/30/2024 text/html [...] and well perfused. Imaging: Deferred Impression: 54-year-old [id number] gentleman, now approximately 8 months out from [...] him back in 8 weeks for recheck. [facility] speech recognition structural draftsman software was used to create portions of this document. An attempt at proofreading has been made to minimize errors. Please call for corrections. Lizy Garza MD [address], [place], [address], [facility] 12/30/2024 14:14:34 12/31/2024 text/html Pt reports feeling good. Arm continues to move better. Damian Hughes, HEALTH UNDERWRITER [address], [place], [address], [facility] 12/31/2024 13:54:22 01/23/2025 text/html Pt reports feeling good. No pain. Has applied for multiple jobs and is waiting to hear back. Damian Hughes, HEALTH UNDERWRITER [address], [place], [address], [facility] 01/23/2025 10:14:05 02/28/2025 text/html [...] and well perfused. Imaging: Deferred Impression: 54-year-old [id number] gentleman, now approximately 9 months out from [...] occasional aches and pains, she can take [id number]-moq-ebnyhev medication such as Tylenol or anti-inflammatories as needed; risks and benefits of medication discussed. Should call with more persistent pain. We will leave follow up open ended at this point. However should symptoms worsen or fail to improve to the patient's satisfaction, he is encouraged to give the office a call to be seen back for further evaluation and management. [employer] speech recognition structural draftsman software was used to create portions of this document. An attempt at proofreading has been made to minimize errors. Please call for corrections. Lizy Garza MD [address] [place], [place] [address]therese [address] [facility], [place], [address], [facility] 02/28/2025 14:13:55
[2025-10-24 10:09] LABS: MANUAL DIFF FLAG NO
[2025-10-24 10:17] LABS: Hematocrit 47.8 % (42.0-52.0); Hemoglobin 16.1 g/dl (14.0-18.0); Imm Gran Abs Auto 0.02 X10*3/uL (0.00-0.03); Imm Gran Pct Auto 0.3 % (0.0-0.4); Lymphocytes Absolute Auto 3.5 X10*3/uL (1.2-4.9); Mean Corpuscular HGB Conc 33.7 g/dl (31.0-36.0); Mean Corpuscular Hemoglobin 30.6 pg (27.0-33.0); Mean Corpuscular Volume 90.7 fL (80.0-98.0); NRBC Abs Auto 0.000 X10*3/uL (0.0-0.012); NRBC Pct Auto 0.0 /100WBC (0.0-0.2); Platelet Count 254 X10*3/uL (160-400); Red Blood Count 5.27 X10*6/uL (4.60-5.80); White Blood Count 6.6 X10*3/uL (4.8-10.8)
[2025-10-24 10:55] LABS: Alanine Aminotransferase 31 U/L (0-40); Albumin Level 4.9 g/dL (3.5-5.0); Alkaline Phosphatase 70 U/L (39-117); Anion Gap 11 (12-20); Aspartate Amino Transferase 32 U/L (5-37); Blood Urea Nitrogen 13 mg/dL (9-16); Calcium 9.9 mg/dL (8.4-10.2); Carbon Dioxide 27 mmol/L (22-29); Chloride 106 mmol/L (96-108); Cholesterol 136 mg/dL (<200); Estimated Glomerular Filt Rate 51; HDL Cholesterol 67 mg/dL (>40); Potassium 4.2 mmol/L (3.3-5.1); Sodium 140 mmol/L (135-145); Total Protein 7.7 g/dL (6.5-8.0); Triglycerides 179 mg/dL (<150)
== END 2025-10-24 07:28 | disposition home or self-care (01) ==
LOC: HO.HMGCLDS 07:27
PROVIDERS: PCP Nurse Practitioner Family; Visit Provider Nurse Practitioner Family
DX: Z00.00 Encounter for general adult medical examination without abnormal findings (principal); Z12.5 Encounter for screening for malignant neoplasm of prostate
CPT/HCPCS: 36415; 80053; 80061; 84153; 84443; 85025

== ENCOUNTER 2025-10-25 09:30 | Outpatient (REF) | payer OTHER, SELFPAY ==
[2025-10-25 11:43] LABS: Appearance Urine Clear; Glucose Urine UA Negative (Negative); PH 6.0 (5.0-9.0); Specific Gravity - Urine 1.025 (1.005-1.025)
== END 2025-10-25 09:31 | disposition home or self-care (01) ==
LOC: HO.HMGCLNP 09:30
PROVIDERS: PCP Nurse Practitioner Family; Visit Provider Nurse Practitioner Family
DX: Z00.00 Encounter for general adult medical examination without abnormal findings (principal)
CPT/HCPCS: 81003

== ENCOUNTER 2025-10-27 09:10 | Outpatient (AMB) | payer OTHER, SELFPAY ==
[2025-10-27 09:22] VITALS: BP 120/82; PULSE 64; O2SAT 98; BMI 26.1
--- NOTE | 2025-10-27 09:22 | MHC.PC.OV ---
Vital Signs 10/27/25 09:22 Height 5 ft 8 in Weight 172 lb BMI 26.1 BP 120/82 Blood Pressure Location Lt brachial Position Sitting Pulse 64 Pulse Source Pulse Oximeter Pulse Oximetry (%) 98 Oxygen Delivery Method Room Air Intake Visit Reasons: Annual PE Snow Plow Operator Required: No Accompanied by: Self / Same As Patient Allergies No Known Allergies Allergy (Verified 10/27/25 10:08) Medication List - Last Reconciled 10/27/25 by JAE SaldivarP- amlodipine 10 mg PO DAILY atorvastatin 20 mg PO BEDTIME 90 days cholecalciferol (vitamin D3) 25 mcg PO DAILY 90 days fenofibrate 54 mg PO DAILY fluticasone propionate 50 mcg/actuation (Flonase Allergy Relief) 1 spray intranasal DAILY metoprolol tartrate 50 mg PO BID omeprazole 40 mg PO DAILY Tobacco use date assessed: 10/27/25 Dental Screening Dental Screen Date: 10/27/25 Did you have a dental visit in the last 12 months?: No Did you have a dental problem in the last 6 months where you did not have access to dental care?: No Was dental information given to patient?: Patient has dentist HPI Annual PE HPI Details History of Present Illness The patient is a 55 year old male presenting for follow-up after a recent emergency room visit for chest pain. He was seen in the emergency room at [facility] last week after experiencing severe right-sided chest pain while driving, which was associated with numbness that started in his right upper extremity, progressed to the left upper extremity, and then to his lower extremities. He drove home and 911 was called, and an ambulance transported him to the ER. During the ER visit, there was some ST depression noted on EKG, which became less prominent over time, and a chest x-ray was negative. The hospital discharge notes reported that he had very high anxiety. He has not had severe sharp pain since that episode, but reports the pain is reproducible and is present today in the right lower pectoral region with palpation. It was documented that pt was very anxious. Past medical history is notable for ongoing right inguinal discomfort, for which he was evaluated by a general surgeon and an inguinal hernia was ruled out. He is currently awaiting an appointment with pain management for this issue. He has a significant family history of cardiac disease. nephrology referral being placed for ongoing intermittent slightly elevated creatinine Health Maintenance - He has a significant family history of cardiac disease. - He drinks alcohol minimally. - He does not smoke. -colon screen is up to date -psa is up todate Social History - Alcohol use: He drinks minimally. - Tobacco use: He does not smoke. Review of Systems - Cardiovascular: Reports a history of an episode of severe, right-sided chest pain. - Musculoskeletal: Reports reproducible pain in the right lower pectoral region with palpation and ongoing right inguinal discomfort. Denies change in chest pain with turning the upper torso side to side. - Neurological: Reports a history of an episode where his right upper extremity, then left upper extremity, and then his lower extremities went numb. - Psychiatric: Acknowledges that hospital notes indicated he had very high anxiety. Physical Exam General: Cooperative, healthy appearing, comfortable, no acute distress and well developed, skinny stature Orientation: Patient oriented x3 Limitations: No limitations Head: Normal to inspection Ears: Hearing grossly normal bilaterally Nose: Normal external nose present Face and sinus: Normal facial exam Eyes: Appearance normal, both eyes and all related structures Neck: Normal visual inspection and Yes full ROM Respiratory: Normal respiratory effort and able to speak in complete sentences. Clear to auscultation bilaterally Cardiovascular: Regular rate and rhythm. Normal S1 and S2 GI: Normal to inspection. Soft to palpation and nontender : Testicles without masses/lesions and no hernias appreciated Skin: No rashes or lesions noted Neuro: Patient oriented x3 Extremities: Normal to inspection Results - Chest X-ray: Negative during recent ER visit. - EKG: Showed some ST depression that was less prominent over time during recent ER visit. Plan 1. Chest Pain The patient's chest pain is reproducible with palpation in the right lower pectoral region, suggesting a non-cardiac etiology. However, given his recent ER visit with severe symptoms, transient EKG changes, and a significant family history of cardiac disease, a cardiac workup is warranted. Anxiety is also noted as a potential contributing factor. Plan includes ordering a stress test and an echocardiogram. 2. Right Inguinal Pain The patient has ongoing right inguinal discomfort. An inguinal hernia was previously ruled out by general surgery. He has been referred to pain management and is awaiting an appointment. Discussion Notes I discussed with the patient that his recent episode of severe chest pain and numbness required further investigation, despite his current pain being reproducible and likely musculoskeletal. Given his significant family history of cardiac disease, I am ordering an echocardiogram and a stress test to be thorough. We also acknowledged that his high anxiety, noted during his hospital visit, might be a contributing factor to his symptoms. We reviewed his plan to see pain management for the separate issue of right inguinal discomfort. Patient Instructions - We are ordering a stress test and an echocardiogram to check your heart, due to your symptoms and family history. - Your current chest pain appears to be muscular, as it can be reproduced by pressing on the area. - Continue with your plan to see a banner painter for your ongoing right groin discomfort. - If you experience severe, sharp chest pain like you had before, please call 911 or go to the nearest emergency room. [facility] Medical History Rash and nonspecific skin eruption Migraines HTN (hypertension) Erosive esophagitis Cervical radiculopathy Fatty liver High triglycerides Surgical History H/O right knee surgery History of hernia surgery History of shoulder surgery History of esophagogastroduodenoscopy (EGD) Hx of colonoscopy (~10/2018) Family History Father Bladder cancer Mother Dementia Parkinsons Paternal Grandmother Skin cancer Social History Housing: House Are you a primary anesthesiologist and critical care to a significant other at home: No Do you presently have visiting nurse or other home services: No Alcohol intake: current Alcohol intake frequency: does not drink Alcohol type: beer Patient Tobacco Use Status: Never used Tobacco e-Cigarette/Vaping Use: Never Used Second Hand Smoke Exposure: No service: No Current occupational status: employed Current occupation: [employer] Current occupational exposures/hazards: Yes Cognitive needs: No Hearing needs: No Vision needs: No Questionnaire PHQ-9 Over the last 2 weeks, how often have you been bothered by any of the following problems? 1. Little interest or pleasure in doing things: not at all 2. Feeling down, depressed, or hopeless: not at all 3. Trouble falling or staying asleep, or sleeping too much: more than half the days 4. Feeling tired or having little energy: not at all 5. Poor appetite or overeating: not at all 6. Feeling bad about yourself - or that you are a failure or have let yourself or your family down: not at all 7. Trouble concentrating on things, such as reading the newspaper or watching television: not at all 8. Moving or speaking so slowly that other people could have noticed. Or the opposite - being so fidgety or restless that you have been moving around a lot more than usual: not at all 9. Thoughts that you would be better off or of hurting yourself in some way: not at all Total score: 2 Depression Screening Interpretation: Negative Depression Screening Done: Yes 17270 - PHQ-9 Billing: Yes Source: Developed by Drs. Denver Godoy, Arlyn Olivia, Nilay Pillai and colleagues, with an educational luci from [employer]. Thrive Questionnaire Date Thrive assessed: 08/29/24 I am a: Patient What is your living situation today?: I have a steady place to live Within the past 12 months, did the food you bought not last and you didn't have the money to get more?: Never true Within the past 12 months, did you worry whether your food would run out before you got money to buy more?: Never true Do you have trouble paying for medicines?: No Do you have trouble getting transportation to medical appointments?: No Do you have trouble paying your heating and electricity bill?: No Do you have trouble taking care of your child, family member or friend?: No Do you have trouble with day-to-day activities such as bathing, preparing meals, shopping, managing finances, etc.?: No Are you currently unemployed and looking for a job?: Yes Are you interested in more education?: No Please select the resources that you would like help with: None Currently or been in a relationship where the following occur: I choose not to answer THRIVE Score: 0 AUDIT C Alcohol Use Questionnaire (AUDIT-C) 1. How often do you have a drink containing alcohol?: 2-4 times a month 2. How many drinks containing alcohol do you have on a typical day when you are drinking?: 1 or 2 3. How often do you have six or more drinks on one occasion?: Never Total Score: 2 ERON-7 AMB Questionnaire ERON-7 Date ERON - 7 assessed: 09/05/24 Feeling nervous, anxious, or on edge: 0 = Not at all Not being able to stop or control worryin = Not at all Worrying too much about different things: 0 = Not at all Trouble relaxin = Not at all Being so restless that it is hard to sit still: 0 = Not at all Becoming easily annoyed or irritable: 0 = Not at all Feeling afraid as if something awful might happen: 0 = Not at all Total ERON-7 score (0-4 normal; 5-9 mild; 10-14 moderate; 15-21 severe): 0 Source: Developed by Drs. Denver Godoy, Arlyn Olivia, Nilay Pillai and colleagues, with an educational luci from [employer]. Physical exam (Primary Care) Vital Signs: Last Vital Signs Pulse 64 10/27/25 09:22 BP 120/82 10/27/25 09:22 Pulse Ox 98 10/27/25 09:22 Oxygen Delivery Method Room Air 10/27/25 09:22 BMI result Body Mass Index 26.1 Tobacco/Smoking Status: Tobacco use Status Tobacco use date assessed 10/27/25 10/27/25 09:25 Patient Tobacco Use Status Never used Tobacco 10/27/25 09:25 e-Cigarette/Vaping Use Never Used 10/27/25 09:25 PHQ-9: PHQ-9 Score PHQ-9: Total score 2 10/27/25 09:25 Depression Screening Interpretation: Negative Thrive Assessment: Date of Thrive Assessment Date Thrive assessed 08/29/24 10/27/25 09:25 Currently or been in a relationship where the following occur: I choose not to answer Coding Level of Care Code Est Pt Level 3 (04616) Est Pt Prev Care 40-64y(32705) Diagnoses Chest pain R07.9 Elevated serum creatinine R79.89 Encounter for routine adult physical exam with abnormal findings Z00.01 Additional Codes PHQ-9 - 57577 - PHQ-9 Billing: Yes ([id number]) Assessment & Plan Assessment & Plan (1) Chest pain: Code(s): R07.9 - Chest pain, unspecified Category: Medical (2) Elevated serum creatinine: Code(s): R79.89 - Other specified abnormal findings of blood chemistry Category: Medical (3) Encounter for routine adult physical exam with abnormal findings: Code(s): Z00.01 - Encounter for general adult medical examination with abnormal findings Category: Medical Plan . Orders: Orders NM cardiolite stress test Today R07.9 - Chest pain, unspecified CA echo transthoracic complete Today R07.9 - Chest pain, unspecified AMB EKG-In Office Today R07.9 - Chest pain, unspecified, Z00.01 - Encounter for general adult medical examination with abnormal findings CA stress test Today R07.9 - Chest pain, unspecified Referrals Nephrology Referral R79.89 - Other specified abnormal findings of blood chemistry
--- OUTSIDE RECORDS SUMMARY | 2025-10-27 10:10 | XMS_ITS | Clinical Summary ---
Author Organization [facility] it Address [address] [place] [address] Care Team Providers Care Shear Setter Name Role Phone Unavailable Primary Care [...] Screening 12/05/2023 Depression Screening 11/06/2024 COVID-19 Vaccine (1 - 2024-2 6 season) 2025 Influenza Vaccine [...]
--- OUTSIDE RECORDS SUMMARY | 2025-10-27 10:11 | XMS_ITS | Data Portability ---
Author Organization [facility] Drew Bhandari [facility] Address [address] [place] [address] Care Team Providers Care Belt Loop Maker Name Role Phone SRIDEVI STUART Primary Care Provider LAVERNE FLORES Insulation Nozzleman Unavailable Assessment Encounter Date Assessment Date Assessment [...] Recorded Time Pain of left shoulder joint [id number] 09 Active 2023 Wily Thornton PA-C [address], [place], [address], [facility] 4 13:58:40 Problem Notes None recorded. Procedures Surgical History Date Name Laterality Status Provider Name and Address Organization Details Recorded Time 5 97936 Therapeutic Exercise (1:1) completed Damian Scafuri, HANDBAG FRAMES INSPECTOR [address], [place], [address], [facility] 01/23/2025 10:09:04 5 54781: Hot or Cold Pack completed Damian Scafuri, HANDBAG FRAMES INSPECTOR [address], [place], [address], [facility] 01/23/2025 10:09:04 5 94504: Manual therapy completed Damian Scafuri, HANDBAG FRAMES INSPECTOR [address], [place], [address], [facility] 01/23/2025 10:09:04 5 37460 Therapeutic Exercise (1:1) completed Damian Scafuri, HANDBAG FRAMES INSPECTOR [address], [place], [address], [facility] 12/31/2024 13:50:25 5 05033: Hot or Cold Pack completed Damian Scafuri, HANDBAG FRAMES INSPECTOR [address], [place], [address], [facility] 12/31/2024 13:50:25 5 78110: Manual therapy completed Damian Scafuri, HANDBAG FRAMES INSPECTOR [address], [place], [address], [facility] 12/31/2024 13:50:25 5 96630 Therapeutic Exercise (1:1) completed Damian Scafuri, HANDBAG FRAMES INSPECTOR [address], [place], [address], [facility] 12/25/2024 09:47:58 5 12830: Hot or Cold Pack completed Damian Scafuri, HANDBAG FRAMES INSPECTOR [address], [place], [address], [facility] 12/25/2024 09:47:58 5 19292: Manual therapy completed Damian Scafuri, HANDBAG FRAMES INSPECTOR [address], [place], [address], [facility] 12/25/2024 09:47:58 5 59588 Therapeutic Exercise (1:1) completed Damian Scafuri, HANDBAG FRAMES INSPECTOR [address], [place], [address], [facility] 12/20/2024 09:16:04 5 92567: Hot or Cold Pack completed Damian Scafuri, HANDBAG FRAMES INSPECTOR [address], [place], [address], [facility] 12/20/2024 09:16:04 5 83399: Manual therapy completed Damian Scafuri, HANDBAG FRAMES INSPECTOR [address], [place], [address], [facility] 12/20/2024 09:16:04 5 75895 Therapeutic Exercise (1:1) completed Damian Scafuri, HANDBAG FRAMES INSPECTOR [address], [place], [address], [facility] 12/17/2024 11:55:46 5 96165: Hot or Cold Pack completed Damian Scafuri, HANDBAG FRAMES INSPECTOR [address], [place], [address], [facility] 12/17/2024 11:55:46 5 93392: Manual therapy completed Damian Scafuri, HANDBAG FRAMES INSPECTOR [address], [place], [address], [facility] 12/17/2024 11:55:46 5 18300 Therapeutic Exercise (1:1) completed Damian Scafuri, HANDBAG FRAMES INSPECTOR [address], [place], [address], [facility] 12/13/2024 10:43:59 5 90590: Hot or Cold Pack completed Damian Scafuri, HANDBAG FRAMES INSPECTOR [address], [place], [address], [facility] 12/13/2024 10:43:59 5 65393: Manual therapy completed Damian Scafuri, HANDBAG FRAMES INSPECTOR [address], [place], [address], [facility] 12/13/2024 10:43:59 5 59939 Therapeutic Exercise (1:1) completed Damian Scafuri, HANDBAG FRAMES INSPECTOR [address], [place], [address], [facility] 12/11/2024 10:59:43 5 58830: Hot or Cold Pack completed Damian Scafuri, HANDBAG FRAMES INSPECTOR [address], [place], [address], [facility] 12/11/2024 11:00:32 5 50985: Manual therapy completed Damian Scafuri, HANDBAG FRAMES INSPECTOR [address], [place], [address], [facility] 12/11/2024 10:59:43 5 05200 Therapeutic Exercise (1:1) completed Damian Scafuri, HANDBAG FRAMES INSPECTOR [address], [place], [address], [facility] 12/05/2024 10:54:20 5 91658: Hot or Cold Pack completed Damian Scafuri, HANDBAG FRAMES INSPECTOR [address], [place], [address], [facility] 12/05/2024 10:54:20 5 54477: Manual therapy completed Damian Scafuri, HANDBAG FRAMES INSPECTOR [address], [place], [address], [facility] 12/05/2024 10:54:20 5 71092 Therapeutic Exercise (1:1) completed Damian Scafuri, HANDBAG FRAMES INSPECTOR [address], [place], [address], [facility] 11/28/2024 11:17:56 5 93287: Hot or Cold Pack completed Damian Scafuri, HANDBAG FRAMES INSPECTOR [address], [place], [address], [facility] 11/28/2024 11:17:23 5 19605: Manual therapy completed Damian Scafuri, HANDBAG FRAMES INSPECTOR [address], [place], [address], [facility] 11/28/2024 11:17:47 5 31145 Therapeutic Exercise (1:1) completed Damian Scafuri, HANDBAG FRAMES INSPECTOR [address], [place], [address], [facility] 11/14/2024 17:12:21 5 05288: Hot or Cold Pack completed Damian Scafuri, HANDBAG FRAMES INSPECTOR [address], [place], [address], [facility] 11/14/2024 17:12:21 5 45657: Manual therapy completed Damian Scafuri, HANDBAG FRAMES INSPECTOR [address], [place], [address], [facility] 11/14/2024 17:12:21 5 90991 Therapeutic Exercise (1:1) completed Damian Scafuri, HANDBAG FRAMES INSPECTOR [address], [place], [address], [facility] 11/11/2024 16:40:15 5 46096: Hot or Cold Pack completed Damian Scafuri, HANDBAG FRAMES INSPECTOR [address], [place], [address], [facility] 11/11/2024 16:39:30 5 19017: Manual therapy completed Damian Scafuri, HANDBAG FRAMES INSPECTOR [address], [place], [address], [facility] [place] [facility] 11/11/2024 16:39:31 4 83855 Therapeutic Exercise (1:1) completed Vin Bullocks, DPT [address], [place], [address], [facility] [place] 10/23/2024 10:46:21 4 61424: Hot or Cold Pack completed Vin Rueda, DPT [address], [place], [address], [facility] [place] [facility] 10/23/2024 10:46:21 4 84558: Manual therapy completed Vin Rueda, DPT [address], [place], [address], [facility] [place] 10/23/2024 10:46:21 4 58150 Therapeutic Exercise (1:1) completed Damian Scafuri, HANDBAG FRAMES INSPECTOR [address], [place], [address], [facility] 10/17/2024 17:59:14 4 38887: Hot or Cold Pack completed Damian Scafuri, HANDBAG FRAMES INSPECTOR [address], [place], [address], [facility] 10/17/2024 17:59:13 4 75127: Manual therapy completed Damian Scafuri, HANDBAG FRAMES INSPECTOR [address], [place], [address], [facility] 10/17/2024 17:59:14 4 11856 Therapeutic Exercise (1:1) completed Damian Scafuri, HANDBAG FRAMES INSPECTOR [address], [place], [address], [facility] 10/15/2024 11:02:53 4 31513: Hot or Cold Pack completed Damian Scafuri, HANDBAG FRAMES INSPECTOR [address], [place], [address], [facility] 10/15/2024 10:59:59 4 43742: Manual therapy completed Damian Scafuri, HANDBAG FRAMES INSPECTOR [address], [place], [address], [facility] 10/15/2024 11:03:45 4 89071 Therapeutic Exercise (1:1) completed Damian Scafuri, HANDBAG FRAMES INSPECTOR [address], [place], [address], [facility] 10/08/2024 20:10:57 4 55510: Hot or Cold Pack completed Damian Scafuri, HANDBAG FRAMES INSPECTOR [address], [place], [address], [facility] 10/08/2024 20:10:57 4 18161: Manual therapy completed Damian Scafuri, HANDBAG FRAMES INSPECTOR [address], [place], [address], [facility] 10/08/2024 20:10:57 4 52046 Therapeutic Exercise (1:1) completed Damian Scafuri, HANDBAG FRAMES INSPECTOR [address], [place], [address], [facility] 09/19/2024 15:17:31 4 58465: Hot or Cold Pack completed Damian Scafuri, HANDBAG FRAMES INSPECTOR [address], [place], [address], [facility] 09/19/2024 15:16:31 4 15346: Manual therapy completed Damian Scafuri, HANDBAG FRAMES INSPECTOR [address], [place], [address], [facility] 09/19/2024 15:16:31 4 92956 Therapeutic Exercise (1:1) completed Damian Hughes, HANDBAG FRAMES INSPECTOR [address], [place], [address], [facility] 09/17/2024 13:47:38 4 87996: Hot or Cold Pack completed Damian Hughes, HANDBAG FRAMES INSPECTOR [address], [place], [address], [facility] 09/17/2024 13:47:38 4 36154: Manual therapy completed Damian Hughes, HANDBAG FRAMES INSPECTOR [address], [place], [address], [facility] 09/17/2024 13:47:38 4 76375 Therapeutic Exercise (1:1) completed Vin Rueda, DPT [address], [place], [address], [facility] 09/11/2024 13:09:20 4 56590: Hot or Cold Pack completed Vin Rueda, DPT [address], [place], [address], [facility] 09/11/2024 13:09:20 4 79577: Manual therapy completed Vin Rueda, DPT [address], [place], [address], [facility] 09/11/2024 13:09:20 4 59852 Therapeutic Exercise (1:1) completed Vin Rueda, DPT [address], [place], [address], [facility] 09/09/2024 10:46:11 4 31672: Hot or Cold Pack completed Vin Rueda, DPT [address], [place], [address], [facility] 09/09/2024 10:46:11 4 01215: Manual therapy completed Vin Rueda, DPT [address], [place], [address], [facility] 09/09/2024 10:46:11 4 84103 Therapeutic Exercise (1:1) completed Damian Scafuri, HANDBAG FRAMES INSPECTOR [address], [place], [address], [facility] 09/06/2024 13:57:27 4 69710: Hot or Cold Pack completed Damian Scafuri, HANDBAG FRAMES INSPECTOR [address], [place], [address], [facility] 09/06/2024 13:57:27 4 33413: Manual therapy completed Damian Scafuri, HANDBAG FRAMES INSPECTOR [address], [place], [address], [facility] 09/06/2024 13:57:27 24361 Therapeutic Exercise (1:1) completed Damian Scafuri, HANDBAG FRAMES INSPECTOR [address], [place], [address], [facility] 09/04/2024 15:08:23 39529: Hot or Cold Pack completed Damian Scafuri, HANDBAG FRAMES INSPECTOR [address], [place], [address], [facility] 09/04/2024 15:08:23 4 27519: Manual therapy completed Damian Scafuri, HANDBAG FRAMES INSPECTOR [address], [place], [address], [facility] 09/04/2024 15:08:23 85018 Therapeutic Exercise (1:1) completed Damian Scafuri, HANDBAG FRAMES INSPECTOR [address], [place], [address], [facility] 09/01/2024 14:27:54 10/25/202 4 17912: Hot or Cold Pack completed Damian Gaminofuri, HANDBAG FRAMES INSPECTOR [address], [place], [address], [facility] 09/01/2024 14:27:54 4 10769: Manual therapy completed Damian Gaminofuri, HANDBAG FRAMES INSPECTOR [address], [place], [address], [facility] 09/01/2024 14:27:54 60522 Therapeutic Exercise (1:1) completed Vin Rueda, DPT [address], [place], [address], [facility] 08/29/2024 11:07:01 4 09327: Hot or Cold Pack completed Vin Rueda DPT [address], [place], [address], [facility] 08/29/2024 11:07:01 4 53015: Manual therapy completed Vin Rueda DPT [address], [place], [address], [facility] 08/29/2024 11:07:02 4 Sports Shoulder completed Lizy Garza MD [address], [place], [address], [facility] 08/27/2024 17:49:39 52832 Therapeutic Exercise (1:1) completed Damian Gaminofuri, HANDBAG FRAMES INSPECTOR [address], [place], [address], [facility] 08/22/2024 13:54:23 4 43139: Hot or Cold Pack completed Damian Gaminofuri, HANDBAG FRAMES INSPECTOR [address], [place], [address], [facility] 08/22/2024 13:54:23 4 46767: Manual therapy completed Damian Gaminofuri, HANDBAG FRAMES INSPECTOR [address], [place], [address], [facility] 08/22/2024 13:54:23 4 10805 Therapeutic Exercise (1:1) completed Damianbritany Gaminofuri, HANDBAG FRAMES INSPECTOR [address], [place], [address], [facility] 08/20/2024 14:41:52 4 53897: Hot or Cold Pack completed Damian Scafuri, HANDBAG FRAMES INSPECTOR [address], [place], [address], [facility] 08/20/2024 14:41:52 4 03297: Manual therapy completed Damianbritany Gaminofuri, HANDBAG FRAMES INSPECTOR [address], [place], [address], [facility] 08/20/2024 14:41:53 69477 Therapeutic Exercise (1:1) completed Damian Gaminofuri, HANDBAG FRAMES INSPECTOR [address], [place], [address], [facility] 08/19/2024 10:12:24 4 27250: Hot or Cold Pack completed Damianbritany Gaminofuri, HANDBAG FRAMES INSPECTOR [address], [place], [address], [facility] 08/19/2024 10:11:38 4 48678: Manual therapy completed Damian Gaminofuri, HANDBAG FRAMES INSPECTOR [address], [place], [address], [facility] 08/19/2024 10:11:38 4 78289 Therapeutic Exercise (1:1) completed Vin Rueda DPT [address], [place], [address], [facility] 08/14/2024 12:49:16 4 01765: Hot or Cold Pack completed Vin Rueda DPT [address], [place], [address], [facility] 08/14/2024 12:49:16 4 41093: Manual therapy completed Vin Rueda, DPT [address], [place], [address], [facility] 08/14/2024 12:49:16 4 27267 Therapeutic Exercise (1:1) completed Damian Scafuri, HANDBAG FRAMES INSPECTOR [address], [place], [address], [facility] 08/09/2024 14:15:59 4 61467: Hot or Cold Pack completed Damianbritany Gaminofuri, HANDBAG FRAMES INSPECTOR [address], [place], [address], [facility] 08/09/2024 14:15:59 4 06639: Manual therapy completed Damian Gaminofuri, HANDBAG FRAMES INSPECTOR [address], [place], [address], [facility] 08/09/2024 14:15:59 25602 Therapeutic Exercise (1:1) completed Damian Scafuri, HANDBAG FRAMES INSPECTOR [address], [place], [address], [facility] 08/06/2024 17:06:12 4 75253: Hot or Cold Pack completed Damian Scafuri, HANDBAG FRAMES INSPECTOR [address], [place], [address], [facility] 08/06/2024 17:06:12 4 41714: Manual therapy completed Damian Scafuri, HANDBAG FRAMES INSPECTOR [address], [place], [address], [facility] 08/06/2024 17:06:12 45788 Therapeutic Exercise (1:1) completed Vin Rueda, DPT [address], [place], [address], [facility] 07/31/2024 12:53:55 4 19062: Hot or Cold Pack completed Vin Rueda, DPT [address], [place], [address], [facility] 07/31/2024 12:53:55 44295: Manual therapy completed Vin Rueda, DPT [address], [place], [address], [facility] 07/31/2024 12:53:55 94615 Therapeutic Exercise (1:1) completed Vin Cantukibrady, DPT [address], [place], [address], [facility] 07/31/2024 06:56:58 4 48480: Hot or Cold Pack completed Vin Rueda, DPT [address], [place], [address], [facility] 07/31/2024 06:56:58 4 37236: Manual therapy completed Vin Rueda, DPT [address], [place], [address], [facility] 07/31/2024 06:56:58 4 68235 Therapeutic Exercise (1:1) completed Damian Hughes, HANDBAG FRAMES INSPECTOR [address], [place], [address], [facility] 07/26/2024 11:52:28 4 64394: Hot or Cold Pack completed Damian Stevensonfuri, HANDBAG FRAMES INSPECTOR [address], [place], [address], [facility] 07/26/2024 11:51:55 4 44500: Manual therapy completed Damian Gaminofuri, HANDBAG FRAMES INSPECTOR [address], [place], [address], [facility] 07/26/2024 11:51:55 4 53755 Therapeutic Exercise (1:1) completed Damian Scafuri, HANDBAG FRAMES INSPECTOR [address], [place], [address], [facility] 07/22/2024 11:25:42 4 15407: Hot or Cold Pack completed Damian Scafuri, HANDBAG FRAMES INSPECTOR [address], [place], [address], [facility] 07/22/2024 11:25:42 4 01634: Manual therapy completed Damian Scafuri, HANDBAG FRAMES INSPECTOR [address], [place], [address], [facility] 07/22/2024 11:25:42 4 44193 Therapeutic Exercise (1:1) completed Vin Rueda, DPT [address], [place], [address], [facility] 07/22/2024 07:24:50 4 17823: Hot or Cold Pack completed Vin Rueda, DPT [address], [place], [address], [facility] 07/22/2024 07:24:50 4 59790: Manual therapy completed Vin Rueda, DPT [address], [place], [address], [facility] 07/22/2024 07:24:50 4 98743 Therapeutic Exercise (1:1) completed Damian Scafuri, HANDBAG FRAMES INSPECTOR [address], [place], [address], [facility] 07/16/2024 12:43:18 4 12200: Hot or Cold Pack completed Damian Scafuri, HANDBAG FRAMES INSPECTOR [address], [place], [address], [facility] 07/16/2024 12:43:18 4 94735: Manual therapy completed Damian Scafuri, HANDBAG FRAMES INSPECTOR [address], [place], [address], [facility] 07/16/2024 12:43:18 4 83794 Therapeutic Exercise (1:1) completed Damian Scafuri, HANDBAG FRAMES INSPECTOR [address], [place], [address], [facility] 07/11/2024 14:51:56 4 57710: Hot or Cold Pack completed Damian Scafuri, HANDBAG FRAMES INSPECTOR [address], [place], [address], [facility] 07/11/2024 14:51:56 4 91353: Manual therapy completed Damian Scafuri, HANDBAG FRAMES INSPECTOR [address], [place], [address], [facility] 07/11/2024 14:51:56 4 72534 Therapeutic Exercise (1:1) completed Damian Scafuri, HANDBAG FRAMES INSPECTOR [address], [place], [address], [facility] 2024 14:42:28 4 64308: Hot or Cold Pack completed Damian Scafuri, HANDBAG FRAMES INSPECTOR [address], [place], [address], [facility] 2024 14:42:28 4 66146: Manual therapy completed Damian Scafuri, HANDBAG FRAMES INSPECTOR [address], [place], [address], [facility] 2024 14:42:28 4 56879 Therapeutic Exercise (1:1) completed Vin Rueda DPT [address], [place], [address], [facility] 07/04/2024 14:45:43 4 69871: Hot or Cold Pack completed Vin Rueda DPT [address], [place], [address], [facility] 07/04/2024 14:45:43 53278: Manual therapy completed RADHA GraceT [address], [place], [address], [facility] 07/04/2024 14:45:43 4 84069 Therapeutic Exercise (1:1) completed RADHA GraceT [address], [place], [address], [facility] 07/03/2024 10:47:53 4 58230: Hot or Cold Pack completed Vin Rueda DPT [address], [place], [address], [facility] 07/03/2024 10:47:53 4 90940: Manual therapy completed RADHA GraceT [address], [place], [address], [facility] [employer] 07/03/2024 10:47:53 4 14829 Therapeutic Exercise (1:1) completed Damian Hughes, HANDBAG FRAMES INSPECTOR [address], [place], [address], [facility] 06/28/2024 16:44:18 4 38921: Hot or Cold Pack completed Damian Hughes, HANDBAG FRAMES INSPECTOR [address], [place], [address], [facility] 06/28/2024 16:44:18 4 11214: Manual therapy completed Damian Hughes, HANDBAG FRAMES INSPECTOR [address], [place], [address], [facility] 06/28/2024 16:44:18 4 57254 Therapeutic Exercise (1:1) completed Damian Hughes, HANDBAG FRAMES INSPECTOR [address], [place], [address], [facility] 06/26/2024 16:33:53 4 89679: Hot or Cold Pack completed Damian Scafuri, HANDBAG FRAMES INSPECTOR [address], [place], [address], [facility] 06/26/2024 16:29:10 4 59186: Manual therapy completed Damian Scafuri, HANDBAG FRAMES INSPECTOR [address], [place], [address], [facility] 06/26/2024 16:29:10 4 15346 Therapeutic Exercise (1:1) completed Damian Scafuri, HANDBAG FRAMES INSPECTOR [address], [place], [address], [facility] 06/19/2024 08:44:31 4 45806: Hot or Cold Pack completed Damian Scafuri, HANDBAG FRAMES INSPECTOR [address], [place], [address], [facility] 06/19/2024 08:43:33 4 00227: Manual therapy completed Damian Scafuri, HANDBAG FRAMES INSPECTOR [address], [place], [address], [facility] 06/19/2024 08:43:33 4 08532 Therapeutic Exercise (1:1) completed Vin Rueda, DPT [address], [place], [address], [facility] 06/13/2024 10:36:52 4 90082: Hot or Cold Pack completed Vin Mastediths, DPT [address], [place], [address], [facility] 06/13/2024 10:37:07 4 58070: Manual therapy completed Vin Bullocks, DPT [address], [place], [address], [facility] 06/13/2024 10:37:13 4 78561 Therapeutic Exercise (1:1) completed Vin Rueda, DPT [address], [place], [address], [facility] 06/10/2024 13:43:08 4 44790: Low complexity PT Eval completed Vin Rueda DPT [address], [place], [address], [facility] 06/10/2024 13:43:11 4 operation on shoulder joint completed GUERA NELLY [facility] 12/30/2024 13:39:42 Imaging Results None recorded. Procedure [...] Updated DateTime 12/30/2024 172.72 cm 28.6 kg/m2 17618.37 g GUERA VILLEGAS [facility] 12/30/2024 13:38:48 Date Recorded Body height Body mass index (BMI) Body weight Provider Name and Address Organization Details Last Updated DateTime 02/28/2025 172.72 cm 28.6 kg/m2 15718.37 g GUERA VILLEGAS [facility] 02/28/2025 13:38:24 Social History None recorded. Functional Status None recorded. Mental Status None recorded. Family History Nothing Reported. Medical History Condition Response Allergies/Hayfever N Coronary Artery Disease N Anxiety/Depression N Breathing or lung disorders N Emphysema N Nerve Disorders N Thyroid Problems N COPD N Pacemaker N Anemia N Kidney/Bladder Problems N Vascular Disease N Heart Trouble N Heart Attack (MT) N Gastrointestinal Disease N Cholesterol Y Diabetes [...] ICD10 Code Diagnosis IMO Codes Diagnosis Note [id number] MD [facility] 2nd floor [address] [place] [address] 02/05/2024 15:00:53 02/19/2024 09:26:41 Pain of left shoulder joint 4749317900 4054761 M25.283 [id number] MD [facility] 2nd floor [address] [place] [address] 03/25/2024 10:58:57 04/08/2024 08:16:28 Anterior to posterior tear of superior glenoid labrum of left shoulder 0700488170 7466565 S43.432D Instabilit y of left shoulder joint 387221933 S43.432A [id number] MD [facility] 2nd [facility] [address] [place] [address] 05/16/2024 12:26:54 06/03/2024 15:50:56 Posterior dislocation of shoulder joint 123694080 S43.025D [id number] MD [facility] [address] [place] [address] 06/07/2024 12:43:50 07/05/2024 17:10:52 Follow-up orthopedic assessment [id number] Z47.89 [id number] Vin Rueda , RADHAT [facility] [address] [place] [address] 06/10/2024 10:43:28 06/10/2024 11:55:20 Anterior to posterior tear of superior glenoid labrum of left shoulder 1060242508 5120898 S43.432D [id number] Vin Rueda , RADHAT [facility] [address] [place] [address] 06/12/2024 10:45:23 06/12/2024 11:35:00 Anterior to posterior tear of superior glenoid labrum of left shoulder 3602343341 4103632 S43.432D [id number] Damian Hughes, HANDBAG FRAMES INSPECTOR [facility] [address] [place] [address] 06/19/2024 07:58:33 06/19/2024 08:51:00 Anterior to posterior tear of superior glenoid labrum of left shoulder 3986443576 4137348 S43.432D [id number] Damian Hughes, HANDBAG FRAMES INSPECTOR [facility] [address] [place] [address] 06/26/2024 15:24:10 06/26/2024 17:11:45 Anterior to posterior tear of superior glenoid labrum of left shoulder 8343567719 6881846 S43.432D [id number] Damian Hughes HANDBAG FRAMES INSPECTOR [facility] [address] [place] [address] 06/28/2024 15:24:38 06/28/2024 16:09:18 Anterior to posterior tear of superior glenoid labrum of left shoulder 6733351726 3407417 S43.432D [id number] Vin Rueda DPT [facility] [address] [place] [address] 07/02/2024 11:43:41 07/02/2024 12:31:21 Anterior to posterior tear of superior glenoid labrum of left shoulder 7085963443 5977889 S43.432D [id number] RADHA GraceT [facility] [address] [place] [address] 07/04/2024 11:29:37 07/04/2024 14:04:20 Anterior to posterior tear of superior glenoid labrum of left shoulder 2287154363 7333456 S43.432D [id number] Damian Hughes HANDBAG FRAMES INSPECTOR [facility] [address] [place] [address] 2024 13:28:08 07/10/2024 08:36:19 Anterior to posterior tear of superior glenoid labrum of left shoulder 6187096418 1184556 S43.432D [id number] Damian Hughes, HANDBAG FRAMES INSPECTOR [facility] [address] [place] [address] 07/11/2024 13:16:18 07/11/2024 15:06:41 Anterior to posterior tear of superior glenoid labrum of left shoulder 2665706367 4632262 S43.432D [id number] Damian Hughes, HANDBAG FRAMES INSPECTOR [facility] [address] [place] [address] 07/16/2024 11:40:31 07/16/2024 12:42:19 Anterior to posterior tear of superior glenoid labrum of left shoulder 6321554006 7996588 S43.432D [id number] Vin Rueda , DPSean [facility] [address] [place] [address] 07/18/2024 15:19:40 07/18/2024 17:24:20 Anterior to posterior tear of superior glenoid labrum of left shoulder 1867051597 9411657 S43.432D [id number] Damian Hughes, HANDBAG FRAMES INSPECTOR [facility] [address] [place] [address] 07/22/2024 09:56:45 07/22/2024 10:24:11 Anterior to posterior tear of superior glenoid labrum of left shoulder 3339999345 5017001 S43.432D [id number] Wily Thornton PA-C [facility] [address] [place] [address] 07/23/2024 14:47:16 08/01/2024 15:40:16 Pain of left shoulder joint 0578078541 1238847 M25.972 [id number] Damian Hughes, HANDBAG FRAMES INSPECTOR [facility] [address] [place] [address] 07/26/2024 09:41:43 07/26/2024 10:37:37 Anterior to posterior tear of superior glenoid labrum of left shoulder 2536687122 3375676 S43.432D [id number] Vin Rueda , RADHAT [facility] [address] [place] [address] 07/29/2024 10:14:52 07/29/2024 11:17:42 Anterior to posterior tear of superior glenoid labrum of left shoulder 6176206722 2490416 S43.432D [id number] Vin Rueda , RADHAT [facility] [address] [place] [address] 07/31/2024 10:15:37 07/31/2024 11:03:28 Anterior to posterior tear of superior glenoid labrum of left shoulder 1468159090 4495953 S43.432D [id number] Damian Hughes HANDBAG FRAMES INSPECTOR [facility] [address] [place] [address] 08/06/2024 15:18:30 08/06/2024 16:03:32 Anterior to posterior tear of superior glenoid labrum of left shoulder 5296730101 5516088 S43.432D [id number] Damian Hughes HANDBAG FRAMES INSPECTOR [facility] [address] [place] [address] 08/09/2024 13:13:56 08/09/2024 14:47:03 Anterior to posterior tear of superior glenoid labrum of left shoulder 8624264983 8598918 S43.432D [id number] Vin Rueda DPT [facility] [address] [place] [address] 08/13/2024 10:20:30 08/13/2024 11:13:34 Anterior to posterior tear of superior glenoid labrum of left shoulder 1978349660 7037329 S43.432D [id number] Damian Hughes HANDBAG FRAMES INSPECTOR [facility] [address] [place] [address] 08/16/2024 14:22:43 08/16/2024 16:05:41 Anterior to posterior tear of superior glenoid labrum of left shoulder 2448172440 1129810 S43.432D [id number] Damian Scafuri, HANDBAG FRAMES INSPECTOR [facility] [address] [place] [address] 08/20/2024 11:25:47 08/20/2024 12:17:50 Anterior to posterior tear of superior glenoid labrum of left shoulder 3533576508 4476152 S43.432D [id number] Damian Hughes, HANDBAG FRAMES INSPECTOR [facility] [address] [place] [address] 08/22/2024 11:28:21 08/22/2024 14:18:13 Anterior to posterior tear of superior glenoid labrum of left shoulder 0508399332 5085082 S43.432D [id number] Lizy Garza MD [facility] [address] [place] [address] 08/27/2024 16:29:07 09/17/2024 15:56:24 Follow-up orthopedic assessment [id number] Z47.89 [id number] Vin Rueda , DPSean [facility] [address] [place] [address] 08/28/2024 10:37:07 08/28/2024 12:14:05 Anterior to posterior tear of superior glenoid labrum of left shoulder 1000177295 7197488 S43.432D [id number] Damian Hughes, HANDBAG FRAMES INSPECTOR [facility] [address] [place] [address] 08/30/2024 13:40:25 08/30/2024 15:42:16 Anterior to posterior tear of superior glenoid labrum of left shoulder 4502716765 4505001 S43.432D [id number] Damian Gregoriori, HANDBAG FRAMES INSPECTOR [facility] [address] [place] [address] 09/04/2024 12:13:25 09/04/2024 13:33:51 Anterior to posterior tear of superior glenoid labrum of left shoulder 4831712562 5785919 S43.432D [id number] Damian Gregoriori, HANDBAG FRAMES INSPECTOR [facility] [address] [place] [address] 09/06/2024 13:25:48 09/06/2024 15:12:55 Anterior to posterior tear of superior glenoid labrum of left shoulder 7835493858 9592700 S43.432D [id number] Vin Rueda DPT [facility] [address] [place] [address] 09/09/2024 09:37:19 09/09/2024 10:54:58 Anterior to posterior tear of superior glenoid labrum of left shoulder 0185533494 7912938 S43.432D [id number] MD [facility] 2nd floor [address] [place] [address] 09/30/2024 14:33:00 10/29/2024 09:59:27 Left cervical root neuropathy 6711596683 1580668 M54.12 [id number] Pain of le ft shoulder joint 8211939421 3027040 M25.512 645140 [id number] Vin Rueda DPT [facility] [address] [place] [address] 09/11/2024 10:05:30 09/11/2024 11:24:15 Anterior to posterior tear of superior glenoid labrum of left shoulder 6066680074 5052009 S43.432D [id number] Damian Hughes HANDBAG FRAMES INSPECTOR [facility] [address] [place] [address] 09/17/2024 11:09:15 09/17/2024 12:23:02 Anterior to posterior tear of superior glenoid labrum of left shoulder 1826725781 8389127 S43.432D [id number] Damian Hughes HANDBAG FRAMES INSPECTOR [facility] [address] [place] [address] 09/19/2024 14:19:28 09/19/2024 15:35:53 Anterior to posterior tear of superior glenoid labrum of left shoulder 3121072118 2161211 S43.432D [id number] Damian Hughes HANDBAG FRAMES INSPECTOR [facility] [address] [place] [address] 10/08/2024 14:36:31 10/08/2024 16:37:45 Anterior to posterior tear of superior glenoid labrum of left shoulder 6090924204 9881659 S43.432D [id number] Damian Gaminosavannah, HANDBAG FRAMES INSPECTOR [facility] [address] [place] [address] 10/15/2024 09:23:11 10/15/2024 09:46:05 Anterior to posterior tear of superior glenoid labrum of left shoulder 1587646091 1420430 S43.432D [id number] Damian Gregoriodavid, HANDBAG FRAMES INSPECTOR [facility] [address] [place] [address] 10/17/2024 16:22:48 10/17/2024 17:09:16 Anterior to posterior tear of superior glenoid labrum of left shoulder 9548166083 5020823 S43.432D Vin Rueda , DPT [facility] [address] [place] [address] 10/22/2024 08:54:05 10/22/2024 09:27:49 Anterior to posterior tear of superior glenoid labrum of left shoulder 4589546247 4177130 S43.432D [id number] Lizy Garza MD [facility] - [facility] [address] [facility] [address] [place] [address] 11/15/2024 14:09:09 11/27/2024 09:25:57 Follow-up orthopedic assessment [id number] Z47.89 [id number] Damian Gaminosavannah, HANDBAG FRAMES INSPECTOR [facility] [address] [place] [address] 11/11/2024 13:13:51 11/12/2024 07:01:13 Anterior to posterior tear of superior glenoid labrum of left shoulder 3999446848 4612849 S43.432D [id number] Damian Gaminosavannah, HANDBAG FRAMES INSPECTOR [facility] [address] [place] [address] 11/14/2024 15:26:00 11/14/2024 16:21:32 Anterior to posterior tear of superior glenoid labrum of left shoulder 0045399327 1180414 S43.432D [id number] Damian Saul, HANDBAG FRAMES INSPECTOR [facility] [address] [place] [address] 11/28/2024 09:22:03 11/28/2024 10:10:10 Anterior to posterior tear of superior glenoid labrum of left shoulder 1491541302 7428065 S43.432D [id number] Damian Hughes, HANDBAG FRAMES INSPECTOR [facility] [address] [place] [address] 12/05/2024 08:21:32 12/05/2024 09:03:34 Anterior to posterior tear of superior glenoid labrum of left shoulder 0930708889 7233305 S43.432D [id number] Damian Hughes, HANDBAG FRAMES INSPECTOR [facility] [address] [place] [address] 12/11/2024 09:28:53 12/11/2024 10:46:17 Anterior to posterior tear of superior glenoid labrum of left shoulder 1165073240 5043582 S43.432D [id number] Damian Hughes, HANDBAG FRAMES INSPECTOR [facility] [address] [place] [address] 12/13/2024 07:29:49 12/13/2024 10:46:19 Anterior to posterior tear of superior glenoid labrum of left shoulder 9911429290 6568441 S43.432D [id number] Damian Hughes, HANDBAG FRAMES INSPECTOR [facility] [address] [place] [address] 12/17/2024 09:22:22 12/17/2024 11:49:45 Anterior to posterior tear of superior glenoid labrum of left shoulder 5210687125 8508362 S43.432D [id number] Lizy Garza MD [facility] - [facility] [address] [facility] [address] [place] [address] 12/30/2024 13:35:12 01/14/2025 06:44:47 Follow-up orthopedic assessment [id number] Z47.89 [id number] Damian Hughes, HANDBAG FRAMES INSPECTOR [facility] [address] [place] [address] 12/20/2024 08:06:20 12/20/2024 09:21:32 Anterior to posterior tear of superior glenoid labrum of left shoulder 0258082351 8847888 S43.432D [id number] Damian Hughes, HANDBAG FRAMES INSPECTOR [facility] [address] [place] [address] 12/25/2024 06:45:05 12/25/2024 08:13:49 Anterior to posterior tear of superior glenoid labrum of left shoulder 5258800291 7704331 S43.432D [id number] Damian Hughes, HANDBAG FRAMES INSPECTOR [facility] [address] [place] [address] 12/31/2024 09:44:29 12/31/2024 11:55:51 Anterior to posterior tear of superior glenoid labrum of left shoulder 9228220165 4104063 S43.432D [id number] Damian Hughes, HANDBAG FRAMES INSPECTOR [facility] [address] [place] [address] 01/23/2025 08:51:44 01/23/2025 09:38:17 Anterior to posterior tear of superior glenoid labrum of left shoulder 1047124745 8459074 S43.432D [id number] MD [facility] [address] [facility] [address] [place] [address] 02/28/2025 13:31:14 03/10/2025 14:33:45 Follow-up orthopedic assessment [id number] Z47.89 [id number] Health Concerns Section Related Observation LastModified by Organization Detai ls LastModified Time None Recorded Concern Status LastModified by Organization Details LastModified Time None Recorded Advance Directives Directive None Recorded Payers Insurance Date Sequence Insurance Name Policy Number Policy Barton Covered Member ID Barton Member ID Guarantor Name 02/05/2024 [employer] Nii Mike 03/22/2024 1 *SELF PAY* patti Mike Notes Date Note Type Note Provider Name and Address Organization Details Recorded Time 12/25/2024 text/html Pt reports feeling good. Arm continues to move better. Damian Hughes, HANDBAG FRAMES INSPECTOR [address], [place], [address], [place] [facility] 12/25/2024 09:52:17 12/30/2024 text/html [...] and well perfused. Imaging: Deferred Impression: 54-year-old [id number] gentleman, now approximately 8 months out from [...] him back in [address] [facility] speech recognition pick pulling machine operator software was used to create portions of this document. An attempt at proofreading has been made to minimize errors. Please call for corrections. Lizy Garza MD [address], [place], [address], [facility] 12/30/2024 14:14:34 12/31/2024 text/html Pt reports feeling good. Arm continues to move better. Damian Hughes, HANDBAG FRAMES INSPECTOR [address], [place], [address], [facility] 12/31/2024 13:54:22 01/23/2025 text/html Pt reports feeling good. No pain. Has applied for multiple jobs and is waiting to hear back. Damian Hughes, HANDBAG FRAMES INSPECTOR [address], [place], [address], [facility] 01/23/2025 10:14:05 [...] and well perfused. Imaging: Deferred Impression: 54-year-old [id number] gentleman, now approximately 9 months out from [...] occasional aches and pains, she can take jllp-ncc-pomctbg medication such as Tylenol or anti-inflammatories as needed; risks and benefits of medication discussed. Should call with more persistent pain. We will leave follow up open ended at this point. However should symptoms worsen or fail to improve to the patient's satisfaction, he is encouraged to give the office a call to be seen back for further evaluation and management. [employer] speech recognition pick pulling machine operator software was used to create portions of this document. An attempt at proofreading has been made to minimize errors. Please call for corrections. Lizy Garza MD [address] [place], [place] [address]therese [address] [facility], [place], [address], [facility] - [facility] 02/28/2025 14:13:55
== END 2025-10-27 10:32 | disposition home or self-care (01) ==
LOC: HO.HMCC 09:10
PROVIDERS: PCP Nurse Practitioner Family; Visit Provider Nurse Practitioner Family
DX: Z00.01 Encounter for general adult medical examination with abnormal findings (principal); R07.9 Chest pain, unspecified; R79.89 Other specified abnormal findings of blood chemistry

== ENCOUNTER → 2025-10-27 09:10 | Outpatient (BNVA) | payer OTHER, SELFPAY | PROVIDERS: PCP Nurse Practitioner Family; Visit Provider Nurse Practitioner Family | DX: Z00.01 Encounter for general adult medical examination with abnormal findings (principal); E53.8 Deficiency of other specified B group vitamins; E78.5 Hyperlipidemia, unspecified; I10 Essential (primary) hypertension; R07.9 Chest pain, unspecified; R79.89 Other specified abnormal findings of blood chemistry; Z13.31 Encounter for screening for depression | CPT/HCPCS: 96127; 99212; 99396 ==